=== PATIENT | male | born 1930 | race Caucasian/White ===

== ENCOUNTER 2017-02-28 09:01 | Inpatient (IN) | payer OTHER ==
--- NOTE | 2017-02-28 09:06 | EDPHY ---
H & P Time Seen by Provider: 02/28/17 09:01 HPI/ROS: CHIEF COMPLAINT: Black and bloody stools HISTORY OF PRESENT ILLNESS: Arrives with 8 episodes since midnight of bloody stools, a little bit dizzy. Lowest systolic blood pressure by EMS was 102. Currently the patient has no complaints, had another bloody bowel movement at 9: 28 a.m. No history of ulcer or lower GI bleed, not anticoagulated. REVIEW OF SYSTEMS: Eye: no change in vision ENT: no sore throat Cardiac: no chest pain or syncope Pulmonary: no cough or SOB Abdomen: HPI no vomiting Musculoskeletal: no back pain Skin: no rash Neuro: no headache Constitutional: no fever : no urinary symptoms A comprehensive 10 point review of systems is otherwise negative aside from elements mentioned in the history of present illness. PAST MEDICAL HISTORY: Not anticoagulated. hypertension, gout, thyroid, prostate cancer. Social history: [place] Assisted resident General Appearance: Alert and conversant, cooperative. Eyes: Pale conjunctiva. ENT, Mouth: Normal mucous membranes. Respiratory: Normal respiratory effort, breath sounds equal, lungs are clear to auscultation. Cardiovascular: Regular rate and rhythm. Gastrointestinal: Abdomen is soft and non tender. Rectal exam shows maroon stool. Neurological: Alert and oriented x3. Normally conversant. Face symmetric, normal movement and sensation in all extremities. Skin: Warm and dry, no rashes. Musculoskeletal: 1 to 2+ peripheral edema in all 4 extremities. Psychiatric: Not agitated. Emergency Department course/MDM: Discussed with the patient's daughter. IV fluid resuscitation 1 L, and transfusion ordered for hemoglobin 6 and hematocrit 18 with active bleeding. Admission to ICU. 1016: Patient emergently transfused with O-positive packed red blood cells with active bleeding, laboratory hematocrit 16, blood pressure just over 100 systolic. It is my clinical impression that risk of non crossmatched blood outweighed by potential benefit and replacing red blood cells in an 87-year-old man with active bleeding and severe anemia. Constitutional: Initial Vital Signs Temperature (C) 37.2 C 02/28/17 09:12 Heart Rate 97 02/28/17 09:12 Respiratory Rate 18 02/28/17 09:12 Blood Pressure 109/49 L 02/28/17 09:12 O2 Sat (%) 90 L 02/28/17 09:12 O2 Delivery Mode Nasal Cannula O2 (L/minute) 4 Allergies/Adverse Reactions: oxycodone [From Tylox] Allergy (Verified 02/28/17 09:16) Home Medications: Medication Instructions Recorded Acetaminophen [Tylenol 650/20.3ML 650 mg PO DAILY PRN 02/28/17 Oral Liq (*)] Allopurinol [Allopurinol 100 MG 100 mg PO DAILY 02/28/17 (*)] Bicalutamide [Casodex (*)] 50 mg PO DAILY 02/28/17 Fluticasone Nasal [Flonase Nasal 1 sprays NASAL DAILY 02/28/17 [place] (RX)] Hydrochlorothiazide [HCTZ (*)] 25 mg PO DAILY 02/28/17 Levothyroxine [Synthroid 25 mcg 25 mcg PO DAILY06 02/28/17 (*)] Lisinopril [Zestril 40 mg (*)] 40 mg PO DAILY 02/28/17 Metoprolol Tartrate [Lopressor 50 50 mg PO BID 02/28/17 mg (*)] Simvastatin [Zocor] 40 mg PO DAILY 02/28/17 amLODIPine BESYLATE [Norvasc 10 mg 10 mg PO DAILY 02/28/17 (*)] Medical Decision Making - Diagnostics EKG Interpretation: 12-lead EKG interpreted by me; official reading is in trace master. My interpretation is sinus rhythm with interventricular conduction delay rate 90 Consult/Admit Bed Type: [place] [address] Critical Care Time: Critical care time spent by me, Dr. Veliz, exclusively with the care of this patient was 30 minutes, exclusive of PA or [employer] time and exclusive of separate procedures. The organ system at risk was gastrointestinal in hematologic and I ordered IV fluid resuscitation and packed red blood cells, discussion with hospitalist service to stabilize the patient and prevent worsening of the patient's condition. - Data Points Laboratory Results: Laboratory Results 02/28/17 09:20 02/28/17 09:20 02/28/17 02/28/17 02/28/17 09:20 09:20 09:20 WBC RBC Hgb POC Hgb Hct POC Hct MCV MCH MCHC RDW Plt Count MPV Neut % (Auto) Lymph % (Auto) Price % (Auto) Eos % (Auto) Baso % (Auto) Nucleat RBC Rel Count Absolute Neuts (auto) Absolute Lymphs (auto) Absolute Monos (auto) Absolute Eos (auto) Absolute Basos (auto) Absolute Nucleated RBC Immature Gran % Immature Gran # Platelet Estimate Giant Platelets Polychromasia Hypochromasia Oval Macrocytes Acanthocytes (Spur) Schistocytes Smear Review By PT 17.8 SEC H SEC (12.0-15.0) INR 1.47 H (0.83-1.16) APTT 25.8 SEC SEC (23.0-38.0) POC Sodium Sodium 142 mEq/L mEq/L (134-144) POC Potassium Potassium 4.7 mEq/L mEq/L (3.5-5.2) POC Chloride Chloride 102 mEq/L mEq/L (97-110) Carbon Dioxide 22 mEq/l mEq/l (22-31) Anion Gap 18 mEq/L H mEq/L (8-16) POC BUN BUN 38 mg/dL H mg/dL (7-23) Creatinine 0.9 mg/dL mg/dL (0.7-1.3) POC Creatinine Estimated GFR > 60 Glucose 166 mg/dL H mg/dL (70-100) POC Glucose Calcium 8.8 mg/dL mg/dL (8.5-10.4) Patient ABO/Rh O NEGATIVE Antibody Screen NEGATIVE Crossmatch IS Only See Detail 02/28/17 02/28/17 09:20 09:18 WBC 8.72 10^3/uL 10^3/uL (3.80-9.50) RBC 1.91 10^6/uL L 10^6/uL (4.40-6.38) Hgb 5.0 g/dL L* g/dL (13.7-17.5) POC Hgb 6.1 gm/dL L gm/dL (13.7-17.5) Hct 16.2 % L* % (40.0-51.0) POC Hct 18 % L % (40-51) MCV 84.8 fL fL (81.5-99.8) MCH 26.2 pg L pg (27.9-34.1) MCHC 30.9 g/dL L g/dL (32.4-36.7) RDW TNP Plt Count 205 10^3/uL 10^3/uL (150-400) MPV TNP Neut % (Auto) 81.0 % H % (39.3-74.2) Lymph % (Auto) 6.7 % L % (15.0-45.0) Price % (Auto) 7.3 % % (4.5-13.0) Eos % (Auto) 1.8 % % (0.6-7.6) Baso % (Auto) 0.3 % % (0.3-1.7) Nucleat RBC Rel Count 0.9 % H % (0.0-0.2) Absolute Neuts (auto) 7.06 10^3/uL H 10^3/uL (1.70-6.50) Absolute Lymphs (auto) 0.58 10^3/uL L 10^3/uL (1.00-3.00) Absolute Monos (auto) 0.64 10^3/uL 10^3/uL (0.30-0.80) Absolute Eos (auto) 0.16 10^3/uL 10^3/uL (0.03-0.40) Absolute Basos (auto) 0.03 10^3/uL 10^3/uL (0.02-0.10) Absolute Nucleated RBC 0.08 10^3/uL H 10^3/uL (0-0.01) Immature Gran % 2.9 % H % (0.0-1.1) Immature Gran # 0.25 10^3/uL H 10^3/uL (0.00-0.10) Platelet Estimate ADEQUATE (ADEQ) Giant Platelets PRESENT H Polychromasia 1+ H Hypochromasia 2+ H Oval Macrocytes 1+ H Acanthocytes (Spur) 1+ H Schistocytes 2+ H Smear Review By Pending PT INR APTT POC Sodium 140 mEq/L mEq/L (134-144) Sodium POC Potassium 4.4 mEq/L mEq/L (3.3-5.0) Potassium POC Chloride 102 mEq/L mEq/L (97-110) Chloride Carbon Dioxide Anion Gap POC BUN 36 mg/dL H mg/dL (7-23) BUN Creatinine POC Creatinine 1.0 mg/dL mg/dL (0.7-1.3) Estimated GFR Glucose POC Glucose 177 mg/dL H mg/dL (70-100) Calcium Patient ABO/Rh Antibody Screen Crossmatch IS Only Medications Given: Discontinued Medications Sodium Chloride (Ns) 1,000 mls @ 0 mls/hr IV EDNOW ONE; Wide Open PRN Reason: Protocol Stop: 02/28/17 09:23 Last Admin: 02/28/17 09:43 Dose: 1,000 mls Point of Care Test Results: 02/28/17 09:18 POC Sodium 140 POC Potassium 4.4 POC Chloride 102 POC BUN 36 H POC Creatinine 1.0 POC Glucose 177 H Departure - Departure Disposition: [facility] Inpatient Acute Clinical Impression: Lower GI bleed Condition: Serious
[2017-02-28] MEDS ORDERED: NS 1,000 ML IV ONE (09:22)
[2017-02-28 09:41] LABS: % IMMATURE GRANULYOCYTES 2.9 % (0.0-1.1); ABSOLUTE IMMATURE GRANULOCYTES 0.25 10^3/uL (0.00-0.10); ABSOLUTE NRBC COUNT 0.08 10^3/uL (0-0.01); ADD DIFF? NO; ATYPICAL LYMPHOCYTE FLAG 10 (0-99); LEFT SHIFT FLG 0 (0-99); LIPEMIA HEMOLYSIS FLAG 80 (0-99); MEAN CELL HEMOGLOBIN 26.2 pg (27.9-34.1); MEAN CELL HEMOGLOBIN CONCENTR. 30.9 g/dL (32.4-36.7); MEAN CELL VOLUME 84.8 fL (81.5-99.8); NRBC-AUTO% 0.9 % (0.0-0.2); PLATELET CLUMPS FLAG 60 (0-99); PLATELET COUNT 205 10^3/uL (150-400); RED BLOOD CELL COUNT 1.91 10^6/uL (4.40-6.38)
[2017-02-28 09:44] LABS: HEMATOCRIT 16.2 % (40.0-51.0)
[2017-02-28 09:46] LABS: ANION GAP 18 mEq/L (8-16); CALCIUM 8.8 mg/dL (8.5-10.4); CARBON DIOXIDE 22 mEq/l (22-31); CHLORIDE 102 mEq/L (97-110); CREATININE 0.9 mg/dL (0.7-1.3); GLOMERULAR FILTRATION RATE > 60; GLUCOSE 166 mg/dL (70-100); POTASSIUM 4.7 mEq/L (3.5-5.2); SODIUM 142 mEq/L (134-144)
[2017-02-28 09:55] LABS: INR 1.47 (0.83-1.16); PROTIME(PATIENT) 17.8 SEC (12.0-15.0)
[2017-02-28 09:56] LABS: APTT 25.8 SEC (23.0-38.0)
[2017-02-28 10:08] LABS: ADD MORPH? YES
[2017-02-28 10:12] LABS: ACANTHOCYTES 1+; GIANT PLATELETS PRESENT; HYPOCHROMIA 2+; MACROCYTES 1+; PLATELET ESTIMATE ADEQUATE (ADEQ); POLYCHROMASIA 1+; SCHISTOCYTES 2+
[2017-02-28 10:13] LABS: ADD SCAN? POS
--- NOTE | 2017-02-28 10:19 | CPEKG ---
Heart Rate: 92 RR Interval: 652 P-R Interval: 168 QRSD Interval: 108 QT Interval: 380 QTC Interval: 471 P [place]: -4 QRS [place]: -42 T Wave [place]: 123 EKG Severity - BORDERLINE ECG - EKG Impression: SINUS RHYTHM EKG Impression: BORDERLINE IVCD WITH LAD Electronically Signed By: Mynor Veliz 28-Feb-2017 10:22:43
[2017-02-28] MEDS ORDERED: ONDANSETRON 4 MG/2 ML VIAL IVP PRN (11:10)
[2017-02-28] MEDS ORDERED: ONDANSETRON DISINTEGRATING 4 MG TAB PO PRN (11:10)
[2017-02-28] MEDS ORDERED: ACETAMINOPHEN 325 MG TAB PO PRN (11:10)
--- NOTE | 2017-02-28 12:00 | GHP ---
[f rep st] HISTORY AND PHYSICAL DATE OF ADMISSION: 02/28/2017 HISTORY OF PRESENT ILLNESS: The patient is an 87-year-old gentleman with a history of prostate cancer and hypertension, as well as known diverticular disease, who presents today with multiple episodes of bright red blood per rectum. The last couple of days, he has had a diarrheal illness. It sounds like it has been going around the [facility] where he lives. He has had a couple episodes of nausea but no vomiting. He takes an occasional aspirin. No NSAIDs. Drinks alcohol daily. Does not take aspirin or anticoagulants. This morning, he woke up about 5 a.m. with need to have a bowel movement. He had multiple episodes of liquid bright red blood. He describes 1 time getting off the toilet and back to get his phone to call 911 and feeling lightheaded, dizzy , and weak. He has not hadprevious episodes prior to this. He has not vomited anything that looks like hematemesis or coffee grounds. It does not appear that he has had melena. REVIEW OF SYSTEMS: Complete 10-point review of systems conducted and negative except as noted in the HPI. PAST MEDICAL HISTORY: 1. Hypertension. 2. Prostate cancer with prostatectomy in the . 3. Gout. SOCIAL HISTORY: He lives at the [facility]. Lifelong no tobacco use. Originally from [place], [place]. Father was a field examiner. He now lives in the [facility]. His is in a memory care unit in [place]. FAMILY HISTORY: Parents . ALLERGIES: Oxycodone. HOME MEDICATIONS: Acetaminophen, amlodipine, hydrochlorothiazide, lisinopril, metoprolol, allopurinol, bicalutamide, fluticasone nasal spray, levothyroxine, and simvastatin. PHYSICAL EXAMINATION: PRESENTING VITALS: Blood pressure 109/49, pulse 97, breathing 18 times a minute, 98% on 4 L. GENERAL: Pale, no acute distress. Sclerae are anicteric. Oropharynx clear. Mucous membranes are moist. NECK: Supple without lymphadenopathy or JVD. LUNGS: Clear to auscultation bilaterally. HEART: S1, S2. ABDOMEN: Soft, nontender, nondistended. LOWER EXTREMITIES: Showed trace edema bilaterally. Calves are nontender. SKIN: Without rash. NEUROLOGIC: Nonfocal. LABS: White count is 8. Hemoglobin is 5. Hematocrit is 16. Platelets are 205. Coags: INR is 1.5. Sodium 142, potassium 4.7, chloride 102, bicarb 22. BUN 38, creatinine 0.9, glucose is 166. Calcium is 8.8. Chest x-ray, interpreted by me, shows no acute cardiopulmonary disease. EKG, interpreted by me, shows sinus at 92 with left axis deviation, normal intervals. There are no ST or T-wave changes. I discussed the case with Dr. Gavin Flores and Dr. Mynor Veliz. ASSESSMENT AND PLAN: An 87-year-old gentleman with acute likely lower gastrointestinal bleed. 1. Acute blood loss anemia. Patient is profoundly anemic, was symptomatic. They have ordered 2 units in the emergency department. I will order an additional two. 2. Gastrointestinal bleed. I suspect this is a lower gastrointestinal bleed. I do note his BUN of 38 which I suspect is hypovolemic. I think he does not have liver disease. He had 1 episode of nausea and discussed this with Dr. Flores. I think in light of his elevated BUN and age, we will go ahead and start him on some Protonix. 3. Hypertension. I am going to hold his angiotensin-converting enzyme inhibitor, diuretic, and beta john for now given his very low hematocrit and tachycardia. 4. Gout. Continue allopurinol. 5. Code. Do not resuscitate. 6. Disposition. Inpatient status. Ill. /[id number]/MODL MTDD
--- NOTE | 2017-02-28 12:59 | PDMN ---
Medical Necessity Medical necessity: M182 GIB lower- active gross bleeding per rectum with H/H 5.0 /16.2, 4 units ordered- Pt with O2 needs of 4L sats 90%. pt with lightheadedness, dizzy and weak. HX HTN, Prostate Ca., Gout. Assisted living resident. MD anticipates > 2 midnights ongoing med nec care.
--- NOTE | 2017-02-28 13:50 | GCON ---
[f rep st] CONSULTATION GI CONSULTATION DATE OF CONSULTATION: 02/28/2017 REASON FOR CONSULTATION: Melena and posthemorrhagic anemia. HISTORY OF PRESENT ILLNESS: The patient is an 87-year-old gentleman who has recently relocated from [place] to [place] to be near his daughter. His lives in assisted living. He is independent. I was asked to see the patient today by Dr. Will for new onset of melena and posthemorrhagic anemia. The patient states that he developed some nausea followed by passage of bright red blood per rectum this morning at 5 a.m. He complained of dizziness, lightheadedness, and fatigue. He called 911 and came to [facility]. He was noted to be profoundly anemic with a hemoglobin of 5 and platelet count of 205,000. HOME MEDICATIONS: Acetaminophen, amlodipine, hydrochlorothiazide, lisinopril, metoprolol, allopurinol, fluticasone nasal spray, levothyroxine, simvastatin, and bicalutamide. ALLERGIES: He is allergic to oxycodone. PAST MEDICAL HISTORY: Significant for hypertension, gout, hypothyroidism, and a history of prostate cancer with prostatectomy in the . His past endoscopic history is significant for a total colonoscopy which showed left- sided diverticulosis 5 years ago at a [facility] in [place]. There is no personal history of colon polyps. FAMILY HISTORY: Negative for GI malignancies. SOCIAL HISTORY: Negative for GI malignancies or PUD. REVIEW OF SYSTEMS: Significant for fatigue, melena, nausea, and lightheadedness. Otherwise negative for comprehensive review of systems. PHYSICAL EXAMINATION: VITAL SIGNS: On my examination today, his temperature is 37 degrees Celsius, pulse 91 and regular, blood pressure 147/82, respiratory rate is 16, O2 saturation 96% on 6 L. GENERAL: Well-developed, well-nourished gentleman, looking pale and fatigued. Otherwise in no apparent distress. HEENT : Head atraumatic, normocephalic. Pupils equal, round, reactive to light. Sclerae nonicteric, though pale. EOMs intact. Nares patent. Mucous membranes moist. NECK: Supple. Trachea midline. PULMONARY: Lungs clear to percussion and auscultation. CARDIOVASCULAR: Regular rhythm and rate. Normal S1 and S2 without murmur. Peripheral pulses strong bilaterally. No pedal edema. GASTROINTESTINAL: Abdomen supple. Positive bowel sounds. No liver or spleen tip palpable. No masses or tenderness. EXTREMITIES: Without deformity. NEURO : Patient was alert and oriented x3. There are no focal neurologic deficits. LABS: White count 8.72, hemoglobin 5.0, hematocrit 16.2, MCV 84.8, MCHC 30.9, platelets 205,000. Pro time 17.8, INR 1.47, PTT 25.8. Electrolytes normal. BUN 38, creatinine 0.9, calcium 8.8, glucose 166. IMPRESSION: 1. Acute gastrointestinal bleed, likely diverticular, though should rule out ischemic colitis, peptic ulcer, or cancer of the colon. 2. Posthemorrhagic anemia. 3. Prerenal azotemia. 4. Hypertension by history. 5. Gout by history. 6. Prostatic cancer, status post prostatectomy in the . 7. Hypothyroidism on replacement therapy. RECOMMENDATIONS: 1. Clear liquid diet. 2. Transfuse with packed units of red blood cells slowly to obtain a hemoglobin greater than 9. 3. Intravenous proton-pump inhibitor therapy for coverage for a possible occult peptic ulcer. 4. Colyte prep tomorrow. Once hemodynamically stable and hematocrit in a safe range, then will perform total colonoscopy and esophagogastroduodenoscopy for further evaluation. /[id number]/MODL MTDD
[2017-02-28 14:07] LABS: HEMATOCRIT 19.7 % (40.0-51.0)
[2017-02-28 14:11] LABS: HEMOGLOBIN 6.8 g/dL (13.7-17.5)
[2017-02-28] MEDS: PANTOPRAZOLE SODIUM 40 MG VIAL IVP SCH ×2 (16:05→19:58)
[2017-02-28] MEDS: NS 1,000 ML IV SCH ×2 (17:12→20:23)
[2017-02-28 18:47] LABS: HEMATOCRIT 22.1 % (40.0-51.0); HEMOGLOBIN 7.4 g/dL (13.7-17.5)
--- NOTE | 2017-03-01 02:57 | GCON ---
[f rep st] CONSULTATION CRITICAL CARE CONSULT DATE OF CONSULTATION: 02/28/2017 HISTORY OF PRESENT ILLNESS: This patient is an 87-year-old male with a history of prostate cancer an d hypertension, who also was known to have diverticulosis on a colonoscopy about 5 years ago. He pre sented today to the emergency department with several episodes of bright red blood per rectum. He sa id that over the last several days, he has had what he thought was a viral gastroenteritis, which has been present in his snf facility. He had very little abdominal pain, does drink alcohol , but did not have any NSAIDs or anticoagulants. In the emergency department, he was hemodynamically stable, but his hemoglobin was 5. He was transfused some blood, tolerated this well, and remained h emodynamically stable. A GI consult was obtained and an eventual colonoscopy is planned. REVIEW OF SYSTEMS: Otherwise, negative. PAST MEDICAL HISTORY: Includes: 1. Hypertension. 2. Prostate cancer. 3. Gout. 4. Chronic lower extremity edema. 5. Chronic sinusitis. 6. Hypothyroid. PAST SURGICAL HISTORY: Includes prostatectomy in the past. SOCIAL HISTORY: He is a nonsmoker. Does drink alcohol daily, but no alcohol-related illnesses. Jose E li from [place]. FAMILY HISTORY: Noncontributory at this time. CURRENT MEDICATIONS: Include Tylenol, allopurinol, Lipitor, Casodex, Flonase, Synthroid, Protonix. PHYSICAL EXAMINATION: Vital signs include a blood pressure 92/75, heart rate of 91, he is afebrile, oxygen saturation 97% on 4 L. He was an obese male, but in no apparent distress and able to speak in full sentences without using accessory muscles for breathing. Pupils equally round and reactive to light, nonicteric and noninjected. Mucous membranes are moist without erythema or exudate. Neck was supple, without adenopathy or jugular vein distention. Breath sounds were clear to auscultation lauro aterally without wheezes or rales. Heart had a regular rate and rhythm without obvious murmur. Abdo men was soft, nontender, nondistended, without hepatosplenomegaly. No guarding and no rebound. Extr emities did show 2+ edema bilaterally, but no erythema. Neurological exam is nonfocal including cran ial nerves and deep tendon reflexes. OBJECTIVE DATA: Includes a white count of 8.7, hemoglobin 5, hematocrit 16, platelets of 205. Basic metabolic panel was essentially normal, save for a BUN of 38. INR was 1.47. LFTs were not obtained . ASSESSMENT AND PLAN: 1. Lower gastrointestinal bleed. I agree this is likely diverticular in nature. I think an upper g astrointestinal bleed is unlikely, but he is placed on Protonix at this time and will eventually get a colonoscopy. He appears to be tolerating this reasonably well. I think a slow transfusion is in o rder since he is hemodynamically quite stable at this time. 2. Lower extremity edema. This may be related to liver disease and/or heart failure, or calcium varinder nnel john that he has been previously on. I do not see a major urgency with this. He denied the symptoms of sleep apnea and other causes of pulmonary hypertension at this time,, but I think an echo cardiogram would be useful. We will also look at his liver function tests in the morning and proceed from there. /[id number]/MODL
[2017-03-01] MEDS: LEVOTHYROXINE 25 MCG TAB PO SCH (05:23)
[2017-03-01 05:54] LABS: % IMMATURE GRANULYOCYTES 2.3 % (0.0-1.1); ABSOLUTE IMMATURE GRANULOCYTES 0.15 10^3/uL (0.00-0.10); ABSOLUTE NRBC COUNT 0.04 10^3/uL (0-0.01); ADD DIFF? NO; HEMATOCRIT 22.6 % (40.0-51.0); HEMOGLOBIN 7.8 g/dL (13.7-17.5); MEAN CELL HEMOGLOBIN 28.8 pg (27.9-34.1); MEAN CELL HEMOGLOBIN CONCENTR. 34.5 g/dL (32.4-36.7); MEAN CELL VOLUME 83.4 fL (81.5-99.8); NRBC-AUTO% 0.6 % (0.0-0.2); PLATELET COUNT 126 10^3/uL (150-400); RED BLOOD CELL COUNT 2.71 10^6/uL (4.40-6.38)
[2017-03-01 05:55] LABS: ADD SCAN? NO
[2017-03-01 05:56] LABS: ADD MORPH? YES
[2017-03-01 06:36] LABS: PLATELET ESTIMATE ADEQUATE (ADEQ)
[2017-03-01 06:42] LABS: HYPOCHROMIA 2+; POLYCHROMASIA 1+; SCHISTOCYTES 1+
[2017-03-01 06:45] LABS: ALANINE AMINOTRANSFERASE 31 IU/L (21-72); ALBUMIN 2.5 g/dL (3.5-5.0); ALKALINE PHOSPHATASE 39 IU/L (38-126); ANION GAP 7 mEq/L (8-16); ASPARTATE AMINOTRANSFERASE 22 IU/L (17-59); BILIRUBIN-CONJUGATED 0.1 mg/dL (0.0-0.5); BILIRUBIN-UNCONJUGATED 0.9 mg/dL (0.0-1.1); CALCIUM 8.1 mg/dL (8.5-10.4); CARBON DIOXIDE 28 mEq/l (22-31); CHLORIDE 106 mEq/L (97-110); CREATININE 0.6 mg/dL (0.7-1.3); GLOMERULAR FILTRATION RATE > 60; GLUCOSE 101 mg/dL (70-100); POTASSIUM 3.8 mEq/L (3.5-5.2); SODIUM 141 mEq/L (134-144); TOTAL PROTEIN 4.7 g/dL (6.3-8.2)
[2017-03-01] MEDS ORDERED: NON-FORMULARY NEW DRUG (Simvastatin [Zocor] 40 MG) PO SCH (09:00)
[2017-03-01] MEDS: ATORVASTATIN CALCIUM 20 MG TAB PO SCH (09:04)
[2017-03-01] MEDS: BICALUTAMIDE 50 MG TAB PO SCH (09:04)
[2017-03-01] MEDS: PANTOPRAZOLE SODIUM 40 MG VIAL IVP SCH ×2 (09:04→20:15)
[2017-03-01] MEDS: ALLOPURINOL 100 MG TAB PO SCH (09:04)
[2017-03-01] MEDS: FLUTICASONE NASAL 120 SPRAYS/16 GM MDI NS SCH (10:00)
--- NOTE | 2017-03-01 10:02 | ASMTCMCOM ---
INÉS Note CM Note Notes: 87 year old male who lives at [facility] admitted for lower GIB. Patient is a daily drinker of ETOH and smoker. He has a hx of Prostate CA, HTN, Gout. Sudha son Jace is his MPOA. Therapies to INÉS lee to follow for discharge needs. Date Signed: 03/01/2017 10:01 AM Electronically Signed By:Tanya Poole LCSW
[2017-03-01] MEDS ORDERED: FUROSEMIDE 20 MG/2 ML VIAL IVP ONE (10:54)
--- NOTE | 2017-03-01 11:00 | HOSPPROG ---
Hospitalist Progress Note Assessment/Plan: 87 yo M LGIB ABLA: source likely lower GI GI bleed: likely diverticular endoscopy when stabilized hypoxemia: suspect volume overload from volume resuscitation check cxr lasix IV X 1 dysphagia: CONDENSER SETTER to see today prostate CA: casodex proph: scd's code: dnr Subjective: case d/w rika vargas. transfused 4 units, still anemic. no further bloody diarrhea Objective: Vital Signs Temp Pulse Resp BP Pulse Ox 36.7 C 83 20 133/55 H 98 03/01/17 08:00 03/01/17 10:00 03/01/17 10:00 03/01/17 10:00 03/01/17 10:00 Laboratory Results 03/01/17 05:20 03/01/17 05:20 02/28/17 03/01/17 03/02/17 05:59 05:59 05:59 Intake Total 5389 Output Total 100 Balance 5289 PT 17.8 SEC (12.0-15.0) H 02/28/17 09:20 INR 1.47 (0.83-1.16) H 02/28/17 09:20 - Physical Exam Constitutional: no apparent distress, appears nourished Eyes: PERRL, anicteric sclera Ears, Nose, Mouth, Throat: moist mucous membranes, hearing normal Cardiovascular: regular rate and rhythym, no murmur, rub, or gallop Respiratory: no respiratory distress, no rales or rhonchi Gastrointestinal: normoactive bowel sounds, soft, non-tender abdomen Genitourinary: no bladder fullness, No ngo in urethra Skin: warm, normal color Musculoskeletal: full muscle strength, no muscle tenderness Neurologic: AAOx3, sensation intact bilaterally ICD10 Worksheet Patient Problems: Problems Problem Status Onset Lower GI bleed Acute
[2017-03-01] MEDS: NS 1,000 ML IV SCH (12:39)
--- NOTE | 2017-03-01 12:55 | ECHO ---
[email or web address] [address] [address] Main: [phone] Fax: [email or web address] Echocardiogram Name: SHAMAR RODRIGUEZ MR#: [id number] Study Date: 03/01/2017 Study Time: 07:44 AM Date of : 1930 Age: 87 year(s) Height: 182.9 cm (72 in.) Weight: 81.65 kg (180 lb.) BSA: 2.04 m2 Gender: Male Examination: Echo Indication: Edema Image Quality: Contrast: Requested by: Aaron Gresham BP: 135 mmHg/60 mmHg Heart Rate: Rhythm: Indication: Edema Procedure Staff Monorail Car Operator: Sariah Kennedy Reading Physician: Harpal Orozco Requesting Provider: Conclusions: Left ventricle upper limits of normal. Normal global systolic LV function. The ejection fraction is estimated to be 65-70 %. No regional wall motion abnormality. The left atrium is mildly to moderately dilated. Moderate mitral annular calcification. Mild mitral valve regurgitation is present. Severe aortic valve calcification is present. Mild to moderate aortic valve regurgitation. Moderate tricuspid regurgitation is present. The pulmonary artery pressure is mildly increased. RVSP is 53mmHG.. Measurements: Chambers Valvular Assessment AV/MV Valvular Assessment TV/PV Normal Normal Normal Name Value Range Name Value Range Name Value Range Ao Radha (MM): 4.3 cm (2.2 cm-3.7 AV meanP mmHg ( - ) TR Vmax: 3.28 mm/s ( - ) cm) LVOT Vmax: 0.84 m/s (0.7 m/s-1.1 TR PGmax: 43 mmHg ( - ) IVSd (2D): 0.6 cm (0.6 cm-1.1 m/s) syst. PAP: 53 mmHg ( - ) cm) RHODA (VTI): 1.9 cm ( - ) LVDd (2D): 5.9 cm (4.2 cm-5.9 cm) LVDs (2D): 4.3 cm (2.1 cm-4 cm) LVPWd (2D): 0.8 cm (0.6 cm-1 cm) LVOTd 2.5 cm 2.5 cm mm LVEF (MOD4): 64 % (>=55 %) EF Range: 65-70 % Patient: SHAMAR RODRIGUEZ Study Date: 03/01/2017 Page 1 of 2 07:44 AM Continued Measurements: Chambers Valvular Assessment TV/PV Name Value Name Value LADs: 4.4 cm CVP (est.): 10 mmHg LADs Lon.4 cm LA Area: 30.9 cm2 Findings: Left Ventricle: Left ventricle upper limits of normal. Normal global systolic LV function. The ejection fraction is estimated to be 65-70 %. No regional wall motion abnormality. Right Ventricle: Normal size right ventricle. Left Atrium: The left atrium is mildly to moderately dilated. Right Atrium: The right atrium is mildly dilated. Mitral Valve: Moderate mitral annular calcification. Mild mitral valve regurgitation is present. Aortic Valve: Severe aortic valve calcification is present. Mild to moderate aortic valve regurgitation. AV max PG is 19mmHG. AV mean PG is 11mmHG.. Tricuspid Valve: The tricuspid valve appears normal. Moderate tricuspid regurgitation is present. The pulmonary artery pressure is mildly increased. RVSP is 53mmHG.. Pericardium: No pericardial effusion. No pleural effusion. (No Signature Object) Patient: SHAMAR RODRIGUEZ Study Date: 03/01/2017 Page 2 of 2 07:44 AM [id number]
[2017-03-01 13:03] LABS: HEMATOCRIT 27.2 % (40.0-51.0); HEMOGLOBIN 9.1 g/dL (13.7-17.5)
[2017-03-01 13:26] LABS: INR 1.18 (0.83-1.16)
[2017-03-01] MEDS ORDERED: PEG 3350/NA SULF,BICARB,CL/KCL (GAVILYTE-G) 4000 ML BTL PO ONE (16:03)
--- NOTE | 2017-03-01 16:39 | PDINTPN ---
Ware Tester Progress Note Assessment/Plan: Assessment/plan: 87 M admitted 02/28/17 complaining of BRBPR and found to have Hgb of 5 without hypotension or major tachycardia. No coagulopathy. Transfused 4 units PRBC with improved H/H and stable hemodynamics. * LGIB- likely diverticular and GI planning colonoscopy 03/02. Stable BP suggests slow chronic bleed. * JACOB- 2+ bilateral. Possible etiologies include calcium channel john antihypertensive and albumin 2.5. His LFTs were normal and his echo not likely a big contributor (EF 65, mild-moderate AR, estimated PA 53). * hypoxia-CXR shows some edema and was treated with low dose lasix today. Subjective: Stable overnight without new complaints. Difficult to arouse from sleep. Objective: Vital Signs Temp Pulse Resp BP Pulse Ox 37.7 C 81 22 H 133/66 H 97 03/01/17 16:00 03/01/17 16:00 03/01/17 16:00 03/01/17 16:00 03/01/17 16:00 Laboratory Results 03/01/17 12:40 03/01/17 05:20 02/28/17 03/01/17 03/02/17 05:59 05:59 05:59 Intake Total 5389 Output Total 100 Balance 5289 PT 15.0 SEC (12.0-15.0) 03/01/17 12:40 INR 1.18 (0.83-1.16) H 03/01/17 12:40 Physical Exam - Physical Exam General Appearance: alert, other (slow to wake), No no apparent distress EENT: PERRL/EOMI Neck: supple Respiratory: crackles (bases), No respiratory distress Cardiac/Chest: regular rate, rhythm, edema, other (paced) Abdomen: normal bowel sounds, non-tender, soft, No distended Skin: normal color, warm/dry Lymphatic: no adenopathy Extremities: pedal edema Neuro/Psych: alert, normal mood/affect, oriented x 3 ICD10 Worksheet Patient Problems: Problems Problem Status Onset Lower GI bleed Acute
--- NOTE | 2017-03-01 17:01 | SOAPPROG ---
SOAP Progress Note Assessment/Plan: Assessment: GI Bleed; resolved. R/O PUD or GI malignancy. 2. Post-hemorrhagic anemia; stabilized after transfusions of prbcs. Plan: 1. Clears liquids today. 2. Colyte prep. 3. NPO after MN. 4. EGD/Colonoscopy with propofol in am. Gavin Flores MD 03/01/17 16:57 Subjective: CC: Melena. Interval HPI: No further melena. Feeling better after transfusions of prbcs. Swallow study today without significant abnormalities. Objective: Vital Signs Temp Pulse Resp BP Pulse Ox 37.7 C 81 22 H 133/66 H 97 03/01/17 16:00 03/01/17 16:00 03/01/17 16:00 03/01/17 16:00 03/01/17 16:00 Laboratory Results 03/01/17 12:40 03/01/17 05:20 02/28/17 03/01/17 03/02/17 05:59 05:59 05:59 Intake Total 5389 Output Total 100 Balance 5289 PT 15.0 SEC (12.0-15.0) 03/01/17 12:40 INR 1.18 (0.83-1.16) H 03/01/17 12:40 Physical Exam - Physical Exam General Appearance: WD/WN, alert, no apparent distress Neck: supple Respiratory: chest non-tender, lungs clear Cardiac/Chest: normal peripheral pulses, regular rate, rhythm Abdomen: normal bowel sounds, non-tender, soft Skin: warm/dry Neuro/Psych: alert, normal mood/affect, oriented x 3 ICD10 Worksheet Patient Problems: Problems Problem Status Onset Lower GI bleed Acute
[2017-03-01 18:36] LABS: HEMATOCRIT 32.2 % (40.0-51.0); HEMOGLOBIN 11.3 g/dL (13.7-17.5)
[2017-03-02 00:39] LABS: POTASSIUM 3.3 mEq/L (3.5-5.2)
[2017-03-02] MEDS ORDERED: PROTOCOL MAGNESIUM 1 DOSE IV PRN (00:59)
[2017-03-02] MEDS ORDERED: PROTOCOL POTASSIUM 1 DOSE MISC PRN (00:59)
[2017-03-02] MEDS ORDERED: PROTOCOL K PHOSPHATE 1 DOSE IV PRN (00:59)
[2017-03-02] MEDS ORDERED: PROTOCOL CALCIUM 1 DOSE IV PRN (01:04)
[2017-03-02] MEDS: POTASSIUM Cl (KCl) 50 ML IV SCH ×3 (01:22→01:25)
[2017-03-02 04:31] LABS: IONIZED CALCIUM 1.11 MMOL/L (1.12-1.30)
[2017-03-02] MEDS: LEVOTHYROXINE 25 MCG TAB PO SCH (04:35)
[2017-03-02] MEDS ORDERED: CALCIUM GLUCONATE 50 ML IV ONE (04:36)
[2017-03-02 04:50] LABS: % IMMATURE GRANULYOCYTES 1.4 % (0.0-1.1); ABSOLUTE IMMATURE GRANULOCYTES 0.09 10^3/uL (0.00-0.10); ABSOLUTE NRBC COUNT 0.02 10^3/uL (0-0.01); ADD DIFF? NO; ADD MORPH? YES; ADD SCAN? NO; ATYPICAL LYMPHOCYTE FLAG 0 (0-99); HEMATOCRIT 28.1 % (40.0-51.0); HEMOGLOBIN 9.6 g/dL (13.7-17.5); LEFT SHIFT FLG 0 (0-99); LIPEMIA HEMOLYSIS FLAG 90 (0-99); MEAN CELL HEMOGLOBIN 29.6 pg (27.9-34.1); MEAN CELL HEMOGLOBIN CONCENTR. 34.2 g/dL (32.4-36.7); MEAN CELL VOLUME 86.7 fL (81.5-99.8); NRBC-AUTO% 0.3 % (0.0-0.2); PLATELET CLUMPS FLAG 40 (0-99); PLATELET COUNT 97 10^3/uL (150-400); RED BLOOD CELL COUNT 3.24 10^6/uL (4.40-6.38)
[2017-03-02 04:52] LABS: FRAGMENT RBC FLAG 110 (0-99); RED CELL DISTRIBUTION WIDTH 23.6 % (11.5-15.2)
[2017-03-02 05:06] LABS: ANION GAP 7 mEq/L (8-16); CALCIUM 7.9 mg/dL (8.5-10.4); CARBON DIOXIDE 31 mEq/l (22-31); CHLORIDE 103 mEq/L (97-110); CREATININE 0.5 mg/dL (0.7-1.3); GLOMERULAR FILTRATION RATE > 60; GLUCOSE 87 mg/dL (70-100); MAGNESIUM 1.8 mg/dL (1.6-2.3); POTASSIUM 3.8 mEq/L (3.5-5.2); SODIUM 141 mEq/L (134-144)
[2017-03-02 05:21] LABS: HYPOCHROMIA 2+; PLATELET ESTIMATE DECREASED (ADEQ); POLYCHROMASIA 1+; SCHISTOCYTES 1+
[2017-03-02] MEDS ORDERED: MAGNESIUM SULF 1 GM/DEXTROSE 100 ML IV ONE ×2 (06:27→16:15)
[2017-03-02] MEDS ORDERED: POTASSIUM Cl (KCl) 50 ML IV ONE ×2 (06:27→16:15)
[2017-03-02] MEDS: NS 1,000 ML IV SCH (06:48)
[2017-03-02] MEDS ORDERED: LR 1,000 ML IV ONE (08:45)
--- NOTE | 2017-03-02 09:06 | PDANEPAE ---
ANE Past Medical History - Cardiovascular History Hx Hypertension: Yes - Pulmonary History Hx Oxygen in Use at Home: No Hx Sleep Apnea: Yes Sleep Apnea Screening Result - Last Documented: Positive - Endocrine History Hx Diabetes: No - Chronic Pain History Chronic Pain: No ANE Review of Systems Review of Systems: ANE Patient History - Allergies Allergies/Adverse Reactions: oxycodone [From Tylox] Allergy (Verified 02/28/17 09:16) - Home Medications Home Medications: Acetaminophen [Tylenol 650/20.3ML Oral Liq (*)] 650 mg PO DAILY PRN 02/28/17 [ Last Taken Unknown] Allopurinol [Allopurinol 100 MG (*)] 100 mg PO DAILY 02/28/17 [Last Taken Unknown] Bicalutamide [Casodex (*)] 50 mg PO DAILY 02/28/17 [Last Taken Unknown] Fluticasone Nasal [Flonase Nasal Dickerson (RX)] 1 sprays NASAL DAILY 02/28/17 [ Last Taken Unknown] Hydrochlorothiazide [HCTZ (*)] 25 mg PO DAILY 02/28/17 [Last Taken Unknown] Levothyroxine [Synthroid 25 mcg (*)] 25 mcg PO DAILY06 02/28/17 [Last Taken Unknown] Lisinopril [Zestril 40 mg (*)] 40 mg PO DAILY 02/28/17 [Last Taken Unknown] Metoprolol Tartrate [Lopressor 50 mg (*)] 50 mg PO BID 02/28/17 [Last Taken Unknown] Simvastatin [Zocor] 40 mg PO DAILY 02/28/17 [Last Taken Unknown] amLODIPine BESYLATE [Norvasc 10 mg (*)] 10 mg PO DAILY 02/28/17 [Last Taken Unknown] - NPO status NPO Since - Liquids (Date): 03/01/17 NPO Since - Liquids (Time): 23:59 NPO Since - Solids (Date): 03/01/17 NPO Since - Solids (Time): 23:59 - Anes Hx Anes Hx: no prior problems - Smoking Hx Smoking Status: Former smoker - Alcohol Use Alcohol Use: Occasionally ANE Labs/Vital Signs - Labs Result Diagrams: 03/02/17 04:28 03/02/17 04:28 - Vital Signs Blood Pressure: 128/55 Heart Rate: 88 Respiratory Rate: 24 O2 Sat (%): 95 Height: 182.88 cm Weight: 81.67 kg ANE Physical Exam - Airway Mallampati Score: Class 2 - ASA Status ASA Status: III ANE Anesthesia Plan Total IV Anesthesia: Yes
[2017-03-02] MEDS ORDERED: PROPOFOL 200 MG/20 ML VIAL ONE (09:07)
--- NOTE | 2017-03-02 09:30 | GIREPORT ---
[facility] Surgical Services - Endoscopy Department Patient Name: Nacho Greer Procedure Date: 03/02/2017 9:08 AM Patient Type: Inpatient Attending MD/ ER Physician: Gavin Flores MD Procedure: Upper GI endoscopy Indications: Acute post hemorrhagic anemia, Heartburn, Melena Providers: Gavin Flores MD Medicines: Monitored Anesthesia Care Complications: No immediate complications. Description of Procedure: After obtaining informed consent, the endoscope was passed under direct vision. Throughout the procedure, the patient's blood pressure, pulse, and oxygen saturations were monitored continuously. The Endoscope was intro duced through the mouth, and advanced to the second part of duodenum. The [facility] er GI endoscopy was accomplished without difficulty. The patient tolerated th e procedure well. Findings: The examined esophagus was normal. Patchy moderate inflammation characterized by erosions and granularity was found in the gastric body and in the gastric antrum. Biopsies were take n with a cold forceps for histology. The examined duodenum was normal. Estimated Blood Loss: Estimated blood loss: none. Post Op Diagnosis: - Normal esophagus. - Gastritis. Biopsied. - Normal examined duodenum. Recommendation: - Perform a colonoscopy today. Attending Participation: I personally performed the entire procedure. Gavin Flores MD Gavin Flores MD 03/02/2017 9:29:55 AM This report has been signed electronicallyJoazalia Flores MD Number of Addenda: 0 Note Initiated On: 03/02/2017 9:08 AM [email or web address]
--- NOTE | 2017-03-02 09:51 | GIREPORT ---
[facility] Surgical Services - Endoscopy Department Patient Name: Nacho Greer Procedure Date: 03/02/2017 9:47 AM Patient Type: Inpatient Attending MD/ ER Physician: Gavin Flores MD Procedure: Colonoscopy Indications: Melena, Acute post hemorrhagic anemia Providers: Gavin Flores MD Medicines: Monitored Anesthesia Care Complications: No immediate complications. Description of Procedure: After obtaining informed consent, the scope was passed under direct vis ion. Throughout the procedure, the patient's blood pressure, pulse, and oxyg en saturations were monitored continuously. The Colonoscope was introduced through the anus and advanced to the sigmoid colon. The colonoscopy was extremely difficult due to multiple diverticula in the colon, bowel weston nosis and a tortuous colon. The patient tolerated the procedure well. The oleksandr lity of the bowel preparation was fair. Findings: Multiple diverticula were found in the distal sigmoid colon. The rectum appeared normal. The perianal and digital rectal examinations were normal. Estimated Blood Loss: Estimated blood loss: none. Post Op Diagnosis: - Preparation of the colon was fair. - Diverticulosis in the distal sigmoid colon. - The rectum is normal. - No specimens collected. Recommendation: - [facility]. - Perform a virtual colonoscopy today. Attending Participation: I personally performed the entire procedure. Gavin Flores MD Gavin Flores MD 03/02/2017 9:50:59 AM This report has been signed electronicallyGavin Flores MD Number of Addenda: 0 Note Initiated On: 03/02/2017 9:47 AM [email or web address]
[2017-03-02] MEDS ORDERED: NALOXONE HCL 0.4 MG/ML INJ IVP PRN (10:01)
[2017-03-02] MEDS ORDERED: LR 500 ML IV PRN (10:01)
[2017-03-02] MEDS ORDERED: fentaNYL 100 MCG/2 ML INJ IVP PRN (10:01)
--- NOTE | 2017-03-02 10:03 | POSTANESTH ---
Post Anesthetic Evaluation Cardiovascular Status: Similar to Pre-Op Cond Respiratory Status: Similar to Pre-op Cond. Level of Consciousness/Mental Status: Can Participate in Eval Pain Control: Adequate, Prn Tx Ordered Nausea/Vomiting Control: Adequate, Prn Tx Ordered Complications Possibly Related to Anesthesia: None Noted
--- NOTE | 2017-03-02 11:52 | HOSPPROG ---
Hospitalist Progress Note Assessment/Plan: # GIB - EGD with gastritis; colonoscopy technically difficult - check virtual colonoscopy today - cont protonix, can likely change to PO soon # ABLA d/t above - s/p 6U PRBC # acute hypoxic resp failure - suspect volume - lasix 20 IV x 1 # LUE edema - check US; also has some LE edema # prostate ca s/p prostatectomy - casodex # htn - holding meds now # hypothyroid - synthroid Subjective: s/p EGD and colonoscopy today; tolerated well Objective: Vital Signs Temp Pulse Resp BP Pulse Ox 36.8 C 94 25 H 143/72 H 94 03/02/17 11:02 03/02/17 11:02 03/02/17 11:02 03/02/17 11:02 03/02/17 11:02 Laboratory Results 03/02/17 04:28 03/02/17 04:28 03/01/17 03/02/17 03/03/17 05:59 05:59 05:59 Intake Total 5389 7064 100 Output Total 100 3400 Balance 5289 3664 100 PT 15.0 SEC (12.0-15.0) 03/01/17 12:40 INR 1.18 (0.83-1.16) H 03/01/17 12:40 chart reviewed discussed with Dr Gresham on ICU rounds op notes reviewed - Physical Exam Constitutional: no apparent distress, appears nourished Cardiovascular: regular rate and rhythym, no murmur, rub, or gallop Respiratory: no respiratory distress, no rales or rhonchi, clear to auscultation Gastrointestinal: normoactive bowel sounds, soft, non-tender abdomen, no palpable masses ICD10 Worksheet Patient Problems: Problems Problem Status Onset Lower GI bleed Acute
--- NOTE | 2017-03-02 14:10 | PDINTPN ---
Mental Health Orderly Progress Note Assessment/Plan: Assessment/plan: 87 M admitted 02/28/17 complaining of BRBPR and found to have Hgb of 5 without hypotension or major tachycardia. No coagulopathy. Transfused 4 units PRBC with improved H/H and stable hemodynamics. * LGIB- likely diverticular and as found on colonoscopy 03/02. Stable BP suggests slow chronic bleed. * JACOB- 2+ bilateral. Possible etiologies include calcium channel john antihypertensive and albumin 2.5. His LFTs were normal and his echo not likely a big contributor (EF 65, mild-moderate AR, estimated PA 53). * hypoxia-CXR shows some edema and was treated with low dose lasix 03/01. Encourage IS, but would hold lasix today 03/02/17 14:08 Objective: Vital Signs Temp Pulse Resp BP Pulse Ox 36.8 C 100 26 H 135/60 H 95 03/02/17 11:02 03/02/17 12:00 03/02/17 12:00 03/02/17 12:00 03/02/17 12:00 Laboratory Results 03/02/17 04:28 03/02/17 04:28 03/01/17 03/02/17 03/03/17 05:59 05:59 05:59 Intake Total 5389 7064 100 Output Total 100 3400 Balance 5289 3664 100 PT 15.0 SEC (12.0-15.0) 03/01/17 12:40 INR 1.18 (0.83-1.16) H 03/01/17 12:40 Physical Exam - Physical Exam General Appearance: no apparent distress EENT: PERRL/EOMI Respiratory: decreased breath sounds, rales Cardiac/Chest: regular rate, rhythm, edema Abdomen: non-tender, soft, No distended Skin: normal color, warm/dry Lymphatic: no adenopathy Extremities: pedal edema Neuro/Psych: normal mood/affect, oriented x 3 ICD10 Worksheet Patient Problems: Problems Problem Status Onset Lower GI bleed Acute
[2017-03-02] MEDS: ATORVASTATIN CALCIUM 20 MG TAB PO SCH (14:34)
[2017-03-02] MEDS: ALLOPURINOL 100 MG TAB PO SCH (14:34)
[2017-03-02] MEDS: BICALUTAMIDE 50 MG TAB PO SCH (14:35)
[2017-03-02] MEDS: PANTOPRAZOLE SODIUM 40 MG VIAL IVP SCH (14:35)
[2017-03-02] MEDS: FLUTICASONE NASAL 120 SPRAYS/16 GM MDI NS SCH (15:23)
[2017-03-02] MEDS ORDERED: POTASSIUM Cl (KCl) 20 MEQ/50 ML BAG IV ONE (16:24)
[2017-03-02 19:01] LABS: HEMOGLOBIN 6.4 g/dL (13.7-17.5)
[2017-03-02] MEDS: PANTOPRAZOLE SODIUM 80 MG in NS 100 ML IV SCH (20:24)
[2017-03-02] MEDS ORDERED: NS BOLUS 500 ML (Wide open) IV ONE (20:30)
--- NOTE | 2017-03-02 20:36 | HOSPPROG ---
Hospitalist Progress Note Assessment/Plan: I was called to the pt's bedside due to acute drop in Hgb, Hypotension, and tachycardia. Hgb has dropped to 6.4 He is hypotensive with a BP of 92/50. Was 143 at some point today He has some weakness but denies abd pain, chest pain, SOB, or other. O: VS reviewed pale NAD AAOX3 TACHY CTAB S/NT/ND NO LE EDEMA #Acute blood loss anemia #Hypotension #Tachycardia #GI Bleed I have ordered a NS bolus and his BP has responded well to it. BP now around 127 systolic. Tachycardia 110's. Stat PRBC 2 units will be transfused ICU status NPO Protonix drip He has required Lasix previously but will not order at this time GI following, may need more urgent intervention. Total critical care time is 40 minutes Objective: Vital Signs Temp Pulse Resp BP Pulse Ox 36.3 C 110 H 27 H 92/50 L 100 03/02/17 19:28 03/02/17 19:28 03/02/17 19:28 03/02/17 19:28 03/02/17 19:28 Laboratory Results 03/02/17 18:36 03/02/17 04:28 03/01/17 03/02/17 03/03/17 05:59 05:59 05:59 Intake Total 5389 7064 250 Output Total 100 3400 Balance 5289 3664 250 PT 15.0 SEC (12.0-15.0) 03/01/17 12:40 INR 1.18 (0.83-1.16) H 03/01/17 12:40 ICD10 Worksheet Patient Problems: Problems Problem Status Onset Lower GI bleed Acute
[2017-03-03 00:44] LABS: POTASSIUM 4.3 mEq/L (3.5-5.2)
[2017-03-03 04:06] LABS: IONIZED CALCIUM 1.15 MMOL/L (1.12-1.30)
[2017-03-03 04:08] LABS: % IMMATURE GRANULYOCYTES 1.6 % (0.0-1.1); ABSOLUTE NRBC COUNT 0.04 10^3/uL (0-0.01); ADD DIFF? NO; ADD MORPH? YES; ADD SCAN? NO; ATYPICAL LYMPHOCYTE FLAG 10 (0-99); HEMATOCRIT 20.3 % (40.0-51.0); HEMOGLOBIN 7.1 g/dL (13.7-17.5); LEFT SHIFT FLG 0 (0-99); LIPEMIA HEMOLYSIS FLAG 90 (0-99); MEAN CELL HEMOGLOBIN 30.6 pg (27.9-34.1); MEAN CELL VOLUME 87.5 fL (81.5-99.8); NRBC-AUTO% 0.7 % (0.0-0.2); PLATELET CLUMPS FLAG 10 (0-99); PLATELET COUNT 74 10^3/uL (150-400); RED BLOOD CELL COUNT 2.32 10^6/uL (4.40-6.38); RED CELL DISTRIBUTION WIDTH 19.9 % (11.5-15.2)
[2017-03-03 04:16] LABS: ANION GAP 4 mEq/L (8-16); CALCIUM 7.4 mg/dL (8.5-10.4); CARBON DIOXIDE 28 mEq/l (22-31); CHLORIDE 106 mEq/L (97-110); CREATININE 0.6 mg/dL (0.7-1.3); GLOMERULAR FILTRATION RATE > 60; GLUCOSE 120 mg/dL (70-100); MAGNESIUM 1.9 mg/dL (1.6-2.3); POTASSIUM 4.5 mEq/L (3.5-5.2); SODIUM 138 mEq/L (134-144)
[2017-03-03 04:19] LABS: FRAGMENT RBC FLAG 100 (0-99)
[2017-03-03] MEDS ORDERED: FUROSEMIDE 20 MG/2 ML VIAL IVP ONE (04:44)
[2017-03-03 04:59] LABS: ACANTHOCYTES 1+; HYPOCHROMIA 1+; SCHISTOCYTES 1+
[2017-03-03 05:01] LABS: PLATELET ESTIMATE DECREASED (ADEQ)
[2017-03-03] MEDS: PANTOPRAZOLE SODIUM 80 MG in NS 100 ML IV SCH ×2 (05:10→18:39)
[2017-03-03] MEDS: LEVOTHYROXINE 25 MCG TAB PO SCH (05:24)
[2017-03-03 09:39] LABS: HEMATOCRIT 23.5 % (40.0-51.0); HEMOGLOBIN 8.2 g/dL (13.7-17.5)
--- NOTE | 2017-03-03 10:02 | SOAPPROG ---
SOAP Progress Note Assessment/Plan: Assessment: GI Bleed; recurred last night an continues today; likely colonic source. Unable to visualize colon with colonoscopy or virtual colonoscopy 2. Post-hemorrhagic anemia. Plan: 1. NPO. 2. Transfuse to maintain HCT of 30. 2. Emergent Mesenteric angiography. Gavin Flores MD 03/03/17 10:04 Subjective: CC: Continued GI bleed Interval HPI: Continued passage of BRB. Additinal blood transfusions last night. Discussed need for emergent angiography today with patient and daughter. They are in agreement. Objective: Vital Signs Temp Pulse Resp BP Pulse Ox 36.5 C 112 H 18 128/71 H 95 03/03/17 04:00 03/03/17 06:00 03/03/17 06:00 03/03/17 06:00 03/03/17 06:00 Laboratory Results 03/03/17 09:15 03/03/17 03:55 03/02/17 03/03/17 03/04/17 05:59 05:59 05:59 Intake Total 7064 2235 Output Total 3400 Balance 3664 2235 PT 15.0 SEC (12.0-15.0) 03/01/17 12:40 INR 1.18 (0.83-1.16) H 03/01/17 12:40 Physical Exam - Physical Exam General Appearance: WD/WN, alert, mild distress Respiratory: lungs clear, normal breath sounds Cardiac/Chest: regular rate, rhythm, edema (in hands) Abdomen: normal bowel sounds, non-tender, soft Skin: normal color, warm/dry Neuro/Psych: alert, normal mood/affect, oriented x 3 ICD10 Worksheet Patient Problems: Problems Problem Status Onset Lower GI bleed Acute
[2017-03-03] MEDS ORDERED: HEPARIN 10,000 UNIT/10 ML MDV IVP PRN (10:57)
[2017-03-03] MEDS ORDERED: ALTEPLASE 2 MG VIAL IVP PRN (10:57)
[2017-03-03] MEDS ORDERED: PROTAMINE SULFATE 50 MG/5 ML VIAL IVP PRN (10:57)
[2017-03-03] MEDS ORDERED: NS 1,000 ML IV SCH (11:00)
[2017-03-03] MEDS ORDERED: fentaNYL 100 MCG/2 ML INJ IVP PRN (11:00)
[2017-03-03] MEDS ORDERED: MEPERIDINE 25 MG/ML SYR IVP PRN (11:00)
[2017-03-03] MEDS ORDERED: MIDAZOLAM 2 MG/2 ML VIAL IVP PRN (11:00)
[2017-03-03] MEDS ORDERED: NALOXONE HCL 0.4 MG/ML INJ IVP PRN (11:00)
[2017-03-03] MEDS ORDERED: FLUMAZENIL 0.5 MG/5 ML MDV IVP PRN (11:00)
--- NOTE | 2017-03-03 11:43 | PDPROPOC ---
Sedation Plan of Care Sedation Plan of Care: vital signs stable, mental status noted, patient educated of risks, benefits, alternatives, patient can tolerate sedation ASA Classification: ASA 4 Planned drugs: fentanyl, midazolam Mallampati Score: Class 4 Mallampati Reference Image: Patient passed 3-3-2 rule?: Yes
[2017-03-03] MEDS ORDERED: IOPAMIDOL (ISOVUE-300) 100 ML BTL ONE (11:48)
[2017-03-03] MEDS ORDERED: IOPAMIDOL (ISOVUE-370) 150 ML BTL IV ONE (11:49)
[2017-03-03] MEDS: GLUCAGON HCL 1 MG VIAL IVP PRN ×2 (11:56→12:26)
[2017-03-03] MEDS ORDERED: GLUCAGON HCL 1 MG VIAL ONE (12:11)
[2017-03-03] MEDS ORDERED: NITROGLYCERIN/D5W 50 MG/250 ML BOTTLE IV ONE (12:15)
[2017-03-03] MEDS ORDERED: HEPARIN 10,000 UNIT/10 ML MDV ONE (12:15)
--- NOTE | 2017-03-03 12:46 | PDRADPN ---
Radiology Procedure Note Date of Procedure: 03/03/17 Radiologist: Jace Peña Anesthesia: Local (Specify) Pre-op Diagnosis: Gastrointestinal bleeding Post-op Diagnosis: same Indication: Unable to find source of bleeding endoscopically Procedure: 2-vessel mesenteric arteriography pre- and post-lytic provocation Finding(s): No bleeding identified. 2mg TPA, 2000 units heparin, and 600 mcg NTG given into RICHA. Starclose right groin for hemostasis. Inf/Abcess present in the surg proc area at time of surgery?: No EBL: Minimal Complications: 0
[2017-03-03] MEDS: BICALUTAMIDE 50 MG TAB PO SCH (13:59)
[2017-03-03] MEDS: ALLOPURINOL 100 MG TAB PO SCH (13:59)
[2017-03-03] MEDS: ATORVASTATIN CALCIUM 20 MG TAB PO SCH (14:00)
[2017-03-03] MEDS: FLUTICASONE NASAL 120 SPRAYS/16 GM MDI NS SCH (14:00)
--- NOTE | 2017-03-03 14:09 | PDINTPN ---
[employer]ender Progress Note Assessment/Plan: Assessment/plan: 87 M admitted 02/28/17 complaining of BRBPR and found to have Hgb of 5 without hypotension or major tachycardia. No coagulopathy. Transfused 4 units PRBC with improved H/H and stable hemodynamics. * LGIB- likely diverticular and as noted on colonoscopy 03/02 at least in the sigmoid colon. The initial procedure was incomplete, so a virtual colonoscopy was attempted, but that was also incomplete and poorly tolerated. He then went to IR for angiography in hopes of identifying the bleeding site since he required additional RBCs overnight, but no source was identified even with provocation. His Hct is stable for now as is his BP (around 100-110/x) though his HR is in the upper 110-120. Careful observation for now. * JACOB- 2+ bilateral. Possible etiologies include calcium channel john antihypertensive and albumin 2.5. His LFTs were normal and his echo not likely a big contributor (EF 65, mild-moderate AR, estimated PA 53). * hypoxia-CXR shows some edema and was treated with low dose lasix 03/01. Encourage IS, but would hold additional diuretics for now * Subjective: Required additional RBC transfusion overnight for continued fall in H/H. Objective: Vital Signs Temp Pulse Resp BP Pulse Ox 36.9 C 108 H 28 H 127/64 H 91 L 03/03/17 13:06 03/03/17 13:06 03/03/17 13:06 03/03/17 13:06 03/03/17 13:06 Laboratory Results 03/03/17 09:15 03/03/17 03:55 03/02/17 03/03/17 03/04/17 05:59 05:59 05:59 Intake Total 7064 2235 300 Output Total 3400 Balance 3664 2235 300 PT 15.0 SEC (12.0-15.0) 03/01/17 12:40 INR 1.18 (0.83-1.16) H 03/01/17 12:40 Physical Exam - Physical Exam General Appearance: alert, no apparent distress, obese EENT: PERRL/EOMI Neck: supple Respiratory: crackles (bases), No respiratory distress, No wheezing Cardiac/Chest: regular rate, rhythm, edema Abdomen: non-tender, soft, No distended Skin: normal color, warm/dry Lymphatic: no adenopathy Extremities: pedal edema Neuro/Psych: alert, normal mood/affect, oriented x 3 ICD10 Worksheet Patient Problems: Problems Problem Status Onset Lower GI bleed Acute
--- NOTE | 2017-03-03 15:36 | HOSPPROG ---
Hospitalist Progress Note Assessment/Plan: # GIB - EGD with gastritis; colonoscopy technically difficult though diverticula seen - has been hemodynamically unstable - IR angiography did not reveal source - if rebleeds briskly recommend repeat emergent IR angiography # ABLA d/t above - s/p 8U PRBC - trend H/H # acute hypoxic resp failure - suspect volume; hold on further diuresis today # prostate ca s/p prostatectomy - casodex # htn - holding meds now # hypothyroid - synthroid Subjective: hypotensive last night, got additional transfusions; IR for angiography did not reveal bleeding source Objective: Vital Signs Temp Pulse Resp BP Pulse Ox 36.9 C 108 H 28 H 127/64 H 91 L 03/03/17 13:06 03/03/17 13:06 03/03/17 13:06 03/03/17 13:06 03/03/17 13:06 Laboratory Results 03/03/17 09:15 03/03/17 03:55 03/02/17 03/03/17 03/04/17 05:59 05:59 05:59 Intake Total 7064 2235 300 Output Total 3400 Balance 3664 2235 300 PT 15.0 SEC (12.0-15.0) 03/01/17 12:40 INR 1.18 (0.83-1.16) H 03/01/17 12:40 - Physical Exam Constitutional: other (sleeping, still sedated from IR procedure) Cardiovascular: regular rate and rhythym, no murmur, rub, or gallop Respiratory: no respiratory distress, no rales or rhonchi, clear to auscultation Gastrointestinal: normoactive bowel sounds, soft, non-tender abdomen, no palpable masses ICD10 Worksheet Patient Problems: Problems Problem Status Onset Lower GI bleed Acute
[2017-03-03 19:09] LABS: HEMATOCRIT 19.4 % (40.0-51.0)
[2017-03-03 19:30] LABS: HEMOGLOBIN 6.6 g/dL (13.7-17.5)
[2017-03-04 00:23] LABS: HEMATOCRIT 20.8 % (40.0-51.0); HEMOGLOBIN 7.3 g/dL (13.7-17.5)
[2017-03-04 00:37] LABS: POTASSIUM 3.9 mEq/L (3.5-5.2)
[2017-03-04] MEDS: PANTOPRAZOLE SODIUM 80 MG in NS 100 ML IV SCH ×3 (04:18→22:01)
[2017-03-04 05:08] LABS: HEMATOCRIT 22.9 % (40.0-51.0); HEMOGLOBIN 7.7 g/dL (13.7-17.5)
[2017-03-04 05:24] LABS: MAGNESIUM 2.1 mg/dL (1.6-2.3); POTASSIUM 3.7 mEq/L (3.5-5.2)
[2017-03-04] MEDS: LEVOTHYROXINE 25 MCG TAB PO SCH (05:47)
[2017-03-04] MEDS ORDERED: POTASSIUM Cl (KCl) 50 ML IV ONE (06:40)
[2017-03-04] MEDS: FLUTICASONE NASAL 120 SPRAYS/16 GM MDI NS SCH (08:59)
[2017-03-04] MEDS: ALLOPURINOL 100 MG TAB PO SCH (09:00)
[2017-03-04] MEDS: BICALUTAMIDE 50 MG TAB PO SCH (09:00)
[2017-03-04] MEDS: ATORVASTATIN CALCIUM 20 MG TAB PO SCH (09:00)
--- NOTE | 2017-03-04 10:24 | SOAPPROG ---
SOAP Progress Note Assessment/Plan: Assessment: 1. GI Bleed is likely diverticular; negative angiography yesterday. No active bleeding since yesterday. One small black stool today. Unable to visualize colon above distal sigmoid with colonoscopy and virtual colonoscopy exam inadequate. 2. Post-hemorrhagic anemia; stable. 3. Fluid overload. Plan: 1. Regular diet 2. Will need virtual colonoscopy vs abdominal/pelvic CT vs repeat colonoscopy EGD scope if has recurrent bleeding. 3. Diuresis per Hospitalist. Gavin Flores MD 03/04/17 10:26 Subjective: CC: LGI Bleed. Interval HPI: Patient without GI complaints today other than one small black BM this ad. He is hungry and wants a regular diet! Objective: Vital Signs Temp Pulse Resp BP Pulse Ox 36.5 C 98 24 H 124/57 H 94 03/04/17 04:00 03/04/17 08:00 03/04/17 08:00 03/04/17 08:00 03/04/17 08:00 Laboratory Results 03/04/17 04:55 03/04/17 04:55 03/03/17 03/04/17 03/05/17 05:59 05:59 05:59 Intake Total 2235 2005 Balance 2235 2005 PT 15.0 SEC (12.0-15.0) 03/01/17 12:40 INR 1.18 (0.83-1.16) H 03/01/17 12:40 Physical Exam - Physical Exam General Appearance: alert, no apparent distress Neck: supple Respiratory: lungs clear, normal breath sounds Cardiac/Chest: regular rate, rhythm, other (+2 pedal edema and edema of hands.) Abdomen: normal bowel sounds, non-tender, soft Neuro/Psych: alert, normal mood/affect, oriented x 3 ICD10 Worksheet Patient Problems: Problems Problem Status Onset Lower GI bleed Acute
--- NOTE | 2017-03-04 10:43 | HOSPPROG ---
Hospitalist Progress Note Assessment/Plan: # GIB - no significant hemorrhage in 24 hours; GI advancing diet - EGD with gastritis; colonoscopy technically difficult though diverticula seen - has been hemodynamically unstable - IR angiography did not reveal source - if rebleeds briskly recommend repeat emergent IR angiography # ABLA d/t above - s/p 10U PRBC - trend H/H # acute hypoxic resp failure - suspect volume; hold on further diuresis today with borderline hypotension # PICC thrombus - will place PICC on R arm and dc L arm PICC # prostate ca s/p prostatectomy - casodex # htn - holding meds now # hypothyroid - synthroid Subjective: only small amount of melena overnight; he is hungry Objective: Vital Signs Temp Pulse Resp BP Pulse Ox 36.5 C 98 24 H 124/57 H 94 03/04/17 04:00 03/04/17 08:00 03/04/17 08:00 03/04/17 08:00 03/04/17 08:00 Laboratory Results 03/04/17 04:55 03/04/17 04:55 03/03/17 03/04/17 03/05/17 05:59 05:59 05:59 Intake Total 2235 2005 Balance 2235 2005 PT 15.0 SEC (12.0-15.0) 03/01/17 12:40 INR 1.18 (0.83-1.16) H 03/01/17 12:40 high risk - Physical Exam Constitutional: no apparent distress, appears nourished Cardiovascular: regular rate and rhythym, no murmur, rub, or gallop Respiratory: no respiratory distress, no rales or rhonchi, clear to auscultation Gastrointestinal: normoactive bowel sounds, soft, non-tender abdomen, no palpable masses Musculoskeletal: other (anasarca) ICD10 Worksheet Patient Problems: Problems Problem Status Onset Lower GI bleed Acute
--- NOTE | 2017-03-04 12:00 | ASMTCMCOM ---
CM Note CM Note Notes: Met with patient and his daughter Fern ([phone]) to discuss discharge planning. Patient has only worked with therapies once, so more input is needed. Patient and dtr are aware that [facility] will likely require a SNF stay or more support at patient's home (homecare, unskilled help, etc) before he can return. Patient is amenable to whatever he needs to do; he is also motivated to get up and move more with therapies. He doesn't receive any assistance at [facility]; I recommended that dtr call and see if she can increase his level of assistance. I explained that insurance will cover either home care or SNF, whichever is recommended. Referrals were sent, per their request, to [facility] and [facility]. [facility] responded that they do not take patient's insurance, so I sent referrals to [facility] and [facility], as well. I left a message for patient's dtr Fern with this information. Current discharge plan is TBD. CM will follow. Date Signed: 03/04/2017 12:00 PM Electronically Signed By:Nafisa Shine RN
[2017-03-04 12:28] LABS: HEMOGLOBIN 8.6 g/dL (13.7-17.5)
[2017-03-04 18:38] LABS: HEMATOCRIT 24.7 % (40.0-51.0); HEMOGLOBIN 8.4 g/dL (13.7-17.5)
[2017-03-04 18:58] LABS: POTASSIUM 3.9 mEq/L (3.5-5.2)
[2017-03-05 00:09] LABS: HEMATOCRIT 22.6 % (40.0-51.0); HEMOGLOBIN 7.7 g/dL (13.7-17.5)
[2017-03-05 00:14] LABS: POTASSIUM 4.1 mEq/L (3.5-5.2)
[2017-03-05 04:57] LABS: IONIZED CALCIUM 1.18 MMOL/L (1.12-1.30)
[2017-03-05 05:01] LABS: HEMATOCRIT 21.4 % (40.0-51.0); HEMOGLOBIN 7.2 g/dL (13.7-17.5)
[2017-03-05 05:31] LABS: MAGNESIUM 1.9 mg/dL (1.6-2.3); POTASSIUM 3.7 mEq/L (3.5-5.2)
[2017-03-05] MEDS ORDERED: POTASSIUM Cl (KCl) 50 ML IV ONE (05:45)
[2017-03-05] MEDS: LEVOTHYROXINE 25 MCG TAB PO SCH (05:54)
[2017-03-05] MEDS ORDERED: PROPOFOL/EMULSION 1,000 MG/100 ML BOTTLE IV ONE (06:21)
[2017-03-05] MEDS: PANTOPRAZOLE SODIUM 80 MG in NS 100 ML IV SCH (08:50)
[2017-03-05] MEDS: ALLOPURINOL 100 MG TAB PO SCH (09:18)
[2017-03-05] MEDS: ATORVASTATIN CALCIUM 20 MG TAB PO SCH (09:18)
[2017-03-05] MEDS: BICALUTAMIDE 50 MG TAB PO SCH (09:18)
[2017-03-05] MEDS: FLUTICASONE NASAL 120 SPRAYS/16 GM MDI NS SCH (09:19)
[2017-03-05] MEDS ORDERED: FUROSEMIDE 20 MG/2 ML VIAL IVP ONE (09:59)
--- NOTE | 2017-03-05 10:02 | PDINTPN ---
Records Management Technician Progress Note Assessment/Plan: Assessment/plan: 87 M admitted 02/28/17 complaining of BRBPR and found to have Hgb of 5 without hypotension or major tachycardia. No coagulopathy. Transfused 4 units PRBC with improved H/H and stable hemodynamics. * LGIB- likely diverticular and as noted on colonoscopy 03/02 at least in the sigmoid colon. The initial procedure was incomplete, so a virtual colonoscopy was attempted, but that was also incomplete and poorly tolerated. He then went to IR for angiography in hopes of identifying the bleeding site since he required additional RBCs overnight, but no source was identified even with provocation. His Hct is stable for now as is his BP (around 100-110/x) though his HR is in the upper 110-120.Minimal stool overnight and no transfusion for 48 hrs. Will transfuse 1 unit RBC today for "cushion" * JACOB- 2+ bilateral. Possible etiologies include calcium channel john antihypertensive and albumin 2.5. His LFTs were normal and his echo not likely a big contributor (EF 65, mild-moderate AR, estimated PA 53). Additional 20 lasix with RBC today * hypoxia-CXR shows some edema and was treated with low dose lasix 03/01. Encourage IS, but would hold additional diuretics for now * 03/05/17 10:00 Subjective: stable overnight. Minimal BRBPR Objective: Vital Signs Temp Pulse Resp BP Pulse Ox 36.6 C 91 22 H 136/57 H 96 03/05/17 08:00 03/05/17 08:00 03/05/17 08:00 03/05/17 08:00 03/05/17 08:00 Laboratory Results 03/05/17 04:55 03/05/17 04:55 03/04/17 03/05/17 03/06/17 05:59 05:59 04:59 Intake Total 2005 1299.3 Balance 2005 1299.3 PT 15.0 SEC (12.0-15.0) 03/01/17 12:40 INR 1.18 (0.83-1.16) H 03/01/17 12:40 Physical Exam - Physical Exam General Appearance: WD/WN, alert, obese EENT: PERRL/EOMI Neck: supple Respiratory: crackles (few basilar), No respiratory distress Cardiac/Chest: regular rate, rhythm, edema Abdomen: normal bowel sounds, non-tender, soft, No distended Skin: normal color, warm/dry Lymphatic: no adenopathy Extremities: pedal edema Neuro/Psych: alert, normal mood/affect, oriented x 3 ICD10 Worksheet Patient Problems: Problems Problem Status Onset Lower GI bleed Acute
[2017-03-05 10:31] LABS: HEMATOCRIT 22.2 % (40.0-51.0); HEMOGLOBIN 7.6 g/dL (13.7-17.5)
--- NOTE | 2017-03-05 11:20 | HOSPPROG ---
Hospitalist Progress Note Assessment/Plan: # GIB - no significant hemorrhage in 24 hours; full diet - EGD with gastritis; colonoscopy technically difficult though diverticula seen - IR angiography did not reveal source - if rebleeds briskly recommend repeat emergent IR angiography # ABLA d/t above - s/p 11 PRBC - will give 1 additional unit of packed red blood cells today # acute hypoxic resp failure - suspect volume; Lasix after transfusion # PICC thrombus - PICC moved to right arm # prostate ca s/p prostatectomy - casodex # htn - holding meds now # hypothyroid - synthroid Subjective: No bloody bowel movements overnight; ambulated in the [place] Objective: Vital Signs Temp Pulse Resp BP Pulse Ox 36.6 C 99 16 114/61 95 03/05/17 08:00 03/05/17 10:00 03/05/17 10:00 03/05/17 10:00 03/05/17 10:00 Laboratory Results 03/05/17 10:15 03/05/17 04:55 03/04/17 03/05/17 03/06/17 05:59 05:59 04:59 Intake Total 2005 1299.3 Balance 2005 1299.3 PT 15.0 SEC (12.0-15.0) 03/01/17 12:40 INR 1.18 (0.83-1.16) H 03/01/17 12:40 High risk - Physical Exam Constitutional: no apparent distress, other (Pale) Cardiovascular: regular rate and rhythym, systolic murmur, No irregularly irregular, No diastolic murmur Respiratory: no respiratory distress, no rales or rhonchi, inspiratory crackles (Mild, bilateral bases) Gastrointestinal: normoactive bowel sounds, soft, non-tender abdomen ICD10 Worksheet Patient Problems: Problems Problem Status Onset Lower GI bleed Acute
--- NOTE | 2017-03-05 11:21 | ASMTCMCOM ---
CM Note CM Note Notes: After evals today, PT/OT recommending SNF. I spoke with patient's daughter who would like [facility]. I explained that the facility will accept patient pending insurance authorization and will have to request insurance authorization, likely Tuesday. Patient should transfer to the floor in the next 1-2 days and d.c mid next week. CM will follow. Date Signed: 03/05/2017 11:21 AM Electronically Signed By:Nafisa Shine RN
--- NOTE | 2017-03-05 11:46 | SOAPPROG ---
SOAP Progress Note Assessment/Plan: Assessment/Plan: G.I. bleed. No obvious source found, but most likely diverticular. Now, no further e/o bleeding. - o.k. to buffcap IV (as per hospitalist) - change to oral PPI daily, but just while here in the hospital Will sign off. As an outpt., would recommend iron replacement therapy x 2 mo., with f/u PCP prn. Please call otherwise if we can be of further help [phone] Thanks! 03/05/17 11:47 Subjective: cc: G.I. bleed No further e/o G.I. bleeding. No rigors, chills, sweats. Objective: Vital Signs Temp Pulse Resp BP Pulse Ox 36.6 C 99 16 114/61 95 03/05/17 08:00 03/05/17 10:00 03/05/17 10:00 03/05/17 10:00 03/05/17 10:00 Laboratory Results 03/05/17 10:15 03/05/17 04:55 03/04/17 03/05/17 03/06/17 05:59 05:59 04:59 Intake Total 2005 1299.3 Balance 2005 1299.3 PT 15.0 SEC (12.0-15.0) 03/01/17 12:40 INR 1.18 (0.83-1.16) H 03/01/17 12:40 Physical Exam - Physical Exam General Appearance: WD/WN, alert, no apparent distress EENT: PERRL/EOMI, normal ENT inspection, pharynx normal, TMs normal Neck: non-tender, full range of motion, supple, normal inspection Respiratory: chest non-tender, lungs clear, normal breath sounds Cardiac/Chest: normal peripheral pulses, regular rate, rhythm Peripheral Pulses: 2+: carotid (R), carotid (L), femoral (R), femoral (L), dorsalis-pedis (R), dorsalis-pedis (L) Abdomen: normal bowel sounds, non-tender, soft Male Genitalia: deferred Rectal: deferred Back: Normal inspection Skin: normal color, warm/dry Lymphatic: no adenopathy Extremities: normal range of motion, non-tender, normal inspection, normal capillary refill Neuro/Psych: no motor/sensory deficits, alert, normal mood/affect, oriented x 3 ICD10 Worksheet Patient Problems: Problems Problem Status Onset Lower GI bleed Acute
[2017-03-05 13:00] LABS: POTASSIUM 4.2 mEq/L (3.5-5.2)
[2017-03-05] MEDS ORDERED: FUROSEMIDE 20 MG/2 ML VIAL ONE (16:46)
[2017-03-05 18:19] LABS: POTASSIUM 3.8 mEq/L (3.5-5.2)
[2017-03-06 04:01] LABS: ABSOLUTE IMMATURE GRANULOCYTES 0.04 10^3/uL (0.00-0.10); ABSOLUTE NRBC COUNT 0.02 10^3/uL (0-0.01); ADD DIFF? NO; ADD MORPH? NO; ADD SCAN? NO; ATYPICAL LYMPHOCYTE FLAG 10 (0-99); FRAGMENT RBC FLAG 80 (0-99); HEMATOCRIT 24.8 % (40.0-51.0); HEMOGLOBIN 8.4 g/dL (13.7-17.5); LEFT SHIFT FLG 0 (0-99); LIPEMIA HEMOLYSIS FLAG 90 (0-99); MEAN CELL HEMOGLOBIN 30.8 pg (27.9-34.1); MEAN CELL HEMOGLOBIN CONCENTR. 33.9 g/dL (32.4-36.7); MEAN CELL VOLUME 90.8 fL (81.5-99.8); NRBC-AUTO% 0.5 % (0.0-0.2); PLATELET CLUMPS FLAG 20 (0-99); PLATELET COUNT 60 10^3/uL (150-400); RED BLOOD CELL COUNT 2.73 10^6/uL (4.40-6.38); RED CELL DISTRIBUTION WIDTH 16.3 % (11.5-15.2)
[2017-03-06 04:06] LABS: ANION GAP 6 mEq/L (8-16); CALCIUM 7.9 mg/dL (8.5-10.4); CARBON DIOXIDE 31 mEq/l (22-31); CHLORIDE 101 mEq/L (97-110); CREATININE 0.6 mg/dL (0.7-1.3); GLOMERULAR FILTRATION RATE > 60; GLUCOSE 86 mg/dL (70-100); POTASSIUM 3.6 mEq/L (3.5-5.2); SODIUM 138 mEq/L (134-144)
[2017-03-06] MEDS ORDERED: POTASSIUM CL 10 MEQ TAB PO ONE (04:21)
[2017-03-06] MEDS: LEVOTHYROXINE 25 MCG TAB PO SCH (06:13)
[2017-03-06] MEDS: ALLOPURINOL 100 MG TAB PO SCH (08:45)
[2017-03-06] MEDS: PANTOPRAZOLE SODIUM 40 MG TAB PO SCH (08:45)
[2017-03-06] MEDS: ATORVASTATIN CALCIUM 20 MG TAB PO SCH (08:45)
[2017-03-06] MEDS: FLUTICASONE NASAL 120 SPRAYS/16 GM MDI NS SCH (08:45)
[2017-03-06] MEDS: BICALUTAMIDE 50 MG TAB PO SCH (08:45)
--- NOTE | 2017-03-06 09:55 | PDINTPN ---
Biology Tutor Progress Note Assessment/Plan: Assessment/plan: 87 M admitted 02/28/17 complaining of BRBPR and found to have Hgb of 5 without hypotension or major tachycardia. No coagulopathy. Transfused 4 units PRBC with improved H/H and stable hemodynamics. * LGIB- likely diverticular and as noted on colonoscopy 03/02 at least in the sigmoid colon. The initial procedure was incomplete, so a virtual colonoscopy was attempted, but that was also incomplete and poorly tolerated. He then went to IR for angiography in hopes of identifying the bleeding site since he required additional RBCs overnight, but no source was identified even with provocation. He was transfused 03/05 1 unit RBC today for "cushion" with improved VS * JACOB- 2+ bilateral. Possible etiologies include calcium channel john antihypertensive and albumin 2.5. His LFTs were normal and his echo not likely a big contributor (EF 65, mild-moderate AR, estimated PA 53). Additional 20 lasix with RBC 03/05 * hypoxia-CXR shows some edema and was treated with low dose lasix 03/01. Encourage IS, but would hold additional diuretics for now * OK for transfer Subjective: Continues to improve. Still with minimal BM and streaks of BRB Objective: Vital Signs Temp Pulse Resp BP Pulse Ox 37.3 C 89 16 102/54 L 92 03/06/17 08:00 03/06/17 08:00 03/06/17 08:00 03/06/17 08:00 03/06/17 08:00 Laboratory Results 03/06/17 03:40 03/06/17 03:40 03/05/17 03/06/17 03/07/17 06:59 05:59 05:59 Intake Total Balance PT 15.0 SEC (12.0-15.0) 03/01/17 12:40 INR 1.18 (0.83-1.16) H 03/01/17 12:40 Physical Exam - Physical Exam General Appearance: WD/WN, alert, no apparent distress, obese EENT: PERRL/EOMI Neck: supple Respiratory: lungs clear, normal breath sounds, No respiratory distress Cardiac/Chest: regular rate, rhythm, edema Abdomen: normal bowel sounds, non-tender, soft, No distended Skin: normal color, warm/dry Lymphatic: no adenopathy Extremities: pedal edema Neuro/Psych: alert, normal mood/affect, oriented x 3 ICD10 Worksheet Patient Problems: Problems Problem Status Onset Lower GI bleed Acute
--- NOTE | 2017-03-06 10:08 | HOSPPROG ---
Hospitalist Progress Note Assessment/Plan: # GIB - no significant hemorrhage in 24 hours; full diet - EGD with gastritis; colonoscopy technically difficult though diverticula seen - IR angiography did not reveal source - if rebleeds briskly recommend repeat emergent IR angiography # ABLA d/t above - s/p 12 PRBC # acute hypoxic resp failure - suspect volume; BP too low for diuresis today # PICC thrombus - PICC moved to right arm # prostate ca s/p prostatectomy - casodex # htn - holding meds now # hypothyroid - synthroid # dispo - med surg Subjective: He feels much better; had port-wine bowel movements Objective: Vital Signs Temp Pulse Resp BP Pulse Ox 37.3 C 89 16 102/54 L 92 03/06/17 08:00 03/06/17 08:00 03/06/17 08:00 03/06/17 08:00 03/06/17 08:00 Laboratory Results 03/06/17 03:40 03/06/17 03:40 03/05/17 03/06/17 03/07/17 06:59 05:59 05:59 Intake Total Balance PT 15.0 SEC (12.0-15.0) 03/01/17 12:40 INR 1.18 (0.83-1.16) H 03/01/17 12:40 high risk - Physical Exam Constitutional: no apparent distress, appears nourished, other (Pale) Cardiovascular: regular rate and rhythym, systolic murmur, No irregularly irregular Respiratory: no respiratory distress, no rales or rhonchi, clear to auscultation Gastrointestinal: normoactive bowel sounds, soft, non-tender abdomen, no palpable masses ICD10 Worksheet Patient Problems: Problems Problem Status Onset Lower GI bleed Acute
[2017-03-07] MEDS: LEVOTHYROXINE 25 MCG TAB PO SCH (04:50)
[2017-03-07 05:40] LABS: POTASSIUM 3.9 mEq/L (3.5-5.2)
[2017-03-07] MEDS: ALLOPURINOL 100 MG TAB PO SCH (09:26)
[2017-03-07] MEDS: ATORVASTATIN CALCIUM 20 MG TAB PO SCH (09:26)
[2017-03-07] MEDS: PANTOPRAZOLE SODIUM 40 MG TAB PO SCH (09:26)
[2017-03-07] MEDS: FLUTICASONE NASAL 120 SPRAYS/16 GM MDI NS SCH (11:02)
[2017-03-07] MEDS: BICALUTAMIDE 50 MG TAB PO SCH (11:02)
--- NOTE | 2017-03-07 12:46 | ASMTCMCOM ---
CM Note CM Note Notes: Chart reviewed. Met with daughter and patient to review DC plan of care. They would like to go to [facility]. Concerns over insurance auth. They have met deductible. Sofi at [facility] to verify authorization. DC when medically stable. CM to follow. Date Signed: 03/07/2017 12:45 PM Electronically Signed By:Echo Burt RN
[2017-03-07] MEDS ORDERED: FUROSEMIDE 20 MG/2 ML VIAL IVP ONE (13:08)
--- NOTE | 2017-03-07 13:15 | HOSPPROG ---
Hospitalist Progress Note Assessment/Plan: 87M p/w GI hemorrhage. Source never identified despite EGD, colonoscopy, virtual colonoscopy and IR angiography. Stable for a few days now. Also had some hypoxia. # GIB - has been stable for a few days - EGD with gastritis; colonoscopy technically difficult though diverticula seen - IR angiography did not reveal source - if rebleeds briskly recommend repeat emergent IR angiography # ABLA d/t above - s/p 12 PRBC # acute hypoxic resp failure - suspect volume; - lasix today # PICC thrombus - PICC moved to right arm # prostate ca s/p prostatectomy - casodex # htn - holding meds now - may need to restart soon # hypothyroid - synthroid # dispo - to SNF tomorrow if continues to be stable without bleeding Subjective: no BM overnight; PICC was accidentally pulled out, then replaced Objective: Vital Signs Temp Pulse Resp BP Pulse Ox 37.7 C 89 18 150/61 H 95 03/07/17 09:00 03/07/17 09:00 03/07/17 09:00 03/07/17 09:00 03/07/17 09:00 Laboratory Results 03/06/17 03:40 03/07/17 05:35 03/06/17 03/07/17 03/08/17 05:59 05:59 05:59 Intake Total 500 Balance 500 PT 15.0 SEC (12.0-15.0) 03/01/17 12:40 INR 1.18 (0.83-1.16) H 03/01/17 12:40 - Physical Exam Constitutional: no apparent distress, appears nourished Cardiovascular: regular rate and rhythym, no murmur, rub, or gallop Respiratory: no respiratory distress, no rales or rhonchi, clear to auscultation Gastrointestinal: normoactive bowel sounds, soft, non-tender abdomen, no palpable masses ICD10 Worksheet Patient Problems: Problems Problem Status Onset Lower GI bleed Acute
[2017-03-07] MEDS: POLYETHYLENE GLYCOL 3350 17 GM PKT PO PRN (15:18)
[2017-03-07] MEDS: ALTEPLASE 2 MG VIAL IVP PRN (22:04)
[2017-03-08] MEDS: ALTEPLASE 2 MG VIAL IVP PRN ×2 (03:56→03:59)
[2017-03-08] MEDS: LEVOTHYROXINE 25 MCG TAB PO SCH (05:03)
[2017-03-08 06:25] LABS: % IMMATURE GRANULYOCYTES 0.8 % (0.0-1.1); ABSOLUTE IMMATURE GRANULOCYTES 0.04 10^3/uL (0.00-0.10); ADD DIFF? NO; ADD MORPH? YES; ADD SCAN? NO; ATYPICAL LYMPHOCYTE FLAG 10 (0-99); HEMOGLOBIN 8.1 g/dL (13.7-17.5); LEFT SHIFT FLG 0 (0-99); LIPEMIA HEMOLYSIS FLAG 90 (0-99); MEAN CELL HEMOGLOBIN 30.7 pg (27.9-34.1); MEAN CELL HEMOGLOBIN CONCENTR. 33.8 g/dL (32.4-36.7); MEAN CELL VOLUME 90.9 fL (81.5-99.8); PLATELET CLUMPS FLAG 10 (0-99); PLATELET COUNT 84 10^3/uL (150-400); RED BLOOD CELL COUNT 2.64 10^6/uL (4.40-6.38); RED CELL DISTRIBUTION WIDTH 17.2 % (11.5-15.2)
[2017-03-08 06:30] LABS: FRAGMENT RBC FLAG 100 (0-99)
[2017-03-08 07:00] LABS: HYPOCHROMIA 2+; MACROCYTES 1+; PLATELET ESTIMATE DECREASED (ADEQ); SCHISTOCYTES 1+
[2017-03-08] MEDS: PANTOPRAZOLE SODIUM 40 MG TAB PO SCH (08:18)
[2017-03-08] MEDS: ALLOPURINOL 100 MG TAB PO SCH (08:18)
[2017-03-08] MEDS: BICALUTAMIDE 50 MG TAB PO SCH (08:18)
[2017-03-08] MEDS: ATORVASTATIN CALCIUM 20 MG TAB PO SCH (08:18)
[2017-03-08] MEDS: POLYETHYLENE GLYCOL 3350 17 GM PKT PO PRN (08:18)
[2017-03-08] MEDS: FUROSEMIDE 20 MG/2 ML VIAL IVP SCH (15:14)
[2017-03-08] MEDS: FLUTICASONE NASAL 120 SPRAYS/16 GM MDI NS SCH (15:14)
--- NOTE | 2017-03-08 15:49 | ASMTCMCOM ---
INÉS Note CM Note Notes: [facility] does not have a bed available today and they are uncertain as to when they will have a bed available. INÉS communicated this w/ Dr. Charles and HEATHER Flor. CM called daughter and notified her of this as well. Daughter is agreeable to having pt go to [facility]. INÉS spoke w/ Gena at [facility] and asked if she could start obtaining the auth. Gena reports that it will take 48hrs to obtain the auth. INÉS to follow. Date Signed: 03/08/2017 03:49 PM Electronically Signed By:RAINA Royal
--- NOTE | 2017-03-08 17:41 | HOSPPROG ---
Hospitalist Progress Note Assessment/Plan: 87M p/w GI hemorrhage. Source never identified despite EGD, colonoscopy, virtual colonoscopy and IR angiography. Stable for a few days now. Also had some hypoxia. # GIB - has been stable for a few days - EGD with gastritis; colonoscopy technically difficult though diverticula seen--no active bleeding noted in either - IR angiography did not reveal source -no evidence of rebleed # ABLA d/t above - s/p 12 PRBC, h/h now stable # bue/ble edema: present primarily in hands and feet, did have lue thrombus explaining some of this swelling, will start lasix and recommending elevation of legs # acute hypoxic resp failure - suspect volume related, stable on 2L - lasix today as above # PICC thrombus - PICC moved to right arm # prostate ca s/p prostatectomy - casodex # htn - at home on amlodipine and lisinopril, will resume amlodipine and likely lisinopril as well as long as renal function stable after initiation of lasix # hypothyroid - synthroid # dispo - to SNF in coming days Patient new to my care. Old records reviewed and summarized as above. Care plan reviewed with CM. Subjective: no significant overnight events, patient notes continued swelling in hands and feet Objective: Vital Signs Temp Pulse Resp BP Pulse Ox 36.8 C 98 18 150/66 H 93 03/08/17 16:00 03/08/17 16:00 03/08/17 16:00 03/08/17 16:00 03/08/17 16:00 Laboratory Results 03/08/17 05:20 03/07/17 05:35 03/07/17 03/08/17 03/09/17 05:59 05:59 05:59 Intake Total 500 650 Balance 500 650 PT 15.0 SEC (12.0-15.0) 03/01/17 12:40 INR 1.18 (0.83-1.16) H 03/01/17 12:40 awake alert nad anicteric op clear rrr no mrg cta with dec bs at bases soft nt nd bilateral feet and hand swelling warm dry well perfused oriented appropriate ICD10 Worksheet Patient Problems: Problems Problem Status Onset Lower GI bleed Acute
[2017-03-09] MEDS: LEVOTHYROXINE 25 MCG TAB PO SCH (04:34)
[2017-03-09 05:08] LABS: ALANINE AMINOTRANSFERASE 27 IU/L (21-72); ALBUMIN 2.4 g/dL (3.5-5.0); ALKALINE PHOSPHATASE 50 IU/L (38-126); ANION GAP 6 mEq/L (8-16); ASPARTATE AMINOTRANSFERASE 13 IU/L (17-59); BILIRUBIN,TOTAL 0.4 mg/dL (0.1-1.4); BILIRUBIN-UNCONJUGATED 0.4 mg/dL (0.0-1.1); CALCIUM 8.1 mg/dL (8.5-10.4); CARBON DIOXIDE 36 mEq/l (22-31); CHLORIDE 96 mEq/L (97-110); CREATININE 0.6 mg/dL (0.7-1.3); GLOMERULAR FILTRATION RATE > 60; GLUCOSE 89 mg/dL (70-100); POTASSIUM 4.2 mEq/L (3.5-5.2); SODIUM 138 mEq/L (134-144); TOTAL PROTEIN 4.5 g/dL (6.3-8.2)
[2017-03-09 05:13] LABS: % IMMATURE GRANULYOCYTES 1.4 % (0.0-1.1); ABSOLUTE IMMATURE GRANULOCYTES 0.07 10^3/uL (0.00-0.10); ADD DIFF? NO; ADD MORPH? YES; ADD SCAN? NO; ATYPICAL LYMPHOCYTE FLAG 20 (0-99); HEMOGLOBIN 7.9 g/dL (13.7-17.5); LEFT SHIFT FLG 0 (0-99); LIPEMIA HEMOLYSIS FLAG 80 (0-99); MEAN CELL HEMOGLOBIN 30.4 pg (27.9-34.1); MEAN CELL HEMOGLOBIN CONCENTR. 32.9 g/dL (32.4-36.7); MEAN CELL VOLUME 92.3 fL (81.5-99.8); PLATELET CLUMPS FLAG 10 (0-99); PLATELET COUNT 101 10^3/uL (150-400); RED CELL DISTRIBUTION WIDTH 17.3 % (11.5-15.2)
[2017-03-09 05:14] LABS: FRAGMENT RBC FLAG 100 (0-99)
[2017-03-09 06:15] LABS: PLATELET ESTIMATE DECREASED (ADEQ)
[2017-03-09 06:16] LABS: MICROCYTES 2+; POLYCHROMASIA 1+; SCHISTOCYTES 1+
[2017-03-09 06:17] LABS: HYPOCHROMIA 1+
[2017-03-09] MEDS: BICALUTAMIDE 50 MG TAB PO SCH (08:18)
[2017-03-09] MEDS: FLUTICASONE NASAL 120 SPRAYS/16 GM MDI NS SCH (08:18)
[2017-03-09] MEDS: FUROSEMIDE 20 MG/2 ML VIAL IVP SCH ×2 (08:18→15:34)
[2017-03-09] MEDS: ALLOPURINOL 100 MG TAB PO SCH (08:19)
[2017-03-09] MEDS: ATORVASTATIN CALCIUM 20 MG TAB PO SCH (08:19)
[2017-03-09] MEDS: PANTOPRAZOLE SODIUM 40 MG TAB PO SCH (08:19)
[2017-03-09] MEDS: LISINOPRIL 40 MG TAB PO SCH (10:22)
--- NOTE | 2017-03-09 11:37 | ASMTCMCOM ---
CM Note CM Note Notes: CM met w/ pt and daughter, Fern for dispo planning. Pt is questioning if he wants to go to [facility]. Pt and Fern would like an order to be put in for inpatient rehab at [facility]. CM notified Dr. Charles about this and she will put in the order. Danni from inpatient rehab has reviewed the case and does not think pt is approriate for inpatient rehab level of care. Pt and Fern would also like CM to make a referral to [facility]. CM spoke w/ Dallas at [facility] and they do not have a beds available. CM notified both pt and Fern about the new developments. Pt is agreeable to going to [facility] and does not want to further delay d/c. CM notified Gena at [facility] and she will try to obtain the auth. INÉS to follow. Date Signed: 03/09/2017 11:37 AM Electronically Signed By:RAINA Ryoal
--- NOTE | 2017-03-09 13:10 | HOSPPROG ---
Hospitalist Progress Note Assessment/Plan: 87M p/w GI hemorrhage. Source never identified despite EGD, colonoscopy, virtual colonoscopy and IR angiography. Stable for a few days now. Also had some hypoxia. # GIB - remains stable without e/o rebleed - EGD with gastritis; colonoscopy technically difficult though diverticula seen--no active bleeding noted in either - IR angiography did not reveal source # ABLA d/t above - s/p 12 PRBC, h/h now stable # bue/ble edema: present primarily in hands and feet, did have lue thrombus explaining some of this swelling, started lasix and improving, will continue IV lasix for another 1-2 days # acute hypoxic resp failure - suspect volume related, stable on 2L - lasix as above # PICC thrombus - PICC moved to right arm # prostate ca s/p prostatectomy - casodex # htn - at home on amlodipine and lisinopril, have resumed home medications # hypothyroid - synthroid # dispo - to SNF, this likely can't happen for another 1-2 days, IP rehab request placed are plan reviewed with CM. Subjective: no significant overnight events, patient feeling better though he is eager to go home Objective: Vital Signs Temp Pulse Resp BP Pulse Ox 36.9 C 104 H 18 150/64 H 92 03/09/17 08:00 03/09/17 08:00 03/09/17 08:00 03/09/17 10:22 03/09/17 08:00 Laboratory Results 03/09/17 04:24 03/09/17 04:24 03/08/17 03/09/17 03/10/17 05:59 05:59 05:59 Intake Total 650 820 Balance 650 820 PT 15.0 SEC (12.0-15.0) 03/01/17 12:40 INR 1.18 (0.83-1.16) H 03/01/17 12:40 awake alert nad anicteric op clear rrr no mrg cta with dec bs at bases soft nt nd bilateral feet and hand swelling warm dry well perfused oriented appropriate ICD10 Worksheet Patient Problems: Problems Problem Status Onset Lower GI bleed Acute
[2017-03-09] MEDS: POLYETHYLENE GLYCOL 3350 17 GM PKT PO PRN (17:00)
[2017-03-10 05:46] LABS: ANION GAP 7 mEq/L (8-16); CALCIUM 8.2 mg/dL (8.5-10.4); CARBON DIOXIDE 35 mEq/l (22-31); CHLORIDE 95 mEq/L (97-110); CREATININE 0.6 mg/dL (0.7-1.3); GLOMERULAR FILTRATION RATE > 60; GLUCOSE 95 mg/dL (70-100); SODIUM 137 mEq/L (134-144)
[2017-03-10] MEDS: LEVOTHYROXINE 25 MCG TAB PO SCH (05:52)
[2017-03-10] MEDS: ALLOPURINOL 100 MG TAB PO SCH (08:09)
[2017-03-10] MEDS: BICALUTAMIDE 50 MG TAB PO SCH (08:10)
[2017-03-10] MEDS: ATORVASTATIN CALCIUM 20 MG TAB PO SCH (08:10)
[2017-03-10] MEDS: FUROSEMIDE 20 MG/2 ML VIAL IVP SCH ×2 (08:10→15:01)
[2017-03-10] MEDS: FLUTICASONE NASAL 120 SPRAYS/16 GM MDI NS SCH (08:11)
[2017-03-10] MEDS: PANTOPRAZOLE SODIUM 40 MG TAB PO SCH (08:11)
[2017-03-10] MEDS: LISINOPRIL 40 MG TAB PO SCH (08:17)
[2017-03-10] MEDS ORDERED: SODIUM FERRIC GLUCONAT/SUCROSE 125 MG in NS 100 ML IV ONE (10:00)
[2017-03-10] MEDS: ALTEPLASE 2 MG VIAL IVP PRN (11:37)
--- NOTE | 2017-03-10 14:00 | HOSPPROG ---
Hospitalist Progress Note Assessment/Plan: 87M p/w GI hemorrhage. Source never identified despite EGD, colonoscopy, virtual colonoscopy and IR angiography. Stable for a few days now. Also had some hypoxia. First encounter, chart reviewed. # GIB - remains stable without e/o rebleed - EGD with gastritis; colonoscopy technically difficult though diverticula seen--no active bleeding noted in either - IR angiography did not reveal source # ABLA d/t above - s/p 12 PRBC, h/h now stable, check in the am give IV iron # bue/ble edema: present primarily in hands and feet, did have lue thrombus explaining some of this swelling, started lasix and improving, will continue IV lasix for another 1-2 days # acute hypoxic resp failure - suspect volume related, stable on 2L - lasix as above # PICC thrombus - PICC moved to right arm # prostate ca s/p prostatectomy - casodex # htn - at home on amlodipine and lisinopril, have resumed home medications # hypothyroid - synthroid # dispo - to SNF, this likely can't happen for another 1-2 days, to [facility] on Tuesday if stable care plan reviewed with CM. Subjective: Up in chair, Feels well. No pain. Still some swelling. Objective: Vital Signs Temp Pulse Resp BP Pulse Ox 36.8 C 93 16 125/56 H 94 03/10/17 08:15 03/10/17 08:15 03/10/17 08:15 03/10/17 08:15 03/10/17 08:15 Laboratory Results 03/09/17 04:24 03/10/17 05:20 03/09/17 03/10/17 03/11/17 05:59 05:59 05:59 Intake Total 820 Balance 820 PT 15.0 SEC (12.0-15.0) 03/01/17 12:40 INR 1.18 (0.83-1.16) H 03/01/17 12:40 - Physical Exam Constitutional: no apparent distress, not in pain, obese Eyes: PERRL, anicteric sclera, EOMI Ears, Nose, Mouth, Throat: moist mucous membranes, hearing normal, ears appear normal Cardiovascular: regular rate and rhythym, edema, No JVD Respiratory: no respiratory distress, no rales or rhonchi, reduced air movement Gastrointestinal: normoactive bowel sounds, No tenderness, No ascites Skin: warm, normal color, No erythema Musculoskeletal: normal joint ROM, no joint effusions, generalized weakness Neurologic: AAOx3 Psychiatric: interacting appropriately, not encephalopathic, thought process linear ICD10 Worksheet Patient Problems: Problems Problem Status Onset Lower GI bleed Acute
--- NOTE | 2017-03-10 16:25 | ASMTCMCOM ---
CM Note CM Note Notes: Spoke w/Sofi at [facility], have a bed for pt on Tuesday, updated PT/OT notes sent. Date Signed: 03/10/2017 04:24 PM Electronically Signed By:Kiana Briscoe RN
[2017-03-11 05:19] LABS: HEMATOCRIT 24.9 % (40.0-51.0); HEMOGLOBIN 8.3 g/dL (13.7-17.5); MEAN CELL HEMOGLOBIN 30.4 pg (27.9-34.1); MEAN CELL HEMOGLOBIN CONCENTR. 33.3 g/dL (32.4-36.7); MEAN CELL VOLUME 91.2 fL (81.5-99.8); RED BLOOD CELL COUNT 2.73 10^6/uL (4.40-6.38); RED CELL DISTRIBUTION WIDTH 17.5 % (11.5-15.2)
[2017-03-11] MEDS: LEVOTHYROXINE 25 MCG TAB PO SCH (06:28)
[2017-03-11 07:39] VITALS: RESP 18
[2017-03-11] MEDS: ALLOPURINOL 100 MG TAB PO SCH (08:46)
[2017-03-11] MEDS: FLUTICASONE NASAL 120 SPRAYS/16 GM MDI NS SCH (08:47)
[2017-03-11] MEDS: BICALUTAMIDE 50 MG TAB PO SCH (08:47)
[2017-03-11] MEDS: LISINOPRIL 40 MG TAB PO SCH (08:47)
[2017-03-11] MEDS: PANTOPRAZOLE SODIUM 40 MG TAB PO SCH (08:47)
[2017-03-11] MEDS: ATORVASTATIN CALCIUM 20 MG TAB PO SCH (08:47)
[2017-03-11] MEDS: FUROSEMIDE 20 MG/2 ML VIAL IVP SCH ×2 (08:47→16:46)
[2017-03-11] MEDS: ALTEPLASE 2 MG VIAL IVP PRN (09:00)
--- NOTE | 2017-03-11 13:00 | HOSPPROG ---
Hospitalist Progress Note Assessment/Plan: 87M p/w GI hemorrhage. Source never identified despite EGD, colonoscopy, virtual colonoscopy and IR angiography. Stable for a few days now. Also had some hypoxia. First encounter, chart reviewed. # GIB - remains stable without e/o rebleed - EGD with gastritis; colonoscopy technically difficult though diverticula seen--no active bleeding noted in either - IR angiography did not reveal source # ABLA d/t above - s/p 12 PRBC, h/h now stable, check in the am give IV iron # bue/ble edema (improving): -cont IV lasix and monitor # acute hypoxic resp failure - suspect volume related, stable on 2L - lasix as above # PICC thrombus - PICC moved to right arm # prostate ca s/p prostatectomy - casodex # htn - at home on amlodipine and lisinopril, have resumed home medications # hypothyroid - synthroid # dispo - to SNF when bed available care plan reviewed with CM. Subjective: denies new bleeding. feeling better without complaints Objective: Vital Signs Temp Pulse Resp BP Pulse Ox 36.9 C 101 H 18 124/64 H 95 03/11/17 07:38 03/11/17 07:38 03/11/17 07:38 03/11/17 08:47 03/11/17 07:38 Laboratory Results 03/11/17 04:20 03/10/17 05:20 03/10/17 03/11/17 03/12/17 05:59 05:59 05:59 Intake Total 100 Balance 100 PT 15.0 SEC (12.0-15.0) 03/01/17 12:40 INR 1.18 (0.83-1.16) H 03/01/17 12:40 gen nad cv rrr pulm clear abd soft +bs no guard or rebound ICD10 Worksheet Patient Problems: Problems Problem Status Onset Lower GI bleed Acute
[2017-03-12] MEDS: LEVOTHYROXINE 25 MCG TAB PO SCH (05:43)
[2017-03-12 07:54] VITALS: PULSE 78; TEMP 98.6; O2SAT 94
[2017-03-12] MEDS: PANTOPRAZOLE SODIUM 40 MG TAB PO SCH (08:56)
[2017-03-12] MEDS: ALLOPURINOL 100 MG TAB PO SCH (08:56)
[2017-03-12] MEDS: LISINOPRIL 40 MG TAB PO SCH (08:56)
[2017-03-12] MEDS: BICALUTAMIDE 50 MG TAB PO SCH (08:56)
[2017-03-12] MEDS: ATORVASTATIN CALCIUM 20 MG TAB PO SCH (08:56)
[2017-03-12] MEDS: FUROSEMIDE 20 MG/2 ML VIAL IVP SCH (08:56)
[2017-03-12 08:57] LABS: HEMATOCRIT 24.9 % (40.0-51.0); HEMOGLOBIN 8.1 g/dL (13.7-17.5)
[2017-03-12] MEDS: FLUTICASONE NASAL 120 SPRAYS/16 GM MDI NS SCH (08:57)
--- NOTE | 2017-03-12 10:00 | PDIAF ---
- Diagnosis Diagnosis: gi bleed Code Status: Do Not Resuscitate - Medication Management Discharge Medications: Medications to Continue on Transfer Acetaminophen [Tylenol 650/20.3ML Oral Liq (*)] 650 mg PO DAILY PRN 02/28/17 [ Last Taken Unknown] Allopurinol [Allopurinol 100 MG (*)] 100 mg PO DAILY 02/28/17 [Last Taken Unknown] Bicalutamide [Casodex (*)] 50 mg PO DAILY 02/28/17 [Last Taken Unknown] Fluticasone Nasal [Flonase Nasal [place]] 1 sprays NASAL DAILY 02/28/17 [Last Taken Unknown] Levothyroxine [Synthroid 25 mcg (*)] 25 mcg PO DAILY06 02/28/17 [Last Taken Unknown] Lisinopril [Zestril 40 mg (*)] 40 mg PO DAILY 02/28/17 [Last Taken Unknown] Simvastatin [Zocor] 40 mg PO DAILY 02/28/17 [Last Taken Unknown] amLODIPine BESYLATE [Norvasc 10 mg (*)] 10 mg PO DAILY 02/28/17 [Last Taken Unknown] Ferrous Sulfate 325 mg PO BID #60 tablet 03/12/17 [Last Taken Unknown] Furosemide [Lasix 20 MG (*)] 20 mg PO DAILY #7 tab 03/12/17 [Last Taken Unknown] Pantoprazole Sodium [Protonix 40mg (*)] 40 mg PO DAILY #30 tab 03/12/17 [Last Taken Unknown] Discharge Medications: Refer to the Discharge Home Medication list for PRN reason. - Orders Services needed: Physical Therapy, Occupational Therapy Diet Texture: Regular Texture Diet, Thin Liquids - Labs/Radiology CBC w/diff Date: 03/16/17 - Follow Up Care Current Providers and Referrals: Patient,NotPresent [Unknown] - As per Instructions
--- NOTE | 2017-03-12 11:02 | GDS ---
[f rep st] DISCHARGE SUMMARY DISCHARGE DIAGNOSES: 1. Gastrointestinal hemorrhage of unclear source, status post esophagogastroduodenoscopy and colonos copy as well as Interventional Radiology IR angiography. 2. Acute blood loss anemia, status post 12 units of packed red blood cells. 3. Edema, most likely due to blood transfusion and volume in the setting of acute illness. 4. Acute hypoxemic respiratory failure. 5. Peripherally inserted central catheter-associated thrombus. 6. Prostate cancer, status post prostatectomy. 7. Hypertension. 8. Hypothyroidism. CONSULTANTS: Dr. Gavin Flores, GI of [facility]. Dr. aJce Peña, Interventional Radiology. HOSPITAL COURSE AND STAY BY PROBLEM: 1. Acute blood loss anemia in the setting of GI bleed: Patient presented to the hospital on with a suspected lower GI bleed and acute blood loss anemia with a hemoglobin of 5. He was seen by GI who performed upper and lower endoscopy without any obvious source of bleeding. Throughout his hospital course, he required 12 units of packed red blood cells. Over the past few days, his hemogl obin and hematocrit have been stable. He is no longer having any signs or symptoms of bleeding. 2. Swelling, most likely due to transfusion-related circulatory overload: Over the past few days, lana gomez has been receiving IV Lasix, and his swelling has been improving. Will plan on discharging him on 20 mg of oral Lasix, which may need to either be titrated up or down depending on his clinical respon se. 3. History of hypertension: The patient presented to the hospital on 50 mg of metoprolol b.i.d., wh ich has been held during this stay. He has been receiving Norvasc 10 mg as well as lisinopril 40 mg daily. He will need further monitoring of his blood pressures. Will plan on discharging him off his metoprolol, but we will continue Norvasc and lisinopril. Will also discontinue his hydrochlorothiaz ana. 4. PICC line-associated thrombus: The patient had upper extremity thrombus. PICC line was subseque ntly removed and placed in the other arm. He is not a good candidate for anticoagulation given his r ecent bleeding. PHYSICAL EXAM: VITAL SIGNS: On day of discharge, blood pressure 136/53, pulse 78, respiratory rate 18, O2 saturation 94% on 2 L. Temperature afebrile. GENERAL: No acute distress. HEART: S1, S2. LUNGS: Clear. EXTREMITIES: Lower extremities with 1+ pitting edema. PROCEDURES DONE THIS HOSPITAL STAY: Echocardiogram done 03/01/2017, refer to report. PICC line inse rtion done on 02/28/2017 with replacement on 03/04/2017. Upper and lower endoscopy done 03/02/2017 amarilis Flores. Virtual colonoscopy done 03/02/2017. DISCHARGE MEDICATIONS: Please refer to discharge medication reconciliation in [facility] for details. DISCHARGE INSTRUCTIONS: The patient will be transferred to [facility]. He should have further monitoring of his CBC again in another few days to ensure that he is stable. Will also start iron. He should remain on iron for 2 months. Should continue with Protonix daily. He should follow up wit h GI in 2-4 weeks. /[id number]/MODL
--- NOTE | 2017-03-12 12:31 | ASMTCMCOM ---
CM Note CM Note Notes: D/w , final orders faxed, Sofi at [facility] notified. 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 Date Signed: 03/12/2017 12:30 PM Electronically Signed By:Kiana Briscoe RN
[2017-03-12 13:36] VITALS: BP 90/71
--- NOTE | 2017-03-12 17:19 | ASDISCHSUM ---
Discharge Information Plan Status:SNF Medically Cleared to Leave: Discharge Date:03/12/2017 02:18 PM D/C Disposition:Group Home Facility ADT D/C Disposition:Group Home Facility Projected Discharge Date:03/12/2017 11:00 AM Transportation at D/C:Wheelchair Van Discharge Delay Reason: Follow-Up Date:03/12/2017 11:00 AM Discharge Slot: Final Diagnosis: Placement Information Referral Type:*Home Health Care Services Referral ID:[id number] Provider Name: Address 1: Phone Number: Address 2: Fax Number: City: Selection Factors: State: Referral Type:*Longterm/SNF Referral ID:[id number] Provider Name:[facility] Address 1:[facility] Address 2: City:[place] Selection Factors: State:[place] Patient Contact Information Contact Name:GRANDA (POA) Relationship:Son Address:[address] Work Phone: City:[place] Alternate Phone: State/Zip Code:[place] [address] Email: Financial Information Financial Class:Medicare Advantage Plans Primary Plan Desc:[facility] MEDICARE ADV Primary Plan Number:[id number] Secondary Plan Desc: Secondary Plan Number: Assessment Information [facility] CM Progress Note CM Note CM Note Notes: 87 year old male who lives at [facility] admitted for lower GIB. Patient is a daily drinker of ETOH and smoker. He has a hx of Prostate CA, HTN, Gout. Sudha Mccormick is his MPOA. Therapies to IN[facility]S lee to follow for discharge needs. Date Signed: 03/01/2017 10:01 AM Electronically Signed By:Tanya Poole LCSW [facility] CM Progress Note CM Note CM Note Notes: Met with patient and his daughter Fern ([phone]) to discuss discharge planning. Patient has only worked with therapies once, so more input is needed. Patient and dtr are aware that [facility] will likely require a SNF stay or more support at patient's home (homecare, unskilled help, etc) before he can return. Patient is amenable to whatever he needs to do; he is also motivated to get up and move more with therapies. He doesn't receive any assistance at [facility]; I recommended that dtr call and see if she can increase his level of assistance. I explained that insurance will cover either home care or SNF, whichever is recommended. Referrals were sent, per their request, to [facility] and [facility]. [facility] responded that they do not take patient's insurance, so I sent referrals to [facility] and [facility], as well. I left a message for patient's dtr Fern with this information. Current discharge plan is TBD. CM will follow. Date Signed: 03/04/2017 12:00 PM Electronically Signed By:Nafisa Shine RN [facility] Progress Note CM Note CM Note Notes: After evals today, PT/OT recommending SNF. I spoke with patient's daughter who would like [facility]. I explained that the facility will accept patient pending insurance authorization and will have to request insurance authorization, likely Tuesday. Patient should transfer to the floor in the next 1-2 days and d.c mid next week. CM will follow. Date Signed: 03/05/2017 11:21 AM Electronically Signed By:Nafisa Shine RN [facility] CM Progress Note CM Note CM Note Notes: Chart reviewed. Met with daughter and patient to review DC plan of care. They would like to go to [facility]. Concerns over insurance auth. They have met deductible. Farah at [facility] to verify authorization. DC when medically stable. CM to follow. Date Signed: 03/07/2017 12:45 PM Electronically Signed By:Echo Burt RN [facility] CM Progress Note CM Note CM Note Notes: [facility] does not have a bed available today and they are uncertain as to when they will have a bed available. IN[facility] communicated this w/ Dr. Charles and HEATHER Flor. IN[facility]S called daughter and notified her of this as well. Daughter is agreeable to having pt go to [facility]. IN[facility] spoke w/ Gena at [facility] and asked if she could start obtaining the auth. Gena reports that it will take 48hrs to obtain the auth. IN[facility]S to follow. Date Signed: 03/08/2017 03:49 PM Electronically Signed By:RAINA Royal [facility] CM Progress Note CM Note CM Note Notes: CM met w/ pt and daughter, Fern for dispo planning. Pt is questioning if he wants to go to [facility]. Pt and Fern would like an order to be put in for inpatient rehab at [facility]. CM notified Dr. Charles about this and she will put in the order. Danni from inpatient rehab has reviewed the case and does not think pt is approriate for inpatient rehab level of care. Pt and Fern would also like CM to make a referral to [facility]. CM spoke w/ Dallas at [facility] and they do not have a beds available. CM notified both pt and Fern about the new developments. Pt is agreeable to going to [facility] and does not want to further delay d/c. CM notified Gena at [facility] and she will try to obtain the auth. CM to follow. Date Signed: 03/09/2017 11:37 AM Electronically Signed By:RAINA Royal [facility] CM Progress Note CM Note CM Note Notes: Spoke w/Sofi at [facility], have a bed for pt on Tuesday, updated PT/OT notes sent. Date Signed: 03/10/2017 04:24 PM Electronically Signed By:Kiana Briscoe RN [facility] CM Progress Note CM Note CM Note Notes: D/w , final orders faxed, Sofi at [facility] notified. glycerin supervisor at 2pm, daughter HEATHER meyers to call report. Date Signed: 03/12/2017 12:30 PM Electronically Signed By:Kiana Briscoe RN Intervention Information
== END 2017-03-12 14:18 | DRG 377 ==
LOC: F2N 10:54 → F3E 03-06 16:04
PROVIDERS: ADMIT Internal Medicine; ATTEND Internal Medicine
PROC: 02HV33Z Insertion of Infusion Device into Superior Vena Cava, Percutaneous Approach (ICD-10-PCS; 2017-02-28)
PROC: 0DJD8ZZ Inspection of Lower Intestinal Tract, Via Natural or Artificial Opening Endoscopic (ICD-10-PCS; principal; 2017-03-02 09:00)
PROC: 0DB68ZX Excision of Stomach, Via Natural or Artificial Opening Endoscopic, Diagnostic (ICD-10-PCS; principal; 2017-03-02 09:00)
PROC: B4141ZZ Fluoroscopy of Superior Mesenteric Artery using Low Osmolar Contrast (ICD-10-PCS; 2017-03-03)
PROC: 30233N1 Transfusion of Nonautologous Red Blood Cells into Peripheral Vein, Percutaneous Approach (ICD-10-PCS; 2017-03-03)
PROC: 02HV33Z Insertion of Infusion Device into Superior Vena Cava, Percutaneous Approach (ICD-10-PCS; 2017-03-04)
PROC: 02HV33Z Insertion of Infusion Device into Superior Vena Cava, Percutaneous Approach (ICD-10-PCS; 2017-03-07)
DX: K92.2 Gastrointestinal hemorrhage, unspecified (principal); D62 Acute posthemorrhagic anemia; J96.01 Acute respiratory failure with hypoxia; T82.868A Thrombosis due to vascular prosthetic devices, implants and grafts, initial encounter; R60.0 Localized edema; T45.8X5A Adverse effect of other primarily systemic and hematological agents, initial encounter; I10 Essential (primary) hypertension; E03.9 Hypothyroidism, unspecified; M10.9 Gout, unspecified; K57.30 Diverticulosis of large intestine without perforation or abscess without bleeding; Z85.46 Personal history of malignant neoplasm of prostate
CPT/HCPCS: 82947-QW; 92526-GN; 92610-GN; 97110-GP; 97116-GP; 97161-GP; 97165-GO; 97530-GP; 97535-GO; C1751; C1769; G8978-GP-CK; G8979-GP-CI; G8987-GO-CL; G8988-GO-CJ; J0610; J1610; J1644; J1940; J2250; J2704; J2916; J2997; J3010; J3475; P9016; Q9967

== ENCOUNTER 2017-05-20 12:00 | Inpatient (IN) | payer OTHER ==
[2017-05-20 12:47] LABS: PLATELET COUNT 183 10^3/uL (150-400)
--- NOTE | 2017-05-20 13:05 | EDPHY ---
H & P Stated Complaint: hx gi bleed/icu in nov/anemia needs transfusion - Personal History Current Tetanus/Diphtheria Vaccine: Unsure - Medical/Surgical History Hx Asthma: No Hx Chronic Respiratory Disease: No Hx Diabetes: No Hx Cardiac Disease: No Hx Renal Disease: No Hx Cirrhosis: No Hx Alcoholism: No Hx HIV/AIDS: No Hx Splenectomy or Spleen Trauma: No Other PMH: htn, gout, hypothyroid, prostate ca, GORDY/gi bleed - Social History Smoking Status: Former smoker HPI/ROS: Chief complaint: Anemia History of present illness: This is an 87-year-old male who presents to the emergency department for evaluation of anemia. Patient was admitted to this hospital in March of 2017 for a GI bleed with acute blood-loss resulting in severe anemia. According to records he required 12 U of blood at that time. He had blood work performed yesterday and was contacted today noting that his hemoglobin and hematocrit were very low at 5 an 18 and asked come to the emergency room. Patient does report fatigue. Occasional trouble breathing. He denies other associated signs or symptoms at this time. Review of systems: A 10 point review of systems was obtained and other than described above was negative (Noah Johnson) - Physical Exam Exam: General Appearance: Alert, nontoxic. Eyes: Pupils equal and round no pallor or injection. ENT, Mouth: Mucous membranes moist. Respiratory: There are no retractions, lungs are clear to auscultation. Cardiovascular: Regular rate and rhythm. Gastrointestinal: Abdomen is soft and non tender, no masses, bowel sounds normal. Neurological: Alert and oriented x4. Strength and sensation intact and symmetrical. Skin: Patient is pale Musculoskeletal: Neck is supple non tender. Extremities are symmetrical, full range of motion. Psychiatric: Patient is oriented X 3, there is no agitation. (Noah Johnson) Constitutional: Initial Vital Signs Temperature (C) 36.4 C 05/20/17 12:07 Heart Rate 94 05/20/17 12:07 Respiratory Rate 18 05/20/17 12:07 Blood Pressure 125/60 H 05/20/17 12:07 O2 Sat (%) 92 05/20/17 12:07 O2 Delivery Mode Oxymask O2 (L/minute) 5 Allergies/Adverse Reactions: oxycodone [From Tylox] Allergy (Verified 05/20/17 12:03) Home Medications: Medication Instructions Recorded Allopurinol [Allopurinol 100 MG 100 mg PO DAILY 02/28/17 (*)] Fluticasone Nasal [Flonase Nasal 1 sprays NASAL DAILY 02/28/17 [place]] Levothyroxine [Synthroid 25 mcg 25 mcg PO DAILY06 02/28/17 (*)] Furosemide [Lasix 20 MG (*)] 20 mg PO DAILY #7 tab 03/12/17 Pantoprazole Sodium [Protonix 40mg 40 mg PO DAILY #30 tab 03/12/17 (*)] Acetaminophen [Tylenol ES 500 mg 1,000 mg PO BID 05/20/17 (*)] Acetaminophen [Tylenol ES 500 mg 1,000 mg PO Q8HRS PRN 05/20/17 (*)] Ferrous Sulfate [Ferrous Sulf 325 325 mg PO BID 05/20/17 MG (*)] Herbals/Supplements -Info Only 1 ea PO DAILY 05/20/17 Loperamide HCl [Imodium 2 mg (*)] 2 mg PO Q6HRS PRN 05/20/17 Simethicone [Gas Relief] 80 mg PO QID PRN 05/20/17 amLODIPine BESYLATE [Norvasc 5 mg 5 mg PO DAILY 05/20/17 (*)] Medical Decision Making - Diagnostics Imaging Results: Imaging Impressions Chest X-Ray 05/21/17 10:59 Impression: Chronic versus recurrent left lower lobe consolidation. ED Course/Re-evaluation: Patient is discussed with my primary supervising physician Dr. Jannie Isaac. Patient presents to the emergency department after having anemia noted on outpatient labs. He has a recent history of severe anemia. His hemoglobin and hematocrit are 6 and 18 in the emergency room. However, he is hemodynamically stable with normal vital signs. He will be admitted to the hospitalist service under the care of Dr. Lopez. I have consulted with GI, Dr. Kaplan given his previous history of potential GI bleed, she will consult on patient. Plan has been discussed with the patient voiced understanding and agreement with it. (Noah Johnson) Differential Diagnosis: Acute blood loss secondary to multiple etiologies including upper GI bleed, lower GI bleed (Noah Johnson) - Data Points Laboratory Results: Laboratory Results 05/21/17 05:15 05/21/17 05:15 05/21/17 05:15 MCV 81.2 fL L fL (81.5-99.8) Smear Review By Yana SELLERS MD Medications Given: Acetaminophen (Tylenol) 1,000 mg PO BID REAGAN Stop: 11/16/17 20:59 Last Admin: 05/21/17 20:49 Dose: 1,000 mg Allopurinol (Allopurinol) 100 mg PO DAILY REAGAN Stop: 11/17/17 08:59 Last Admin: 05/21/17 11:00 Dose: 100 mg Amlodipine Besylate (Norvasc) 5 mg PO DAILY REAGAN Stop: 11/17/17 08:59 Last Admin: 05/21/17 11:00 Dose: 5 mg Fluticasone Propionate (Flonase Nasal [place]) 1 sprays EACHNARE DAILY REAGAN Stop: 11/17/17 08:59 Last Admin: 05/21/17 11:00 Dose: 1 spr Furosemide (Lasix) 20 mg PO DAILY REAGAN Stop: 11/17/17 08:59 Last Admin: 05/21/17 11:00 Dose: 20 mg Ferric Sodium Gluconate Complex 125 mg/ Sodium Chloride 110 mls @ 110 mls/hr IV DAILY REAGAN Stop: 05/23/17 23:59 Last Admin: 05/21/17 10:59 Dose: 110 mls Levothyroxine Sodium (Synthroid) 25 mcg PO DAILY06 REAGAN Stop: 11/17/17 05:59 Last Admin: 05/21/17 05:22 Dose: 25 mcg Ondansetron HCl (Zofran) 4 mg IVP Q4HRS PRN PRN Reason: Nausea/Vomiting, Can't Take PO Stop: 11/16/17 13:43 Last Admin: 05/21/17 15:49 Dose: 4 mg Pantoprazole Sodium (Protonix) 40 mg IVP BID REAGAN Stop: 11/16/17 13:59 Last Admin: 05/21/17 20:49 Dose: 40 mg Discontinued Medications Furosemide (Lasix Injection) 20 mg IVP ONCE ONE Stop: 05/20/17 13:54 Last Admin: 05/20/17 16:51 Dose: 20 mg Polyethylene Glycol/Electrolytes (Gavilyte - G) 4,000 ml PO ONCE ONE Stop: 05/20/17 14:43 Last Admin: 05/20/17 15:34 Dose: 4,000 ml Potassium Chloride (Klor-Con) 10 - 40 meq PO ONCE ONE PRN Reason: Protocol Stop: 05/21/17 19:33 Last Admin: 05/21/17 20:49 Dose: 40 meq Departure - Departure Disposition: [facility] Acute Clinical Impression: Anemia Qualifiers: Anemia type: unspecified type Qualified Code(s): D64.9 - Anemia, unspecified Condition: Fair
[2017-05-20 13:31] LABS: INR 1.24 (0.83-1.16); PROTIME(PATIENT) 15.8 SEC (12.0-15.0)
[2017-05-20] MEDS ORDERED: ONDANSETRON DISINTEGRATING 4 MG TAB PO PRN (13:44)
[2017-05-20] MEDS ORDERED: ACETAMINOPHEN 325 MG TAB PO PRN (13:44)
[2017-05-20] MEDS ORDERED: SIMETHICONE 80 MG TAB CHEW PO PRN (13:47)
[2017-05-20] MEDS ORDERED: LOPERAMIDE HCL 2 MG CAP PO PRN (13:47)
[2017-05-20] MEDS ORDERED: ACETAMINOPHEN 500 MG TAB PO PRN (13:47)
[2017-05-20] MEDS ORDERED: FUROSEMIDE 20 MG/2 ML VIAL IVP ONE (13:53)
[2017-05-20] MEDS ORDERED: PEG 3350/NA SULF,BICARB,CL/KCL (GAVILYTE-G) 4000 ML BTL PO ONE (14:42)
--- NOTE | 2017-05-20 16:26 | PDGENHP ---
History and Physical - Chief Complaint Acute lassitude - History of Present Illness Primary care provider: Physician house calls HPI: 87-year-old male presenting with acute lassitude characterized as generalized fatigue, particularly profound on the morning of presentation, but with onset approximately 2 months ago and duration persistent thereafter. He reports that he has had intermittent dark, tarry stool but none recently. He reports that his stool is chronically dark but formed in the setting of taking oral iron. Reports anorexia and some associated shortness of breath exacerbated by ambulation, as well as profound gas symptoms, but no overt abdominal pain nausea or vomiting. He reports that his oral intake has been regular comma despite his poor appetite. On the day of presentation, the patient had his hemoglobin level checked by his physician house call primary care provider, and his hemoglobin level was between 5 and 6. He was advised to go to the emergency department. He denies any dizziness or syncope. History Information - Allergies/Home Medication List Allergies/Adverse Reactions: oxycodone [From Tylox] Allergy (Verified 05/20/17 12:03) Home Medications: Allopurinol [Allopurinol 100 MG (*)] 100 mg PO DAILY 02/28/17 [Last Taken ] Fluticasone Nasal [Flonase Nasal [place]] 1 sprays NASAL DAILY 02/28/17 [Last Taken 05/20/17] Levothyroxine [Synthroid 25 mcg (*)] 25 mcg PO DAILY06 02/28/17 [Last Taken ] Acetaminophen [Tylenol ES 500 mg (*)] 1,000 mg PO BID 05/20/17 [Last Taken 05/20] Acetaminophen [Tylenol ES 500 mg (*)] 1,000 mg PO Q8HRS PRN 05/20/17 [Last Taken Unknown] Ferrous Sulfate [Ferrous Sulf 325 MG (*)] 325 mg PO BID 05/20/17 [Last Taken ] Herbals/Supplements -Info Only 1 ea PO DAILY 05/20/17 [Last Taken Unknown] Loperamide HCl [Imodium 2 mg (*)] 2 mg PO Q6HRS PRN 05/20/17 [Last Taken Unknown ] Simethicone [Gas Relief] 80 mg PO QID PRN 05/20/17 [Last Taken Unknown] amLODIPine BESYLATE [Norvasc 5 mg (*)] 5 mg PO DAILY 05/20/17 [Last Taken ] I have personally reviewed and updated: family history, medical history, social history, surgical history - Past Medical History Additional medical history: 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 Hypertension. Prostate cancer. Gout. PICC line associated upper extremity DVT - Surgical History Additional surgical history: Bilateral knee surgery. Prostatectomy in the - Family History Additional family history: No 1st degree relatives with colon cancer - Social History Smoking Status: Former smoker Alcohol Use: None Drug Use: None Additional social history: Resides at [facility] Review of Systems Review of Systems: ROS: 10pt was reviewed & negative except for what was stated in HPI & below Constitutional: Reports: other (Fatigue) Respiratory: Reports: shortness of breath Gastrointestinal: Reports: black stools Physical Exam Physical Exam: Temp Pulse Resp BP Pulse Ox 36.5 C 77 18 141/63 H 98 05/20/17 16:00 05/20/17 16:00 05/20/17 13:44 05/20/17 16:00 05/20/17 16:00 O2 (L/minute) 2 Constitutional: no apparent distress, appears nourished, not in pain, other ( Pale-appearing), No uncomfortable Eyes: PERRL, EOMI, pale conjunctiva Ears, Nose, Mouth, Throat: moist mucous membranes, hearing normal, ears appear normal, no oral mucosal ulcers Cardiovascular: systolic murmur (1/6 at the sternum and apex), No irregularly irregular, No tachycardia, No edema Respiratory: no respiratory distress, no rales or rhonchi, clear to auscultation Gastrointestinal: normoactive bowel sounds, soft, non-tender abdomen, no palpable masses, No distension Skin: warm, other (Pale appearance), No rash Neurologic: AAOx3, sensation intact bilaterally, No weakness (Motor 5/5 bilateral lower extremities), No facial droop Psychiatric: interacting appropriately, not anxious, not encephalopathic, thought process linear Lab Data & Imaging Review 05/20/17 12:35 05/20/17 12:35 WBC 3.79 10^3/uL (3.80-9.50) L 05/20/17 12:35 RBC 2.33 10^6/uL (4.40-6.38) L 05/20/17 12:35 Hgb 6.0 g/dL (13.7-17.5) L 05/20/17 12:35 Hct 18.6 % (40.0-51.0) L 05/20/17 12:35 MCV 79.8 fL (81.5-99.8) L 05/20/17 12:35 MCH 25.8 pg (27.9-34.1) L 05/20/17 12:35 MCHC 32.3 g/dL (32.4-36.7) L 05/20/17 12:35 RDW TNP 05/20/17 12:35 Plt Count 183 10^3/uL (150-400) 05/20/17 12:35 MPV TNP 05/20/17 12:35 Neut % (Auto) 58.5 % (39.3-74.2) 05/20/17 12:35 Lymph % (Auto) 27.2 % (15.0-45.0) 05/20/17 12:35 [place] % (Auto) 7.7 % (4.5-13.0) 05/20/17 12:35 Eos % (Auto) 5.5 % (0.6-7.6) 05/20/17 12:35 Baso % (Auto) 0.3 % (0.3-1.7) 05/20/17 12:35 Nucleat RBC Rel Count 0.0 % (0.0-0.2) 05/20/17 12:35 Absolute Neuts (auto) 2.22 10^3/uL (1.70-6.50) 05/20/17 12:35 Absolute Lymphs (auto) 1.03 10^3/uL (1.00-3.00) 05/20/17 12:35 Absolute Monos (auto) 0.29 10^3/uL (0.30-0.80) L 05/20/17 12:35 Absolute Eos (auto) 0.21 10^3/uL (0.03-0.40) 05/20/17 12:35 Absolute Basos (auto) 0.01 10^3/uL (0.02-0.10) L 05/20/17 12:35 Absolute Nucleated RBC 0.00 10^3/uL (0-0.01) 05/20/17 12:35 Immature Gran % 0.8 % (0.0-1.1) 05/20/17 12:35 Immature Gran # 0.03 10^3/uL (0.00-0.10) 05/20/17 12:35 Platelet Estimate ADEQUATE (ADEQ) 05/20/17 12:35 Polychromasia 1+ H 05/20/17 12:35 Hypochromasia 2+ H 05/20/17 12:35 Microcytic Cells 1+ H 05/20/17 12:35 Acanthocytes (Spur) 2+ H 05/20/17 12:35 Schistocytes 1+ H 05/20/17 12:35 Smear Review By Yana SELLERS MD 05/20/17 12:35 PT 15.8 SEC (12.0-15.0) H 05/20/17 13:15 INR 1.24 (0.83-1.16) H 05/20/17 13:15 APTT 30.1 SEC (23.0-38.0) 05/20/17 13:15 Sodium 139 mEq/L (135-145) 05/20/17 12:35 Potassium 4.4 mEq/L (3.5-5.2) 05/20/17 12:35 Chloride 100 mEq/L (97-110) 05/20/17 12:35 Carbon Dioxide 27 mEq/l (22-31) 05/20/17 12:35 Anion Gap 12 mEq/L (8-16) 05/20/17 12:35 BUN 16 mg/dL (7-23) 05/20/17 12:35 Creatinine 0.8 mg/dL (0.7-1.3) 05/20/17 12:35 Estimated GFR > 60 05/20/17 12:35 Glucose 99 mg/dL (70-100) 05/20/17 12:35 Calcium 9.2 mg/dL (8.5-10.4) 05/20/17 12:35 Patient ABO/Rh O NEGATIVE 05/20/17 12:35 Antibody Screen NEGATIVE 05/20/17 12:35 Crossmatch IS Only See Detail 05/20/17 12:35 Assessment & Plan Assessment: 87-year-old male presenting with acute on chronic blood loss anemia Plan: 1. Blood loss Anemia. Acute on chronic, new problem this provider, further workup indicated. Microcytic, suspect iron deficient component in the setting of blood loss from suspected small-bowel source -reviewed outside records including 03/12/[address] Nayan Will, reporting the patient was fully evaluated for a GI bleed of unclear source, received 12 U of packed red blood cells, IR angiography, upper endoscopy and lower endoscopy by Dr. Gavin Flores, no clear source identified -suspect recent worsening of small bowel bleeding source, resulting in intermittent melanotic stool -gastroenterology will perform upper and lower endoscopy tomorrow, prep this evening -continue IV PPI twice daily, has been on oral once daily -given suspected iron deficient component, will give IV iron beginning tomorrow morning, recommend ranging as an outpatient as his oral dosing is clearly insufficient -given that he is symptomatic, transfuse 2 packed red cell units at this time with Lasix IV following this dosing, scheduled oral dosing daily to avoid lower extremity edema which was a complication of his last hospitalization -if no source identified on the workup above, patient should receive an outpatient capsule endoscopy referral [facility] for push enteroscopy 2. Hypertension. Chronic, continue amlodipine and Lasix, blood pressure permitting 3. Gout. Continue allopurinol 4. Suspected upper gastrointestinal hemorrhage. Most likely in the small bowel , workup as outlined above Diet. Clears with bowel prep, NPO after midnight Prophylaxis. High risk patient given his previous PICC associated DVT, SCDs, hold pharm given bleed Code. Daughter is MD NAGEL, patient is DNR, confirmed with patient Disposition. Anticipated discharge is 05/21/2017, pending further workup as outlined above. I have discussed patient's presentation with Casi Greene, hospitalist provider , she has signed the patient out to me for evaluation.
[2017-05-20] MEDS: PANTOPRAZOLE SODIUM 40 MG VIAL IVP SCH ×2 (16:51→21:20)
[2017-05-20] MEDS: ACETAMINOPHEN 500 MG TAB PO SCH (19:58)
--- NOTE | 2017-05-20 20:38 | GCON ---
[f rep st] CONSULTATION DATE OF CONSULTATION: 05/20/2017 CHIEF COMPLAINT: Anemia. HISTORY OF PRESENT ILLNESS: I am asked to see this patient in consultation by CHRIS Johnson for maya irby complaint of anemia. The patient is an 87-year-old, [place] be [place] to his daughter. Originally presented with significant GI bleed in March. During that hospi talization, he required 12 units of blood, underwent an upper endoscopy that showed mild gastritis. Had attempted colonoscopy, but could not get past the sigmoid colon due to diverticulosis. This was followed by a virtual colonoscopy that was poor quality. He then re-bled, had an angiogram that was negative. By then his bleeding had stopped, and he was discharged home on iron, but had progressive fatigue, presented for evaluation and found to be significantly anemic. He does have daily black sto ols because of iron supplementation, but states that they are usually firm and not tarry. He had an episode of dry heaves a few weeks ago, but no actual vomiting or hematemesis. No significant abdomin al pain. No bright red blood. He denies NSAIDs or any blood thinners. There is no known prior hist ory of chronic anemia. ALLERGIES: Codeine. CURRENT MEDICATIONS: Prior to admission: Protonix 40 mg daily, Imodium as needed, Synthroid, Lasix, simethicone, Flonase, allopurinol, and Tylenol. PAST MEDICAL HISTORY: Notable for hypertension, prostate cancer status post prostatectomy in the ' s, gout. FAMILY HISTORY: Negative for history of anemia or colon cancer. SOCIAL HISTORY: He lives at [place] [facility]. No history of smoking. REVIEW OF SYSTEMS: I performed a complete review of systems which was negative, except for the perti nent positives and negatives as noted above in the HPI. PHYSICAL EXAMINATION: VITAL SIGNS: He is afebrile at 36.4, BP 126/73, pulse 89. CONSTITUTIONAL: A lert and oriented. HEENT: Eyes, no scleral icterus. Oropharynx, no oral lesions. CARDIOVASCULAR: Regular rhythm. CHEST: Clear to auscultation. ABDOMEN: Positive bowel sounds. Soft, nontender. NEUROLOGIC: Nonfocal. SKIN: No rashes. LABORATORY DATA: BUN of 12, creatinine of 0.8. Pro time is 15.8, with INR 1.24. White count 3, hem oglobin of 6 with hematocrit of 18.6, MCV is 79.8. ASSESSMENT: Iron deficiency anemia in the setting of recent severe upper gastrointestinal bleeding, with concerns of recurrent obscure bleeding, cause unclear; however, the patient never had a good exa m of his whole colon with either colonoscopy or virtual colonoscopy. At this point, I would recommen d repeat attempt at colonoscopy to assure no underlying malignancy or arteriovenous malformations, et c. Will check celiac sprue serology, and if site of blood loss is not identified, then could conside r capsule endoscopy. Thank you for this consult. Sincerely, /[id number]/MODL
[2017-05-20] MEDS ORDERED: FERROUS SULFATE 325 MG TAB PO SCH (21:00)
[2017-05-21] MEDS: ONDANSETRON 4 MG/2 ML VIAL IVP PRN ×2 (01:49→15:49)
[2017-05-21] MEDS: LEVOTHYROXINE 25 MCG TAB PO SCH (05:22)
[2017-05-21 06:01] LABS: PLATELET COUNT 147 10^3/uL (150-400)
--- NOTE | 2017-05-21 08:31 | PDANEPAE ---
ANE History of Present Illness 87 yo m with anemia of idiopathic etiology here for colonoscopy ANE Past Medical History - Cardiovascular History Hx Hypertension: Yes - Pulmonary History Hx Oxygen in Use at Home: No Hx Sleep Apnea: No Sleep Apnea Screening Result - Last Documented: Positive - Endocrine History Hx Diabetes: No - Chronic Pain History Chronic Pain: No ANE Review of Systems Review of Systems: - Exercise capacity Exercise capacity: limited by disability - Systems Muscolosketal: Reports: joint pain Hematologic/Lymphatic: Reports: anemia ANE Patient History - Allergies Allergies/Adverse Reactions: oxycodone [From Tylox] Allergy (Verified 05/20/17 12:03) - Home Medications Home Medications: Allopurinol [Allopurinol 100 MG (*)] 100 mg PO DAILY 02/28/17 [Last Taken ] Fluticasone Nasal [Flonase Nasal [place]] 1 sprays NASAL DAILY 02/28/17 [Last Taken 05/20/17] Levothyroxine [Synthroid 25 mcg (*)] 25 mcg PO DAILY06 02/28/17 [Last Taken ] Acetaminophen [Tylenol ES 500 mg (*)] 1,000 mg PO BID 05/20/17 [Last Taken 05/20] Acetaminophen [Tylenol ES 500 mg (*)] 1,000 mg PO Q8HRS PRN 05/20/17 [Last Taken Unknown] Ferrous Sulfate [Ferrous Sulf 325 MG (*)] 325 mg PO BID 05/20/17 [Last Taken ] Herbals/Supplements -Info Only 1 ea PO DAILY 05/20/17 [Last Taken Unknown] Loperamide HCl [Imodium 2 mg (*)] 2 mg PO Q6HRS PRN 05/20/17 [Last Taken Unknown ] Simethicone [Gas Relief] 80 mg PO QID PRN 05/20/17 [Last Taken Unknown] amLODIPine BESYLATE [Norvasc 5 mg (*)] 5 mg PO DAILY 05/20/17 [Last Taken ] - NPO status NPO Status: no food or drink >8 hours NPO Since - Liquids (Date): 05/21/17 NPO Since - Liquids (Time): 00:01 NPO Since - Solids (Date): 05/20/17 NPO Since - Solids (Time): 12:00 - Anes Hx Anes Hx: no prior problems - Smoking Hx Smoking Status: Former smoker - Alcohol Use Alcohol Use: None - Family Anes Hx Family Anes Hx: none ANE Labs/Vital Signs - Labs Result Diagrams: 05/21/17 05:15 05/21/17 05:15 - Vital Signs Blood Pressure: 119/59 Heart Rate: 77 Respiratory Rate: 20 O2 Sat (%): 94 Height: 172 cm Weight: 75.8 kg ANE Physical Exam - Airway Neck exam: FROM Mallampati Score: Class 2 Mouth exam: normal dental/mouth exam - Pulmonary Pulmonary: no respiratory distress, clear to auscultation - Cardiovascular Cardiovascular: regular rate and rhythym, no murmur, rub, or gallop - ASA Status ASA Status: III ANE Anesthesia Plan Anesthesia Plan: GA with mask Total IV Anesthesia: Yes
[2017-05-21] MEDS ORDERED: PROPOFOL/EMULSION 500 MG/50 ML BOTTLE IV ONE (08:37)
--- NOTE | 2017-05-21 08:40 | PDHPUP ---
History & Physical Update H&P update statement: This history and physical update is based on an assessment of the patient which was completed after admission or registration (within 24 hours), but prior to the surgery/procedure. and consultation of 05/20/2017
[2017-05-21] MEDS ORDERED: Herbals/Supplements -Info Only PO SCH (09:00)
--- NOTE | 2017-05-21 09:25 | POSTOPPROG ---
Post Op Note Date of Operation: 05/21/17 Surgeon: Jose Alberto Patrick Anesthesiologist: Michael Del Castillo MD Anesthesia: Other (Specify) (IV general) Pre-op Diagnosis: anemia Post-op Diagnosis: incomplete exam, sigmoid diverticulosis Indication: recurrent anemia Procedure: incomplete colonoscopy Findings: unable to pass sigmoid colon Inf/Abcess present in the surg proc area at time of surgery?: No EBL: none Total fluids administered: 500 ml LR Complications: none immediate
--- NOTE | 2017-05-21 09:26 | GIREPORT ---
[facility] [place] Surgical Services - Endoscopy Department Patient Name: Nacho Greer Procedure Date: 05/21/2017 8:29 AM Patient Type: Inpatient Attending MD/ ER Physician: Joy Gutierrez Procedure: Colonoscopy Indications: Iron deficiency anemia secondary to chronic blood loss, Iron deficiency anemia Providers: Nathan Patrick MD Medicines: Total IV Anesthesia (TIVA) = IV general Complications: No immediate complications. Estimated blood loss: None. Description of Procedure: After obtaining informed consent, the scope was passed under direct vis ion. Throughout the procedure, the patient's blood pressure, pulse, and oxyg en saturations were monitored continuously. The Colonoscope was introduced through the anus and advanced to the sigmoid colon. The Endoscope was introduced through the anus and advanced to. The colonoscopy was extrem tayler difficult due to multiple diverticula in the colon, restricted mobility of the colon, significant looping and a tortuous colon. Unsuccessful compl etion of the procedure was aided by withdrawing and reinserting the scope and withdrawing the scope and replacing with the adult upper endoscope. The patient tolerated the procedure well. The quality of the bowel preparat ion was fair. Findings: The digital rectal exam was normal. Multiple small and large-mouthed diverticula were found in the sigmoid colon. Estimated Blood Loss: Estimated blood loss: none. Post Op Diagnosis: - INCOMPLETE EXAM - only to sigmoid colon. - Preparation of the colon was fair. - Diverticulosis in the sigmoid colon. - No specimens collected. Recommendation: - Clear liquid diet. - Perform a virtual colonoscopy at appointment to be scheduled. He did not tolerate previous virtual colonoscopy. I will discuss with radiology. - To visualize the small bowel, perform video capsule endoscopy after studies are complete if etiology of his anemia is unclear. - [facility]. - Thank you for allowing me to help in your patient's care. Do not hesi ferrari to call with any questions. Attending Participation: I personally performed the entire procedure. Darnell Evans M.D Nathan Patrick MD 05/21/2017 9:26:21 AM This report has been signed electronicallyMathew MD Darnell Number of Addenda: 0 Note Initiated On: 05/21/2017 8:29 AM [email or web address]
[2017-05-21] MEDS: SODIUM FERRIC GLUCONAT/SUCROSE 125 MG in NS 100 ML IV SCH (10:59)
[2017-05-21] MEDS: PANTOPRAZOLE SODIUM 40 MG VIAL IVP SCH ×2 (10:59→20:49)
[2017-05-21] MEDS: ACETAMINOPHEN 500 MG TAB PO SCH ×2 (11:00→20:49)
[2017-05-21] MEDS: FUROSEMIDE 20 MG TAB PO SCH (11:00)
[2017-05-21] MEDS: ALLOPURINOL 100 MG TAB PO SCH (11:00)
[2017-05-21] MEDS: amLODIPine BESYLATE 5 MG TAB PO SCH (11:00)
[2017-05-21] MEDS: FLUTICASONE NASAL 120 SPRAYS/16 GM MDI EACHNARE SCH (11:00)
--- NOTE | 2017-05-21 14:41 | POSTANESTH ---
Post Anesthetic Evaluation Cardiovascular Status: Normal, Stable, Similar to Pre-Op Cond Respiratory Status: Normal, Stable, Similar to Pre-op Cond. Level of Consciousness/Mental Status: Can Participate in Eval, Alert and Oriented Pain Control: Adequate, Prn Tx Ordered Nausea/Vomiting Control: Adequate, Prn Tx Ordered Complications Possibly Related to Anesthesia: None Noted
--- NOTE | 2017-05-21 17:20 | ASMTCMCOM ---
CM Note CM Note Notes: Pt. is an 87-year-old man admitted with anemia. Had a colonoscopy today. Pt. lives at [facility]. Await PT and OT evals to assist in d/c planning. CM to follow. Date Signed: 05/21/2017 05:20 PM Electronically Signed By:Whitley Broderick LCSW
[2017-05-21] MEDS ORDERED: IOPAMIDOL (ISOVUE-300) 100 ML BTL ONE (17:47)
[2017-05-21] MEDS ORDERED: PROTOCOL POTASSIUM 1 DOSE MISC PRN (17:51)
--- NOTE | 2017-05-21 17:53 | HOSPPROG ---
Hospitalist Progress Note Assessment/Plan: * Acute blood loss anemia - ? small bowel -d/w Dr. Patrick - unable to get around sigmoid via endoscopy -check CT abd/pelvis * UGIB -work-up as above * Hypoxia - check CXR * HTN -amlodipine Subjective: Hypoxia overnight Objective: Vital Signs Temp Pulse Resp BP Pulse Ox 37.1 C 88 24 H 133/58 H 91 L 05/21/17 15:45 05/21/17 15:45 05/21/17 15:45 05/21/17 15:45 05/21/17 15:45 Laboratory Results 05/21/17 05:15 05/21/17 05:15 05/20/17 05/21/17 05/22/17 05:59 05:59 05:59 Intake Total 1999 450 Balance 1999 450 PT 15.8 SEC (12.0-15.0) H 05/20/17 13:15 INR 1.24 (0.83-1.16) H 05/20/17 13:15 - Physical Exam Constitutional: no apparent distress, appears nourished, not in pain Cardiovascular: regular rate and rhythym, no murmur, rub, or gallop Respiratory: no respiratory distress, no rales or rhonchi, clear to auscultation Skin: no rashes or abrasions, no fluctuance, no induration Neurologic: AAOx3, sensation intact bilaterally Psychiatric: interacting appropriately, not anxious, not encephalopathic, thought process linear ICD10 Worksheet Patient Problems: Problems Problem Status Onset Anemia Acute Lower GI bleed Acute
--- NOTE | 2017-05-21 18:41 | PDMN ---
Medical Necessity Medical necessity: C/M review: Patient meets INPT criteria per MCG - M-180 Gastrointestinal bleed, upper, M-35 Anemia, iron deficiency or unspecified: Acute blood loss anemia - questionable from the small bowel, upper GI bleed, Hgb 6.0, 7.5, 8.0, Hct 18.6, 22.2, 23.7n hypoxia, 78% sat on O2 4L/min per nasal cannula, 91% sat on 5l/min per oxymask requiring 2 units PRBCs, 05/21/17 colonoscopy - MD unable to get around the sigmoid vas endoscopy, planned CT scan abdomen / pelvis, ongoing IV iron daily, pulse oximetry, supplemental O2, comorbid hypertension. MD anticipates > 2 MN LOS for ongoing med mec for eval and TX of above. Patient is Medicare Advantage which follows guidelines CMS puts forth.
[2017-05-21] MEDS ORDERED: POTASSIUM CL 10 MEQ TAB PO ONE (19:32)
[2017-05-22] MEDS: ONDANSETRON 4 MG/2 ML VIAL IVP PRN (03:48)
[2017-05-22] MEDS: LEVOTHYROXINE 25 MCG TAB PO SCH (05:06)
[2017-05-22 06:04] LABS: PLATELET COUNT 145 10^3/uL (150-400)
--- NOTE | 2017-05-22 09:12 | CPEKG ---
Heart Rate: 100 RR Interval: 600 P-R Interval: 172 QRSD Interval: 114 QT Interval: 372 QTC Interval: 480 P Willis: 17 QRS Willis: -45 T Wave Willis: 106 EKG Severity - ABNORMAL ECG - EKG Impression: SINUS TACHYCARDIA EKG Impression: VENTRICULAR PREMATURE COMPLEXES EKG Impression: INCOMPLETE LEFT BUNDLE BRANCH BLOCK Electronically Signed By: Micky Oliveros 22-May-2017 10:25:17
[2017-05-22] MEDS: amLODIPine BESYLATE 5 MG TAB PO SCH (09:36)
[2017-05-22] MEDS: FUROSEMIDE 20 MG TAB PO SCH (09:36)
[2017-05-22 10:09] LABS: PLATELET COUNT 126 10^3/uL (150-400)
[2017-05-22] MEDS: SODIUM FERRIC GLUCONAT/SUCROSE 125 MG in NS 100 ML IV SCH (10:16)
[2017-05-22] MEDS: FLUTICASONE NASAL 120 SPRAYS/16 GM MDI EACHNARE SCH (10:17)
[2017-05-22] MEDS: ACETAMINOPHEN 500 MG TAB PO SCH ×2 (10:17→23:04)
[2017-05-22] MEDS: ALLOPURINOL 100 MG TAB PO SCH (10:17)
[2017-05-22] MEDS: PANTOPRAZOLE SODIUM 40 MG VIAL IVP SCH (10:18)
[2017-05-22 10:22] LABS: INR 1.39 (0.83-1.16); PROTIME(PATIENT) 17.2 SEC (12.0-15.0)
[2017-05-22] MEDS ORDERED: POTASSIUM CL 10 MEQ TAB PO ONE (11:02)
--- NOTE | 2017-05-22 14:10 | SOAPPROG ---
SOAP Progress Note Assessment/Plan: Assessment:Plan: 1) Anemia - unable to advance scope beyond sigmoid, CT w/o any large mass in colon and nml liver with no mets. Prob not hemolysis (nml LDH) but will have hematology see pt secondary to his schistocytosis. Also check urobilinogen. Not sure what other eval I would want now for is anemia Capsule may get stuck in his colon where the narrowing is in sigmoid colon (seen on Ct as well and radiologist I viewed ct with questioned if capsule would pass that area). In addition not sure what we would do with results. One option is to have him get iron infusion or PRBCs as needed. 2) Pulm - CTA show pneumonia - I have texted hospitalist for abx 3) hematology - appreciate input, not hemolysis 05/22/17 14:22 Subjective: CC - anemia, now iwth pneumonia pt says he feels OK, has FM giving oxygen no abdo pain no n/v Objective: Vital Signs Temp Pulse Resp BP Pulse Ox 37.1 C 93 32 H 115/47 L 90 L 05/22/17 11:19 05/22/17 11:35 05/22/17 11:35 05/22/17 11:19 05/22/17 11:35 Microbiology 05/22/17 11:30 Respiratory Panel (PCR) - Final Nasal, Sinus - [place] Viral Transport No Organism Detected Laboratory Results 05/22/17 09:05 05/22/17 05:20 05/21/17 05/22/17 05/23/17 05:59 05:59 05:59 Intake Total 550 Output Total 50 Balance 500 PT 17.2 SEC (12.0-15.0) H 05/22/17 09:05 INR 1.39 (0.83-1.16) H 05/22/17 09:05 Alert Coarse bS with egophony at left base S1S2 +BS, soft nt CTA with new/worsening pneumonia ICD10 Worksheet Patient Problems: Problems Problem Status Onset Anemia Acute Lower GI bleed Acute
--- NOTE | 2017-05-22 14:54 | GCON ---
[f rep st] CONSULTATION NEW PATIENT CONSULT. REFERRING PHYSICIAN: Paulina Olivarez MD REASON FOR CONSULTATION: Persistent anemia with abnormalities on peripheral smear. HISTORY OF PRESENT ILLNESS: The patient is an 87-year-old gentleman who was more recently hospitaliz ed in March with an acute GI bleed. He presented with bright red blood per rectum and had difficu lty maintaining his counts. He was severely anemic on presentation and was in the ICU. He was fully evaluated for GI bleed of unclear source. He received 12 units of packed red blood cells, IR angiog bee, upper endoscopy and lower endoscopy by Dr. Gavin Flores with no clear source identified. I t was suspected that he had worsening of small bowel bleeding resulting in intermittent melanotic sto ol. Most of his history was obtained from his doctor as patient is very hard of hearing and very hun gry after recent procedures and not wanting to discuss with me. He basically presented again this time with worsening anemia. He reports intermittent dark tarry sto ols, but he is taking oral iron. He reports anorexia and some associated shortness of breath exacerb ated by ambulation as well as profound gas symptoms, but no overt abdominal pain, nausea, or vomiting . On the day of admission, 05/20/2017, hemoglobin level was between 5 and 6. He was advised to come to the emergency department. Denied syncope or dizziness. Since admission, he has had a repeat lower endoscopy by Dr. Patrick. He was discovered to have multip le small and large mouth diverticula in the sigmoid colon. It was unfortunately an incomplete exam o nly to the sigmoid colon as there was severe narrowing. GI believes this may be due to previous dive rticulitis. No obvious mass was seen. He did not tolerate previous virtual colonoscopy. Capsule en doscopy is pending, possibly as an outpatient. LABORATORY/IMAGING: Patient had abdominal CT to evaluate anything more obvious. No large colon mass was identified. The liver and spleen were normal in size. Two small right hepatic lobe cysts. No biliary dilatation. Distended gallbladder, normal pancreas and kidneys were normal. Retroperitoneum also looked normal. No small bowel obstruction. Lower cuts of the lung show bibasilar segmental at electasis with air bronchograms. laboratory analysissince admission shows a hemoglobin of 7.5, hematocrit 22.2, and despite blood garcia sfusions, hemoglobin and hematocrit are relatively stable. He is still having some dark tarry stools . Today, MCV is 79.2, platelet count of a 145,000, which has trended down to 126,000. White blood c ell count of 8.3, neutrophil percent 87.8, lymphocytes 2.5, monos 5.5, eosinophils 2.0, basophils 0.6 %. His peripheral blood smear is very abnormal with 2+ hypochromasia, 1+ microcytic cells, 1+ tear d rop cells. Schistocytes have gone from 2+ to 3+. He has some acanthocytes and elliptocytes as well. ESR is 11. Absolute reticulocyte count is 0.039, which is inadequate based on his degree of anemia . His PT was elevated at 17.2, INR 1.39, PTT 34.2. D-dimer 1.71. Fibrinogen is 416. Chemistry alex w glucose of 135, total bilirubin 2 from 1.7, this is primarily unconjugated at 1.5, AST 18, ALT 23, BNP 1920, albumin 3.4. LDH was 362. Celiac serologies are pending. 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 HOME MEDICATIONS: Have been reviewed and documented. I will mention on his last hospitalization, he was found to be hypoxic and there was a concern of congestive heart failure. He has not had any shweta ging of his lungs here. Remains on 6 liters by OxyMask today. PAST SURGICAL HISTORY: Bilateral knee, prostatectomy in . FAMILY HISTORY: First degree relative with colon cancer. SOCIAL HISTORY: Former smoker. No alcohol. No drugs. Resides at [facility]. REVIEW OF SYSTEMS: As per HPI, otherwise negative. PHYSICAL EXAM: VITAL SIGNS: Today show blood pressure 115/47, heart rate 93, respiration rate 32, s aturating 90% on 6 liters OxyMask. GENERAL: He is an elderly male, looks his stated age, not in acu te distress. Is working some to breathe. HEENT: Anicteric. He is very hard of hearing. Oropharyn x is clear. HEART: Regular rate and rhythm. Systolic murmur at the sternum in apex. No significan t edema. RESPIRATORY: He has rhonchi bilateral, right greater than left. Has a very wet cough. AB LO: Would not let me examine as he was eating lunch. SKIN: Warm. No rash. No petechiae. NEUR OLOGIC: A and O x3. Is moving all extremities. ASSESSMENT/PLAN: 87-year-old gentleman with gastrointestinal blood loss of unclear source with ongoi ng anemia and presence of 3+ schistocytes, as well as other abnormalities on his peripheral blood sme ar. 1. Schistocytes. Agree this is worrisome. He does have a few laboratory parameters that would fit a diagnosis of thrombotic thrombocytopenia purpura; however, he does have abnormal coagulation, which opt against this. Renal function and neurologic function intact. Other causes of 3+ schistocytes c ould include a low-grade disseminated intravascular coagulation, although his labs are not conclusive for disseminated intravascular coagulation given his normal fibrinogen. His blood pressure is well controlled. He has no history of prosthetic valves or other foreign materials in his heart. Certain ly, there could be more rare cardiovascular abnormalities causing schistocytes, including arterioveno us malformations, calcific aortic stenosis, or arteriovenous shunts can cause these abnormalities. I f he has not had an echocardiogram, I would recommend this is performed to rule out any new valvular issues. I see no evidence of drug induced red blood cell fragmentation, no current evidence of vascu litis. Certainly, there could be an unidentified malignancy in the gastrointestinal tract that could lead to evolution of disseminated intravascular coagulation, gastrointestinal workup is ongoing. Ov er the next 24 hours, I would like to monitor his DIC panel and follow CBC and bilirubin. Very low t hreshold to treat with plasma exchange; however, patient's age and comorbidities need to be taken int o account as this is not without its own risks. [id number] has been drawn, but this will take days to come back. I have also added ferritin and B12. 2. Anemia, microcytic, hyperchromic. Certainly supports ongoing blood loss with unclear etiology. Appreciate Gastroenterology workup. I see no evidence of hemolysis with normal LDH. I think low lik elihood of Lexy positive hemolysis, normal LDH and no spherocytes seen. In addition, his reticuloc yte count is low, which supports underlying iron deficiency anemia. Haptoglobin is pending and direc t Lexy test is also pending. 3. Hypoxemia. Certainly related to the anemia, but do think there may be cardiac or pulmonary cause as well. If no recent echocardiogram, I would suggest, as well as imaging of his lungs given abnorm al clinical exam today. 4. Other medical issues per Internal Medicine. Discussed with the patient patient's daughter, as well as consultants. More than an hour was spent with patient, more than 50% of time coordinating care. /[id number]/MODL
[2017-05-22] MEDS: PIPERACILLIN/TAZO 4.5 GM/DEX 100 ML IV SCH ×2 (16:54→23:04)
--- NOTE | 2017-05-22 17:16 | HOSPPROG ---
Hospitalist Progress Note Assessment/Plan: * Acute respiratory failure - resp distress, high RR, high O2 requirement -suspect PNA - ? aspiration vs. HCAP -start IV Zosyn -considered transfer to step-down but now stabilizing - watch closely * Anemia - acute/chronic blood loss vs. other -3+ schistocytes - d/w Dr. Smith -doubt TTP, hemolysis ruled out -? shearing due to bowel AVM or heart valve -check ECHO * Recurrent GIB -recent massive GIB (12 units tranfused) - suspect diverticular -repeat attempts at colonscopy failure due to sigmoid stricture -likely scarring due to diverticulitis -CT without evidence for mass -? small bowel AVM - cannot do capsule endoscopy as it would get caught at sigmoid stricture -given advanced age - consider outpatient IV iron and transfusions prn on a chronic basis * HTN -amlodipine CC time - 40 minutes Subjective: Bad night, respiratory distress with high O2 requirement Objective: Vital Signs Temp Pulse Resp BP Pulse Ox 37.0 C 78 26 H 111/50 L 91 L 05/22/17 15:43 05/22/17 15:43 05/22/17 15:43 05/22/17 15:57 05/22/17 15:43 Microbiology 05/22/17 11:30 Respiratory Panel (PCR) - Final Nasal, Sinus - [place] Viral Transport No Organism Detected Laboratory Results 05/22/17 09:05 05/22/17 05:20 05/21/17 05/22/17 05/23/17 05:59 05:59 05:59 Intake Total 550 Output Total 50 Balance 500 PT 17.2 SEC (12.0-15.0) H 05/22/17 09:05 INR 1.39 (0.83-1.16) H 05/22/17 09:05 d/w Dr. Patrick and Dr. Smith - doubt TTP but continue to monitor schistocytes - ? SB AVM causing them. Hemolysis ruled out. CTA chest - clearly PNA, no PE - Physical Exam Constitutional: no apparent distress, appears nourished, not in pain Cardiovascular: regular rate and rhythym, no murmur, rub, or gallop Respiratory: inspiratory crackles, respiratory distress, rhonchi Gastrointestinal: normoactive bowel sounds, soft, non-tender abdomen, no palpable masses Skin: no rashes or abrasions, no fluctuance, no induration Neurologic: AAOx3, sensation intact bilaterally Psychiatric: interacting appropriately, not anxious, not encephalopathic, thought process linear ICD10 Worksheet Patient Problems: Problems Problem Status Onset Anemia Acute Lower GI bleed Acute
[2017-05-22 17:33] LABS: PLATELET COUNT 106 10^3/uL (150-400)
--- NOTE | 2017-05-22 18:15 | ECHO ---
[email or web address] [address] Main: [phone] Fax: [email or web address] Echocardiogram Name: SHAMAR RODRIGUEZ MR#: [id number] Study Date: 05/22/2017 Study Time: 05:14 PM Date of : 1930 Age: 87 year(s) Height: 170.2 cm (67 in.) Weight: 75.75 kg (167 lb.) BSA: 1.87 m2 Gender: Male Examination: Echo Indication: Schistocytes, R/O Valve pathology Image Quality: Contrast: Requested by: Paulina Olivarez BP: 111 mmHg/50 mmHg Heart Rate: Rhythm: Tachycardia Indication: Schistocytes, R/O Valve pathology Procedure Staff Flarer: Anurag Monreal Reading Physician: Micky Oliveros Requesting Provider: Conclusions: Normal size left ventricle. Normal global systolic LV function. EF is 72 %. Normal RV function. The left atrium is moderately to severely dilated. The right atrium is mildly dilated. Mild mitral valve regurgitation is present. Mild to moderate aortic valve regurgitation. There is moderate Aortic Valve calcification with no evidence of stenosis.. Mild to moderate tricuspid valve regurgitation. Compared to the previous exam of 03/01/17 there has been no significant change.. Measurements: Chambers Valvular Assessment AV/MV Valvular Assessment TV/PV Normal Normal Normal Name Value Range Name Value Range Name Value Range Ao Radha (MM): 4.3 cm (2.2 cm-3.7 AV Vmax: 2.89 m/s (1 m/s-1.7 TR Vmax: 3.53 mm/s ( - ) cm) m/s) TR PGmax: 50 mmHg ( - ) IVSd (2D): 1.1 cm (0.6 cm-1.1 AV maxP mmHg ( - ) syst. PAP: 55 mmHg ( - ) cm) AV meanP mmHg ( - ) PV Vmax: 1.29 m/s (0.6 m/s-0.9 LVDd (2D): 5.7 cm (4.2 cm-5.9 RHODA (VTI): 1.5 cm ( - ) m/s) cm) MV E Vmax: 1.17 m/s ( - ) PV PGmax: 7 mmHg ( - ) LVDs (2D): 3.4 cm (2.1 cm-4 MV A Vmax: 1.45 m/s ( - ) cm) MV E/A: 0.81 ( - ) LVPWd (2D): 1.1 cm (0.6 cm-1 cm) LVOTd 2.0 cm 2.0 cm mm LVEF (2D): 72 (>=54 %) RVDd(2D): 5.0 cm (1.9 cm-3.8 cmmm) Patient: SHAMAR RODRIGUEZ Study Date: 05/22/2017 Page 1 of 2 05:14 PM Continued Measurements: Chambers Valvular Assessment AV/MV Valvular Assessment TV/PV Name Value Name Value Name Value LADs Lon.0 cm MV E' Septal: 0.05 m/s CVP (est.): 5 mmHg LA Area: 26.9 cm2 MV E/E' Septal: 22.20 LA Volume: 100 ml MV E/E' Lateral: 13.20 LA Volume Index: 53.5 ml/m2 Findings: Left Ventricle: Normal size left ventricle. Normal global systolic LV function. EF is 72 %. No regional wall motion abnormality. Right Ventricle: Normal size right ventricle. Normal RV function. Left Atrium: The left atrium is moderately to severely dilated. Right Atrium: The right atrium is mildly dilated. Mitral Valve: Mild mitral valve leaflet calcification is present. Mild mitral valve regurgitation is present. No mitral stenosis is present. Aortic Valve: Mild to moderate aortic valve regurgitation. There is moderate Aortic Valve calcification with no evidence of stenosis.. Tricuspid Valve: Mild to moderate tricuspid valve regurgitation. The pulmonary artery pressure is mild to moderately increased. Pulmonic Valve: Pulmonary valve not well visualized. Aorta: The aorta is normal. Pericardium: No pericardial effusion. Exam Comments: Compared to the previous exam of 03/01/17 there has been no significant change.. (No Signature Object) Patient: SHAMAR RODRIGUEZ Study Date: 05/22/2017 Page 2 of 2 05:14 PM [id number]
[2017-05-22 20:43] LABS: PLATELET COUNT 106 10^3/uL (150-400)
[2017-05-22 20:51] LABS: PROTIME(PATIENT) 18.3 SEC (12.0-15.0)
[2017-05-23] MEDS: PIPERACILLIN/TAZO 4.5 GM/DEX 100 ML IV SCH ×4 (03:09→21:10)
[2017-05-23] MEDS: LEVOTHYROXINE 25 MCG TAB PO SCH (05:38)
[2017-05-23 05:46] LABS: PROTIME(PATIENT) 17.3 SEC (12.0-15.0)
[2017-05-23 05:53] LABS: PLATELET COUNT 88 10^3/uL (150-400)
[2017-05-23 06:00] LABS: PLATELET COUNT 88 10^3/uL (150-400)
[2017-05-23] MEDS ORDERED: POTASSIUM CL 10 MEQ TAB PO ONE (07:21)
[2017-05-23] MEDS: amLODIPine BESYLATE 5 MG TAB PO SCH (08:52)
[2017-05-23] MEDS: ALLOPURINOL 100 MG TAB PO SCH (08:52)
[2017-05-23] MEDS: PANTOPRAZOLE SODIUM 40 MG TAB PO SCH (08:52)
[2017-05-23] MEDS: FUROSEMIDE 20 MG TAB PO SCH (08:52)
[2017-05-23] MEDS: ACETAMINOPHEN 500 MG TAB PO SCH ×2 (08:52→23:00)
[2017-05-23] MEDS: SODIUM FERRIC GLUCONAT/SUCROSE 125 MG in NS 100 ML IV SCH (08:53)
--- NOTE | 2017-05-23 10:37 | CPEKG ---
Heart Rate: 132 RR Interval: 455 QRSD Interval: 110 QT Interval: 340 QTC Interval: 504 QRS [place]: -55 T Wave [place]: 128 EKG Severity - ABNORMAL ECG - EKG Impression: ATRIAL FIBRILLATION EKG Impression: PAIRED VENTRICULAR PREMATURE COMPLEXES EKG Impression: NONSPECIFIC IVCD WITH LAD EKG Impression: PROBABLE INFERIOR INFARCT, AGE INDETERMINATE EKG Impression: COMPARED WITH 05/22/2017 AF NOW PRESENT Electronically Signed By: Iman Guzman 23-May-2017 19:41:51
--- NOTE | 2017-05-23 12:29 | SOAPPROG ---
SOAP Progress Note Assessment/Plan: Assessment: 1. GI BLEED/Anemia - 03/2017 EGD negative - colon, multiple attempts, incomplete due to sigmoid anatomy - CT without obvious colon mass - angiography late last year was negative for bleeding source - DDx: diverticular bleeding upstream of stenotic area, small bowel source - per RN, ongoing dark/maroon stools Plan: 1. GI Bleeding - H/H stable, but bloody stools persistent - intraluminal GI w/u hampered by colon anatomy - need to consider additional imaging w/u (TaggedCell +/- IR) vs continued supportive care - bleeding may not be brisk enough at this time for localization with radiographic techniques? - follow H/H carefully - if H/H drops quickly, would proceed with TaggedCell +/- IR - meanwhile, would continue Fe replacement and PRN pRBCs - will follow 05/23/17 12:33 Subjective: CC: f/i GI Bleed S: ongoing, small volume, bloody stools periodic hypoxia (some sleep apnea) no nausea or vomiting tolerating po no abdominal pain Objective: Vital Signs Temp Pulse Resp BP Pulse Ox 36.9 C 79 18 104/42 L 97 05/23/17 11:32 05/23/17 11:32 05/23/17 11:32 05/23/17 11:32 05/23/17 11:32 Microbiology 05/22/17 18:29 Gastrointestinal Tract Panel (PCR) - Final Stool No Organism Detected 05/22/17 11:30 Respiratory Panel (PCR) - Final Nasal, Sinus - [place] Viral Transport No Organism Detected Laboratory Results 05/23/17 05:30 05/23/17 05:30 05/22/17 05/23/17 05/24/17 05:59 05:59 05:59 Intake Total 550 1436 Output Total 50 4 Balance 500 1432 PT 17.3 SEC (12.0-15.0) H 05/23/17 05:30 INR 1.40 (0.83-1.16) H 05/23/17 05:30 Laboratory Tests 05/22/17 05/23/17 05/23/17 16:23 05:30 05:30 WBC 9.53 H RBC 2.75 L Hgb 7.4 L Hct 22.4 L Plt Count 88 L INR Sodium 143 Potassium 3.0 L Chloride 101 Carbon Dioxide 32 H BUN 18 Creatinine 0.7 Ferritin 674.0 H Total Bilirubin 1.7 H 05/23/17 05:30 WBC RBC Hgb Hct Plt Count INR 1.40 H Sodium Potassium Chloride Carbon Dioxide BUN Creatinine Ferritin Total Bilirubin Physical Exam - Physical Exam General Appearance: WD/WN, no apparent distress EENT: PERRL/EOMI Neck: full range of motion Respiratory: decreased breath sounds, crackles Cardiac/Chest: normal peripheral pulses, regular rate, rhythm Abdomen: normal bowel sounds, non-tender, soft Skin: normal color Extremities: normal range of motion Neuro/Psych: no motor/sensory deficits ICD10 Worksheet Patient Problems: Problems Problem Status Onset Anemia Acute Lower GI bleed Acute
--- NOTE | 2017-05-23 14:28 | SOAPPROG ---
SOAP Progress Note Assessment/Plan: Assessment: 87 yo man with recurrent GIB. Admitted 03/2017 with requirement of 12u PRBCs, neg EGD, incomplete colonoscopy, angiography. Readmitted with GIB. Repeat colonoscopy limited by sigmoid stricture. CT abd without sig findings. Imp/Plan: * LGIB: source not localized, limited by sigmoid stricture. ?tagged RBC scan. Transfusing as needed. * Anemia: primarily due to bleeding. Ferritin elevated due to recent transfusions. Could receive IV iron, but has received a significant amount of iron via RBCs over the past 2 months. Continue transfusion support as needed. * Abnormal RBC morphology: nl LDH argues against hemolysis (TTP). Significant iron deficiency can lead to abnormal RBC morphology. ECHO with mild-mod AI, doubt contributing to shear stress. ?occult AVMs leading to GIB. * Thrombocytopenia: suspect dilutional (transfusions) and consumptive. Nl LDH argues against TTP. Normal Cr. ?Mild DIC. Current plt count should be adequate for hemostasis. Transfuse <50,000. * Mildly elevated PT: po vit K. * PNA: abx. 05/23/17 14:42 Subjective: S: continues to have hematochezia, no AP, no SOB. O: VS reviewed. Gen: pale elderly gentleman, NAD. CV: no edema. Lungs: CTA. Abd: nontender. Laboratory Tests 05/22/17 05/23/17 05/23/17 16:23 05:30 05:30 WBC 9.53 H Hgb 7.4 L Plt Count 88 L PT INR APTT Fibrinogen D-Dimer Sodium 143 Potassium 3.0 L Chloride 101 Carbon Dioxide 32 H Anion Gap 10 BUN 18 Creatinine 0.7 Estimated GFR > 60 Glucose 120 H Ferritin 674.0 H Total Bilirubin 1.7 H Conjugated Bilirubin 0.5 Unconjugated Bilirubin 1.2 H AST 14 L ALT 27 Alkaline Phosphatase 49 05/23/17 05:30 WBC Hgb Plt Count PT 17.3 H INR 1.40 H APTT 34.7 Fibrinogen 468 H D-Dimer 1.93 H Sodium Potassium Chloride Carbon Dioxide Anion Gap BUN Creatinine Estimated GFR Glucose Ferritin Total Bilirubin Conjugated Bilirubin Unconjugated Bilirubin AST ALT Alkaline Phosphatase Objective: Vital Signs Temp Pulse Resp BP Pulse Ox 36.9 C 79 18 104/42 L 97 05/23/17 11:32 05/23/17 11:32 05/23/17 11:32 05/23/17 11:32 05/23/17 11:32 Microbiology 05/22/17 18:29 Gastrointestinal Tract Panel (PCR) - Final Stool No Organism Detected 05/22/17 11:30 Respiratory Panel (PCR) - Final Nasal, Sinus - [place] Viral Transport No Organism Detected Laboratory Results 05/23/17 05:30 05/23/17 05:30 05/22/17 05/23/17 05/24/17 05:59 05:59 05:59 Intake Total 550 1436 Output Total 50 4 Balance 500 1432 PT 17.3 SEC (12.0-15.0) H 05/23/17 05:30 INR 1.40 (0.83-1.16) H 05/23/17 05:30 ICD10 Worksheet Patient Problems: Problems Problem Status Onset Anemia Acute Lower GI bleed Acute
[2017-05-23] MEDS: FLUTICASONE NASAL 120 SPRAYS/16 GM MDI EACHNARE SCH (15:46)
--- NOTE | 2017-05-23 17:53 | GCON ---
[f rep st] CONSULTATION CRITICAL CARE CONSULTATION DATE OF CONSULTATION: 05/23/2017 HISTORY OF PRESENT ILLNESS: This is an 87-year-old male with history of occult GI bleeding who was f ound to have ongoing problems of severe anemia. He was initially admitted on 02/28/2017 with bright red blood per rectum of uncertain etiology. It was thought to be due to diverticular disease, but at tempts were made at colonoscopy which was incomplete due to a mechanical stricture at the sigmoid col on. His colon was quite torturous with lots of diverticular disease and made it difficult to advance the scope beyond the sigmoid colon. A virtual colonoscopy was also attempted and had similar proble ms of being incomplete. He did undergo EGD during that admission. No real source of bleeding was fo und. He was transfused a total of 12 units over a couple of weeks. He did experience some volume ov erload and was treated with diuretics and eventually was discharged. He returned on 05/20/2017 with lethargy and dark stool, was again found to be very anemic, and the next day underwent a re-attempt a t colonoscopy and similar findings were found. A CT scan the same day showed a tight curve at the si gmoid colon, but no obvious mass and no obvious source of bleeding. He was again transfused during t his period of time and remained relatively stable, but there were schistocytes noted. On 05/22, a CT scan of his chest was ordered due to issues of hypoxemia, which showed right greater than left lobe consolidation. He was thought to have pneumonia, was given antibiotics, and transferred into the [facility] p-down unit. His oxygen requirements essentially resolved by morning. He has been followed by Hemat ology/Oncology, who thought that his issues were probably related to low level DIC, which was also th e pathologist's report, though his fibrinogen count has been rising and his platelet count has been d ecreasing and he has had a normal LDH. In any case, most of these things have resolved and the patie nt remains relatively stable without many complaints, just many questions about what has been happeni ng with him. REVIEW OF SYSTEMS: Otherwise negative. PAST MEDICAL HISTORY: Includes: 1. That described in the HPI. 2. Hypertension. 3. Prostate cancer. 4. Gout. 5. PICC line-associated upper extremity DVT in his last admission. PAST SURGICAL HISTORY: Includes bilateral knee surgery and prostatectomy in the . FAMILY HISTORY: Noncontributory. SOCIAL HISTORY: He is a remote smoker, but no current or alcohol. He lives at [facility]. CURRENT MEDICATIONS: Include Tylenol, allopurinol, Norvasc, iron, Flonase, Lasix, Synthroid, Zofran, Protonix, Zosyn, simethicone. PHYSICAL EXAMINATION: VITAL SIGNS: He had a blood pressure of 104/48, heart rate of 87, respiratory rate 20, oxygen saturation 97% on 4 L, down now to 2 L. He is fairly obese, in no apparent distress , able to speak in full sentences without using accessory muscles for breathing. HEENT: Pupils equa lly round and reactive to light. Nonicteric and noninjected. Mucous membranes moist without erythem a or exudate. NECK: Supple without adenopathy or jugular vein distention. LUNGS: Breath sounds we re diminished bilaterally in the bases without wheezing. HEART: Regular rate and rhythm without mur murs, rubs, or gallops. ABDOMEN: Soft, nontender, nondistended without hepatosplenomegaly. EXTREMI TIES: No clubbing, cyanosis, or edema. NEUROLOGICAL: Nonfocal. OBJECTIVE DATA: Includes white count of 9.5, hemoglobin 7.4, hematocrit 22.4. He did receive 1 unit of red cells yesterday. Platelets now 88. INR is 1.4 and decreasing. Fibrinogen 468. D-dimer hig h at 1.93. Basic metabolic panel remarkable only for potassium of 3.0, but normal renal function. F erritin was 674. Direct bilirubin was 0.5, a total bilirubin of 1.7. LFTs essentially normal. MAGUE TS13 is pending at this time. C difficile is negative. Chest CT scan shows consolidation in the rig ht greater than left lower lobes. Abdominal CT scan is as described above. ASSESSMENT AND PLAN: 1. Hypoxemia. This appears to be a transient intermittent problem. It is certainly possible there is ongoing pneumonia. The patient has known sleep apnea with observed apneas and nighttime hypoxemia . In the meantime, to cover this we will put him on autotitrating CPAP for nighttime purposes as michele g as this is tolerated. I would not use benzos or other sedative medications to tolerate that. Othe rwise, we can just give him high-flow oxygen at night if he cannot tolerate the autotitrating CPAP. We might as well continue the Zosyn for now and monitor for any other changes. 2. Anemia with schistocytes, no renal failure or obvious neurologic abnormalities, and TTP is in the differential diagnosis, but if Hematology/Oncology and Pathology both agree this is a low level of h emolysis, this would make some sense given his ongoing gastrointestinal bleeding of which of course t he source is unknown at this time. I do not feel that a tagged red cell scan is going to be useful. He has already had that done and his bleeding is certainly not brisk enough to warrant that study. Our threshold for plasma exchange should appropriately be low depending on his workup to date. 3. Sleep apnea as described above. /[id number]/MODL
--- NOTE | 2017-05-23 20:59 | HOSPPROG ---
Hospitalist Progress Note Assessment/Plan: #. Acute Hypoxic Resp Failure - bilateral pneumonia noted on CT chest. Possible HCAP versus aspiration. Patient is currently on Zosyn. Consider adding vancomycin if worsening. Add QID Duonebs. #. ABLA - hemoglobin daily. Hbg 6.6 to 7.7 after transfusion yesterday. #. GI Bleed - uncertain source but possibly diverticular. Consider tagged RBC scan if rebleeding. Difficulty with colonoscopy as sigmoid stricture present which was felt secondary to history of diverticulitis. ? sigmoidectomy if we could document diverticular source and continued recurrent bleeding. Likely cause of loose stools but c diff study ordered. #. Schistocytes - I appreciate Dr. Monzon's assistance. Possibly low grade DIC. Haptoglobin currently pending. Less likely TTP. Continue to trend Plts. No significant aortic stenosis on echo to suggest sheering as etiology. #. Hypokalemia - continue scheduled replacement. #. CAD - Hx CABG. No aspirin in light of bleed. I do not see that he is on statin therapy. #. HTN - controlled with current amlodipine and lasix. #. Hypothyroidism - levothyroxine. #. Gout - allopurinol. #. DVT prophylaxis - no heparin or lovenox in light of bleeding. SCDs #. Dispo - previously residing at [place]. Subjective: F/U GI bleed. Patient reports frequent loose stools this morning but no bright red bloody stools. Objective: Vital Signs Temp Pulse Resp BP Pulse Ox 36.6 C 85 23 H 122/48 H 95 05/23/17 16:00 05/23/17 16:00 05/23/17 16:00 05/23/17 16:00 05/23/17 16:00 Microbiology 05/22/17 18:29 Gastrointestinal Tract Panel (PCR) - Final Stool No Organism Detected Laboratory Results 05/23/17 05:30 05/23/17 19:25 05/22/17 05/23/17 05/24/17 05:59 05:59 05:59 Intake Total 550 1436 Output Total 50 4 Balance 500 1432 PT 17.3 SEC (12.0-15.0) H 05/23/17 05:30 INR 1.40 (0.83-1.16) H 05/23/17 05:30 - Physical Exam Constitutional: no apparent distress Cardiovascular: regular rate and rhythym, no murmur, rub, or gallop Respiratory: no respiratory distress, no rales or rhonchi Gastrointestinal: normoactive bowel sounds, soft, non-tender abdomen Neurologic: AAOx3 Psychiatric: not anxious ICD10 Worksheet Patient Problems: Problems Problem Status Onset Anemia Acute Lower GI bleed Acute
[2017-05-23] MEDS: POTASSIUM CL 20 MEQ PKT PO SCH (21:10)
[2017-05-23] MEDS: IPRATROPIUM/ALBUTEROL 3 ML DEYVIAL IH SCH (22:27)
[2017-05-24] MEDS: PIPERACILLIN/TAZO 4.5 GM/DEX 100 ML IV SCH ×4 (04:34→21:59)
[2017-05-24 05:15] LABS: PLATELET COUNT 63 10^3/uL (150-400)
[2017-05-24] MEDS: IPRATROPIUM/ALBUTEROL 3 ML DEYVIAL IH SCH ×4 (05:48→23:06)
[2017-05-24] MEDS: LEVOTHYROXINE 25 MCG TAB PO SCH (07:25)
--- NOTE | 2017-05-24 08:25 | SOAPPROG ---
MYRNA Progress Note Assessment/Plan: Assessment: 1. GI BLEED/Anemia - 03/2017 EGD negative - colon, multiple attempts, incomplete due to sigmoid anatomy - CT without obvious colon mass - angiography late last year was negative for bleeding source - DDx: diverticular bleeding upstream of stenotic area, small bowel source - stools slowing, and less bloody Plan: 1. GI Bleeding - H/H stable - intraluminal GI w/u hampered by colon anatomy - can consider outpt capsule endoscopy, with agile patency capsule prior ( typically used to resolve small bowel risk of capsule obstruction, but could possibly design a routine to test for possible obstructing lesions of the colon - administer capsule, with some laxative, to see if we can get test capsule to pass through colon before it disintegrates). - capsule endoscopy could eval for small bowel sources (not accurate enough at colon sources) - will arrange "modified" outpt capsule testing - if has repeated, significant, bleeding prior, would proceed with TaggedCell + /- IR w/u - will sign off, call with questions Objective: Vital Signs Temp Pulse Resp BP Pulse Ox 36.9 C 82 23 H 120/51 L 98 05/24/17 07:39 05/24/17 07:39 05/24/17 07:39 05/24/17 07:39 05/24/17 07:39 Laboratory Results 05/24/17 04:45 05/24/17 04:45 05/23/17 05/24/17 05/25/17 05:59 05:59 05:59 Intake Total 1436 1401 Output Total 4 2 Balance 1432 1399 PT 17.3 SEC (12.0-15.0) H 05/23/17 05:30 INR 1.40 (0.83-1.16) H 05/23/17 05:30 Physical Exam - Physical Exam General Appearance: WD/WN, alert, no apparent distress EENT: PERRL/EOMI Neck: non-tender Respiratory: chest non-tender, lungs clear, normal breath sounds Cardiac/Chest: normal peripheral pulses, regular rate, rhythm, No edema Abdomen: normal bowel sounds, non-tender, soft Skin: normal color, warm/dry, No cyanosis Extremities: normal range of motion Neuro/Psych: no motor/sensory deficits ICD10 Worksheet Patient Problems: Problems Problem Status Onset Anemia Acute Lower GI bleed Acute
[2017-05-24] MEDS: ALLOPURINOL 100 MG TAB PO SCH (09:41)
[2017-05-24] MEDS: ACETAMINOPHEN 500 MG TAB PO SCH ×2 (09:41→21:59)
[2017-05-24] MEDS: amLODIPine BESYLATE 5 MG TAB PO SCH (09:41)
[2017-05-24] MEDS: FUROSEMIDE 20 MG TAB PO SCH (09:41)
[2017-05-24] MEDS: PANTOPRAZOLE SODIUM 40 MG TAB PO SCH (09:41)
[2017-05-24] MEDS: FLUTICASONE NASAL 120 SPRAYS/16 GM MDI EACHNARE SCH (09:42)
[2017-05-24] MEDS: POTASSIUM CL 20 MEQ PKT PO SCH (11:25)
[2017-05-24] MEDS: PHYTONADIONE 2.5 MG/2.5 ML ORAL UDL PO SCH (11:27)
--- NOTE | 2017-05-24 14:21 | PDINTPN ---
Cyber Intelligence Analyst Progress Note Assessment/Plan: Assessment/plan: 87 M with recurrent LGIB, thought to be diverticular. Admitted last month with same problem but evaluation hampered by tortuous sigmoid colon. Had IR evaluation and virtual colonoscopy attempt as well, but no source identified. He was discharged but re-admitted 05/20/17 with lethargy and anemia. Additional attempts at identifying a source have failed and he has required 3 units RBCs since admission. His platelets have also fallen with schistocytes noted on the peripheral smear, but a normal LDH and no neurologic sequelae or renal failure. Complicating his hospital stay has been nocturnal desaturation in a setting of known, untreated GORDY. * Recurrent LGIB complicated by poor visualization of anatomy. This appears to be slowing down and plans include outpatient capsule endoscopy to localize site for later intervention if needed. * Thrombocytopenia- less likely TTP in absence of increased LDH though shistocytes noted on smear. Heme following and agrees with probably low-level DIC with normal fibrinogen. * GORDY- poor tolerance of APAP last pm so will try CPAP tonight. discussed with patient who is willing to continue efforts. Subjective: Did not tolerate APAP last PM. Decreasing stool Objective: Vital Signs Temp Pulse Resp BP Pulse Ox 36.9 C 76 18 119/49 L 97 05/24/17 07:39 05/24/17 12:12 05/24/17 12:12 05/24/17 11:37 05/24/17 12:12 Laboratory Results 05/24/17 04:45 05/24/17 04:45 05/23/17 05/24/17 05/25/17 05:59 05:59 05:59 Intake Total 1436 1401 500 Output Total 4 2 Balance 1432 1399 500 PT 17.3 SEC (12.0-15.0) H 05/23/17 05:30 INR 1.40 (0.83-1.16) H 05/23/17 05:30 Physical Exam - Physical Exam General Appearance: WD/WN, alert, no apparent distress, obese EENT: PERRL/EOMI Neck: supple Respiratory: lungs clear, normal breath sounds, decreased breath sounds, No respiratory distress, No accessory muscle use Cardiac/Chest: regular rate, rhythm, No edema Abdomen: normal bowel sounds, non-tender, soft, No distended Skin: normal color, warm/dry, No cyanosis Lymphatic: no adenopathy Neuro/Psych: alert, normal mood/affect, oriented x 3 ICD10 Worksheet Patient Problems: Problems Problem Status Onset Anemia Acute Lower GI bleed Acute
--- NOTE | 2017-05-24 15:15 | ASMTCMCOM ---
CM Note CM Note Notes: Spoke to patient and son. Patient reports that he would prefer going to [facility] than having [facility]. Contacted [facility] and sent a referral. Date Signed: 05/24/2017 03:14 PM Electronically Signed By:Tanya Poole LCSW
--- NOTE | 2017-05-24 18:03 | SOAPPROG ---
SOAP Progress Note Assessment/Plan: Assessment: SOAP Progress Note Assessment/Plan: Assessment: 87 yo man with recurrent GIB. Admitted 03/2017 with requirement of 12u PRBCs, neg EGD, incomplete colonoscopy, angiography. Readmitted with GIB. Repeat colonoscopy limited by sigmoid stricture. CT abd without sig findings. Imp/Plan: * LGIB: source not localized, limited by sigmoid stricture. Transfusing as needed. Probably small bowel capsule endoscopy as outpatient. * Anemia: primarily due to bleeding. Continue transfusion support as needed. * Abnormal RBC morphology: nl LDH argues strongly against hemolysis (TTP). Significant iron deficiency can lead to abnormal RBC morphology. ECHO with mild -mod AI, doubt contributing to shear stress. ?occult AVMs leading to GIB. * Thrombocytopenia: suspect dilutional (transfusions) and consumptive. ?Mild DIC, but fibrinogen increasing. Platelets slightly decreased today to 62K, but should be adequate for hemostasis. Transfuse <50,000. * Mildly elevated PT: po vit K. INR down to 1.4. * PNA: abx. Subjective: no new symptoms Objective: Vital Signs Temp Pulse Resp BP Pulse Ox 36.8 C 81 21 H 131/35 H 97 05/24/17 16:00 05/24/17 17:06 05/24/17 17:06 05/24/17 16:00 05/24/17 17:06 Laboratory Results 05/24/17 04:45 05/24/17 04:45 05/23/17 05/24/17 05/25/17 05:59 05:59 05:59 Intake Total 1436 1401 1000 Output Total 4 2 Balance 1432 1399 1000 PT 17.3 SEC (12.0-15.0) H 05/23/17 05:30 INR 1.40 (0.83-1.16) H 05/23/17 05:30 Physical Exam - Physical Exam General Appearance: alert Respiratory: lungs clear Abdomen: non-tender, soft ICD10 Worksheet Patient Problems: Problems Problem Status Onset Anemia Acute Lower GI bleed Acute
--- NOTE | 2017-05-24 18:50 | HOSPPROG ---
Hospitalist Progress Note Assessment/Plan: # Acute Hypoxic Resp Failure - CT chest (personally reviewed and interpreted) bilateral pneumonia Possible HCAP versus aspiration oxygen saturations 97% on 3L - cont Zosyn day 07/06 - cont QID Duonebs. # ABLA - Hbg 6.6 to 7.7 after transfusion 05/22/17- total of 3 UPRBC on this stay - hemoglobin daily # Acute on Chronic GI Bleed - uncertain source but possibly diverticular. Consider tagged RBC scan if rebleeding. Difficulty with colonoscopy as sigmoid stricture present which was felt secondary to history of diverticulitis. - will need capsule study as oupt when stable enough for dc - continue to monitor closely # Schistocytes - suspect low grade DIC. Haptoglobin increasing. - Continue to trend Plts. - transfuse for plt <50 # Hypokalemia - continue scheduled replacement. # CAD - Hx CABG. No aspirin in light of bleed. I do not see that he is on statin therapy. # HTN - controlled with current amlodipine and lasix. # Hypothyroidism - levothyroxine. # Gout - allopurinol. # DVT prophylaxis - no heparin or lovenox in light of bleeding. SCDs # Dispo - previously residing at [facility]. I have discussed the case with RN - continue supportive care - monitor Hgb to assist in decisions related to dc Subjective: denies pain Objective: Vital Signs Temp Pulse Resp BP Pulse Ox 36.8 C 81 21 H 131/35 H 97 05/24/17 16:00 05/24/17 17:06 05/24/17 17:06 05/24/17 16:00 05/24/17 17:06 Laboratory Results 05/24/17 04:45 05/24/17 04:45 05/23/17 05/24/17 05/25/17 05:59 05:59 05:59 Intake Total 1436 1401 1400 Output Total 4 2 Balance 1432 1399 1400 PT 17.3 SEC (12.0-15.0) H 05/23/17 05:30 INR 1.40 (0.83-1.16) H 05/23/17 05:30 - Physical Exam Constitutional: no apparent distress Eyes: anicteric sclera Ears, Nose, Mouth, Throat: moist mucous membranes Cardiovascular: regular rate and rhythym Respiratory: no respiratory distress Gastrointestinal: normoactive bowel sounds, No tenderness Genitourinary: no bladder fullness Skin: warm Musculoskeletal: No asymmetric calves Neurologic: AAOx3 Psychiatric: interacting appropriately Lymph, Heme, Immunologic: no cervical LAD ICD10 Worksheet Patient Problems: Problems Problem Status Onset Anemia Acute Lower GI bleed Acute
[2017-05-24] MEDS: POTASSIUM CL 20 MEQ TAB PO SCH (21:59)
[2017-05-25] MEDS: PIPERACILLIN/TAZO 4.5 GM/DEX 100 ML IV SCH ×4 (03:00→19:30)
[2017-05-25] MEDS: IPRATROPIUM/ALBUTEROL 3 ML DEYVIAL IH SCH ×4 (05:31→22:14)
[2017-05-25] MEDS: LEVOTHYROXINE 25 MCG TAB PO SCH (06:29)
[2017-05-25 06:56] LABS: PLATELET COUNT 59 10^3/uL (150-400)
[2017-05-25] MEDS: PHYTONADIONE 2.5 MG/2.5 ML ORAL UDL PO SCH (08:37)
[2017-05-25] MEDS: ACETAMINOPHEN 500 MG TAB PO SCH ×2 (08:37→20:49)
[2017-05-25] MEDS: FUROSEMIDE 20 MG TAB PO SCH (08:37)
[2017-05-25] MEDS: PANTOPRAZOLE SODIUM 40 MG TAB PO SCH (08:37)
[2017-05-25] MEDS: POTASSIUM CL 20 MEQ TAB PO SCH ×2 (08:37→19:49)
[2017-05-25] MEDS: amLODIPine BESYLATE 5 MG TAB PO SCH (08:37)
[2017-05-25] MEDS: ALLOPURINOL 100 MG TAB PO SCH (08:37)
[2017-05-25] MEDS: FLUTICASONE NASAL 120 SPRAYS/16 GM MDI EACHNARE SCH (08:38)
--- NOTE | 2017-05-25 11:42 | SOAPPROG ---
SOAP Progress Note Assessment/Plan: Assessment: 87 yo man with recurrent GIB. Admitted 03/2017 with requirement of 12u PRBCs, neg EGD, incomplete colonoscopy, angiography. Readmitted with GIB. Repeat colonoscopy limited by sigmoid stricture. CT abd without sig findings. Imp/Plan: * LGIB: source not localized, limited by sigmoid stricture. ?tagged RBC scan. Outpatient plan for capsule. Transfusing as needed. * Anemia: primarily due to bleeding. Ferritin elevated due to recent transfusions. Could receive IV iron, but has received a significant amount of iron via RBCs over the past 2 months. Continue transfusion support as needed. * Abnormal RBC morphology: nl LDH, bili argue against hemolysis (TTP). Significant iron deficiency can lead to abnormal RBC morphology. ECHO with mild -mod AI, doubt contributing to shear stress. ?occult AVMs leading to GIB. * Thrombocytopenia: suspect dilutional (transfusions) and consumptive. Nl LDH argues against TTP. Normal Cr. ?Mild DIC. Will add some additional labs. I do not think bone marrow bx would be revealing. Transfuse <50,000. * Mildly elevated PT: po vit K. * PNA: abx. 05/25/17 11:41 Subjective: O: VS reviewed. Gen: pale, NAD. Laboratory Tests 05/25/17 05/25/17 06:30 06:30 WBC 3.32 L Hgb 7.0 L Plt Count 59 L BUN 13 Creatinine 0.5 L Total Bilirubin 0.6 AST 15 L ALT 25 Alkaline Phosphatase 44 Objective: Vital Signs Temp Pulse Resp BP Pulse Ox 37.2 C 90 22 H 136/60 H 97 05/25/17 08:00 05/25/17 08:00 05/25/17 08:00 05/25/17 08:00 05/25/17 08:00 Microbiology 05/24/17 17:00 - Final Sputum, Expectorated Laboratory Results 05/25/17 06:30 05/25/17 06:30 05/24/17 05/25/17 05/26/17 05:59 05:59 05:59 Intake Total 1401 1400 Output Total 2 Balance 1399 1400 PT 17.3 SEC (12.0-15.0) H 05/23/17 05:30 INR 1.40 (0.83-1.16) H 05/23/17 05:30 ICD10 Worksheet Patient Problems: Problems Problem Status Onset Anemia Acute Lower GI bleed Acute
--- NOTE | 2017-05-25 13:38 | PDINTPN ---
Public Works Director Progress Note Assessment/Plan: Assessment/plan: 87 M with recurrent LGIB, thought to be diverticular. Admitted last month with same problem but evaluation hampered by tortuous sigmoid colon. Had IR evaluation and virtual colonoscopy attempt as well, but no source identified. He was discharged but re-admitted 05/20/17 with lethargy and anemia. Additional attempts at identifying a source have failed and he has required 3 units RBCs since admission. His platelets have also fallen with schistocytes noted on the peripheral smear, but a normal LDH and no neurologic sequelae or renal failure. Complicating his hospital stay has been nocturnal desaturation in a setting of known, untreated GORDY. * Recurrent LGIB complicated by poor visualization of anatomy. This appears to be slowing down and plans include outpatient capsule endoscopy to localize site for later intervention if needed. * Thrombocytopenia/PANCYTOPENIA- presumed low level DIC, though drop in WBC of uncertain significance. Less likely TTP in absence of increased LDH though shistocytes noted on smear. Heme following. No RBCs since 05/22 and stable hct. * GORDY- poor tolerance of CPAP, though he is willing to keep trying. OK to use O2 alone if he is unable to use it and get outpatient sleep study * PNA- day 09/05 abx and stable 05/25/17 13:35 05/25/17 13:37 Subjective: feels well, no complaints. Did not tolerate CPAP Objective: Vital Signs Temp Pulse Resp BP Pulse Ox 37.2 C 90 22 H 136/60 H 97 05/25/17 08:00 05/25/17 08:00 05/25/17 08:00 05/25/17 08:00 05/25/17 08:00 Microbiology 05/24/17 17:00 - Final Sputum, Expectorated Laboratory Results 05/25/17 06:30 05/25/17 06:30 05/24/17 05/25/17 05/26/17 05:59 05:59 05:59 Intake Total 1401 1400 Output Total 2 Balance 1399 1400 PT 17.3 SEC (12.0-15.0) H 05/23/17 05:30 INR 1.40 (0.83-1.16) H 05/23/17 05:30 Physical Exam - Physical Exam General Appearance: alert, no apparent distress, obese EENT: PERRL/EOMI Neck: supple, normal inspection Respiratory: lungs clear, normal breath sounds, No respiratory distress, No accessory muscle use Cardiac/Chest: regular rate, rhythm, No edema Abdomen: non-tender, soft, No distended Skin: normal color, warm/dry, No cyanosis Lymphatic: no adenopathy Extremities: No pedal edema Neuro/Psych: alert, normal mood/affect, oriented x 3 ICD10 Worksheet Patient Problems: Problems Problem Status Onset Anemia Acute Lower GI bleed Acute
--- NOTE | 2017-05-25 14:39 | HOSPPROG ---
Hospitalist Progress Note Assessment/Plan: # Acute Hypoxic Resp Failure - CT chest (personally reviewed and interpreted) bilateral pneumonia Possible HCAP versus aspiration oxygen saturations 97% on 3L - cont Zosyn day 09/05 - cont QID Duonebs. # ABLA - Hbg 6.6 to 7.7 after transfusion 05/22/17- total of 3 UPRBC on this stay- hgb 7.0 - expect will drop below 6 overnight -transfuse today - H&H this pm # Acute on Chronic GI Bleed - uncertain source but possibly diverticular. Consider tagged RBC scan if rebleeding. Difficulty with colonoscopy as sigmoid stricture present which was felt secondary to history of diverticulitis. - will need capsule study as oupt when stable enough for dc - discussed with Chani working to find appointment # Schistocytes - suspect low grade DIC. Haptoglobin increasing. - Continue to trend Plts. - transfuse for plt <50 # Hypokalemia - continue scheduled replacement. # CAD - Hx CABG. No aspirin in light of bleed. I do not see that he is on statin therapy. # HTN - controlled with current amlodipine and lasix. # Hypothyroidism - levothyroxine. # Gout - allopurinol. # DVT prophylaxis - no heparin or lovenox in light of bleeding. SCDs # Dispo - previously residing at [facility]. I have discussed the case with Dr. Wilde - working to find capsule endoscopy appointment soon Subjective: denies pain - stools have slowed down Objective: Vital Signs Temp Pulse Resp BP Pulse Ox 37.2 C 90 22 H 136/60 H 97 05/25/17 08:00 05/25/17 08:00 05/25/17 08:00 05/25/17 08:00 05/25/17 08:00 Microbiology 05/24/17 17:00 - Final Sputum, Expectorated Laboratory Results 05/25/17 06:30 05/25/17 06:30 05/24/17 05/25/17 05/26/17 05:59 05:59 05:59 Intake Total 1401 1400 Output Total 2 Balance 1399 1400 PT 17.3 SEC (12.0-15.0) H 05/23/17 05:30 INR 1.40 (0.83-1.16) H 05/23/17 05:30 - Physical Exam Constitutional: no apparent distress Eyes: anicteric sclera Ears, Nose, Mouth, Throat: moist mucous membranes Cardiovascular: regular rate and rhythym, systolic murmur Respiratory: no respiratory distress Gastrointestinal: normoactive bowel sounds Genitourinary: no bladder fullness Skin: warm Musculoskeletal: No asymmetric calves Neurologic: AAOx3 Psychiatric: interacting appropriately Lymph, Heme, Immunologic: no cervical LAD ICD10 Worksheet Patient Problems: Problems Problem Status Onset Anemia Acute Lower GI bleed Acute
[2017-05-26] MEDS: PIPERACILLIN/TAZO 4.5 GM/DEX 100 ML IV SCH ×4 (02:12→21:32)
[2017-05-26 06:08] LABS: INR 1.12 (0.83-1.16); PROTIME(PATIENT) 14.6 SEC (12.0-15.0)
[2017-05-26] MEDS: LEVOTHYROXINE 25 MCG TAB PO SCH (06:10)
[2017-05-26] MEDS: IPRATROPIUM/ALBUTEROL 3 ML DEYVIAL IH SCH ×4 (06:18→23:15)
[2017-05-26 06:26] LABS: PLATELET COUNT 58 10^3/uL (150-400)
[2017-05-26 06:50] LABS: PLATELET COUNT 58 10^3/uL (150-400)
[2017-05-26] MEDS: FUROSEMIDE 20 MG TAB PO SCH (08:23)
[2017-05-26] MEDS: FLUTICASONE NASAL 120 SPRAYS/16 GM MDI EACHNARE SCH (08:23)
[2017-05-26] MEDS: amLODIPine BESYLATE 5 MG TAB PO SCH (08:23)
[2017-05-26] MEDS: POTASSIUM CL 20 MEQ TAB PO SCH ×2 (08:23→21:29)
[2017-05-26] MEDS: PANTOPRAZOLE SODIUM 40 MG TAB PO SCH (08:23)
[2017-05-26] MEDS: ALLOPURINOL 100 MG TAB PO SCH (08:23)
[2017-05-26] MEDS: ACETAMINOPHEN 500 MG TAB PO SCH ×3 (08:32→21:31)
[2017-05-26] MEDS: PHYTONADIONE 2.5 MG/2.5 ML ORAL UDL PO SCH (09:30)
--- NOTE | 2017-05-26 09:39 | SOAPPROG ---
SOAP Progress Note Assessment/Plan: Assessment: SOAP Progress Note Assessment/Plan: Assessment: 87 yo man with recurrent GIB. Admitted 03/2017 with requirement of 12u PRBCs, neg EGD, incomplete colonoscopy, angiography. Readmitted with GIB. Repeat colonoscopy limited by sigmoid stricture. CT abd without sig findings. Imp/Plan: * LGIB: source not localized, limited by sigmoid stricture. Diverticular bleed remains a consideration. Transfused 2 u last night with appropriate rise in Hgb. Probably small bowel capsule endoscopy as outpatient. Consider tagged RBC scan if rebleeds. * Anemia: primarily due to bleeding. Continue transfusion support as needed. B12/folate normal. SPEP pending. Not able to find 'normal' hgb prior to january. * Abnormal RBC morphology: nl LDH argues strongly against hemolysis. Significant iron deficiency can lead to abnormal RBC morphology. ECHO with mild -mod AI, doubt contributing to shear stress. ?occult AVMs leading to GIB. * Thrombocytopenia: Had normal platelet count prior to both GI bleeding events. Likely consumptive. suspect they will recover again. Platelets stable at 58K. Transfuse <50,000. * Coags-nl PT/PTT today with normal fibrinogen. Currently no evidence of prominent DIC. * PNA: abx. Plan: * As above....would be appropriate to follow up at [facility] after discharge to confirm that CBC normalizes after this acute event. Right now, don't feel marrow is helpful, but would be a consideration if he continues to have some level of cytopenias Subjective: feels well, eager to be transferred to the floor Objective: Vital Signs Temp Pulse Resp BP Pulse Ox 36.6 C 92 20 146/60 H 97 05/26/17 08:00 05/26/17 08:00 05/26/17 08:00 05/26/17 08:23 05/26/17 08:00 Microbiology 05/24/17 17:00 - Final Sputum, Expectorated Laboratory Results 05/26/17 05:21 05/26/17 05:21 05/25/17 05/26/17 05/27/17 05:59 05:59 05:59 Intake Total 1400 1844 Balance 1400 1844 PT 14.6 SEC (12.0-15.0) 05/26/17 05:21 INR 1.12 (0.83-1.16) 05/26/17 05:21 Physical Exam - Physical Exam General Appearance: alert Neck: supple Respiratory: lungs clear Abdomen: non-tender, soft Extremities: No pedal edema ICD10 Worksheet Patient Problems: Problems Problem Status Onset Anemia Acute Lower GI bleed Acute
--- NOTE | 2017-05-26 16:11 | HOSPPROG ---
Hospitalist Progress Note Assessment/Plan: # Acute Hypoxic Resp Failure - CT chest (personally reviewed and interpreted) bilateral pneumonia Possible HCAP versus aspiration oxygen saturations 97% on 3L - cont Zosyn day 6/ - cont QID Duonebs. # ABLA - Hbg 7.0 to 9.3 after transfusion - patient with more strength this am - continue monitoring H&H - if stable can dc tomorrow for outpatient capsule study # Acute on Chronic GI Bleed - uncertain source but possibly diverticular. Consider tagged RBC scan if rebleeding. Difficulty with colonoscopy as sigmoid stricture present which was felt secondary to history of diverticulitis. - will need capsule study as oupt when stable enough for dc - discussed with Chani working to find appointment # Schistocytes - suspect low grade DIC. Haptoglobin increasing. - Continue to trend Plts. - transfuse for plt <50 # Hypokalemia - continue scheduled replacement. # CAD - Hx CABG. No aspirin in light of bleed. - would continue to hold until capsule # HTN - controlled with current amlodipine and lasix. # Hypothyroidism - levothyroxine. # Gout - allopurinol. # DVT prophylaxis - no heparin or lovenox in light of bleeding. SCDs # Dispo - previously residing at [facility] [place]. I have discussed the case with RN - pt stable for transfer to med/surg - anticipate dc tomorrow to [facility] if H&H remain stable Subjective: denies pain Objective: Vital Signs Temp Pulse Resp BP Pulse Ox 36.5 C 81 12 115/59 L 93 05/26/17 14:39 05/26/17 15:47 05/26/17 15:47 05/26/17 14:39 05/26/17 15:47 Microbiology 05/24/17 17:00 - Final Sputum, Expectorated Sputum Culture - Final Laboratory Results 05/26/17 05:21 05/26/17 05:21 05/25/17 05/26/17 05/27/17 05:59 05:59 05:59 Intake Total 1400 1844 Output Total 280 Balance 1400 1844 -280 PT 14.6 SEC (12.0-15.0) 05/26/17 05:21 INR 1.12 (0.83-1.16) 05/26/17 05:21 - Physical Exam Constitutional: appears nourished Eyes: anicteric sclera Ears, Nose, Mouth, Throat: moist mucous membranes Cardiovascular: regular rate and rhythym, systolic murmur Respiratory: no respiratory distress Gastrointestinal: normoactive bowel sounds Genitourinary: no bladder fullness Skin: warm Musculoskeletal: No asymmetric calves Neurologic: AAOx3 Psychiatric: interacting appropriately Lymph, Heme, Immunologic: no cervical LAD ICD10 Worksheet Patient Problems: Problems Problem Status Onset Anemia Acute Lower GI bleed Acute
[2017-05-27] MEDS: PIPERACILLIN/TAZO 4.5 GM/DEX 100 ML IV SCH ×4 (02:53→20:19)
[2017-05-27 05:18] LABS: PLATELET COUNT 66 10^3/uL (150-400)
[2017-05-27] MEDS: IPRATROPIUM/ALBUTEROL 3 ML DEYVIAL IH SCH ×4 (05:53→23:38)
[2017-05-27] MEDS: LEVOTHYROXINE 25 MCG TAB PO SCH (05:58)
[2017-05-27] MEDS: POTASSIUM CL 20 MEQ TAB PO SCH ×2 (07:51→20:20)
[2017-05-27] MEDS: ALLOPURINOL 100 MG TAB PO SCH (08:51)
[2017-05-27] MEDS: PANTOPRAZOLE SODIUM 40 MG TAB PO SCH (08:51)
[2017-05-27] MEDS: FUROSEMIDE 20 MG TAB PO SCH (08:51)
[2017-05-27] MEDS: amLODIPine BESYLATE 5 MG TAB PO SCH (08:51)
[2017-05-27] MEDS: FLUTICASONE NASAL 120 SPRAYS/16 GM MDI EACHNARE SCH (09:54)
[2017-05-27] MEDS: ACETAMINOPHEN 500 MG TAB PO SCH ×2 (09:55→20:20)
--- NOTE | 2017-05-27 12:30 | PDIAF ---
- Diagnosis Diagnosis: anemia Code Status: Do Not Resuscitate - Medication Management Discharge Medications: Medications to Continue on Transfer Allopurinol [Allopurinol 100 MG (*)] 100 mg PO DAILY 02/28/17 [Last Taken ] Fluticasone Nasal [Flonase Nasal [place]] 1 sprays NASAL DAILY 02/28/17 [Last Taken 05/20/17] Levothyroxine [Synthroid 25 mcg (*)] 25 mcg PO DAILY06 02/28/17 [Last Taken ] Furosemide [Lasix 20 MG (*)] 20 mg PO DAILY #7 tab 03/12/17 [Last Taken 05/09/17 ] Pantoprazole Sodium [Protonix 40mg (*)] 40 mg PO DAILY #30 tab 03/12/17 [Last Taken 05/20/17] Acetaminophen [Tylenol ES 500 mg (*)] 1,000 mg PO BID 05/20/17 [Last Taken 05/20] Acetaminophen [Tylenol ES 500 mg (*)] 1,000 mg PO Q8HRS PRN 05/20/17 [Last Taken Unknown] Ferrous Sulfate [Ferrous Sulf 325 MG (*)] 325 mg PO BID 05/20/17 [Last Taken ] Herbals/Supplements -Info Only 1 ea PO DAILY 05/20/17 [Last Taken Unknown] Loperamide HCl [Imodium 2 mg (*)] 2 mg PO Q6HRS PRN 05/20/17 [Last Taken Unknown ] Simethicone [Gas Relief] 80 mg PO QID PRN 05/20/17 [Last Taken Unknown] amLODIPine BESYLATE [Norvasc 5 mg (*)] 5 mg PO DAILY 05/20/17 [Last Taken ] Potassium Cl [Klor-Con] 10 meq PO DAILY #30 tab 05/27/17 [Last Taken Unknown] Discharge Medications: Refer to the Discharge Home Medication list for PRN reason. - Orders Services needed: Registered Nurse, Certified Strap Machine Operator Automatic, Master Public Events Facilities Rental Manager , Physical Therapy, Occupational Therapy Oxygen: 3L Diet Recommendation: no restrictions on diet Diet Texture: Regular Texture Diet, Thin Liquids, Meds Whole w/Liquids - Labs/Radiology CBC w/diff Date: 05/29/17 (send to [facility]) - Follow Up Care Current Providers and Referrals: Esther Escamilla MD [Medical Doctor] - Jose Alberto Patrick MD [Medical Doctor] - Bhavna Bean MD [Primary Care Provider] -
--- NOTE | 2017-05-27 13:00 | GDS ---
[f rep st] DISCHARGE SUMMARY DIAGNOSES: 1. Acute hypoxic respiratory failure. 2. Pneumonia, suspected aspiration, also consider HCAP. 3. Acute blood loss anemia, status post 5 units of packed red blood cells. 4. Acute on chronic gastrointestinal bleed of unclear source. 5. Abnormal red blood cell morphology including schistocytes. 6. Hypokalemia. 7. Coronary artery disease, status post coronary artery bypass graft. 8. Hypertension. 9. Hypothyroid. 10. Gout. 11. Thrombocytopenia. PROCEDURES: Colonoscopy on May 21, [address] Patrick, which was an incomplete exam only to sigm oid colon due to fair colon preparation, findings were diverticulosis. PERTINENT IMAGIN. Abdomen CT scan showing no mass to account for GI bleeding. 2. CT angio of the chest and thorax on May 22, showing no PE, suspected bilateral pneumonia. FOLLOWUP: 1. [facility], Dr. Patrick, for outpatient capsule endoscopy and consideration o f virtual colonoscopy. 2. [facility], Dr. Escamilla, for ongoing management of his abnormal blood smear. HOSPITAL COURSE: 1. An 87-year-old man admitted with weakness. He had a previous admission with a GI bleed, with no clear source identified. Weakness likely due to anemia. He has received 5 units of packed red blood cells. He still does continue to feel weak, however. He had a colonoscopy which did not elucidate any source. Abdominal CT scan did not elucidate any source. He has had stable hemoglobins for the l ast 24-48 hours. He will be discharged with outpatient followup as outlined above. [facility]position will be to [facility]. 2. His blood cell morphology has been abnormal. He has noted some schistocytes. He has been seen b y Oncology. Noted to have a normal LDH. Also note noted to be thrombocytopenic. Oncology is not re commending a bone-marrow biopsy at this point, though they would like to see him as an outpatient to repeat his blood smear. They did not feel that there is any evidence of DIC either. 3. Acute hypoxic respiratory failure: This is likely due to pneumonia. He is still requiring some oxygen on discharge. He has completed 7 days of Zosyn to cover an aspiration pneumonia versus HCAP. 4. Coronary artery disease, status post coronary artery bypass graft: We will hold aspirin. PERTINENT LABORATORY ON DISCHARGE: Hemoglobin 9.1, platelets are 66, creatinine is 0.7. BILLING: I spent more than 30 minutes on the day of discharge coordinating care. /[id number]/MODL
--- NOTE | 2017-05-27 16:03 | ASMTCMCOM ---
CM Note CM Note Notes: 05/27/2017 Case Management Note [facility] was unable to obtain auth from insurance company despite sending over requested info in the morning. [employer] offices are closed for the weekend. Bennie will not hear from [employer] until Tuesday about Authorization. [employer] will need to authorize any SNF referral. Case Management d/c poc: to [facility] on Tuesday if authorization is approved. Case Management to follow. Date Signed: 05/27/2017 04:03 PM Electronically Signed By:Svetlana Arias RN
--- NOTE | 2017-05-27 16:14 | HOSPPROG ---
Hospitalist Progress Note Assessment/Plan: Patient unable to discharge today d/t insurance reasons. He was seen and examined. > 35 minutes spent, the majority coordinating care. Objective: Vital Signs Temp Pulse Resp BP Pulse Ox 36.5 C 96 18 120/64 90 L 05/27/17 15:54 05/27/17 15:54 05/27/17 15:54 05/27/17 15:54 05/27/17 15:54 Microbiology 05/24/17 17:00 - Final Sputum, Expectorated Sputum Culture - Final Laboratory Results 05/27/17 04:34 05/27/17 04:34 05/26/17 05/27/17 05/28/17 05:59 05:59 05:59 Intake Total 1844 630 380 Output Total 280 Balance 1844 350 380 PT 14.6 SEC (12.0-15.0) 05/26/17 05:21 INR 1.12 (0.83-1.16) 05/26/17 05:21 ICD10 Worksheet Patient Problems: Problems Problem Status Onset Lower GI bleed Acute Anemia Acute
[2017-05-28] MEDS: PIPERACILLIN/TAZO 4.5 GM/DEX 100 ML IV SCH ×2 (04:09→08:37)
[2017-05-28] MEDS: IPRATROPIUM/ALBUTEROL 3 ML DEYVIAL IH SCH ×4 (05:15→21:54)
[2017-05-28 05:34] LABS: PLATELET COUNT 91 10^3/uL (150-400)
[2017-05-28] MEDS: LEVOTHYROXINE 25 MCG TAB PO SCH (05:47)
[2017-05-28] MEDS: ACETAMINOPHEN 500 MG TAB PO SCH (07:59)
[2017-05-28] MEDS: PANTOPRAZOLE SODIUM 40 MG TAB PO SCH (08:30)
[2017-05-28] MEDS: ALLOPURINOL 100 MG TAB PO SCH (08:34)
[2017-05-28] MEDS: POTASSIUM CL 20 MEQ TAB PO SCH ×2 (08:34→20:06)
[2017-05-28] MEDS: amLODIPine BESYLATE 5 MG TAB PO SCH (10:36)
[2017-05-28] MEDS: FUROSEMIDE 20 MG TAB PO SCH (10:36)
[2017-05-28] MEDS: FLUTICASONE NASAL 120 SPRAYS/16 GM MDI EACHNARE SCH (10:37)
--- NOTE | 2017-05-28 12:31 | HOSPPROG ---
Hospitalist Progress Note Assessment/Plan: # AHRF - s/p zosyn x 7 days # GI bleed - recurrent, no source identified - capsule endoscopy as outpatient # ABLA - improved s/p transfusion 5U PRBC # abnormal blood smear - schizocytes, thrombocytopenia - outpatient f/u heme # hypoK - replete # CAD s/p CABG - hold asa until capsule endoscopy # htn - cont norvasc and lasix # hypothyroid - synthroid # gout - allopurinol # dvt ppx - SCDs # dispo - [facility] on Tue Subjective: no complaints today Objective: Vital Signs Temp Pulse Resp BP Pulse Ox 36.4 C 90 22 H 124/64 H 95 05/28/17 11:59 05/28/17 11:59 05/28/17 11:59 05/28/17 11:59 05/28/17 11:59 Microbiology 05/22/17 16:43 Blood Culture - Final Blood 05/22/17 16:23 Blood Culture - Final Blood Laboratory Results 05/28/17 04:34 05/28/17 04:34 05/27/17 05/28/17 05/29/17 05:59 05:59 05:59 Intake Total 630 2310 Output Total 280 200 Balance 350 2110 PT 14.6 SEC (12.0-15.0) 05/26/17 05:21 INR 1.12 (0.83-1.16) 05/26/17 05:21 - Physical Exam Constitutional: other (pale) Cardiovascular: regular rate and rhythym, no murmur, rub, or gallop Respiratory: no respiratory distress, no rales or rhonchi Gastrointestinal: soft, non-tender abdomen, no palpable masses ICD10 Worksheet Patient Problems: Problems Problem Status Onset Lower GI bleed Acute Anemia Acute
[2017-05-29] MEDS: LEVOTHYROXINE 25 MCG TAB PO SCH (05:36)
[2017-05-29] MEDS: IPRATROPIUM/ALBUTEROL 3 ML DEYVIAL IH SCH ×4 (06:05→21:56)
[2017-05-29] MEDS: PANTOPRAZOLE SODIUM 40 MG TAB PO SCH (08:30)
[2017-05-29] MEDS: POTASSIUM CL 20 MEQ TAB PO SCH ×2 (08:30→19:47)
[2017-05-29] MEDS: amLODIPine BESYLATE 5 MG TAB PO SCH (08:30)
[2017-05-29] MEDS: FUROSEMIDE 20 MG/2 ML VIAL IVP SCH ×2 (08:30→15:45)
[2017-05-29] MEDS: ALLOPURINOL 100 MG TAB PO SCH (08:30)
[2017-05-29] MEDS: FLUTICASONE NASAL 120 SPRAYS/16 GM MDI EACHNARE SCH (11:19)
--- NOTE | 2017-05-29 19:30 | HOSPPROG ---
Hospitalist Progress Note Assessment/Plan: The patient is an 87 year old male with PMH acute blood loss anemia, GI bleed, CAD status post CABG who was admitted for acute hypoxemic respiratory failure and recurrent GI bleed. ASSESSMENT/PLAN: Acute hypoxemic respiratory failure Sleep apnea Pneumonia, b/l - HCAP vs aspiration Mild dysphagia -CPAP at night -s/p Abx - Zosyn x 7 days. -O2, SVNs prn -ST recs: 90deg upright w/ meals, no straws. OK thin liquids. GI bleed, recurrence Acute blood loss anemia, status post 5 U PRBC -FU w/ as outpt for capsule endoscopy CAD, status post CABG Periph edema - likely from blood transfusions vol OL. Query diastolic CHF Mild multivalvular disease Hypertension -cont cardiac meds, except ASA as he has GIB. Hypothyroidism -thyroid medication Gout -allopurinol VTE prophylaxis: SCDs Code Status: DNR Status: Inpatient for greater than 2 midnight stay. Disposition: Med surge with discharge anticipated tomorrow-transfer to [facility] rehab This patient is new to me. Reviewed patient's chart/records for this visit. ____ SUBJECTIVE: Today the patient feels well. He has managed to stand and walk a little. He admits he has both urinary and fecal urge incontinence. He looks for to going to rehab. OBJECTIVE: Physical Exam: General: The patient is an elderly male who is alert and in no acute distress. HEENT: normocephalic, extraocular movements intact, conjunctivae clear. Mucous membranes moist. Neck: trachea midline, no visible masses. CV: +S1/S2, RRR, no MRG. Resp: unlabored, CTAB no RRW. Abd: soft and nondistended. Musculoskeletal: Normal muscle tone/bulk. Neuro: cranial nerves II XII grossly intact. Intact gross motor and sensory function. Psych: Appropriate mood and appropriate affect. Skin: No pallor. No petechiae. Heme/lymph: +2 peripheral edema at bilateral ankles. Labs/Imaging/Other Tests: Personally reviewed/interpreted. Including chest x- ray, labs from today. Objective: Vital Signs Temp Pulse Resp BP Pulse Ox 36.6 C 92 18 132/65 H 96 05/29/17 15:43 05/29/17 15:51 05/29/17 15:51 05/29/17 15:43 05/29/17 15:51 Laboratory Results 05/28/17 04:34 05/28/17 04:34 05/28/17 05/29/17 05/30/17 05:59 05:59 05:59 Intake Total 2310 600 Output Total 200 Balance 2110 600 PT 14.6 SEC (12.0-15.0) 05/26/17 05:21 INR 1.12 (0.83-1.16) 05/26/17 05:21 ICD10 Worksheet Patient Problems: Problems Problem Status Onset Anemia Acute Lower GI bleed Acute
[2017-05-30] MEDS: LEVOTHYROXINE 25 MCG TAB PO SCH (05:34)
[2017-05-30] MEDS: IPRATROPIUM/ALBUTEROL 3 ML DEYVIAL IH SCH ×2 (06:18→10:37)
[2017-05-30 07:45] VITALS: BP 122/62; TEMP 98.1
[2017-05-30] MEDS: ALLOPURINOL 100 MG TAB PO SCH (08:42)
[2017-05-30] MEDS: PANTOPRAZOLE SODIUM 40 MG TAB PO SCH (08:42)
[2017-05-30] MEDS: POTASSIUM CL 20 MEQ TAB PO SCH (08:43)
[2017-05-30] MEDS: FUROSEMIDE 20 MG/2 ML VIAL IVP SCH (08:43)
[2017-05-30] MEDS: amLODIPine BESYLATE 5 MG TAB PO SCH (08:43)
[2017-05-30] MEDS: FLUTICASONE NASAL 120 SPRAYS/16 GM MDI EACHNARE SCH (08:53)
[2017-05-30 10:47] VITALS: PULSE 87; RESP 18; O2SAT 91
--- NOTE | 2017-05-30 11:41 | HOSPPROG ---
Hospitalist Progress Note Assessment/Plan: The patient is an 87 year old male with PMH acute blood loss anemia, GI bleed, CAD status post CABG who was admitted for acute hypoxemic respiratory failure and recurrent GI bleed. Today is my first encounter with the patient. Chart reviewed. *Acute hypoxemic respiratory failure -resolved, on room air *Sleep apnea *Pneumonia, b/l - HCAP vs aspiration -received treatment w Zosyn x 7 dys *Mild dysphagia -CPAP at night -ST recs: 90deg upright w/ meals, no straws. OK thin liquids. GI bleed, recurrence Acute blood loss anemia, status post 5 U PRBC -FU w/ as outpt for capsule endoscopy CAD, status post CABG Periph edema - likely from blood transfusions vol OL. Mild multivalvular disease Hypertension -cont cardiac meds, except ASA as he has GIB. -blood pressure stable Hypothyroidism -thyroid medication Gout -allopurinol VTE prophylaxis: SCDs Code Status: DNR Plan: to go to [facility] today, will check an h/h to assure stability, he looks very pale, but just met him for the first time. Subjective: Nacho who goes by Way is feeling well/ looking forward to going to rehab. Objective: Vital Signs Temp Pulse Resp BP Pulse Ox 36.7 C 87 18 122/62 H 91 L 05/30/17 07:43 05/30/17 10:38 05/30/17 10:38 05/30/17 08:43 05/30/17 10:38 Laboratory Results 05/28/17 04:34 05/28/17 04:34 05/29/17 05/30/17 05/31/17 05:59 05:59 05:59 Intake Total 600 400 Balance 600 400 PT 14.6 SEC (12.0-15.0) 05/26/17 05:21 INR 1.12 (0.83-1.16) 05/26/17 05:21 - Physical Exam Constitutional: chronically ill appearing Eyes: PERRL Ears, Nose, Mouth, Throat: hard of hearing Cardiovascular: regular rate and rhythym Respiratory: no respiratory distress, reduced air movement (bases) Gastrointestinal: normoactive bowel sounds Skin: warm, No normal color (very pale) Musculoskeletal: generalized weakness Neurologic: AAOx3 Psychiatric: interacting appropriately ICD10 Worksheet Patient Problems: Problems Problem Status Onset Anemia Acute Lower GI bleed Acute
--- NOTE | 2017-05-30 13:06 | PDIAF ---
- Diagnosis Diagnosis: anemia Code Status: Do Not Resuscitate - Medication Management Discharge Medications: Medications to Continue on Transfer Allopurinol [Allopurinol 100 MG (*)] 100 mg PO DAILY 02/28/17 [Last Taken ] Fluticasone Nasal [Flonase Nasal [place]] 1 sprays NASAL DAILY 02/28/17 [Last Taken 05/20/17] Levothyroxine [Synthroid 25 mcg (*)] 25 mcg PO DAILY06 02/28/17 [Last Taken ] Furosemide [Lasix 20 MG (*)] 20 mg PO DAILY #7 tab 03/12/17 [Last Taken 05/09/17 ] Pantoprazole Sodium [Protonix 40mg (*)] 40 mg PO DAILY #30 tab 03/12/17 [Last Taken 05/20/17] Acetaminophen [Tylenol ES 500 mg (*)] 1,000 mg PO Q8HRS PRN 05/20/17 [Last Taken Unknown] Ferrous Sulfate [Ferrous Sulf 325 MG (*)] 325 mg PO BID 05/20/17 [Last Taken ] Herbals/Supplements -Info Only 1 ea PO DAILY 05/20/17 [Last Taken Unknown] Loperamide HCl [Imodium 2 mg (*)] 2 mg PO Q6HRS PRN 05/20/17 [Last Taken Unknown ] Simethicone [Gas Relief] 80 mg PO QID PRN 05/20/17 [Last Taken Unknown] amLODIPine BESYLATE [Norvasc 5 mg (*)] 5 mg PO DAILY 05/20/17 [Last Taken ] Potassium Cl [Klor-Con] 10 meq PO DAILY #30 tab 05/27/17 [Last Taken Unknown] Discharge Medications: Refer to the Discharge Home Medication list for PRN reason. - Orders Services needed: Registered Nurse, Certified Rehabilitation Team Lead, Master Ceo And President , Physical Therapy, Occupational Therapy Oxygen: 3L Diet Recommendation: no restrictions on diet Diet Texture: Regular Texture Diet, Thin Liquids, Meds Whole w/Liquids Additional: aspirin has been dc due to acute blood loss anemia - Labs/Radiology CBC w/diff Date: 06/02/17 (send to [facility]) HCT/HGB Date: 06/02/17 (weekly till stable) - Follow Up Care Current Providers and Referrals: Esther Escamilla MD [Medical Doctor] - Jose Alberto Patrick MD [Medical Doctor] - Bhavna Bean MD [Primary Care Provider] -
--- NOTE | 2017-05-30 14:03 | GDS ---
[f rep st] DISCHARGE SUMMARY DISCHARGE DIAGNOSES: 1. Acute hypoxemic respiratory failure. 2. Suspected aspiration pneumonia. Also consider healthcare-associated pneumonia. 3. Acute blood loss anemia. 4. Acute on chronic gastrointestinal bleed of unclear source. 5. Abnormal red blood cell morphology, including schistocytes. 6. Hypokalemia. 7. Coronary artery disease, status post coronary artery bypass graft. 8. Hypertension. 9. Hypothyroidism. 10. Gout. 11. Thrombocytopenia. HOSPITAL COURSE: Briefly, the patient is an 87-year-old gentleman, who was admitted with weakness. He had a previous admission with a GI bleed. At that time, no clear source was identified. During his stay, he received 5 units of packed red blood cells and was weak. He has been doing overall extremely well. He will be discharged to [facility]. Please see Dr. Cayden Valdez's discharge summary for further information. This discharge summary was done on 05/27/17 with no significant changes since then. DISCHARGE CONDITION: Stable. Blood pressure is 122/62. Heart rate is 87. Respiratory rate is 18. O2 sats on room air 91%. Temperature is 36.7 Celsius. DISCHARGE MEDICATIONS: Please see the EMR. DISCHARGE INSTRUCTIONS: 1. To further follow up with Oncology, a CBC with differential will be sent. 2. Aspirin has been placed on hold due to his acute bleeding. 3. He needs to follow up with Oncology to get a bone marrow biopsy and a repeat blood smear. He is to follow up with Dr. Patrick for an outpatient capsule endoscopy and consideration of virtual colonoscopy. Greater than 30 minutes discharging and coordinating the patient's care. /[id number]/MODL MTDD
== END 2017-05-30 14:35 | DRG 811 ==
LOC: INTOOBSV 12:49 → F3E 14:31 → OBSVTOIN 05-21 11:01 → F2N 05-22 19:47 → F3N 05-26 14:30
PROVIDERS: ADMIT Internal Medicine; ATTEND Internal Medicine
PROC: 30233N1 Transfusion of Nonautologous Red Blood Cells into Peripheral Vein, Percutaneous Approach (ICD-10-PCS; 2017-05-20)
PROC: 0DJD8ZZ Inspection of Lower Intestinal Tract, Via Natural or Artificial Opening Endoscopic (ICD-10-PCS; principal; 2017-05-21 08:30)
DX: D50.0 Iron deficiency anemia secondary to blood loss (chronic) (principal); J96.01 Acute respiratory failure with hypoxia; J18.8 Other pneumonia, unspecified organism; K92.2 Gastrointestinal hemorrhage, unspecified; K57.30 Diverticulosis of large intestine without perforation or abscess without bleeding; I25.10 Atherosclerotic heart disease of native coronary artery without angina pectoris; E87.6 Hypokalemia; I10 Essential (primary) hypertension; E03.9 Hypothyroidism, unspecified; M10.9 Gout, unspecified; D69.6 Thrombocytopenia, unspecified; G47.33 Obstructive sleep apnea (adult) (pediatric); Z87.891 Personal history of nicotine dependence; Z95.1 Presence of aortocoronary bypass graft; Z85.46 Personal history of malignant neoplasm of prostate
CPT/HCPCS: 82607-90; 82784-90; 83010-90; 83516-90; 92526-GN; 92610-GN; 92611-GN; 97110-GO; 97110-GP; 97116-GP; 97162-GP; 97165-GO; 97530-GO; 97530-GP; 97535-GO; G0378; G8978-GP-CJ; G8979-GP-CI; J1940; J2405; J2543; J2704; J2916; P9016; Q9967

== ENCOUNTER → 2017-06-28 | Outpatient (CLI) | payer OTHER | LOC: FIMAGING 11:53 | PROVIDERS: ATTEND Internal Medicine Gastroenterology | DX: K92.1 Melena (principal) ==

== ENCOUNTER 2017-07-15 12:14 | Outpatient (CLI) | payer OTHER ==
[2017-07-15] MEDS ORDERED: ACETAMINOPHEN 325 MG TAB PO ONE (12:45)
== END 2017-07-15 18:31 | disposition home or self-care (01) ==
LOC: FOBOP 12:14
PROVIDERS: ATTEND Internal Medicine Hematology & Oncology
PROC: 30233L1 Transfusion of Nonautologous Fresh Plasma into Peripheral Vein, Percutaneous Approach (ICD-10-PCS; principal; 2017-07-15)
DX: D64.9 Anemia, unspecified (principal)
CPT/HCPCS: 36430; P9016

== ENCOUNTER 2017-08-01 14:10 | Outpatient (CLI) | payer OTHER ==
[2017-08-01] MEDS ORDERED: ACETAMINOPHEN 325 MG TAB PO ONE (14:45)
[2017-08-01] MEDS ORDERED: diphenhydrAMINE 25 MG CAP PO ONE (14:45)
== END 2017-08-01 20:55 | disposition home or self-care (01) ==
LOC: FOBOP 14:10
PROVIDERS: ATTEND Internal Medicine Hematology & Oncology
PROC: 30233N1 Transfusion of Nonautologous Red Blood Cells into Peripheral Vein, Percutaneous Approach (ICD-10-PCS; principal; 2017-08-01)
DX: D64.9 Anemia, unspecified (principal)
CPT/HCPCS: 36430; P9016; P9040

== ENCOUNTER 2017-08-18 08:49 | Outpatient (CLI) | payer OTHER ==
[2017-08-18 09:06] VITALS: BP 124/59
[2017-08-18] MEDS ORDERED: FUROSEMIDE 20 MG/2 ML VIAL IV ONE ×2 (09:45→13:00)
== END 2017-08-18 16:15 | disposition home or self-care (01) ==
LOC: FOBOP 08:49
PROVIDERS: ATTEND Internal Medicine Hematology & Oncology
PROC: 30233N1 Transfusion of Nonautologous Red Blood Cells into Peripheral Vein, Percutaneous Approach (ICD-10-PCS; principal; 2017-08-18)
DX: D64.9 Anemia, unspecified (principal)
CPT/HCPCS: 36430; J1940; P9016

== ENCOUNTER 2017-09-09 10:24 | Outpatient (CLI) | payer BC ==
[2017-09-09] MEDS ORDERED: ACETAMINOPHEN 325 MG TAB PO ONE (10:45)
[2017-09-09] MEDS ORDERED: FUROSEMIDE 20 MG/2 ML VIAL IVP ONE ×3 (10:45→14:15)
[2017-09-09 17:06] VITALS: BP 134/62
== END 2017-09-09 17:30 | disposition home or self-care (01) ==
LOC: FOBOP 10:24
PROVIDERS: ATTEND Internal Medicine Hematology & Oncology
PROC: 30233N1 Transfusion of Nonautologous Red Blood Cells into Peripheral Vein, Percutaneous Approach (ICD-10-PCS; principal; 2017-09-09)
DX: D64.9 Anemia, unspecified (principal); D46.9 Myelodysplastic syndrome, unspecified
CPT/HCPCS: 36430; P9016; P9040; J1940

== ENCOUNTER → 2017-09-28 | Outpatient (CLI) | payer BC ==
[~2017-09-28] MED LIST: ACETAMINOPHEN 325 MG TAB PO ONE; FUROSEMIDE 20 MG/2 ML VIAL IVP ONE
== END ==
LOC: FOBOP 11:35
PROVIDERS: ATTEND Internal Medicine Hematology & Oncology
PROC: 30233N1 Transfusion of Nonautologous Red Blood Cells into Peripheral Vein, Percutaneous Approach (ICD-10-PCS; principal; 2017-09-28)
DX: D64.9 Anemia, unspecified (principal); D46.9 Myelodysplastic syndrome, unspecified
CPT/HCPCS: 36430; P9016; P9040; J1940

== ENCOUNTER → 2017-10-19 | Outpatient (CLI) | payer BC, OTHER ==
[~2017-10-19] MED LIST changes: +FUROSEMIDE 20 MG/2 ML VIAL IV ONE; -FUROSEMIDE 20 MG/2 ML VIAL IVP ONE
[2017-10-19 19:04] VITALS: BP 147/64
== END ==
LOC: FOBOP 13:34
PROVIDERS: ATTEND Internal Medicine Hematology & Oncology
PROC: 30233N1 Transfusion of Nonautologous Red Blood Cells into Peripheral Vein, Percutaneous Approach (ICD-10-PCS; principal; 2017-10-19)
DX: D46.9 Myelodysplastic syndrome, unspecified (principal); D64.9 Anemia, unspecified
CPT/HCPCS: 36430; J1940; P9016; P9040

== ENCOUNTER 2017-11-10 09:30 | Outpatient (CLI) | payer BC, OTHER ==
[2017-11-10] MEDS ORDERED: FUROSEMIDE 20 MG/2 ML VIAL IVP ONE (10:00)
[2017-11-10] MEDS ORDERED: ACETAMINOPHEN 325 MG TAB PO ONE (10:00)
[2017-11-10] MEDS ORDERED: FUROSEMIDE 20 MG/2 ML VIAL ONE (14:22)
== END 2017-11-10 17:00 | disposition home or self-care (01) ==
LOC: FOBOP 09:30
PROVIDERS: ATTEND Internal Medicine Hematology & Oncology
PROC: 30233N1 Transfusion of Nonautologous Red Blood Cells into Peripheral Vein, Percutaneous Approach (ICD-10-PCS; principal; 2017-11-10)
DX: D46.9 Myelodysplastic syndrome, unspecified (principal)
CPT/HCPCS: 36430; J1940; P9016; P9040

== ENCOUNTER 2017-12-22 11:01 | Outpatient (CLI) | payer BC ==
[2017-12-22] MEDS ORDERED: FUROSEMIDE 20 MG/2 ML VIAL IV ONE (11:30)
[2017-12-22] MEDS ORDERED: ACETAMINOPHEN 325 MG TAB PO ONE (11:30)
== END 2017-12-22 17:25 | disposition home or self-care (01) ==
LOC: FOBOP 11:01
PROVIDERS: ATTEND Internal Medicine Hematology & Oncology
PROC: 30233N1 Transfusion of Nonautologous Red Blood Cells into Peripheral Vein, Percutaneous Approach (ICD-10-PCS; principal; 2017-12-22)
DX: D46.9 Myelodysplastic syndrome, unspecified (principal)
CPT/HCPCS: 36430; P9016; P9040; J1642; J1940

== ENCOUNTER 2018-01-08 08:40 | Inpatient (IN) | payer BC, OTHER ==
[2018-01-08] MEDS ORDERED: LET GEL TOPICAL 1 EA SYR TP ONE (09:10)
--- NOTE | 2018-01-08 09:29 | EDPHY ---
H & P Time Seen by Provider: 01/08/18 09:23 HPI/ROS: Chief complaint. Right hip pain HPI. Patient is an 87-year-old male presents emergency department with atraumatic right hip pain. He awoke this morning and had been up for a little bit without any pain in his hip. He fell asleep in his chair and then at about 7:00 a.m. He could not get out of the chair bear weight secondary to right hip pain. Denies falls, trauma, unusual activity. No previous hip problems. Pain is centered in the right hip and descends down toward the right thigh. No low back pain. No chest discomfort trouble breathing or abdominal pain. ROS Constitutional. no fever/chills, no weakness Eyes. no problems with vision ENT. no sore throat, no nasal drainage Cardiovascular. no chest pain Respiratory. no shortness of breath, no cough Abdominal. no abdominal pain, no nausea/vomiting, no diarrhea . no problems urinating MS. Right hip pain Skin. no rash Lymph. no swollen glands Neuro. no headache, no dizziness, no difficulty walking or with speech Past Medical/Surgical History: Hypertension, gout, hypothyroid, prostate cancer, anemia, bilateral knee replacements Social History: , nonsmoker, no alcohol Smoking Status: Former smoker Physical Exam: General Appearance: Alert well-developed male mild distress vital signs stable Eyes: Pupils equal and round no pallor or injection. ENT, Mouth: Mucous membranes are moist. Respiratory: There are no retractions, lungs are clear to auscultation. Cardiovascular: Regular rate and rhythm. Gastrointestinal: Abdomen is soft and nontender, no masses, bowel sounds normal. Neurological: Awake and alert, sensory and motor exams grossly normal. Skin: Warm and dry, no rashes. Musculoskeletal: Neck is supple nontender. Extremities painful range of motion about the right hip and tenderness to palpation of the right hip. Distal motor vascular and sensory are intact. Psychiatric: Patient is oriented X 3, there is no agitation. Constitutional: Initial Vital Signs Temperature (C) 36.8 C 01/08/18 08:40 Heart Rate 95 01/08/18 08:40 Respiratory Rate 16 01/08/18 08:40 Blood Pressure 148/60 H 01/08/18 08:40 O2 Sat (%) 94 01/08/18 08:40 O2 Delivery Mode Room Air O2 (L/minute) 2 Allergies/Adverse Reactions: oxycodone [From Tylox] Allergy (Verified 01/08/18 08:54) Home Medications: Medication Instructions Recorded Allopurinol [Allopurinol 100 MG 100 mg PO DAILY 02/28/17 (*)] Fluticasone Nasal [Flonase Nasal 1 sprays NASAL DAILY 02/28/17 Serafina] Levothyroxine [Synthroid 25 mcg 25 mcg PO DAILY06 02/28/17 (*)] Furosemide [Lasix 20 MG (*)] 20 mg PO DAILY #7 tab 03/12/17 Pantoprazole Sodium [Protonix 40mg 40 mg PO DAILY #30 tab 03/12/17 (*)] Acetaminophen [Tylenol ES 500 mg 650 mg PO Q8HRS PRN 05/20/17 (*)] Herbals/Supplements -Info Only 1 ea PO DAILY 05/20/17 Loperamide HCl [Imodium 2 mg (*)] 2 mg PO Q6HRS PRN 05/20/17 Simethicone [Gas Relief] 80 mg PO QID PRN 05/20/17 Potassium Cl [Klor-Con] 10 meq PO DAILY #30 tab 05/27/17 Lactaid 1 tab TID 08/01/17 Tramadol HCl 50 mg TID 08/01/17 Albuterol 01/08/18 Proair Hfa 01/08/18 Medical Decision Making - Diagnostics Imaging Results: X-ray right hip and femur interpreted by me is negative for fracture or dislocation Procedures: Tylenol by mouth ED Course/Re-evaluation: Patient has significantly low hematocrit. 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 No evidence for fracture on plain film. He also requires a transfusion The patient, his daughter and I discussed imaging and lab results. We discussed treatment plan including recommendation for admission. They expressed understanding and agreement I consulted and discussed the case with Dr. Martínez, hospitalist, who agrees to the admission Differential Diagnosis: I considered fracture, dislocation, metastatic disease. Patient has significant anemia requiring transfusion - Data Points Laboratory Results: Laboratory Results 01/08/18 09:50 01/08/18 09:50 01/08/18 01/08/18 09:50 09:50 WBC 1.57 10^3/uL L 10^3/uL (3.80-9.50) RBC 1.73 10^6/uL L 10^6/uL (4.40-6.38) Hgb 5.9 g/dL L* g/dL (13.7-17.5) Hct 17.4 % L* % (40.0-51.0) MCV 100.6 fL H fL (81.5-99.8) MCH 34.1 pg pg (27.9-34.1) MCHC 33.9 g/dL g/dL (32.4-36.7) RDW 18.9 % H % (11.5-15.2) Plt Count 82 10^3/uL L 10^3/uL (150-400) MPV TNP Neut % (Auto) Not Reported Lymph % (Auto) Not Reported [place] % (Auto) Not Reported Eos % (Auto) Not Reported Baso % (Auto) Not Reported Nucleat RBC Rel Count Not Reported Absolute Neuts (auto) Not Reported Absolute Lymphs (auto) Not Reported Absolute Monos (auto) Not Reported Absolute Eos (auto) Not Reported Absolute Basos (auto) Not Reported Absolute Nucleated RBC Not Reported Immature Gran % Not Reported Seg Neutrophils % 54.5 % % Band Neutrophils % 0.0 % % Lymphocytes % 29.3 % % Monocytes % 5.1 % % Eosinophils % 6.1 % % Basophils % 5.0 % % Metamyelocytes % 0.0 % % Myelocytes % 0.0 % % Promyelocytes % 0.0 % % Blast Cells % 0.0 % % Immature Gran # Not Reported Absolute Seg Neuts 0.86 10^/uL L 10^/uL (1.70-6.50) Absolute Band Neuts 0.00 10^3/uL 10^3/uL (0.00-0.70) Absolute Lymphocytes 0.46 10^3/uL L 10^3/uL (1.00-3.00) Absolute Monocytes 0.08 10^3/uL L 10^3/uL (0.30-0.80) Absolute Eosinophils 0.10 10^3/uL 10^3/uL (0.03-0.40) Absolute Basophils 0.08 10^3/uL 10^3/uL (0.02-0.10) Absolute Metamyelocyte 0.00 10^3/mL 10^3/mL (0.00-0.00) Absolute Myelocytes 0.00 10^3/mL 10^3/mL (0.00-0.00) Absolute Promyelocytes 0.00 10^3/uL 10^3/uL (0.00-0.00) Absolute Plasma Cells 0.00 10^3/uL 10^3/uL (0.00-0.00) Nucleated RBCs 2.0 /100 WBC H /100 WBC (0-0) Absolute Blast Cells 0.00 10^3/uL 10^3/uL (0.00-0.00) Plasma Cells % 0.0 % % Platelet Estimate DECREASED L (ADEQ) Polychromasia 1+ H Hypochromasia 1+ H Microcytic Cells 1+ H Tear Drop Cells 1+ H Oval Macrocytes 1+ H Schistocytes 2+ H Smear Review By Pending Sodium 136 mEq/L mEq/L (135-145) Potassium 4.4 mEq/L mEq/L (3.3-5.0) Chloride 100 mEq/L mEq/L (97-110) Carbon Dioxide 30 mEq/l mEq/l (22-31) Anion Gap 6 mEq/L L mEq/L (8-16) BUN 20 mg/dL mg/dL (7-23) Creatinine 0.5 mg/dL L mg/dL (0.7-1.3) Estimated GFR > 60 Glucose 115 mg/dL H mg/dL (70-100) Calcium 8.4 mg/dL L mg/dL (8.5-10.4) Medications Given: Discontinued Medications Acetaminophen (Tylenol Rectal) [address] EDNOW ONE Stop: 01/08/18 09:40 Last Admin: 01/08/18 09:56 Dose: Not Given Acetaminophen (Tylenol) 650 mg PO EDNOW ONE Stop: 01/08/18 09:56 Last Admin: 01/08/18 10:06 Dose: 650 mg Fentanyl (Sublimaze) 50 mcg IVP EDNOW ONE Stop: 01/08/18 10:53 Last Admin: 01/08/18 10:55 Dose: 50 mcg Departure - Departure Disposition: [facility] Inpatient Acute Clinical Impression: Hip pain, right Anemia Qualifiers: Anemia type: unspecified type Qualified Code(s): D64.9 - Anemia, unspecified Condition: Fair Referrals: Patient,NotPresent [Primary Care Provider] - As per Instructions
[2018-01-08] MEDS ORDERED: ACETAMINOPHEN 650 MG SUPP PR ONE (09:39)
[2018-01-08] MEDS ORDERED: ACETAMINOPHEN 500 MG TAB PO ONE (09:55)
[2018-01-08] MEDS ORDERED: ACETAMINOPHEN 325 MG TAB ONE (09:57)
[2018-01-08] MEDS ORDERED: fentaNYL 100 MCG/2 ML INJ IVP ONE (10:52)
[2018-01-08 10:56] LABS: PLATELET COUNT 82 10^3/uL (150-400)
[2018-01-08] MEDS ORDERED: ONDANSETRON DISINTEGRATING 4 MG TAB PO PRN (11:39)
[2018-01-08] MEDS ORDERED: ACETAMINOPHEN 325 MG TAB PO PRN (11:39)
[2018-01-08] MEDS ORDERED: ONDANSETRON 4 MG/2 ML VIAL IVP PRN (11:39)
[2018-01-08 11:50] LABS: INR 1.31 (0.83-1.16); PROTIME(PATIENT) 16.5 SEC (12.0-15.0)
--- NOTE | 2018-01-08 14:30 | PDGENHP ---
History and Physical - Chief Complaint R Hip Pain, unable to get up - History of Present Illness Mr. Nacho Greer is a 87 yo male with a PMHx of MDS, prostate cancer s/p prostatectomy, HTN, hypothyroidism who presents to [facility] for RLE pain and inability to stand up this morning. He reports he awoke at 7 am this morning and was unable to get out of his recliner and bear weight on his R leg. He has pain that is located in the right hip which radiates down his thigh which is worse with movement and improves with rest. He denies any recent trouble walking , hip pain, or falls. He has had b/l knee replacements and shoulder OA but has not had hip or other joint issues in the past. He denies any back pain, CP, SOB , LE edema, numbness/tingling in LE. History Information - Allergies/Home Medication List Allergies/Adverse Reactions: oxycodone [From Tylox] Allergy (Verified 01/08/18 08:54) Home Medications: Allopurinol [Allopurinol 100 MG (*)] 100 mg PO DAILY 02/28/17 [Last Taken ] Fluticasone Nasal [Flonase Nasal [place]] 1 sprays NASAL DAILY PRN 02/28/17 [Last Taken 09/28/17] Levothyroxine [Synthroid 25 mcg (*)] 25 mcg PO DAILY06 02/28/17 [Last Taken 01/17] Loperamide HCl [Imodium 2 mg (*)] 2 mg PO Q6HRS PRN 05/20/17 [Last Taken Unknown ] Simethicone [Gas Relief] 80 mg PO QID PRN 05/20/17 [Last Taken 09/28/17] Albuterol [Proventil Inhaler HFA (*)] 2 puffs IH Q6H PRN 01/08/18 [Last Taken Unknown] Cyanocobalamin [Vitamin B12 (*)] 1,000 mcg PO DAILY 01/08/18 [Last Taken Unknown ] Lactase [Lactaid] 1 tab PO TIDMEAL 01/08/18 [Last Taken Unknown] traMADol HCL [Tramadol HCl] 50 mg PO TID 01/08/18 [Last Taken Unknown] I have personally reviewed and updated: family history, medical history, social history, surgical history - Past Medical History cancer, hypertension Additional medical history: 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 Hypertension. Prostate cancer. Gout. PICC line associated upper extremity DVT - Surgical History Additional surgical history: Bilateral knee surgery. Prostatectomy in the 1990s - Family History Additional family history: No 1st degree relatives with colon cancer - Social History Smoking Status: Former smoker Alcohol Use: None Drug Use: None Additional social history: Resides at [facility] Review of Systems Review of Systems: ROS: 10pt was reviewed & negative except for what was stated in HPI & below Physical Exam Physical Exam: Temp Pulse Resp BP Pulse Ox 36.5 C 89 18 142/59 H 96 01/08/18 12:06 01/08/18 12:06 01/08/18 12:06 01/08/18 12:06 01/08/18 12:06 O2 (L/minute) 2 Constitutional: no apparent distress Eyes: PERRL Ears, Nose, Mouth, Throat: moist mucous membranes Cardiovascular: regular rate and rhythym Respiratory: no respiratory distress, clear to auscultation Gastrointestinal: normoactive bowel sounds Genitourinary: no bladder tenderness Skin: warm Musculoskeletal: no muscle tenderness, no joint effusions, joint tenderness, pain with ROM, No asymmetric calves, No joint effusion, No muscular tenderness Neurologic: AAOx3 Psychiatric: interacting appropriately Lymph, Heme, Immunologic: No ecchymoses, No petechiae Lab Data & Imaging Review 01/08/18 09:50 01/08/18 09:50 WBC 1.57 10^3/uL (3.80-9.50) L 01/08/18 09:50 RBC 1.73 10^6/uL (4.40-6.38) L 01/08/18 09:50 Hgb 5.9 g/dL (13.7-17.5) L* 01/08/18 09:50 Hct 17.4 % (40.0-51.0) L* 01/08/18 09:50 MCV 100.6 fL (81.5-99.8) H 01/08/18 09:50 MCH 34.1 pg (27.9-34.1) 01/08/18 09:50 MCHC 33.9 g/dL (32.4-36.7) 01/08/18 09:50 RDW 18.9 % (11.5-15.2) H 01/08/18 09:50 Plt Count 82 10^3/uL (150-400) L 01/08/18 09:50 MPV TNP 01/08/18 09:50 Neut % (Auto) Not Reported 01/08/18 09:50 Lymph % (Auto) Not Reported 01/08/18 09:50 [place] % (Auto) Not Reported 01/08/18 09:50 Eos % (Auto) Not Reported 01/08/18 09:50 Baso % (Auto) Not Reported 01/08/18 09:50 Nucleat RBC Rel Count Not Reported 01/08/18 09:50 Absolute Neuts (auto) Not Reported 01/08/18 09:50 Absolute Lymphs (auto) Not Reported 01/08/18 09:50 Absolute Monos (auto) Not Reported 01/08/18 09:50 Absolute Eos (auto) Not Reported 01/08/18 09:50 Absolute Basos (auto) Not Reported 01/08/18 09:50 Absolute Nucleated RBC Not Reported 01/08/18 09:50 Immature Gran % Not Reported 01/08/18 09:50 Seg Neutrophils % 54.5 % 01/08/18 09:50 Band Neutrophils % 0.0 % 01/08/18 09:50 Lymphocytes % 29.3 % 01/08/18 09:50 Monocytes % 5.1 % 01/08/18 09:50 Eosinophils % 6.1 % 01/08/18 09:50 Basophils % 5.0 % 01/08/18 09:50 Metamyelocytes % 0.0 % 01/08/18 09:50 Myelocytes % 0.0 % 01/08/18 09:50 Promyelocytes % 0.0 % 01/08/18 09:50 Blast Cells % 0.0 % 01/08/18 09:50 Immature Gran # Not Reported 01/08/18 09:50 Absolute Seg Neuts 0.86 10^/uL (1.70-6.50) L 01/08/18 09:50 Absolute Band Neuts 0.00 10^3/uL (0.00-0.70) 01/08/18 09:50 Absolute Lymphocytes 0.46 10^3/uL (1.00-3.00) L 01/08/18 09:50 Absolute Monocytes 0.08 10^3/uL (0.30-0.80) L 01/08/18 09:50 Absolute Eosinophils 0.10 10^3/uL (0.03-0.40) 01/08/18 09:50 Absolute Basophils 0.08 10^3/uL (0.02-0.10) 01/08/18 09:50 Absolute Metamyelocyte 0.00 10^3/mL (0.00-0.00) 01/08/18 09:50 Absolute Myelocytes 0.00 10^3/mL (0.00-0.00) 01/08/18 09:50 Absolute Promyelocytes 0.00 10^3/uL (0.00-0.00) 01/08/18 09:50 Absolute Plasma Cells 0.00 10^3/uL (0.00-0.00) 01/08/18 09:50 Nucleated RBCs 2.0 /100 WBC (0-0) H 01/08/18 09:50 Absolute Blast Cells 0.00 10^3/uL (0.00-0.00) 01/08/18 09:50 Plasma Cells % 0.0 % 01/08/18 09:50 Platelet Estimate DECREASED (ADEQ) L 01/08/18 09:50 Polychromasia 1+ H 01/08/18 09:50 Hypochromasia 1+ H 01/08/18 09:50 Microcytic Cells 1+ H 01/08/18 09:50 Tear Drop Cells 1+ H 01/08/18 09:50 Oval Macrocytes 1+ H 01/08/18 09:50 Schistocytes 2+ H 01/08/18 09:50 PT 16.5 SEC (12.0-15.0) H 01/08/18 09:50 INR 1.31 (0.83-1.16) H 01/08/18 09:50 Sodium 136 mEq/L (135-145) 01/08/18 09:50 Potassium 4.4 mEq/L (3.3-5.0) 01/08/18 09:50 Chloride 100 mEq/L (97-110) 01/08/18 09:50 Carbon Dioxide 30 mEq/l (22-31) 01/08/18 09:50 Anion Gap 6 mEq/L (8-16) L 01/08/18 09:50 BUN 20 mg/dL (7-23) 01/08/18 09:50 Creatinine 0.5 mg/dL (0.7-1.3) L 01/08/18 09:50 Estimated GFR > 60 01/08/18 09:50 Glucose 115 mg/dL (70-100) H 01/08/18 09:50 Calcium 8.4 mg/dL (8.5-10.4) L 01/08/18 09:50 Iron 146.0 mcg/dL (49.0-199.0) 01/08/18 09:50 TIBC 201 ug/dL (260-490) L 01/08/18 09:50 Iron Saturation 73 % (20-55) H 01/08/18 09:50 Ferritin 583.0 ng/mL (17.9-464.0) H 01/08/18 09:50 Lactate Dehydrogenase 358 IU/L (313-618) 01/08/18 09:50 Vitamin B12 468 pg/mL (239-931) 01/08/18 09:50 Folate 5.36 ng/mL (2.80 - >20.00) 01/08/18 09:50 Patient ABO/Rh O NEGATIVE 01/08/18 09:50 Antibody Screen NEGATIVE 01/08/18 09:50 Crossmatch IS Only See Detail 01/08/18 09:50 Assessment & Plan Assessment: L Hip Pain/Trochanteric Bursitis - Presents with acute onset R hip pain - XR of R hip shows no fracture or dislocation - CT of RLE shows 8x7x5 cm complex fluid collection lateral to greater trochanter - Consulted Ortho for further evaluation and management, possible arthocentesis - Afebrile, no s/s of infection, no elevated WBC on admission, will hold on abx for now, if s/s of infection or if synovial fluid indicated infection will begin empiric abx - Pain control PRN - PT/OT ordered Anemia (Acute) - Hgb 5.9 with MCV 100.6 on admission - Hx of MDS requiring frequent transfusions - Will check anemia labs including Fe, B12/Folate, Haptoglobin/LDH - Will transfuse 2 units of PRBCs - No report of hematochezia, melena, hematuria - Has hx of GIB, will check fecal occult blood - Continue to monitor CBC Pancytopenia/MDS - Patient with hx of MDS requiring frequent transfusions - Treatment of anemia as above - Transfuse platelets if <50,000 with sign of bleeding, <10,000 if no bleeding - Follows with Dr. Escamilla, Oncologist, as an OP Hypothryoidism - Continue home Levothyroxine FEN: DIET: Regular PPx: SCDs Dispo: Admit to Medicine, pending clinical course
[2018-01-08] MEDS ORDERED: LIDOCAINE 1% 5 ML SDV IF ONE (14:45)
[2018-01-08] MEDS ORDERED: DEXAMETHASONE 4 MG/ML VIAL IM ONE (14:45)
[2018-01-08] MEDS ORDERED: ALBUTEROL 60 PUFFS/8 GM MDI IH PRN (15:20)
[2018-01-08] MEDS ORDERED: FLUTICASONE NASAL 120 SPRAYS/16 GM MDI EACHNARE PRN (15:20)
[2018-01-08] MEDS ORDERED: HYDROCODONE/APAP 5/325 TAB PO PRN (15:27)
--- NOTE | 2018-01-08 15:59 | ASMTCMCOM ---
CM Note CM Note Notes: Chart reviewed. patient is a pleasant 87 year old male admitted via ED for c/o hip pain and inability to stand from his chair at his assisted living. He has decreased H&H and will be transfused Hematoma aspirated this pm. His is in Memory Care and he has a daughter locally. He reports he believes his son in [place] is his POA. CM to follow for needs. Plan: TBD Date Signed: 01/08/2018 03:59 PM Electronically Signed By:Echo Burt RN
--- NOTE | 2018-01-08 16:39 | PDMN ---
Medical Necessity Medical necessity: [facility] Hematology other pancytopenia 2 days, HGB 5.9 with MCV 100.6, transfuse 2 units PRBC, hx GIB, hx MDS, hx prostate Ca S/P prostatectomy, HTN, hypothyroidism, pt also with hip pain/ trochanteric bursitis, CT shows complex fluid collection, pt unable to ambulate or bear weight, ortho consult, PT/OT ordered., [facility], anticipate > 2 MN ongoing med nec care, tx and further eval.
[2018-01-08] MEDS: LACTASE 3,000 UNIT TAB PO SCH (18:07)
--- NOTE | 2018-01-08 20:50 | GCON ---
DATE OF CONSULTATION: 01/08/2018 CHIEF COMPLAINT: Right hip bursa pain. HISTORY OF PRESENT ILLNESS: An 87-year-old male. He woke about 5 a.m. this morning. Was able to ge t up to go to the bathroom and sit in a chair, fell asleep in the chair. About 7:10, when he woke up , he noticed he had difficulty bearing weight on the right leg and pain in the outside of his right h ip in the area of the bursa. He was able stand briefly; however, he had to sit back down, in pain. He states he has had no recent fall and no recent trauma to the hip. 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 He denies prior problems with the hips before or other pain. He has had knees re placed in the past. PAST MEDICAL HISTORY: Cancer, hypertension, chronic blood-loss anemia, hypertension, prostate, gout. PAST SURGICAL HISTORY: Bilateral knee replacements, prostatectomy. ALLERGIES: Oxycodone. HOME MEDICATIONS: Allopurinol, fluticasone nasal spray, Synthroid, Imodium, albuterol, vitamin B12, lactase, tramadol. FAMILY HISTORY: Reviewed and noncontributory. SOCIAL HISTORY: He is a former smoker. Does not currently smoke. REVIEW OF SYSTEMS: A 10-point review of system is negative, other than above. Specifically, denies any fevers, any redness or any trauma to that hip. PHYSICAL EXAMINATION: GENERAL: Appears alert, oriented, in no distress. He is well oriented. HEEN T: His eyes are equal and reactive. His face is atraumatic. His mouth shows moist mucous membranes . NECK: Supple. CARDIOVASCULAR: Regular rate and rhythm. RESPIRATORY: Good inspiratory effort. GI: Soft. Bowel sounds. SKIN: Intact throughout. EXTREMITIES: In upper extremities, he has no trauma, bruising, or areas of tenderness. In his lower extremities, he has no bruising. On the righ t lower extremity around the hip, he has an area of fullness in the area of the hip bursa. He is ten silva in this area but not exquisitely so. He has no pain in the groin or posterior in the area of the hip joint. I can internally and externally rotate his hip, with really only mild discomfort. He ca n actively flex and extend his hip. I can actually load the joint, as well. The knee has no pain. He has a healed incision. Foot has no pain. His other side has no pain or tenderness. He is neurov ascularly intact. Strength 5/5 bilaterally in his lower extremities. Pulses and sensation are intac t. IMAGING: X-rays are negative for fracture. CT scan shows a fluid collection, measuring about 7 x 7 cm, in the intertrochanteric bursa. There is no femoral neck fracture or other fracture abnormality. ASSESSMENT: Right trochanteric bursitis. PLAN: I discussed my findings with him. I feel like he has an enlarged bursa. I feel that this lik tayler from his myelodysplastic syndrome with low platelets. I discussed doing an aspiration of this an d sending this for culture. This would also be therapeutic, and, if the fluid did not look infected, injecting this with steroid. He elected for this procedure. PROCEDURE NOTE: The hip area was prepped sterilely. I numbed the skin first with 1% lidocaine 5 cc. I then put an 18-gauge needle in and aspirated about 20 cc of bloody-appearing fluid from the palpa ble fluid collection. This was sent to the lab for analysis. I then, through the same needle, injec alison 1% lidocaine 5 mL and 1 mL of 4 mg dexamethasone. He tolerated the procedure well. Band-Aid was placed. We will see how he does with this. I suspect his pain will be improved. He can mobilize with physic al therapy, and he could discharge whenever he mobilizes well. /[id number]/MODL
[2018-01-09] MEDS: LEVOTHYROXINE 25 MCG TAB PO SCH (05:10)
[2018-01-09] MEDS: LACTASE 3,000 UNIT TAB PO SCH ×3 (10:11→17:44)
[2018-01-09] MEDS: ALLOPURINOL 100 MG TAB PO SCH (10:11)
[2018-01-09] MEDS: CYANO/VITAMIN B12 1000 MCG TAB PO SCH (10:11)
[2018-01-09] MEDS: PANTOPRAZOLE SODIUM 40 MG TAB PO SCH (10:11)
--- NOTE | 2018-01-09 10:29 | PDCONSULT ---
[employer] Administrator Note: Date of consultation: 01/09/2018 Requesting service: Hospitalist Reason for consultation: History of MDS Outpatient oncologist Dr. 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 He initially presented with symptoms of GI bleed back in March of 2017. He had significant anemia and hemoglobin was down to 5/6. 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 He has not been on any treatment for his MDS but has received best supportive care with PRBC transfusions intermittently. He most recently had discussion about starting lenalidomide and is in the process of obtaining approval. He was admitted to [facility] due to right hip pain that began yesterday morning. He states that the pain began all of a sudden. He was unable to get out of the bed due to the pain in the right hip along side the weakness related to the pain. He has no fevers chills. He has no symptoms of blood loss. He since underwent aspiration of right hip bursa. He still has some pain in the area but that is under better control. Past medical history: Mild dysplastic syndrome History of prostate cancer in early treated with prostatectomy followed by recurrence treated with XRT Gout Hypertension Past surgical history: Prostatectomy Bilateral knee surgery Family history: History of colon cancer first-degree relative. Social history: He is a former smoker. He lives in [place] assisted living currently. Medications: Inpatient and outpatient medications were reviewed Generic Name Dose Route Start Last Admin Trade Name Shaheenq PRN Reason Stop Dose Admin Allopurinol 100 mg 01/09/18 09:00 01/09/18 10:11 Allopurinol PO 07/08/18 08:59 100 mg DAILY REAGAN Administration Lactase 3,000 unit 01/08/18 18:00 01/09/18 10:11 Lactase PO 07/07/18 17:59 3,000 unit TIDMEAL REAGAN Administration Levothyroxine Sodium 25 mcg 01/09/18 06:00 01/09/18 05:10 Synthroid PO 07/08/18 05:59 25 mcg DAILY06 REAGAN Administration Pantoprazole Sodium 40 mg 01/09/18 09:00 01/09/18 10:11 Protonix PO 07/08/18 08:59 40 mg DAILY REAGAN Administration Vitamin B Complex 1,000 mcg 01/09/18 09:00 01/09/18 10:11 Vitamin B12 PO 07/08/18 08:59 1,000 mcg DAILY REAGAN Administration Discontinued Medications Generic Name Dose Route Start Last Admin Trade Name Isaura PRN Reason Stop Dose Admin Acetaminophen 650 mg 01/08/18 09:39 01/08/18 09:56 Tylenol Rectal PA 01/08/18 09:40 Not Given EDNOW ONE Acetaminophen 650 mg 01/08/18 09:55 01/08/18 10:06 Tylenol PO 01/08/18 09:56 650 mg EDNOW ONE Administration Dexamethasone 4 mg 01/08/18 14:45 01/08/18 14:47 Decadron Injection IM 01/08/18 14:46 4 mg ONCE ONE Administration Fentanyl 50 mcg 01/08/18 10:52 01/08/18 10:55 Sublimaze IVP 01/08/18 10:53 50 mcg EDNOW ONE Administration Lidocaine HCl 10 ml 01/08/18 14:45 01/08/18 14:47 Xylocaine-Mpf 1% Sdv IF 01/08/18 14:46 10 ml ONCE ONE Administration Allergies: Oxycodone Physical examination: Temp Pulse Resp BP Pulse Ox 36.5 C 90 18 140/66 H 96 01/09/18 07:41 01/09/18 07:41 01/09/18 07:41 01/09/18 07:41 01/09/18 07:41 O2 (L/minute) 1 General: Pleasant-appearing male appears in no acute distress conversant appears stated age HEENT: Normocephalic atraumatic OP clear extraocular movements are intact Cardiovascular: Regular rate and rhythm no murmurs gallops or rubs Pulmonary: Clear to auscultation bilaterally Abdomen: Soft nontender nondistended bowel sounds are present Lymph nodes: No peripheral lymphadenopathy Skin: He has a bandage on the lateral aspect of his left lower extremity which he states has recurrently bled otherwise no skin lesions noted Psych: Alert and oriented to person place and time with appropriate judgment Neuro: Moving upper extremities equally intact motor and sensation. The right lower extremity does have weakness which is related to pain as per below. MSK: No cyanosis clubbing or edema. His right hip flexion is limited due to pain. LABORATORY 01/09/18 01/08/18 01/08/18 05:15 18:44 15:00 WBC 1.83 10^3/uL L 10^3/uL (3.80-9.50) RBC 2.38 10^6/uL L 10^6/uL (4.40-6.38) Hgb 7.8 g/dL L g/dL (13.7-17.5) Hct 22.4 % L % (40.0-51.0) MCV 94.1 fL fL (81.5-99.8) MCH 32.8 pg pg (27.9-34.1) MCHC 34.8 g/dL g/dL (32.4-36.7) RDW 18.5 % H % (11.5-15.2) Plt Count 65 10^3/uL L 10^3/uL (150-400) MPV Neut % (Auto) Lymph % (Auto) [place] % (Auto) Eos % (Auto) Baso % (Auto) Nucleat RBC Rel Count Absolute Neuts (auto) Absolute Lymphs (auto) Absolute Monos (auto) Absolute Eos (auto) Absolute Basos (auto) Absolute Nucleated RBC Immature Gran % Seg Neutrophils % Band Neutrophils % Lymphocytes % Monocytes % Eosinophils % Basophils % Metamyelocytes % Myelocytes % Promyelocytes % Blast Cells % Immature Gran # Absolute Seg Neuts Absolute Band Neuts Absolute Lymphocytes Absolute Monocytes Absolute Eosinophils Absolute Basophils Absolute Metamyelocyte Absolute Myelocytes Absolute Promyelocytes Absolute Plasma Cells Nucleated RBCs Absolute Blast Cells Plasma Cells % Platelet Estimate Polychromasia Hypochromasia Microcytic Cells Tear Drop Cells Oval Macrocytes Schistocytes Smear Review By Haptoglobin PT INR Sodium Potassium Chloride Carbon Dioxide Anion Gap BUN Creatinine Estimated GFR Glucose Uric Acid Calcium Iron TIBC Iron Saturation Ferritin Lactate Dehydrogenase Vitamin B12 Folate Fl Pathologist Review Michael JETER MD Synovial Source SYNOVIAL Synovial Color RED (CLS/PALE YL) Synovial Appearance CLOUDY H (CLEAR) Synovial WBC 8837651 /mm3 H /mm3 (0-150) Synovial RBC 3530677 /mm3 H /mm3 (0-0) Synovial Neutrophils 51 % H % (0-25) Synovial Lymphocytes 45 % % Synov Monos/Macrophage 4 % % Stool Occult Bld Scrn NEGATIVE (NEGATIVE) Patient ABO/Rh Antibody Screen Crossmatch IS Only 01/08/18 01/08/18 01/08/18 09:50 09:50 09:50 WBC RBC Hgb Hct MCV MCH MCHC RDW Plt Count MPV Neut % (Auto) Lymph % (Auto) [place] % (Auto) Eos % (Auto) Baso % (Auto) Nucleat RBC Rel Count Absolute Neuts (auto) Absolute Lymphs (auto) Absolute Monos (auto) Absolute Eos (auto) Absolute Basos (auto) Absolute Nucleated RBC Immature Gran % Seg Neutrophils % Band Neutrophils % Lymphocytes % Monocytes % Eosinophils % Basophils % Metamyelocytes % Myelocytes % Promyelocytes % Blast Cells % Immature Gran # Absolute Seg Neuts Absolute Band Neuts Absolute Lymphocytes Absolute Monocytes Absolute Eosinophils Absolute Basophils Absolute Metamyelocyte Absolute Myelocytes Absolute Promyelocytes Absolute Plasma Cells Nucleated RBCs Absolute Blast Cells Plasma Cells % Platelet Estimate Polychromasia Hypochromasia Microcytic Cells Tear Drop Cells Oval Macrocytes Schistocytes Smear Review By Haptoglobin Pending PT INR Sodium Potassium Chloride Carbon Dioxide Anion Gap BUN Creatinine Estimated GFR Glucose Uric Acid 4.9 mg/dL mg/dL (3.5-8.5) Calcium Iron 146.0 mcg/dL mcg/dL (49.0-199.0) TIBC 201 ug/dL L ug/dL (260-490) Iron Saturation 73 % H % (20-55) Ferritin 583.0 ng/mL H ng/mL (17.9-464.0) Lactate Dehydrogenase 358 IU/L IU/L (313-618) Vitamin B12 468 pg/mL pg/mL (239-931) Folate 5.36 ng/mL ng/mL (2.80 - >20.00) Fl Pathologist Review Synovial Source Synovial Color Synovial Appearance Synovial WBC Synovial RBC Synovial Neutrophils Synovial Lymphocytes Synov Monos/Macrophage Stool Occult Bld Scrn Patient ABO/Rh Antibody Screen Crossmatch IS Only 01/08/18 01/08/18 01/08/18 09:50 09:50 09:50 WBC RBC Hgb Hct MCV MCH MCHC RDW Plt Count MPV Neut % (Auto) Lymph % (Auto) [place] % (Auto) Eos % (Auto) Baso % (Auto) Nucleat RBC Rel Count Absolute Neuts (auto) Absolute Lymphs (auto) Absolute Monos (auto) Absolute Eos (auto) Absolute Basos (auto) Absolute Nucleated RBC Immature Gran % Seg Neutrophils % Band Neutrophils % Lymphocytes % Monocytes % Eosinophils % Basophils % Metamyelocytes % Myelocytes % Promyelocytes % Blast Cells % Immature Gran # Absolute Seg Neuts Absolute Band Neuts Absolute Lymphocytes Absolute Monocytes Absolute Eosinophils Absolute Basophils Absolute Metamyelocyte Absolute Myelocytes Absolute Promyelocytes Absolute Plasma Cells Nucleated RBCs Absolute Blast Cells Plasma Cells % Platelet Estimate Polychromasia Hypochromasia Microcytic Cells Tear Drop Cells Oval Macrocytes Schistocytes Smear Review By Haptoglobin PT 16.5 SEC H SEC (12.0-15.0) INR 1.31 H (0.83-1.16) Sodium 136 mEq/L mEq/L (135-145) Potassium 4.4 mEq/L mEq/L (3.3-5.0) Chloride 100 mEq/L mEq/L (97-110) Carbon Dioxide 30 mEq/l mEq/l (22-31) Anion Gap 6 mEq/L L mEq/L (8-16) BUN 20 mg/dL mg/dL (7-23) Creatinine 0.5 mg/dL L mg/dL (0.7-1.3) Estimated GFR > 60 Glucose 115 mg/dL H mg/dL (70-100) Uric Acid Calcium 8.4 mg/dL L mg/dL (8.5-10.4) Iron TIBC Iron Saturation Ferritin Lactate Dehydrogenase Vitamin B12 Folate Fl Pathologist Review Synovial Source Synovial Color Synovial Appearance Synovial WBC Synovial RBC Synovial Neutrophils Synovial Lymphocytes Synov Monos/Macrophage Stool Occult Bld Scrn Patient ABO/Rh O NEGATIVE Antibody Screen NEGATIVE Crossmatch IS Only See Detail 01/08/18 09:50 WBC 1.57 10^3/uL L 10^3/uL (3.80-9.50) RBC 1.73 10^6/uL L 10^6/uL (4.40-6.38) Hgb 5.9 g/dL L* g/dL (13.7-17.5) Hct 17.4 % L* % (40.0-51.0) MCV 100.6 fL H fL (81.5-99.8) MCH 34.1 pg pg (27.9-34.1) MCHC 33.9 g/dL g/dL (32.4-36.7) RDW 18.9 % H % (11.5-15.2) Plt Count 82 10^3/uL L 10^3/uL (150-400) MPV TNP Neut % (Auto) Not Reported Lymph % (Auto) Not Reported [place] % (Auto) Not Reported Eos % (Auto) Not Reported Baso % (Auto) Not Reported Nucleat RBC Rel Count Not Reported Absolute Neuts (auto) Not Reported Absolute Lymphs (auto) Not Reported Absolute Monos (auto) Not Reported Absolute Eos (auto) Not Reported Absolute Basos (auto) Not Reported Absolute Nucleated RBC Not Reported Immature Gran % Not Reported Seg Neutrophils % 54.5 % % Band Neutrophils % 0.0 % % Lymphocytes % 29.3 % % Monocytes % 5.1 % % Eosinophils % 6.1 % % Basophils % 5.0 % % Metamyelocytes % 0.0 % % Myelocytes % 0.0 % % Promyelocytes % 0.0 % % Blast Cells % 0.0 % % Immature Gran # Not Reported Absolute Seg Neuts 0.86 10^/uL L 10^/uL (1.70-6.50) Absolute Band Neuts 0.00 10^3/uL 10^3/uL (0.00-0.70) Absolute Lymphocytes 0.46 10^3/uL L 10^3/uL (1.00-3.00) Absolute Monocytes 0.08 10^3/uL L 10^3/uL (0.30-0.80) Absolute Eosinophils 0.10 10^3/uL 10^3/uL (0.03-0.40) Absolute Basophils 0.08 10^3/uL 10^3/uL (0.02-0.10) Absolute Metamyelocyte 0.00 10^3/mL 10^3/mL (0.00-0.00) Absolute Myelocytes 0.00 10^3/mL 10^3/mL (0.00-0.00) Absolute Promyelocytes 0.00 10^3/uL 10^3/uL (0.00-0.00) Absolute Plasma Cells 0.00 10^3/uL 10^3/uL (0.00-0.00) Nucleated RBCs 2.0 /100 WBC H /100 WBC (0-0) Absolute Blast Cells 0.00 10^3/uL 10^3/uL (0.00-0.00) Plasma Cells % 0.0 % % Platelet Estimate DECREASED L (ADEQ) Polychromasia 1+ H Hypochromasia 1+ H Microcytic Cells 1+ H Tear Drop Cells 1+ H Oval Macrocytes 1+ H Schistocytes 2+ H Smear Review By Michael JETER MD Haptoglobin PT INR Sodium Potassium Chloride Carbon Dioxide Anion Gap BUN Creatinine Estimated GFR Glucose Uric Acid Calcium Iron TIBC Iron Saturation Ferritin Lactate Dehydrogenase Vitamin B12 Folate Fl Pathologist Review Synovial Source Synovial Color Synovial Appearance Synovial WBC Synovial RBC Synovial Neutrophils Synovial Lymphocytes Synov Monos/Macrophage Stool Occult Bld Scrn Patient ABO/Rh Antibody Screen Crossmatch IS Only Microbiology 01/08/18 15:00 Other - Aspirate Gram Stain - Final Assessment and plan: Nacho is a very pleasant 87-year-old male with history of myelodysplastic syndrome who was admitted for right hip bursitis. 1. Myelodysplastic syndrome: He currently is under treated for his MDS. He has received transfusions of PRBC as needed. He did receive 2 units of blood in the emergency room. Will aim to keep his hemoglobin above 7 with transfusions as necessary. His thrombocytopenia and neutropenia are noted and are stable related to his MDS. 2. Right hip bursitis: He underwent aspiration by orthopedics with Dr. Arellano. All questions were answered. He voices understanding of the plan. Following his discharge he will follow up with Dr. Vela in the outpatient setting
[2018-01-09] MEDS: traMADol 50 MG TAB PO SCH ×3 (12:35→22:02)
--- NOTE | 2018-01-09 13:43 | ASMTCMCOM ---
CM Note CM Note Notes: Patient discussed with Dr. Martínez. He needs therapy at home vs skilled facility. Improving after interventions. Spoke with Brandie at [facility] who reports patient has previously used [facility] for his therapies, [facility] CM to follow. Plan: return to [facility] with therapy via [facility]. Date Signed: 01/09/2018 01:42 PM Electronically Signed By:Echo Burt RN
--- NOTE | 2018-01-09 15:32 | HOSPPROG ---
Hospitalist Progress Note Assessment/Plan: L Hip Pain/Trochanteric Bursitis - Presents with acute onset R hip pain - XR of R hip shows no fracture or dislocation - CT of RLE shows 8x7x5 cm complex fluid collection lateral to greater trochanter - Consulted Ortho on 01/08/2018 who performed arthrocentesis, gram stain negative , elevated RBCs/WBCs - Afebrile, no s/s of infection, no elevated WBC on admission, will continue to hold on abx for now, if s/s of infection or if synovial fluid indicated infection will begin empiric abx - Pain control PRN - PT/OT ordered Anemia (Acute) - Hgb 5.9 with MCV 100.6 on admission - Hx of MDS requiring frequent transfusions - S/p 2 units of PRBCs with improvement of Hgb to 7.8 this AM - No report of hematochezia, melena, hematuria - Has hx of GIB, fecal occult blood negative on admission - Continue to monitor CBC Pancytopenia/MDS - Patient with hx of MDS requiring frequent transfusions - Treatment of anemia as above - Transfuse platelets if <50,000 with sign of bleeding, <10,000 if no bleeding - Follows with Dr. Escamilla, Oncologist, as an OP Hypothryoidism - Continue home Levothyroxine FEN: DIET: Regular PPx: SCDs Dispo: Pending clinical course, likely d/c to SNF vs. Home with home health tomorrow Subjective: Pain in R hip improved today but still continues to have pain with weight bearing Objective: Vital Signs Temp Pulse Resp BP Pulse Ox 36.4 C 100 18 127/62 H 93 01/09/18 12:53 01/09/18 12:53 01/09/18 12:53 01/09/18 12:53 01/09/18 12:53 Microbiology 01/08/18 15:00 Gram Stain - Final Other - Aspirate Laboratory Results 01/09/18 05:15 01/08/18 01/09/18 01/10/18 05:59 05:59 05:59 Intake Total 450 100 Output Total 875 200 Balance -425 -100 PT 16.5 SEC (12.0-15.0) H 01/08/18 09:50 INR 1.31 (0.83-1.16) H 01/08/18 09:50 - Physical Exam Constitutional: no apparent distress Eyes: PERRL Ears, Nose, Mouth, Throat: moist mucous membranes Cardiovascular: regular rate and rhythym Respiratory: no rales or rhonchi Gastrointestinal: soft, non-tender abdomen Genitourinary: no bladder fullness Skin: warm Musculoskeletal: pain with ROM Neurologic: AAOx3 Psychiatric: interacting appropriately ICD10 Worksheet Patient Problems: Problems Problem Status Onset Anemia Acute Hip pain, right Acute Lower GI bleed Acute
--- NOTE | 2018-01-09 16:07 | ASMTCMCOM ---
INÉS Note CM Note Notes: Per patient preference, referral placed in allscripts to [facility]. Patient has been there in the past and romero like to rehab there again. Referral via allscripts. Discussed with MD. CONTE to follow. Plan: To dc to rehab [facility] when medically cleared for discharge. Date Signed: 01/09/2018 04:07 PM Electronically Signed By:Echo Burt RN
[2018-01-10] MEDS: LEVOTHYROXINE 25 MCG TAB PO SCH (05:06)
[2018-01-10] MEDS: ALLOPURINOL 100 MG TAB PO SCH (08:56)
[2018-01-10] MEDS: PANTOPRAZOLE SODIUM 40 MG TAB PO SCH (08:56)
[2018-01-10] MEDS: LACTASE 3,000 UNIT TAB PO SCH ×2 (08:56→12:24)
[2018-01-10] MEDS: traMADol 50 MG TAB PO SCH ×2 (08:57→12:47)
[2018-01-10] MEDS: CYANO/VITAMIN B12 1000 MCG TAB PO SCH (08:57)
[2018-01-10 11:52] VITALS: BP 119/57
--- NOTE | 2018-01-10 12:39 | PDIAF ---
- Diagnosis Diagnosis: Trochanteric Bursitis Code Status: Do Not Resuscitate - Medication Management Discharge Medications: Medications to Continue on Transfer Allopurinol [Allopurinol 100 MG (*)] 100 mg PO DAILY 02/28/17 [Last Taken ] Fluticasone Nasal [Flonase Nasal [place]] 1 sprays NASAL DAILY PRN 02/28/17 [Last Taken 09/28/17] Levothyroxine [Synthroid 25 mcg (*)] 25 mcg PO DAILY06 02/28/17 [Last Taken 01/17] Pantoprazole Sodium [Protonix 40mg (*)] 40 mg PO DAILY #30 tab 03/12/17 [Last Taken 09/28/17] Loperamide HCl [Imodium 2 mg (*)] 2 mg PO Q6HRS PRN 05/20/17 [Last Taken Unknown ] Simethicone [Gas Relief] 80 mg PO QID PRN 05/20/17 [Last Taken 09/28/17] Albuterol [Proventil Inhaler HFA (*)] 2 puffs IH Q6H PRN 01/08/18 [Last Taken Unknown] Cyanocobalamin [Vitamin B12 (*)] 1,000 mcg PO DAILY 01/08/18 [Last Taken Unknown ] Lactase [Lactaid] 1 tab PO TIDMEAL 01/08/18 [Last Taken Unknown] traMADol HCL [Tramadol HCl] 50 mg PO TID 01/08/18 [Last Taken Unknown] Discharge Medications: Refer to the Discharge Home Medication list for PRN reason. - Orders Diet Recommendation: no restrictions on diet Diet Texture: Regular Texture Diet Additional Instructions: right leg wt bearing as tolerated rom as tolerated ice - Labs/Radiology CBC w/diff Date: 01/12/18 - Follow Up Care Current Providers and Referrals: Haresh Arellano MD [Medical Doctor] - follow up in 10 days Patient,NotPresent [Primary Care Provider] - As per Instructions
--- NOTE | 2018-01-10 12:41 | PDDCSUM ---
Discharge Summary Discharge Summary: Date of Admission: 01/08/2018 Date of Discharge: 01/10/2018 Consults: Orthopaedics Procedure: R Hip Arthrocentesis Followup: PT/OT at home Hospital Course Problem List: L Hip Pain/Trochanteric Bursitis - Presents with acute onset R hip pain - XR of R hip shows no fracture or dislocation - CT of RLE shows 8x7x5 cm complex fluid collection lateral to greater trochanter - Consulted Ortho on 01/08/2018 who performed arthrocentesis, gram stain negative , elevated RBCs/WBCs - Afebrile, no s/s of infection, no elevated WBC on admission, held on abx - Pain control PRN, takes Tramadol at home - PT/OT ordered Anemia (Acute) - Hgb 5.9 with MCV 100.6 on admission - Hx of MDS requiring frequent transfusions - S/p 2 units of PRBCs with improvement of Hgb to 7.8, 6.9 this AM - No report of hematochezia, melena, hematuria - Has hx of GIB, fecal occult blood negative on admission - Continue to monitor CBC, recommend repeat CBC after 1-2 days discharge to evaluate for further transfusion needs Pancytopenia/MDS - Patient with hx of MDS requiring frequent transfusions - Treatment of anemia as above - Transfuse platelets if <50,000 with sign of bleeding, <10,000 if no bleeding - Follows with Dr. Escamilla, Oncologist, as an OP Hypothryoidism - Continue home Levothyroxine Time spent on discharge was >35 minutes with >50% of time spent on patient education and counseling.
--- NOTE | 2018-01-10 12:59 | ASMTDCNOTE ---
Case Management Discharge Discharge Order Complete? Answers: Yes Patient to Obtain Answers: Independently Medications Transportation Arranged Answers: Family/Friends Faxed Final Orders Answers: Yes Family Notified Answers: Yes Discharge Comments Notes: Patient discharged home to [facility]. [facility] notified of change of plans. HC will follow for home PT/OT. Orders + med list faxed to [place] ([phone]). Patient's daughter Fern to transport. Date Signed: 01/10/2018 12:56 PM Electronically Signed By:Nafisa Shine RN
--- NOTE | 2018-01-10 13:35 | ASMTLACE ---
LACE Length of stay for Answers: 2 days current admission Acuity / Level of Answers: Yes Care: Did the patient have an inpatient admission? Comorbidities - select Answers: Any tumor (including all that apply lymphoma or leukemia) Other Notes: HTN, gout, hypothyroid # of Emergency department Answers: 1-2 visits in the last 6 months Score: 9 Date Signed: 01/10/2018 01:24 PM Electronically Signed By:Nafisa Shine RN
== END 2018-01-10 13:43 | disposition home health service (06) | DRG 558 ==
LOC: EDUNIT# → F1N 12:02
PROVIDERS: ADMIT Internal Medicine; ATTEND Internal Medicine
PROC: 30233N1 Transfusion of Nonautologous Red Blood Cells into Peripheral Vein, Percutaneous Approach (ICD-10-PCS; principal; 2018-01-08)
PROC: 0M9 Bursae and Ligaments, Drainage (ICD-10-PCS; 2018-01-08)
DX: M70.61 Trochanteric bursitis, right hip (principal); D61.818 Other pancytopenia; I10 Essential (primary) hypertension; E03.9 Hypothyroidism, unspecified; D46.9 Myelodysplastic syndrome, unspecified; Z85.46 Personal history of malignant neoplasm of prostate; Z96.653 Presence of artificial knee joint, bilateral; Z90.79 Acquired absence of other genital organ(s)
CPT/HCPCS: 82607-90; 83010-90; 96374; 97110-GP; 97161-GP; 97166-GO; 97530-GO; 97535-GO; G8978-GP-CJ; G8979-GP-CI; G8987-GO-CJ; G8988-GO-CI; G8989-GO-CI; J1100; J1642; J3010; P9016

== ENCOUNTER 2018-01-15 07:45 | Inpatient (IN) | payer OTHER ==
--- NOTE | 2018-01-15 07:59 | EDPHY ---
H & P Time Seen by Provider: 01/15/18 07:49 HPI/ROS: Chief Complaint: Right hip pain HPI: 87-year-old male with a history of myelodysplastic disease and recent admission for trochanteric bursitis. Patient receives frequent transfusions for his MDS. He woke this morning with severe right hip pain similar to his prior pain. He is also complaining of worsening pain and ecchymosis in his right leg. He he did take his pain medicine this morning but says that has not kicked in yet. No other falls or injuries. No fevers or chills. ROS: 10 systems were reviewed and were negative except those elements noted in the HPI. PMH: Myelodysplastic disease Social History: No smoking, no alcohol, no recreational drug use Family History: non-contributory Physical Exam: Gen: Awake, Alert, No Distress HEENT: Nose: no rhinorrhea Eyes: PERRLA, EOMI Mouth: Moist mucosa Neck: Supple, no JVD Chest: nontender, lungs clear to auscultation Heart: S1, S2 normal, no murmur Abd: Soft, non-tender, no guarding Back: no CVA tenderness, no midline tenderness Ext: There is soft tissue tenderness over the greater trochanter. Decreased range of motion secondary to pain. Right thigh is ecchymotic with mild tenderness Skin: no rash Neuro: CN II-XII intact, Sensation grossly intact, Strength 5/5 in bilateral upper and lower extremities - Medical/Surgical History Hx Asthma: No Hx Chronic Respiratory Disease: No Hx Diabetes: No Hx Cardiac Disease: No Hx Renal Disease: No Hx Cirrhosis: No Hx Alcoholism: No Hx HIV/AIDS: No Hx Splenectomy or Spleen Trauma: No Other PMH: htn, gout, hypothyroid, prostate ca, GORDY/gi bleed, severe anemia, bilateral shoulder arthritis, bilateral knee replacement; MDS; NORMOCYTIC NORMOCHROMIC ANEMIA - Social History Smoking Status: Former smoker Constitutional: Initial Vital Signs Temperature (C) 36.6 C 01/15/18 07:45 Heart Rate 91 01/15/18 07:45 Respiratory Rate 16 01/15/18 07:45 Blood Pressure 154/102 H 01/15/18 07:45 O2 Sat (%) 94 01/15/18 07:45 O2 Delivery Mode Room Air O2 (L/minute) 2 Allergies/Adverse Reactions: oxycodone Allergy (Unknown, Unverified 01/10/18 16:17) Home Medications: Medication Instructions Recorded Allopurinol [Allopurinol 100 MG 100 mg PO DAILY 02/28/17 (*)] Fluticasone Nasal [Flonase Nasal 1 sprays NASAL DAILY PRN 02/28/17 [place]] Levothyroxine [Synthroid 25 mcg 25 mcg PO DAILY06 02/28/17 (*)] Pantoprazole Sodium [Protonix 40mg 40 mg PO DAILY #30 tab 03/12/17 (*)] Loperamide HCl [Imodium 2 mg (*)] 2 mg PO Q6HRS PRN 05/20/17 Simethicone [Gas Relief] 80 mg PO QID PRN 05/20/17 Albuterol [Proventil Inhaler HFA 2 puffs IH Q6H PRN 01/08/18 (*)] Cyanocobalamin [Vitamin B12 (*)] 1,000 mcg PO DAILY 01/08/18 Lactase [Lactaid] 1 tab PO TIDMEAL 01/08/18 traMADol HCL [Tramadol HCl] 50 mg PO TID 01/08/18 Medical Decision Making - Diagnostics Imaging Results: Imaging Impressions Extremity Venous Study 01/15/18 08:06 Impression: There is no sonographic evidence of deep or superficial vein thrombosis in the right lower extremity. ED Course/Re-evaluation: 87-year-old with myelodysplastic disease with new right thigh pain and swelling status post a bursa I&D last week. Is not warm to touch or erythematous. Ultrasound shows no DVT but there is soft tissue swelling. Concern is for hematoma versus infection. He is very uncomfortable. Blood counts are noted. I have discussed with Casi Greene, hospitalist. Patient to be admitted to the floor under Dr. Will for further evaluation. - Data Points Laboratory Results: Laboratory Results 01/15/18 08:25 01/15/18 08:25 01/15/18 01/15/18 08:25 08:25 WBC 2.14 10^3/uL L 10^3/uL (3.80-9.50) RBC 1.87 10^6/uL L 10^6/uL (4.40-6.38) Hgb 6.1 g/dL L g/dL (13.7-17.5) Hct 18.5 % L % (40.0-51.0) MCV 98.9 fL fL (81.5-99.8) MCH 32.6 pg pg (27.9-34.1) MCHC 33.0 g/dL g/dL (32.4-36.7) RDW 17.8 % H % (11.5-15.2) Plt Count 93 10^3/uL L 10^3/uL (150-400) MPV TNP Neut % (Auto) 58.9 % % (39.3-74.2) Lymph % (Auto) 29.9 % % (15.0-45.0) [place] % (Auto) 6.5 % % (4.5-13.0) Eos % (Auto) 3.7 % % (0.6-7.6) Baso % (Auto) 0.5 % % (0.3-1.7) Nucleat RBC Rel Count 0.0 % % (0.0-0.2) Absolute Neuts (auto) 1.26 10^3/uL L 10^3/uL (1.70-6.50) Absolute Lymphs (auto) 0.64 10^3/uL L 10^3/uL (1.00-3.00) Absolute Monos (auto) 0.14 10^3/uL L 10^3/uL (0.30-0.80) Absolute Eos (auto) 0.08 10^3/uL 10^3/uL (0.03-0.40) Absolute Basos (auto) 0.01 10^3/uL L 10^3/uL (0.02-0.10) Absolute Nucleated RBC 0.00 10^3/uL 10^3/uL (0-0.01) Immature Gran % 0.5 % % (0.0-1.1) Immature Gran # 0.01 10^3/uL 10^3/uL (0.00-0.10) Platelet Estimate DECREASED L (ADEQ) Polychromasia 2+ H Hypochromasia 1+ H Oval Macrocytes 1+ H Acanthocytes (Spur) 1+ H Schistocytes 1+ H Smear Review By Pending Sodium 135 mEq/L mEq/L (135-145) Potassium 4.3 mEq/L mEq/L (3.3-5.0) Chloride 100 mEq/L mEq/L (97-110) Carbon Dioxide 29 mEq/l mEq/l (22-31) Anion Gap 6 mEq/L L mEq/L (8-16) BUN 21 mg/dL mg/dL (7-23) Creatinine 0.5 mg/dL L mg/dL (0.7-1.3) Estimated GFR > 60 Glucose 132 mg/dL H mg/dL (70-100) Calcium 8.3 mg/dL L mg/dL (8.5-10.4) Medications Given: Discontinued Medications Fentanyl (Sublimaze) 50 mcg IVP EDNOW ONE Stop: 01/15/18 08:30 Last Admin: 01/15/18 08:34 Dose: 50 mcg Morphine Sulfate (Morphine) 4 mg IVP EDNOW ONE Stop: 01/15/18 09:12 Last Admin: 01/15/18 09:21 Dose: 4 mg Departure - Departure Disposition: [facility] Inpatient Acute Clinical Impression: Thigh pain, Pancytopenia Condition: Fair Referrals: Bhavna Bean MD [Primary Care Provider] - As per Instructions
[2018-01-15] MEDS ORDERED: fentaNYL 100 MCG/2 ML INJ IVP ONE (08:29)
[2018-01-15 09:06] LABS: PLATELET COUNT 93 10^3/uL (150-400)
[2018-01-15] MEDS ORDERED: HYDROmorphONE/DILAUDID 1 MG/ML INJ IVP ONE (10:03)
[2018-01-15 10:37] LABS: INR 1.37 (0.83-1.16)
[2018-01-15] MEDS ORDERED: ONDANSETRON DISINTEGRATING 4 MG TAB PO PRN (10:58)
[2018-01-15] MEDS ORDERED: HYDROmorphONE/DILAUDID 1 MG/ML INJ IVP PRN (10:58)
[2018-01-15] MEDS ORDERED: ONDANSETRON 4 MG/2 ML VIAL IVP PRN (10:58)
[2018-01-15] MEDS ORDERED: SIMETHICONE 80 MG TAB CHEW PO PRN (11:00)
[2018-01-15] MEDS ORDERED: ALBUTEROL 60 PUFFS/8 GM MDI IH PRN (11:00)
[2018-01-15] MEDS ORDERED: IOPAMIDOL (ISOVUE-300) 100 ML BTL ONE ×2 (11:12→15:52)
--- NOTE | 2018-01-15 12:01 | GHP ---
DATE OF ADMISSION: 01/15/2018 The patient is a pleasant 87-year-old gentleman with history of myelodysplastic syndrome, who present s to the hospital with pain in his right lower extremity. He was hospitalized last week with what wa s felt to be trochanteric bursitis, and he received an aspiration as well as a steroid and lidocaine injection. The culture ultimately grew out nothing although there was an enormous amount of white ce lls at 3,183,476, and 2 million red cells. Since then, the patient has noticed some bruising on his distal thigh, but overnight became increased swelling and pain to the point where he was unable to walk this morning and subsequently sought care . He has not had fever, chills, nausea, vomiting, diarrhea. He has transfusion-dependent myelodyspl astic syndrome, and he was due for transfusion tomorrow. His platelet count has been normal. He has not taken antiplatelet agent, and his coagulation studies are typically modestly abnormal at a baseline INR of apparently about 1.3. REVIEW OF SYSTEMS: Complete 10-point review of systems conducted and negative except as noted in the HPI. PAST MEDICAL HISTORY: 1. Myelodysplastic syndrome, confirmed by bone marrow biopsy. 2. Occult GI blood loss. 3. Pancytopenia. 4. Gout, hypertension, prostate cancer, PICC-line associated DVT, history of bilateral knee replacem ents, and he had a prostatectomy in the s. SOCIAL HISTORY: No tobacco, no alcohol. Lives in [facility]. He is from [place], [place], as well as lives in [place], [place]. He is a do not resuscitate FAMILY HISTORY: Daughter is present at the bedside and healthy. PHYSICAL EXAMINATION: PRESENTING VITALS: Temp 36.6. Blood pressure is 154/102. Pulse 91. Breathi ng 16 times a minute. 94% on room air. GENERAL: Very pale. HEENT: Sclerae anicteric. Oropharynx clear. Mucous membranes are moist. NECK: Supple. No lymphadenopathy or JVD. LUNGS: Clear to au scultation bilaterally. HEART: S1, S2. ABDOMEN: Soft, nontender, nondistended. EXTREMITIES: Lef t lower extremity is without edema. Right lower extremity shows hematoma throughout the thigh with s ome ecchymoses on the anterior surface of the distal thigh. It is tense without fluctuance. His juan miguel salis pedis pulse is 2+. He has some dependent lower extremity edema in the right but not the left. LABS: INR is 1.37. White count 2.1, hemoglobin 6.1, hematocrit 18.5, platelets are 93,000. Sodium 135, potassium 4.3, chloride 100, bicarb 29, BUN 21, creatinine 0.5, glucose 132. Ultrasound shows s oft tissue swelling but no evidence of DVT. I discussed the case with Dr. Vinny Solano, as well as Dr. Jose Alberto Burrell. ASSESSMENT/PLAN: 87-year-old gentleman with presumed hematoma following a trochanteric bursa injecti on. 1. Hematoma. The patient does not appear to have compartment syndrome. We will CT the leg; I will h ave Surgery see him, although I think intervention is not necessary. The patient has an adequate num gordon of platelets, but I suspect he has a qualitative platelet dysfunction as well as coagulopathy. 2. Myelodysplastic syndrome. I will have Hematology see him regarding his coagulopathy. Additional ly, I will give him 2 units of packed cells. Pain: Schedule Tylenol p.r.n. IV Dilaudid. 3. Chronic blood loss anemia. The patient needs 2 units of blood. 4. Prophylaxis: Sequential compression devices. DISPOSITION: Inpatient. CODE STATUS: Do not resuscitate. /[id number]/MODL
[2018-01-15] MEDS ORDERED: ACETAMINOPHEN 500 MG TAB PO ONE (12:02)
[2018-01-15] MEDS ORDERED: ACETAMINOPHEN 325 MG TAB ONE (12:05)
[2018-01-15] MEDS: ACETAMINOPHEN 325 MG TAB PO SCH ×2 (12:05→20:55)
[2018-01-15] MEDS ORDERED: PHYTONADIONE 10 MG in NS 50 ML IV ONE (12:20)
--- NOTE | 2018-01-15 13:47 | PDMN ---
Medical Necessity Medical necessity: Pt meets inpt criteria per MD order and Hematology GRG. 87 y/ o w/hx myelodysplastic syndrome, chronic blood loss anemia admitted w/severe pain in R lower extremity,CT shows extensive R lateral thigh hematoma, pancytopenia w/ WBC's 2.14, RBC's 1.87, Hg 6.1, Hct 18.5, plt 93. Surgery and hematology consults pending, blood transfusion, PT/OT evals pending, anticipate> 2MN for further med nec eval/treatment.
[2018-01-15] MEDS ORDERED: MEPERIDINE 25 MG/ML SYR IVP PRN (13:50)
[2018-01-15] MEDS ORDERED: HEPARIN 10,000 UNIT/10 ML MDV (1,000 UNIT/ML) IVP PRN (13:50)
[2018-01-15] MEDS ORDERED: PROTAMINE SULFATE 50 MG/5 ML VIAL IVP PRN (13:50)
[2018-01-15] MEDS ORDERED: FLUMAZENIL 0.5 MG/5 ML MDV IVP PRN (13:50)
[2018-01-15] MEDS ORDERED: NALOXONE HCL 0.4 MG/ML INJ IVP PRN (13:50)
[2018-01-15] MEDS ORDERED: fentaNYL 100 MCG/2 ML INJ IVP PRN (13:50)
[2018-01-15] MEDS ORDERED: MIDAZOLAM 2 MG/2 ML VIAL IVP PRN (13:50)
[2018-01-15] MEDS ORDERED: ALTEPLASE 2 MG VIAL IVP PRN (13:50)
[2018-01-15] MEDS ORDERED: GLUCAGON HCL 1 MG VIAL IVP PRN (13:50)
[2018-01-15] MEDS ORDERED: fentaNYL 100 MCG/2 ML INJ ONE (13:57)
[2018-01-15] MEDS ORDERED: NS 1,000 ML IV SCH (14:00)
--- NOTE | 2018-01-15 14:34 | ASMTCMCOM ---
CM Note CM Note Notes: Pt presented to the ED via EMS for RLE pain, swelling and difficulty ambulating. Pt was recently admitted 01/08-01/10 for right sided trochanteric bursitis and had received an aspiration as well as a steroid and lidocaine injection. Pt admitted for RLE hematoma; surgery consulting. Pt has a history of myelodysplastic syndrome, chronic blood loss anemia, pancytopenia; pt to receive PRBCs and was reportedly scheduled for a transfusion tomorrow. Hematology to consult. Pt lives in Assisted Living at [facility] ([phone]). Pt was recently discharged from [facility] on 01/10 w/[facility] PT/OT; reviewed [facility] 01/11 note and PT was discontinued due to pt not having HC PT needs. During last admission there had been discussion of pt d/c'ing to [facility] (he has been there in the past). Exact DC needs TBD. PT/OT evals pending. Anticipate pt DC to SNF or back to [facility] w/HC. Date Signed: 01/15/2018 02:33 PM Electronically Signed By:Whitley Leiva RN
--- NOTE | 2018-01-15 15:24 | PDPROPOC ---
Sedation Plan of Care ASA Classification: ASA 3 Planned drugs: fentanyl, midazolam Mallampati Score: Class 2 Mallampati Reference Image: Patient passed 3-3-2 rule?: Yes
--- NOTE | 2018-01-15 15:29 | PDRADPN ---
Radiology Procedure Note Date of Procedure: 01/15/18 Radiologist: Nahed Mascorro Anesthesia: IV Sedation Pre-op Diagnosis: RT THIGH HEMATOMA Post-op Diagnosis: SAME Indication: ? ACTIVE EXTRAVESATION Procedure: RT LEG ANGIOGRAM Finding(s): NO ACTIVE EXTRAVESATION Inf/Abcess present in the surg proc area at time of surgery?: No
--- NOTE | 2018-01-15 15:37 | GCON ---
HEMATOLOGY CONSULTATION DATE OF CONSULTATION: 01/15/2018 REASON FOR CONSULTATION: 1. Myelodysplastic syndrome. 2. Coagulopathy. HISTORY OF PRESENT ILLNESS: The patient is a pleasant 87-year-old gentleman who is followed by my pa rtnadeem, Dr. Esther Escamilla. He was diagnosed with myelodysplastic syndrome in June 2017. 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 The patient had 16% blasts visualized. Blast count on flow cytometry was 40%. There was increased stora ge of iron. MDS panel revealed a deletion 7. Options were discussed. The patient opted for best supportive care, and declined Vidaza or Dacogen t herapy. He has been followed closely in the office, and has been given intermittent transfusions for symptomatic anemia. His medical history is notable for a GI bleed in May 2017. The source of bleeding was never iden tified. He required 12 units of packed red cells at that time. The patient denies any prior history of abnormal bleeding, and has had multiple surgeries in the past without abnormal bleeding. Approximately 1 week ago, he was hospitalized with trochanteric bursitis, and received a joint aspira tion, and steroid injection. He reports approximately 48 hours of right lower extremity pain. Today, he noted significant pain an d swelling around the knee. He was brought to the emergency department by his daughter. A CT scan d one in the ER reveals an extensive right lateral thigh hematoma, with some tiny foci indicating poten tial active bleeding. He is scheduled to have an angiogram done later today. His CBC on admission shows a fairly significant anemia, with a hemoglobin of 6.1. He is being given a packed red cell transfusion. PAST MEDICAL HISTORY: 1. Myelodysplastic syndrome, as outlined above. 2. Hypertension. 3. Localized prostate cancer, treated with prostatectomy in the , treated with radiation at [facility] e of biochemical relapse. 4. Gout. 5. Remote history of PIC associated DVT. PAST SURGICAL HISTORY: 1. Prostatectomy in . 2. Bilateral knee surgery. 3. Edgar tooth extractions. 4. Tonsillectomy. FAMILY MEDICAL HISTORY: Positive for a first degree relative with colorectal cancer. SOCIAL HISTORY: The patient currently resides at [facility]. He is a former smoker. He does not drink alcohol. REVIEW OF SYSTEMS: As above. Additionally, denies any recent fevers or chills. PHYSICAL EXAM: GENERAL: The patient is sitting comfortably in bed. He is in no acute distress. He is pale. HEENT: Conjunctival pallor is present. No scleral icterus. HEART: Regular, without mur mur. LUNGS: Clear bilaterally. ABDOMEN: Soft, nontender, nondistended. There is specifically no right upper quadrant tenderness, guarding, or rebound. EXTREMITIES: Patient has an ecchymotic area just above the right knee. His thigh is enlarged, consistent with his known hematoma. It is warm an d mildly tender. He has full range of motion in the right lower extremity. He is alert, oriented, a ppropriate. CT results as outlined above. Ultrasound of the leg done today reveals no evidence of DVT. White count 2.1, hemoglobin 6.1, hematocrit 18.5, platelet count 93,000. PT is 17.0, with an INR of 1.37. Sodium 135, potassium 4.3, chloride 100, bicarb 29, BUN 21, creatinine 0.5. LFTs from today a re pending. IMPRESSION: 1. Myelodysplastic syndrome (patient currently receiving Palliative Care with intermittent transfusi ons). 2. Pancytopenia, secondary to #1. 3. Prolonged pro time of unclear etiology. 4. Iron overload from multiple transfusions. 5. Right thigh hematoma, following recent procedure. The patient is a pleasant 87-year-old gentleman who presents to the hospital with a new right thigh h ematoma. I was able to discuss his case with Dr. Solano of Surgery, and Dr. Will of the Hospitalist service. I agree with the plan for the angiogram as I suspect that the hematoma is in part due to hi s recent procedure. If a clear bleeding vessel was identified, this can potentially be addressed by Interventional Radiology today. The patient is being given a packed red cell transfusion. He will additionally be given 2 units of f resh-frozen plasma, which I support in light of his prolonged PT. He has also been given a dose of I V vitamin K by the hospitalist service, which I support. The cause of his prolonged PT is unclear. This could certainly be related to DIC from his bleed. Octavio centeno, I note on prior lab work, his PT has been prolonged for greater than 1 year. I suspect he may have a mild coagulopathy of liver dysfunction. His LFTs are normal, but he does have a very high fe rritin due to iron overload from transfusions, which may have resulted in mild hepatic injury and res ulting mild coagulopathy. A DIC panel has been ordered, and is pending. I do not believe he would benefit from a platelet transfusion currently given that his platelet count is 93,000. Our service will continue to follow him during this hospital stay, and I will notify Dr. Escamilla of hi s admission. The patient's and family questions were answered. Total time for today's visit was approximately 45 minutes, of which greater than 50% was spent nimesh robertson, care and coordination. /[id number]/MODL
[2018-01-15] MEDS ORDERED: LIDOCAINE 1% 300 MG/30 ML SDV ONE (15:52)
[2018-01-15] MEDS: LACTASE 3,000 UNIT TAB PO SCH ×2 (16:39→20:53)
--- NOTE | 2018-01-16 01:38 | SOAPPROG ---
SOAP Progress Note Assessment/Plan: Assessment:clinically stable right thigh hematoma/ongoing need for transfusion raises concern for other source of blood loss previously hospitalized for GI bleed in May 2017/no source identified MDS contributing to pancytopenia Angio negative for active extravasation Plan: continue obs/transfusion/comfort measures monitor for signs of compartment syndrome 01/16/18 01:43 Subjective: resting comfortably/ongoing pain right thigh Objective: receiving additional unit PRBC Vital Signs Temp Pulse Resp BP Pulse Ox 36.6 C 87 20 115/47 L 98 01/15/18 17:31 01/15/18 18:12 01/15/18 18:12 01/15/18 18:12 01/15/18 18:12 Laboratory Results 01/15/18 20:10 01/14/18 01/15/18 01/16/18 05:59 05:59 05:59 Intake Total 947.7 Balance 947.7 PT 17.0 SEC (12.0-15.0) H 01/15/18 09:00 INR 1.37 (0.83-1.16) H 01/15/18 09:00 - Pending Discharge Pending Discharge Within 24 Hours: No Pending Discharge Within 48 Hours: No Physical Exam - Physical Exam General Appearance: other (sleeping/awakens easily-alert) Peripheral Pulses: 4+: femoral (R), femoral (L), dorsalis-pedis (R), dorsalis- pedis (L) Extremities: other (large right lateral thigh hematoma/no significant clinical change from yesterday/distal NV intact) Neuro/Psych: alert, normal mood/affect, oriented x 3 ICD10 Worksheet Patient Problems: Problems Problem Status Onset Hematoma of thigh Acute Myelodysplastic syndrome Acute Pancytopenia Acute Thigh pain Acute Anemia Acute Hip pain, right Acute Lower GI bleed Acute - ICD10 Problem Qualifiers (1) Hematoma of thigh Qualifiers: Encounter type: initial encounter Laterality: right Qualified Code(s): S70.11XA - Contusion of right thigh, initial encounter (2) Myelodysplastic syndrome (3) Pancytopenia (4) Anemia Qualifiers: Anemia type: bone marrow failure Bone marrow failure anemia type: pancytopenia, other Qualified Code(s): D61.818 - Other pancytopenia
[2018-01-16 04:00] LABS: INR 1.4 (0.83-1.16); PROTIME(PATIENT) 17.3 SEC (12.0-15.0)
[2018-01-16 04:12] LABS: PLATELET COUNT 73 10^3/uL (150-400)
[2018-01-16] MEDS: ACETAMINOPHEN 325 MG TAB PO SCH ×2 (06:18→17:42)
[2018-01-16] MEDS: LEVOTHYROXINE 25 MCG TAB PO SCH (06:18)
[2018-01-16] MEDS: CYANO/VITAMIN B12 1000 MCG TAB PO SCH (09:15)
[2018-01-16] MEDS: LACTASE 3,000 UNIT TAB PO SCH ×3 (09:15→17:38)
[2018-01-16] MEDS: PANTOPRAZOLE SODIUM 40 MG TAB PO SCH (09:16)
[2018-01-16] MEDS: ALLOPURINOL 100 MG TAB PO SCH (09:16)
--- NOTE | 2018-01-16 10:19 | HOSPPROG ---
Hospitalist Progress Note Assessment/Plan: 87 yo M w transfusion dependent MDS, recent aspiration/injection of trochanteric bursa here w R thigh hematoma hematoma: unclear if caused by bursa injection- unlikely no extravasation on angiio ciagulopathy corrected exam improved follow MDS: transfused ABLA; as above coagulopathy: received vit K deconditioning- pt/ot dispo: inpt code: full Subjective: case d/w dr billy. angiogram w no evidence of extravasation Objective: Vital Signs Temp Pulse Resp BP Pulse Ox 36.5 C 97 26 H 122/46 H 92 01/16/18 08:00 01/16/18 10:00 01/16/18 10:00 01/16/18 10:00 01/16/18 10:00 Laboratory Results 01/16/18 03:30 01/16/18 03:30 01/15/18 01/16/18 01/17/18 05:59 05:59 05:59 Intake Total 2247.7 Balance 2247.7 PT 17.3 SEC (12.0-15.0) H 01/16/18 03:30 INR 1.40 (0.83-1.16) H 01/16/18 03:30 - Physical Exam Constitutional: no apparent distress, appears nourished Eyes: PERRL, anicteric sclera Ears, Nose, Mouth, Throat: moist mucous membranes, hearing normal Cardiovascular: regular rate and rhythym, no murmur, rub, or gallop, No tachycardia Respiratory: no respiratory distress, no rales or rhonchi Gastrointestinal: normoactive bowel sounds, soft, non-tender abdomen Genitourinary: no bladder fullness, No ngo in urethra Skin: warm, normal color Musculoskeletal: other (R leg softer, less edema) Neurologic: AAOx3, sensation intact bilaterally Psychiatric: interacting appropriately ICD10 Worksheet Patient Problems: Problems Problem Status Onset Hematoma of thigh Acute Myelodysplastic syndrome Acute Pancytopenia Acute Thigh pain Acute Anemia Acute Hip pain, right Acute Lower GI bleed Acute
[2018-01-16] MEDS: HYDROmorphONE/DILAUDID 2 MG TAB PO PRN (10:33)
[2018-01-16] MEDS: ACETAMINOPHEN 500 MG TAB PO SCH ×2 (14:25→23:15)
--- NOTE | 2018-01-16 15:26 | ASMTCMCOM ---
CM Note CM Note Notes: Patient interested in going to [facility] on discharge. Referral sent to [facility]. Date Signed: 01/16/2018 03:25 PM Electronically Signed By:Tanya Poole LCSW
--- NOTE | 2018-01-16 19:10 | SOAPPROG ---
MYRNA Progress Note Assessment/Plan: Assessment/Plan: Patient is a 87-year-old male with myelodysplastic syndrome currently receiving best supportive care who presents with a right thigh hematoma after right trochanteric bursa injection. Problem #1 - right thigh hematoma Angiography January 15 was unremarkable. This is likely due to procedure in the setting of his thrombocytopenia and underlying coagulopathy. Lead seems to be contained at this point with no active extravasation of blood. Problem #2 - coagulopathy Patient has long-standing elevated PT/INR. This did not correct with vitamin K and FFP and is therefore likely not a factor deficiency. This is perhaps secondary to synthetic dysfunction of the liver however we have no discrete evidence of that. We will send a prothrombin time with a one-to-one mixing stop it study to evaluate for a deficiency and/or inhibitor. Problem #3 - pancytopenia Secondary to myelodysplastic syndrome. His anemia is likely related to this. If there is concern that his drop in hemoglobin is from ongoing bleeding reticulocyte panel would be beneficial. He is currently receiving transfusions as an outpatient and has refused hypo-methylating agents As bleeding is stable patient can likely be discharged once more functional. Alfonzo Silva Subjective: Patient reports feeling well he is marginally optimistic that they do not see ongoing bleeding during his angiography yesterday. He does report some ongoing pain in the leg only with ambulation and with flexion at the right knee. He denies any fevers chills or drenching night sweats no other areas Objective: Vital Signs Temp Pulse Resp BP Pulse Ox 36.4 C 86 16 114/44 L 83 L 01/16/18 15:56 01/16/18 15:56 01/16/18 15:56 01/16/18 15:56 01/16/18 15:56 Laboratory Results 01/16/18 03:30 01/16/18 03:30 01/15/18 01/16/18 01/17/18 05:59 05:59 05:59 Intake Total 2247.7 900 Output Total 300 Balance 2247.7 600 PT 17.3 SEC (12.0-15.0) H 01/16/18 03:30 INR 1.40 (0.83-1.16) H 01/16/18 03:30 Physical examination: General: A chronically ill-appearing pale male nontoxic-appearing HEENT: Lid lag present conjunctival pallor without icterus is noted, oral mucosa is moist without any evidence of oral pharyngeal lesions Neck: Supple no adenopathy Cardiovascular: Regular in rate and rhythm without rubs thrills gallops or murmurs Chest: Clear to auscultation and percussion bilateral posterior lungs Abdomen: Soft nontender Extremities: Ecchymosis on the dorsal aspect of the right knee as well as on the lateral aspect of the right upper leg. This is associated with 2-3+ pitting edema of the entire right leg as well as an apparent right knee effusion. ICD10 Worksheet Patient Problems: Problems Problem Status Onset Hematoma of thigh Acute Myelodysplastic syndrome Acute Pancytopenia Acute Thigh pain Acute Anemia Acute Hip pain, right Acute Lower GI bleed Acute
[2018-01-17] MEDS: ACETAMINOPHEN 500 MG TAB PO SCH ×3 (05:21→20:56)
[2018-01-17] MEDS: LEVOTHYROXINE 25 MCG TAB PO SCH (05:21)
[2018-01-17] MEDS: PANTOPRAZOLE SODIUM 40 MG TAB PO SCH (09:54)
[2018-01-17] MEDS: CYANO/VITAMIN B12 1000 MCG TAB PO SCH (09:54)
[2018-01-17] MEDS: ALLOPURINOL 100 MG TAB PO SCH (09:55)
[2018-01-17] MEDS: LACTASE 3,000 UNIT TAB PO SCH ×3 (09:56→18:33)
[2018-01-17 10:54] LABS: PLATELET COUNT 70 10^3/uL (150-400)
--- NOTE | 2018-01-17 11:04 | HOSPPROG ---
Hospitalist Progress Note Assessment/Plan: 87 yo M w transfusion dependent MDS, recent aspiration/injection of trochanteric bursa here w R thigh hematoma hematoma: unclear if caused by bursa injection- unlikely no extravasation on angiio coagulopathy corrected, although INR remains elevated exam improved follow MDS: transfused ABLA: as above coagulopathy: received vit K inhibitor vs lier disease deconditioning- pt/ot dispo: inpt pt/ot rec snf code: full Subjective: case d/w dr ramirez. leg continues to improve Objective: Vital Signs Temp Pulse Resp BP Pulse Ox 36.6 C 89 16 130/52 H 97 01/17/18 07:47 01/17/18 07:47 01/17/18 04:16 01/17/18 07:47 01/17/18 07:47 Laboratory Results 01/17/18 09:55 01/16/18 01/17/18 01/18/18 05:59 05:59 05:59 Intake Total 2247.7 1100 Output Total 300 400 Balance 2247.7 800 -400 PT 17.3 SEC (12.0-15.0) H 01/16/18 03:30 INR 1.40 (0.83-1.16) H 01/16/18 03:30 - Physical Exam Constitutional: no apparent distress, appears nourished Eyes: PERRL, anicteric sclera Ears, Nose, Mouth, Throat: moist mucous membranes, hearing normal Cardiovascular: regular rate and rhythym, no murmur, rub, or gallop Respiratory: no respiratory distress, no rales or rhonchi Gastrointestinal: normoactive bowel sounds, soft, non-tender abdomen Genitourinary: no bladder fullness Skin: warm, normal color Musculoskeletal: full muscle strength, no muscle tenderness Neurologic: AAOx3 ICD10 Worksheet Patient Problems: Problems Problem Status Onset Hematoma of thigh Acute Myelodysplastic syndrome Acute Pancytopenia Acute Thigh pain Acute Anemia Acute Hip pain, right Acute Lower GI bleed Acute
--- NOTE | 2018-01-17 17:02 | ASMTCMCOM ---
CM Note CM Note Notes: Chart reviewed. Plan remains to dc to [facility] when medically cleared for discharge, Plan: DC to SNF Date Signed: 01/17/2018 05:01 PM Electronically Signed By:Echo Burt RN
[2018-01-17] MEDS ORDERED: traZODone 50 MG TAB PO PRN (18:56)
[2018-01-18] MEDS: ACETAMINOPHEN 500 MG TAB PO SCH ×3 (05:15→22:05)
[2018-01-18] MEDS: LEVOTHYROXINE 25 MCG TAB PO SCH (05:15)
[2018-01-18 06:03] LABS: PLATELET COUNT 62 10^3/uL (150-400)
[2018-01-18] MEDS: HYDROmorphONE/DILAUDID 2 MG TAB PO PRN ×2 (09:39→13:09)
[2018-01-18] MEDS: CYANO/VITAMIN B12 1000 MCG TAB PO SCH (09:39)
[2018-01-18] MEDS: PANTOPRAZOLE SODIUM 40 MG TAB PO SCH (09:39)
[2018-01-18] MEDS: ALLOPURINOL 100 MG TAB PO SCH (09:39)
[2018-01-18] MEDS: LACTASE 3,000 UNIT TAB PO SCH ×3 (09:39→18:42)
[2018-01-18] MEDS ORDERED: HYDROmorphone HCL 0.5 MG/0.5 ML SYR IVP PRN ×3 (10:36→19:35)
--- NOTE | 2018-01-18 14:17 | ASMTCMCOM ---
CM Note CM Note Notes: Patient plan of care reviewed in interdisciplinary rounds. The patient suffers from MDS and was admitted from hematoma and greater trochanter bursitis. He is receiving blood transfusions and will need his H&H rechecked, experienced acute onset of pain this am. Ortho to see. Plan to [facility] when medically cleared for discharge . Plan: As above Date Signed: 01/18/2018 02:17 PM Electronically Signed By:Echo Burt RN
[2018-01-18] MEDS ORDERED: HYDROmorphone HCL 0.5 MG/0.5 ML SYR IV ONE (15:00)
--- NOTE | 2018-01-18 15:03 | GCON ---
DATE OF CONSULTATION: 01/18/2018 CHIEF COMPLAINT: Right thigh hematoma. HISTORY OF PRESENT ILLNESS: An 87-year-old male with myelodysplastic disease. He was readmitted for hematoma in his right thigh. I had previously seen him about 10 days ago for right trochanteric bur gabriela fluid collection. I aspirated the fluid collection, checked his bursa. This did help his pain, and he was able to leave the hospital. However, he is admitted with increasing pain and swelling in the thigh. He was seen by General Surgery, and an angiogram was performed. There was no profuse ble eding, and he was improving. However, then began to get worse again today, and I was asked to see laverne pelayo. He complained of mid thigh pain and pain down by his knee. REVIEW OF SYSTEMS: A 10-point review of systems negative, other than in the HPI. PAST MEDICAL HISTORY: Myelodysplastic disease. SOCIAL HISTORY: No smoking. FAMILY HISTORY: Reviewed and noncontributory. ALLERGIES: Oxycodone. MEDICATIONS: Please see inpatient list. PHYSICAL EXAMINATION: GENERAL: He is alert. He is appropriate. He is in mild pain, but no distres s. HEENT: His head is atraumatic, normocephalic. Eyes are equal. Mouth: Moist mucous membranes. NECK: Supple. CHEST: Clear to auscultation. HEART: Regular rate and rhythm. ABDOMEN: Soft. EXTREMITIES: Show no abnormalities. He can move them well. Neurovascularly intact. His right lower extremity sh ows bruising up and down his thigh and leg, particularly laterally. He has some tenderness of the gr eater trochanter, but more at the mid thigh. He has some firmness at the anterior lateral thigh, but overall this is not hard. He is soft in the medial posterior compartments. He has some swelling go ing down to the knee. I can range his knee from 0-90 degrees. Passive stretch, especially with flex ion, only causes a very mild increase in pain. He has good bounding PT and DP pulses distally. He h as intact sensation when compared to the other side, and he has 5/5 strength in EHL, FHL, dorsiflexio n, plantar flexion, ankle. He has 4- out of 5 strength with his quadriceps, likely secondary to pain . IMAGING: His CT scan showing the hematoma in the lateral thigh and anterior compartment. ASSESSMENT: Right thigh hematoma. DISCUSSION: He developed a right thigh hematoma. This is definitely contributed to by his myelodysp lastic disease. This may have also been contributed to by the aspiration of his trochanteric bursa. The hematoma is quite large. I do think it is stable at this point. He is showing significant swel ling, but no signs of compartment syndrome at this point. I think that evacuating the hematoma would just cause it to recur. However, if he starts to develop signs concerning for compartment syndrome, we would have to open up and decompress his anterior compartment, and decompress the hematoma. Bryson t now we will monitor him and place him on bed rest. We will discontinue his physical therapy. Rachael t compressive dressing was placed up his entire leg. We will continue to ice this and elevate this. He is receiving IV pain control. We will follow him closely. /[id number]/MODL
--- NOTE | 2018-01-18 15:37 | SOAPPROG ---
MYRNA Progress Note Assessment/Plan: Assessment: R thigh hematoma Plan: I was called back to see him as his pain is getting worse He states pain is worse in thigh and he feels it is getting tighter He had little pain with passive stretch about 4 hrs ago when I saw him and this is now increased to significant pain with passive stretch his pulses are still present I discussed with him and his daughter going to the OR for fasciotomy and I and D for his impending compartment syndrome He consented 01/18/18 15:33 Subjective: Pain significantly increased in thigh Objective: Vital Signs Temp Pulse Resp BP Pulse Ox 36.6 C 91 18 127/57 H 97 01/18/18 07:51 01/18/18 07:51 01/18/18 07:51 01/18/18 07:51 01/18/18 07:51 Laboratory Results 01/18/18 05:14 01/17/18 09:55 01/17/18 01/18/18 01/19/18 05:59 05:59 05:59 Intake Total 1100 650 Output Total 300 850 200 Balance 800 -200 -200 PT 17.3 SEC (12.0-15.0) H 01/16/18 03:30 INR 1.40 (0.83-1.16) H 01/16/18 03:30 He had little pain with passive stretch about 4 hrs ago when I saw him and this is now increased to significant pain with passive stretch his pulses are still present he does report some numbness distally ICD10 Worksheet Patient Problems: Problems Problem Status Onset Hematoma of thigh Acute Myelodysplastic syndrome Acute Pancytopenia Acute Thigh pain Acute Anemia Acute Hip pain, right Acute Lower GI bleed Acute
[2018-01-18] MEDS ORDERED: POLYMYXIN B SULFATE 500,000 UNIT/10 ML SYR IRR ONE (15:46)
[2018-01-18] MEDS ORDERED: BACITRACIN 50,000 UNITS/10 ML SYR IRR ONE (15:46)
[2018-01-18] MEDS ORDERED: BUPIVACAINE 0.5% 30 ML SDV ONE (15:46)
--- NOTE | 2018-01-18 16:17 | PDANEPAE ---
ANE Past Medical History - Cardiovascular History Hx Hypertension: Yes - Pulmonary History Hx Oxygen in Use at Home: No Hx Sleep Apnea: Yes Sleep Apnea Screening Result - Last Documented: Positive - Endocrine History Hx Diabetes: No - Chronic Pain History Chronic Pain: Yes ANE Review of Systems Review of Systems: ANE Patient History - Allergies Allergies/Adverse Reactions: oxycodone Allergy (Unknown, Verified 01/16/18 23:15) Other-Enter Comments - Home Medications Home Medications: Allopurinol [Allopurinol 100 MG (*)] 100 mg PO DAILY 02/28/17 [Last Taken ] Fluticasone Nasal [Flonase Nasal Lehr] 1 sprays NASAL DAILY PRN 02/28/17 [Last Taken 09/28/17] Levothyroxine [Synthroid 25 mcg (*)] 25 mcg PO DAILY06 02/28/17 [Last Taken ] Loperamide HCl [Imodium 2 mg (*)] 2 mg PO Q6HRS PRN 05/20/17 [Last Taken Unknown ] Simethicone [Gas Relief] 80 mg PO QID PRN 05/20/17 [Last Taken 09/28/17] Albuterol [Proventil Inhaler HFA (*)] 2 puffs IH Q6H PRN 01/08/18 [Last Taken Unknown] Cyanocobalamin [Vitamin B12 (*)] 1,000 mcg PO DAILY 01/08/18 [Last Taken ] Lactase [Lactaid] 1 tab PO TIDMEAL 01/08/18 [Last Taken 01/15/18] traMADol HCL [Tramadol HCl] 50 mg PO TID 01/08/18 [Last Taken 01/15/18] - Smoking Hx Smoking Status: Former smoker ANE Labs/Vital Signs - Labs Result Diagrams: 01/18/18 15:45 01/17/18 09:55 - Vital Signs Blood Pressure: 161/66 Heart Rate: 89 Respiratory Rate: 18 O2 Sat (%): 97 Height: 172.72 cm Weight: 69.3 kg ANE Physical Exam - Airway Neck exam: decreased ROM Mallampati Score: Class 3 Mouth exam: poor dentition - Pulmonary Pulmonary: no respiratory distress - Cardiovascular Cardiovascular: regular rate and rhythym - ASA Status ASA Status: III ANE Anesthesia Plan Anesthesia Plan: general endotracheal anesthesia
[2018-01-18] MEDS ORDERED: ROCURONIUM 50 MG/5 ML VIAL ONE (16:19)
[2018-01-18] MEDS ORDERED: LIDOCAINE 2% 100 MG/5 ML SYR ONE (16:19)
[2018-01-18] MEDS ORDERED: ceFAZolin 2 GM/DEXTROSE 100 ML IV ONE (16:19)
[2018-01-18] MEDS ORDERED: PROPOFOL 200 MG/20 ML VIAL ONE (16:19)
[2018-01-18 16:24] LABS: INR 1.31 (0.83-1.16); PROTIME(PATIENT) 16.5 SEC (12.0-15.0)
[2018-01-18] MEDS ORDERED: LR 1,000 ML IV ONE (16:30)
--- NOTE | 2018-01-18 16:39 | HOSPPROG ---
Hospitalist Progress Note Assessment/Plan: Patient new to my care today. An 87 yo M with transfusion-dependent MDS, recent aspiration/injection of trochanteric bursa here w R thigh hematoma #Right thigh hematoma: -no extravasation on initial CT -min pain this morning, but repeat exam this afternoon with increased firmness, pain with worse this afternoon khanh passive flexion -Dr. Arellano reassessed and taking emergently to OR for compartment syndrome. 2 more units ordered for surgery #MDS: transfuse-dependent. 2 units this morning #ABLA: as above #Coagulopathy: initially received IV Vit K #Deconditioning-PT/OT #Disp: monitor in ICU after surgery, serial H/H Critical care time spent: 45 min bedside with pt, re-eval this afternoon and d/ w Dr. Arellano for emergent surgery Subjective: pain uncontrolled in right thigh this afternoon Objective: Vital Signs Temp Pulse Resp BP Pulse Ox 36.7 C 89 19 161/66 H 98 01/18/18 16:15 01/18/18 16:17 01/18/18 16:20 01/18/18 16:17 01/18/18 16:20 Laboratory Results 01/18/18 15:45 01/17/18 09:55 01/17/18 01/18/18 01/19/18 05:59 05:59 05:59 Intake Total 1100 650 Output Total 300 850 200 Balance 800 -200 -200 PT 16.5 SEC (12.0-15.0) H 01/18/18 15:45 INR 1.31 (0.83-1.16) H 01/18/18 15:45 - Time Spent With Patient Time Spent with Patient: greater than 35 minutes Time Spent with Patient: Greater than 35 minutes spent on this patients care, greater than 50% of time spent counseling, educating, and coordinating care regarding the above mentioned plan. - Physical Exam Constitutional: other (pale) Eyes: PERRL Ears, Nose, Mouth, Throat: moist mucous membranes Cardiovascular: regular rate and rhythym Respiratory: no respiratory distress Gastrointestinal: normoactive bowel sounds Genitourinary: no bladder fullness, No ngo in urethra Skin: warm Musculoskeletal: other (right thigh firm/tender khanh with passive flexion. Knee effusion larger +distal pulses intact) Neurologic: AAOx3, CN II-XII Intact Psychiatric: interacting appropriately ICD10 Worksheet Patient Problems: Problems Problem Status Onset Hematoma of thigh Acute Myelodysplastic syndrome Acute Pancytopenia Acute Thigh pain Acute Anemia Acute Hip pain, right Acute Lower GI bleed Acute
[2018-01-18] MEDS ORDERED: ONDANSETRON 4 MG/2 ML VIAL IVP PRN (17:02)
[2018-01-18] MEDS ORDERED: NALOXONE HCL 0.4 MG/ML INJ IVP PRN ×2 (17:02→17:57)
[2018-01-18] MEDS ORDERED: fentaNYL 100 MCG/2 ML INJ IVP PRN (17:02)
[2018-01-18] MEDS ORDERED: ALBUTEROL 3 ML DEYVIAL IH PRN (17:02)
[2018-01-18] MEDS ORDERED: SUGAMMADEX SODIUM 200 MG/2 ML VIAL IVP ONE (17:06)
[2018-01-18] MEDS ORDERED: THROMBIN (BOVINE) 5,000 UNIT VIAL TP ONE (17:15)
[2018-01-18] MEDS ORDERED: fentaNYL 100 MCG/2 ML INJ ONE (17:20)
--- NOTE | 2018-01-18 17:48 | POSTOPPROG ---
Post Op Note Date of Operation: 01/18/18 Surgeon: Haresh Arellano Anesthesiologist: Richar Anesthesia: GET(General Endotracheal) Pre-op Diagnosis: R thigh hematoma, compartment syndrome Post-op Diagnosis: same Indication: above Procedure: I and D and fasiotomy Inf/Abcess present in the surg proc area at time of surgery?: No EBL: Greater than 1000 Drains: Hemovac
--- NOTE | 2018-01-18 17:58 | POSTANESTH ---
Post Anesthetic Evaluation Cardiovascular Status: Similar to Pre-Op Cond Respiratory Status: Similar to Pre-op Cond. Level of Consciousness/Mental Status: Mildly Sleepy, Arousable Pain Control: Adequate, Prn Tx Ordered Nausea/Vomiting Control: Adequate, Prn Tx Ordered Complications Possibly Related to Anesthesia: None Noted
[2018-01-18] MEDS ORDERED: ALBUTEROL 3 ML DEYVIAL ONE (18:08)
--- NOTE | 2018-01-18 18:49 | GOP ---
DATE OF OPERATION: 01/18/2018 SURGEON: Haresh Arellano MD PARTNER MANAGER: None. ANESTHESIA: General. PREOPERATIVE DIAGNOSIS: Right thigh hematoma and compartment syndrome. POSTOPERATIVE DIAGNOSIS: Right thigh hematoma and compartment syndrome. PROCEDURE PERFORMED: 1. Right thigh irrigation and debridement with evacuation of hematoma, including debridement of musc le fascia. 2. Right thigh fasciotomy. FINDINGS: SPECIMENS: None. ESTIMATED BLOOD LOSS: 100 of new blood and 1200 of old hematoma and old blood. INDICATIONS: An 87-year-old male. He was readmitted with right thigh hematoma, which seemed to be e xpanding. He did have an angio showing no arterial extravasation. Patient improved somewhat, but th en today became worse. He was doing well in the morning. When I saw him toward the end of the morni ng, he was having significant pain in the thigh; however, he still was able to move his knee passivel y without minimal increase in pain and felt this pain was mostly due to hematoma. He continued to ge t worse, and when I saw him about 4 hours later, he had increasing pain and increased pain with passi ve stretch. There was a concern for compartment syndrome of his anterior compartment and expanding h ematoma and elected for surgery. Informed consent was obtained. All questions were answered. We di scussed risks of recurrence, need for the drain, inability closed wound, infection, wound complicatio ns, continued problems, and he elected to proceed. Informed consent obtained. All questions answere d. He was marked preoperatively. DESCRIPTION OF PROCEDURE: He was taken to the operative suite. He was sterilely prepped and draped in normal fashion. Time-out was performed verifying the site, side, location with agreement of the t eam. I made an incision in the lateral thigh and tissue was edematous. I opened up the IT band, and there was significant hematoma. I opened the IT band throughout his entire thigh. I evacuated a la rge amount of hematoma probably 1200 cc worth. I then thoroughly irrigated this with 6 L to remove a ll hematoma. This decompressed the thigh significantly. The muscle did look healthy. I worked up p roximally and found a small area of continuous bleeding up near his hip trochanter. I coagulated thi s. I placed thrombin and Gelfoam all around this area as I felt this was the cause of the hematoma. This was dry by the time I was done, and I closed the skin with 2-0 PDS and 3-[address] d in a sterile dressing. A drain was placed as well before the closure, a 15 round Portuguese medium Hem ovac. He was taken to PACU in stable condition. COMPLICATIONS: None. DRAINS: Hemovac drain of 15 round Portuguese. CONDITION: Stable. /[id number]/MODL
[2018-01-19] MEDS: HYDROmorphONE/DILAUDID 2 MG TAB PO PRN (00:40)
[2018-01-19] MEDS: LEVOTHYROXINE 25 MCG TAB PO SCH (07:08)
[2018-01-19] MEDS: ACETAMINOPHEN 500 MG TAB PO SCH ×3 (07:08→21:41)
[2018-01-19] MEDS: CYANO/VITAMIN B12 1000 MCG TAB PO SCH (08:26)
[2018-01-19] MEDS: ALLOPURINOL 100 MG TAB PO SCH (08:26)
[2018-01-19] MEDS: PANTOPRAZOLE SODIUM 40 MG TAB PO SCH (08:26)
[2018-01-19] MEDS: LACTASE 3,000 UNIT TAB PO SCH ×3 (08:50→18:34)
--- NOTE | 2018-01-19 08:56 | HOSPPROG ---
Hospitalist Progress Note Assessment/Plan: 87 yo M with transfusion-dependent MDS, recent aspiration/injection of trochanteric bursa here w R thigh hematoma/compartment syndrome #Right thigh compartment syndrome: POD #1 fasciotomy. Well-tolerated, minimal pain #MDS: transfuse-dependent. Transfuse RBC this morning. No e/o overload with multiple transfusions (recent echo, NL EF). Goal Hb>7 #ABLA: as above #Coagulopathy: initially received IV Vit K #Deconditioning-PT/OT #Disp: ok for med-surg #Goals: spoke with him in regards to Palliative Care. He does not want consult in hosp, bc is currently on hospice and needs to deal with that first. He is willing to d/w Dr. Escamilla outpatient Critical care time spent: 45 min bedside with pt, re-eval this afternoon and d/ w Dr. Arellano for emergent surgery Subjective: no pain in thigh this morning Objective: Vital Signs Temp Pulse Resp BP Pulse Ox 37.0 C 105 H 17 106/48 L 98 01/19/18 00:00 01/19/18 08:36 01/19/18 08:36 01/19/18 08:36 01/19/18 08:36 Laboratory Results 01/19/18 08:20 01/19/18 04:30 01/18/18 01/19/18 01/20/18 05:59 05:59 05:59 Intake Total 650 2050 Output Total 850 800 430 Balance -200 1250 -430 PT 16.5 SEC (12.0-15.0) H 01/18/18 15:45 INR 1.31 (0.83-1.16) H 01/18/18 15:45 - Time Spent With Patient Time Spent with Patient: greater than 35 minutes Time Spent with Patient: Greater than 35 minutes spent on this patients care, greater than 50% of time spent counseling, educating, and coordinating care regarding the above mentioned plan. - Physical Exam Constitutional: other (pale) Eyes: PERRL Ears, Nose, Mouth, Throat: moist mucous membranes Cardiovascular: regular rate and rhythym, No edema Respiratory: no respiratory distress, No expiratory wheeze, No inspiratory crackles Gastrointestinal: normoactive bowel sounds Genitourinary: no bladder fullness Skin: warm Musculoskeletal: other (right thigh wrapped, drain in place) Neurologic: AAOx3, CN II-XII Intact Psychiatric: interacting appropriately ICD10 Worksheet Patient Problems: Problems Problem Status Onset Hematoma of thigh Acute Myelodysplastic syndrome Acute Pancytopenia Acute Thigh pain Acute Anemia Acute Hip pain, right Acute Lower GI bleed Acute
--- NOTE | 2018-01-19 10:33 | SOAPPROG ---
SOAP Progress Note Assessment/Plan: Assessment: R thigh hematoma s/p I and D and fasicotomy 01/18 Plan: Doing well cont drain as output is high cont compression wbat minimize activity ice elevate Subjective: minimal pain today Objective: Vital Signs Temp Pulse Resp BP Pulse Ox 37.0 C 105 H 17 106/48 L 98 01/19/18 00:00 01/19/18 08:36 01/19/18 08:36 01/19/18 08:36 01/19/18 08:36 Laboratory Results 01/19/18 08:20 01/19/18 04:30 01/18/18 01/19/18 01/20/18 05:59 05:59 05:59 Intake Total 650 2050 Output Total 850 800 430 Balance -200 1250 -430 PT 16.5 SEC (12.0-15.0) H 01/18/18 15:45 INR 1.31 (0.83-1.16) H 01/18/18 15:45 dressing cdi drain functioning ICD10 Worksheet Patient Problems: Problems Problem Status Onset Hematoma of thigh Acute Myelodysplastic syndrome Acute Pancytopenia Acute Thigh pain Acute Anemia Acute Hip pain, right Acute Lower GI bleed Acute
--- NOTE | 2018-01-19 17:39 | SOAPPROG ---
SOKYRIE Progress Note Assessment/Plan: Assessment/Plan: Patient is a 87-year-old male with myelodysplastic syndrome currently receiving best supportive care who presents with a right thigh hematoma after right trochanteric bursa injection. Problem #1 - right thigh hematoma Angiography January 15 was unremarkable. Taken to OR 01/18 with change in firmness of right leg and more pain. In OR evacuated hematoma and cauterized vessel closer to greater trochanter. -ortho following Problem #2 - coagulopathy Patient has long-standing elevated PT/INR. This did not correct with vitamin K and FFP and is therefore likely not a factor deficiency. This is perhaps secondary to synthetic dysfunction of the liver however we have no discrete evidence of that. We will send a prothrombin time with a one-to-one mixing stop it study to evaluate for a deficiency and/or inhibitor. Problem #3 - pancytopenia Secondary to myelodysplastic syndrome. He is currently receiving transfusions as an outpatient and has refused hypo-methylating agents Alfonzo Silva 01/19/18 17:36 Subjective: patient reports feeling well. he was taken to the OR yesterday and had evacuation of hematoma after acute change in his right leg yesterday afternoon. He denies any pain Objective: Vital Signs Temp Pulse Resp BP Pulse Ox 36.7 C 104 H 16 134/55 H 93 01/19/18 15:52 01/19/18 15:52 01/19/18 15:52 01/19/18 15:52 01/19/18 15:52 Laboratory Results 01/19/18 04:30 01/18/18 01/19/18 01/20/18 05:59 05:59 05:59 Intake Total 650 2050 200 Output Total 850 800 490 Balance -200 1250 -290 PT 16.5 SEC (12.0-15.0) H 01/18/18 15:45 INR 1.31 (0.83-1.16) H 01/18/18 15:45 Physical examination: General: A chronically ill-appearing pale male nontoxic-appearing HEENT: Lid lag present conjunctival pallor without icterus is noted, oral mucosa is moist without any evidence of oral pharyngeal lesions Neck: Supple no adenopathy Cardiovascular: Regular in rate and rhythm without rubs thrills gallops or murmurs Chest: Clear to auscultation and percussion bilateral posterior lungs Abdomen: Soft nontender Extremities: right leg wrapped with bandage, trace blood in drain, can wiggle toes on right side, good cap refill ICD10 Worksheet Patient Problems: Problems Problem Status Onset Hematoma of thigh Acute Myelodysplastic syndrome Acute Pancytopenia Acute Thigh pain Acute Anemia Acute Hip pain, right Acute Lower GI bleed Acute
[2018-01-20] MEDS: ACETAMINOPHEN 500 MG TAB PO SCH ×3 (06:07→21:07)
[2018-01-20] MEDS: LEVOTHYROXINE 25 MCG TAB PO SCH (06:07)
[2018-01-20] MEDS ORDERED: PHYTONADIONE 10 MG in NS 50 ML IV ONE (09:30)
[2018-01-20] MEDS: LACTASE 3,000 UNIT TAB PO SCH ×3 (09:35→18:52)
[2018-01-20] MEDS: ALLOPURINOL 100 MG TAB PO SCH (09:36)
[2018-01-20] MEDS: CYANO/VITAMIN B12 1000 MCG TAB PO SCH (09:36)
[2018-01-20] MEDS: PANTOPRAZOLE SODIUM 40 MG TAB PO SCH (09:36)
--- NOTE | 2018-01-20 12:44 | HOSPPROG ---
Hospitalist Progress Note Assessment/Plan: 87 yo M with transfusion-dependent MDS, recent aspiration/injection of trochanteric bursa here w R thigh hematoma/compartment syndrome #Right thigh compartment syndrome: POD #2 fasciotomy. Well-tolerated, minimal pain #MDS: transfuse-dependent. Transfuse RBC this morning. * Transfuse another unit of platelets #ABLA: as above #Coagulopathy: initially received IV Vit K * Correct with mixing study * Per Oncology will give more vitamin K #Deconditioning-PT/OT #Disp: Probably keep another day to ensure stability Subjective: Feeling better overall. Less pain Objective: Vital Signs Temp Pulse Resp BP Pulse Ox 36.2 C 90 16 117/47 L 92 01/20/18 11:20 01/20/18 11:20 01/20/18 11:20 01/20/18 11:20 01/20/18 11:20 Laboratory Results 01/20/18 06:15 01/19/18 04:30 01/19/18 01/20/18 01/21/18 05:59 05:59 05:59 Intake Total 2050 450 Output Total 800 1055 100 Balance 1250 -605 -100 PT 16.5 SEC (12.0-15.0) H 01/18/18 15:45 INR 1.31 (0.83-1.16) H 01/18/18 15:45 Discussed Orthopedic surgery and Oncology - Physical Exam Constitutional: no apparent distress, appears nourished, not in pain Eyes: anicteric sclera, EOMI Ears, Nose, Mouth, Throat: moist mucous membranes, hearing normal Cardiovascular: regular rate and rhythym Respiratory: no respiratory distress, no rales or rhonchi Gastrointestinal: normoactive bowel sounds, soft, non-tender abdomen, no palpable masses Skin: warm Musculoskeletal: other (Dressed right leg) Neurologic: AAOx3 Psychiatric: interacting appropriately, not anxious, not encephalopathic, thought process linear ICD10 Worksheet Patient Problems: Problems Problem Status Onset Hematoma of thigh Acute Myelodysplastic syndrome Acute Pancytopenia Acute Thigh pain Acute Anemia Acute Hip pain, right Acute Lower GI bleed Acute
--- NOTE | 2018-01-20 12:51 | SOAPPROG ---
SOAP Progress Note Assessment/Plan: Assessment: R thigh hematoma s/p I and D and fasicotomy 01/18 Plan: Doing well drain is out now not bleeding from drain site or incision thigh soft continue nieves wrap f/u with me 10 days after d/c 01/20/18 12:49 Subjective: no pain at rest Objective: Vital Signs Temp Pulse Resp BP Pulse Ox 36.2 C 90 16 117/47 L 92 01/20/18 11:20 01/20/18 11:20 01/20/18 11:20 01/20/18 11:20 01/20/18 11:20 Laboratory Results 01/20/18 06:15 01/19/18 04:30 01/19/18 01/20/18 01/21/18 05:59 05:59 05:59 Intake Total 2050 450 Output Total 800 1055 100 Balance 1250 -605 -100 PT 16.5 SEC (12.0-15.0) H 01/18/18 15:45 INR 1.31 (0.83-1.16) H 01/18/18 15:45 dressing removed drain out no bleeding wound cdi thigh re wraped thigh soft distally nvi 2+ pulse ICD10 Worksheet Patient Problems: Problems Problem Status Onset Hematoma of thigh Acute Myelodysplastic syndrome Acute Pancytopenia Acute Thigh pain Acute Anemia Acute Hip pain, right Acute Lower GI bleed Acute
--- NOTE | 2018-01-20 14:13 | ASMTCMCOM ---
CM Note CM Note Notes: D/C plan for Pt continues to be [facility]. He may be d/c'ed tomorrow. Updates were requested from [facility] and sent. CM to follow. D/C Plan: [place] Date Signed: 01/20/2018 02:13 PM Electronically Signed By:Eden Cortes
[2018-01-20] MEDS: HYDROmorphONE/DILAUDID 2 MG TAB PO PRN ×2 (14:59→18:53)
--- NOTE | 2018-01-20 20:26 | SOAPPROG ---
SOAP Progress Note Assessment/Plan: Assessment/Plan: Patient is a 87-year-old male with myelodysplastic syndrome currently receiving best supportive care who presents with a right thigh hematoma after right trochanteric bursa injection. Problem #1 - right thigh hematoma Angiography January 15 was unremarkable. Taken to OR 01/18 with change in firmness of right leg and more pain. In OR evacuated hematoma and cauterized vessel closer to greater trochanter. -ortho following, reviewed incision/leg 01/20 with no further evidence of bleeding Problem #2 - coagulopathy Patient has long-standing elevated PT/INR. His PT corrected with mixing and all of his tested vitamin K dependent factors are decreased likely signifying deficiency. This could be from vitamin K deficiency or hepatic dysfunction. Has had FFP and vitamin K earlier without correction so perhaps from liver dysfunction. Will give 10mg vitamin K and recheck. If bleeding would give kcentra. -10mg IV vitamin K -INR in AM Problem #3 - pancytopenia Secondary to myelodysplastic syndrome. He is currently receiving transfusions as an outpatient and has refused hypo-methylating agents -hbg goal >7 g/dl -plt goal >50,000, will give 1 U of plts today to ensure hemostasis Alfonzo Silva 01/19/18 17:36 01/20/18 20:27 Subjective: patient reports feeling well. minimal pain in the right leg. no fevers chills or sweats. no CP or shortness of breath. Objective: Vital Signs Temp Pulse Resp BP Pulse Ox 36.6 C 94 18 127/58 H 91 L 01/20/18 20:14 01/20/18 20:14 01/20/18 20:14 01/20/18 20:14 01/20/18 20:14 Laboratory Results 01/20/18 06:15 01/19/18 04:30 01/19/18 01/20/18 01/21/18 05:59 05:59 05:59 Intake Total 2050 450 930 Output Total 800 1055 100 Balance 1250 -605 830 PT 16.5 SEC (12.0-15.0) H 01/18/18 15:45 INR 1.31 (0.83-1.16) H 01/18/18 15:45 Physical examination: General: A chronically ill-appearing pale male nontoxic-appearing HEENT: Lid lag present conjunctival pallor without icterus is noted, oral mucosa is moist without any evidence of oral pharyngeal lesions Neck: Supple no adenopathy Cardiovascular: Regular in rate and rhythm without rubs thrills gallops or murmurs Chest: Clear to auscultation and percussion bilateral posterior lungs Abdomen: Soft nontender Extremities: right leg unwrapped - ecchymosis on underside of hamstrings, over knee cap. Leg continues to be edematous but not tense, no bleeding from incision , no bleeding out of drain site after being pulled. ICD10 Worksheet Patient Problems: Problems Problem Status Onset Hematoma of thigh Acute Myelodysplastic syndrome Acute Pancytopenia Acute Thigh pain Acute Anemia Acute Hip pain, right Acute Lower GI bleed Acute
[2018-01-21] MEDS: ACETAMINOPHEN 500 MG TAB PO SCH ×3 (05:03→20:57)
[2018-01-21] MEDS: LEVOTHYROXINE 25 MCG TAB PO SCH (05:04)
[2018-01-21 05:21] LABS: PLATELET COUNT 70 10^3/uL (150-400)
[2018-01-21 05:27] LABS: INR 1.22 (0.83-1.16); PROTIME(PATIENT) 15.6 SEC (12.0-15.0)
--- NOTE | 2018-01-21 08:40 | HOSPPROG ---
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 Pain improved. #MDS: transfuse-dependent. blood counts stable this am, no transfusion indicated #ABLA: vessel was cauterized during recent fasciotomy, this may have been contributing to ongoing anemia, which is more stable today. Cont to monitor. #Coagulopathy: s/p IV Vit K, INR 1.2 this am. No bleeding. Follow. #Deconditioning- Pt has not been able to even take a step yet, needs acute PT/ OT to ensure stability prior to transfer to SNF #Disp: D/C to SNF rehab in 1-2 days Subjective: Pt doing ok this am. Notes he is quite weak, hasn't even been able to walk or take a step yet. Denies pain. No fevers/chills. Objective: Vital Signs Temp Pulse Resp BP Pulse Ox 36.3 C 84 16 134/65 H 97 01/21/18 08:14 01/21/18 08:14 01/21/18 08:14 01/21/18 08:14 01/21/18 08:14 Laboratory Results 01/21/18 05:06 01/21/18 05:06 01/20/18 01/21/18 01/22/18 05:59 05:59 05:59 Intake Total 450 1130 Output Total 1055 250 Balance -605 880 PT 15.6 SEC (12.0-15.0) H 01/21/18 05:06 INR 1.22 (0.83-1.16) H 01/21/18 05:06 - Physical Exam Constitutional: no apparent distress Eyes: PERRL Ears, Nose, Mouth, Throat: moist mucous membranes Cardiovascular: regular rate and rhythym Respiratory: no respiratory distress, clear to auscultation Gastrointestinal: normoactive bowel sounds, soft, non-tender abdomen Skin: warm Musculoskeletal: generalized weakness Neurologic: AAOx3 Psychiatric: interacting appropriately ICD10 Worksheet Patient Problems: Problems Problem Status Onset Hematoma of thigh Acute Myelodysplastic syndrome Acute Pancytopenia Acute Thigh pain Acute Anemia Acute Hip pain, right Acute Lower GI bleed Acute
[2018-01-21] MEDS: LACTASE 3,000 UNIT TAB PO SCH ×3 (09:05→18:36)
[2018-01-21] MEDS: CYANO/VITAMIN B12 1000 MCG TAB PO SCH (09:05)
[2018-01-21] MEDS: ALLOPURINOL 100 MG TAB PO SCH (09:05)
[2018-01-21] MEDS: PANTOPRAZOLE SODIUM 40 MG TAB PO SCH (09:05)
--- NOTE | 2018-01-21 09:11 | SOAPPROG ---
SOAP Progress Note Assessment/Plan: Assessment: R thigh hematoma s/p I and D and fasicotomy 01/18 Plan: Doing well no drainage thigh soft mobilizing and able to bear wt now f/u with me 10 days after d/c 01/20/18 12:49 01/21/18 09:10 Subjective: min pain Objective: Vital Signs Temp Pulse Resp BP Pulse Ox 36.3 C 84 16 134/65 H 97 01/21/18 08:14 01/21/18 08:14 01/21/18 08:14 01/21/18 08:14 01/21/18 08:14 Laboratory Results 01/21/18 05:06 01/21/18 05:06 01/20/18 01/21/18 01/22/18 05:59 05:59 05:59 Intake Total 450 1130 Output Total 1055 250 75 Balance -605 880 -75 PT 15.6 SEC (12.0-15.0) H 01/21/18 05:06 INR 1.22 (0.83-1.16) H 01/21/18 05:06 thigh soft dressing dry 5-/5 quad strength now on right ICD10 Worksheet Patient Problems: Problems Problem Status Onset Hematoma of thigh Acute Myelodysplastic syndrome Acute Pancytopenia Acute Thigh pain Acute Anemia Acute Hip pain, right Acute Lower GI bleed Acute
--- NOTE | 2018-01-21 11:46 | PDIAF ---
- Diagnosis Diagnosis: myelodysplastic syndrome, leg hematoma s/p evacuation Code Status: Do Not Resuscitate - Medication Management Discharge Medications: Medications to Continue on Transfer Allopurinol [Allopurinol 100 MG (*)] 100 mg PO DAILY 02/28/17 [Last Taken ] Fluticasone Nasal [Flonase Nasal [place]] 1 sprays NASAL DAILY PRN 02/28/17 [Last Taken 09/28/17] Levothyroxine [Synthroid 25 mcg (*)] 25 mcg PO DAILY06 02/28/17 [Last Taken ] Pantoprazole Sodium [Protonix 40mg (*)] 40 mg PO DAILY #30 tab 03/12/17 [Last Taken 01/15/18] Loperamide HCl [Imodium 2 mg (*)] 2 mg PO Q6HRS PRN 05/20/17 [Last Taken Unknown ] Simethicone [Gas Relief] 80 mg PO QID PRN 05/20/17 [Last Taken 09/28/17] Albuterol [Proventil Inhaler HFA (*)] 2 puffs IH Q6H PRN 01/08/18 [Last Taken Unknown] Cyanocobalamin [Vitamin B12 (*)] 1,000 mcg PO DAILY 01/08/18 [Last Taken ] Lactase [Lactaid] 1 tab PO TIDMEAL 01/08/18 [Last Taken 01/15/18] Acetaminophen [Tylenol ES 500 mg (*)] 1,000 mg PO Q8 tab 01/21/18 [Last Taken Unknown] HYDROmorphone HCL [Dilaudid 2 mg (*)] 2 mg PO Q6H PRN #20 tab 01/21/18 [Last Taken Unknown] Discharge Medications: Refer to the Discharge Home Medication list for PRN reason. PICC Care - Routine: N/A - Orders Services needed: Registered Nurse, Physical Therapy, Occupational Therapy Diet Recommendation: no restrictions on diet Vaughn: Not applicable Additional Instructions: right leg wbat rom as tolerated change dressing prn keep dry - Labs/Radiology CBC w/diff Date: 01/09/18 (results to Dr. Escamilla) - Follow Up Care Current Providers and Referrals: Esther Escamilla MD [Medical Doctor] - (Referral for palliative care. He declined consult in hosp, but willing outpatient) Bhavna Bean MD [Primary Care Provider] - As per Instructions Haresh Arellano MD [Medical Doctor] - follow up in 10 days
--- NOTE | 2018-01-21 12:46 | ASMTDCNOTE ---
Case Management Discharge Discharge Order Complete? Answers: Yes Patient to Obtain Answers: Other Notes: [facility] Medications Transportation Arranged Answers: Other Notes: w/c arranged by [facility] Transport will Pick (Date 01/21/2018 01:30 PM & Time) Faxed Final Orders Answers: Yes Agency/Facility Transfer Answers: Yes Report Printed & Faxed to Receiving Agency Family Notified Answers: Yes Notes: left VM for daughter Fern Discharge Comments Notes: Pt discharge to [facility] rehab. Faxed final orders. RN called report. Sofi arranged w/c transport with [phone]. Faxed d/c orders to [facility] for outpatient follow. Date Signed: 01/21/2018 12:45 PM Electronically Signed By:Svetlana Arias RN
--- NOTE | 2018-01-21 12:46 | ASDISCHSUM ---
Discharge Information Plan Status:SNF Medically Cleared to Leave:01/22/2018 Discharge Date:01/22/2018 02:00 PM D/C Disposition:Detention Facility ADT D/C Disposition:Detention Facility Projected Discharge Date:01/20/2018 11:00 AM Transportation at D/C:[employer] Discharge Delay Reason: Follow-Up Date:01/20/2018 11:00 AM Discharge Slot: Final Diagnosis:R LE pain, Myelodysplastic synd Placement Information Referral Type:*Residential/SNF Referral ID:[id number] Provider Name:[facility] Address 1:[address] Address 2: City:[place] Selection Factors: State:[place] Referral Type:Palliative Care Referral ID:[id number] Provider Name:[facility] ([facility] Address 1:[address] [place] Address 2: City:[place] Selection Factors: State:[place] Patient Contact Information Contact Name:VERNON (POA) Relationship:Son Address:1954 Work Phone: City[place] Alternate Phone: [facility]/Zip Code:[place] [address] Email: Financial Information Financial Class:Medicare Advantage Plans Primary Plan Desc:ANIA MEDICARE ADV Primary Plan Number:[id number] Secondary Plan Desc: Secondary Plan Number: Assessment Information LACE LACE Length of stay for Answers: 4-6 days current admission Acuity / Level of Answers: Yes Care: Did the patient have an inpatient admission? Comorbidities - select Answers: Other Notes: MDS, HTN, gout, hx of all that apply prostate cancer, GORDY, G I bleed, hypothyroid, ane nella # of Emergency department Answers: 1-2 visits in the last 6 months Score: 9 Date Signed: 01/21/2018 12:44 PM Electronically Signed By:Svetlana Arias RN [facility] CM Progress Note CM Note CM Note Notes: Pt presented to the ED via EMS for RLE pain, swelling and difficulty ambulating. Pt was recently admitted 01/08-01/10 for right sided trochanteric bursitis and had received an aspiration as well as a steroid and lidocaine injection. Pt admitted for RLE hematoma; surgery consulting. Pt has a history of myelodysplastic syndrome, chronic blood loss anemia, pancytopenia; pt to receive PRBCs and was reportedly scheduled for a transfusion tomorrow. Hematology to consult. Pt lives in Assisted Living at [facility] ([phone]). Pt was recently discharged from [facility] on 01/10 w/[facility] PT/OT; reviewed [facility] 01/11 note and PT was discontinued due to pt not having HC PT needs. During last admission there had been discussion of pt d/c'ing to [facility] (he has been there in the past). Exact DC needs TBD. PT/OT evals pending. Anticipate pt DC to SNF or back to [facility] w/. Date Signed: 01/15/2018 02:33 PM Electronically Signed By:Whitley Leiva RN [facility] CM Progress Note CM Note CM Note Notes: Patient interested in going to [facility] on discharge. Referral sent to [facility]. Date Signed: 01/16/2018 03:25 PM Electronically Signed By:Tanya Poole LCSW BC CM Progress Note CM Note CM Note Notes: Chart reviewed. Plan remains to dc to [facility] when medically cleared for discharge, Plan: DC to [facility] Date Signed: 01/17/2018 05:01 PM Electronically Signed By:Echo Burt RN BC CM Progress Note CM Note CM Note Notes: Patient plan of care reviewed in interdisciplinary rounds. The patient suffers from MDS and was admitted from hematoma and greater trochanter bursitis. He is receiving blood transfusions and will need his H&H rechecked, experienced acute onset of pain this am. Ortho to see. Plan to [facility] when medically cleared for discharge . Plan: As above Date Signed: 01/18/2018 02:17 PM Electronically Signed By:Echo Burt RN [facility] CM Progress Note CM Note CM Note Notes: D/C plan for Pt continues to be [facility]. He may be d/c'ed tomorrow. Updates were requested from [facility] and sent. CM to follow. D/C Plan: [facility] Date Signed: 01/20/2018 02:13 PM Electronically Signed By:Eden Cortes Case Management Discharge Plan Note Case Management Discharge Discharge Order Complete? Answers: Yes Patient to Obtain Answers: Other Notes: [facility] Medications Transportation Arranged Answers: Other Notes: w/c arranged by [facility] Transport will Pick (Date 01/21/2018 01:30 PM & Time) Faxed Final Orders Answers: Yes Agency/Facility Transfer Answers: Yes Report Printed & Faxed to Receiving Agency Family Notified Answers: Yes Notes: left VM for daughter Fern Discharge Comments Notes: Pt discharge to [facility]. Faxed final orders. RN called report. Sofi arranged w/c transport with [phone] [employer]. Faxed d/c orders to [facility] for outpatient follow. Date Signed: 01/21/2018 12:45 PM Electronically Signed By:Svetlana Arias RN Intervention Information Intervention Type:*Incorrect Registration Date of Service:01/15/2018 01:52 PM Patient Type:Inpatient Staff Member:HEATHER Shafer, Valentina Hours: Discipline: Severity: Comment: Intervention Type:Post Acute Communication Date of Service:01/15/2018 02:46 PM Patient Type:Inpatient Staff Member:HEATHER Leiva, Whitley Hours:0.25 Discipline:Cushion Builder Severity: Comment:Notified [facility] that patient was being admitted.
[2018-01-22 04:20] LABS: PLATELET COUNT 64 10^3/uL (150-400)
[2018-01-22] MEDS: LEVOTHYROXINE 25 MCG TAB PO SCH (06:17)
[2018-01-22] MEDS: ACETAMINOPHEN 500 MG TAB PO SCH (06:17)
[2018-01-22 07:29] VITALS: BP 123/74
[2018-01-22] MEDS: LACTASE 3,000 UNIT TAB PO SCH ×2 (09:21→12:23)
[2018-01-22] MEDS: PANTOPRAZOLE SODIUM 40 MG TAB PO SCH (09:21)
[2018-01-22] MEDS: CYANO/VITAMIN B12 1000 MCG TAB PO SCH (09:21)
[2018-01-22] MEDS: ALLOPURINOL 100 MG TAB PO SCH (09:22)
--- NOTE | 2018-01-22 11:25 | PDDCSUM ---
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 Pain improved. #MDS: transfuse-dependent. blood counts stable this am, no transfusion indicated #ABLA: vessel was cauterized during recent fasciotomy, this may have been contributing to ongoing anemia, which is more stable today. Cont to monitor. #Coagulopathy: s/p IV Vit K, INR 1.2 this am. No bleeding. Follow. #Deconditioning- Pt remains weak and having difficulty transferring/ambulating independently--will dc to snf #Disp: D/C to SNF f/u with PCP after discharge from snf > 35 min spent in dc of patient, more than half in coordination of care
== END 2018-01-22 14:00 | DRG 501 ==
LOC: EDUNIT# → OBSVTOIN 10:28 → F1N 12:32 → F2N 15:42 → F1N 01-16 22:09 → F2N 01-18 18:40 → F1N 01-19 11:48
PROVIDERS: ADMIT Internal Medicine; ATTEND Internal Medicine
DX: M79.A21 Nontraumatic compartment syndrome of right lower extremity (principal); M79.81 Nontraumatic hematoma of soft tissue; D46.9 Myelodysplastic syndrome, unspecified; D62 Acute posthemorrhagic anemia; D61.818 Other pancytopenia; D68.9 Coagulation defect, unspecified; E03.9 Hypothyroidism, unspecified; M10.9 Gout, unspecified; G47.33 Obstructive sleep apnea (adult) (pediatric); I10 Essential (primary) hypertension; Z85.46 Personal history of malignant neoplasm of prostate; Z96.653 Presence of artificial knee joint, bilateral; Z96.611 Presence of right artificial shoulder joint; Z96.612 Presence of left artificial shoulder joint; Z87.891 Personal history of nicotine dependence; Z66 Do not resuscitate; Z92.3 Personal history of irradiation; Z23 Encounter for immunization
CPT/HCPCS: 85210-90; 85220-90; 85230-90; 85260-90; 96374; 97110-GP; 97116-GP; 97161-GP; 97166-GO; 97530-GO; 97535-GO; C1760; C1769; C1894; G0008; G8978-GP-CL; G8979-GP-CI; G8987-GO-CJ; G8988-GO-CI; G8989-GO-CJ; J0690; J1170; J1642; J1644; J2001; J2270; J2704; J3010; J3430; J7613; P9016; P9017; P9035; Q9967

== ENCOUNTER 2018-02-13 14:28 | Outpatient (CLI) | payer OTHER ==
[2018-02-13] MEDS ORDERED: ACETAMINOPHEN 325 MG TAB PO ONE (14:45)
[2018-02-13] MEDS ORDERED: FUROSEMIDE 20 MG/2 ML VIAL IVP ONE (14:45)
== END 2018-02-13 20:03 | disposition other institution (70) ==
LOC: FOBOP 14:28
PROVIDERS: ATTEND Internal Medicine Hematology & Oncology
PROC: 30233N1 Transfusion of Nonautologous Red Blood Cells into Peripheral Vein, Percutaneous Approach (ICD-10-PCS; principal; 2018-02-13)
DX: D46.9 Myelodysplastic syndrome, unspecified (principal)
CPT/HCPCS: 36430; J1642; J1940; P9016; P9040

== ENCOUNTER 2018-02-27 10:21 | Outpatient (CLI) | payer OTHER ==
[2018-02-27] MEDS ORDERED: ACETAMINOPHEN 325 MG TAB PO ONE (10:45)
[2018-02-27] MEDS ORDERED: FUROSEMIDE 20 MG/2 ML VIAL IVP ONE (10:45)
[2018-02-27] MEDS ORDERED: FUROSEMIDE 20 MG/2 ML VIAL ONE (12:57)
== END 2018-02-27 16:00 | disposition home or self-care (01) ==
LOC: FOBOP 10:21
PROVIDERS: ATTEND Internal Medicine Hematology & Oncology
PROC: 30233N1 Transfusion of Nonautologous Red Blood Cells into Peripheral Vein, Percutaneous Approach (ICD-10-PCS; principal; 2018-02-27)
DX: D46.9 Myelodysplastic syndrome, unspecified (principal)
CPT/HCPCS: 36430; J1642; J1940; P9016; P9040

== ENCOUNTER 2018-03-15 10:13 | Outpatient (CLI) | payer OTHER ==
[2018-03-15] MEDS ORDERED: diphenhydrAMINE 25 MG CAP PO ONE (10:30)
[2018-03-15] MEDS ORDERED: FUROSEMIDE 20 MG/2 ML VIAL IVP ONE (10:30)
[2018-03-15] MEDS ORDERED: ACETAMINOPHEN 325 MG TAB PO ONE (10:30)
== END 2018-03-15 16:20 | disposition home or self-care (01) ==
LOC: FOBOP 10:13
PROVIDERS: ATTEND Internal Medicine Hematology & Oncology
DX: D46.9 Myelodysplastic syndrome, unspecified (principal)
CPT/HCPCS: 36430; J1642; J1940; P9016; P9040

== ENCOUNTER 2018-03-29 11:10 | Outpatient (CLI) | payer OTHER ==
[2018-03-29] MEDS ORDERED: diphenhydrAMINE 25 MG CAP PO ONE ×2 (11:24→11:30)
[2018-03-29] MEDS ORDERED: ACETAMINOPHEN 325 MG TAB ONE (11:24)
[2018-03-29] MEDS ORDERED: ACETAMINOPHEN 325 MG TAB PO ONE (11:30)
[2018-03-29] MEDS ORDERED: FUROSEMIDE 20 MG/2 ML VIAL IVP ONE (11:30)
== END 2018-03-29 17:01 | disposition home or self-care (01) ==
LOC: FOBOP 11:10
PROVIDERS: ATTEND Internal Medicine Hematology & Oncology
DX: D46.9 Myelodysplastic syndrome, unspecified (principal)
CPT/HCPCS: 36430; J1642; J1940; P9016; P9040

== ENCOUNTER 2018-04-10 19:23 | Inpatient (IN) | payer OTHER ==
--- NOTE | 2018-04-10 19:47 | EDPHY ---
H & P Time Seen by Provider: 04/10/18 19:42 HPI/ROS: Chief complaint. Blood in urine HPI. Patient is an 88-year-old male with history of myelodysplastic syndrome and significant chronic severe anemia. He is due for blood transfusion tomorrow morning. Earlier today he noticed some blood in his urine. He talk to his physician about it today but could not give a urine sample. They sent him home with a container but he has been unable to urinate. He has a sense of full bladder but is concerned that he has clots in his urethra as he is not able to urinate. His daughter feels that he has been somewhat short of breath. No fever. No chest pain. No abdominal pain. However he does have urge to urinate. Patient had blood drawn earlier today that showed a hemoglobin of 5.5 and hematocrit of 17 with platelets 20,000. He denies fever. His white blood cell count was low. ROS 10 systems were reviewed and negative with the exception of the elements mentioned in the history of present illness Past Medical/Surgical History: Hypertension, gout, hypothyroid, prostate cancer, GI bleed, severe anemia, myelodysplastic syndrome. Social History: , nonsmoker, no alcohol Smoking Status: Former smoker Physical Exam: General Appearance: Alert well-developed male mild distress vital signs are stable. Eyes: Pupils equal and round no pallor or injection. ENT, Mouth: Mucous membranes are moist. Respiratory: There are no retractions, lungs are clear to auscultation. Cardiovascular: Regular rate and rhythm. Gastrointestinal: Abdomen is soft with apparent palpable bladder. Neurological: Awake and alert, sensory and motor exams grossly normal. Skin: Warm and dry, no rashes. Musculoskeletal: Neck is supple nontender. Extremities symmetrical, full range of motion. Psychiatric: Patient is oriented X 3, there is no agitation. Constitutional: Initial Vital Signs Temperature (C) 36.6 C 04/10/18 19:31 Heart Rate 93 04/10/18 19:31 Respiratory Rate 18 04/10/18 19:31 Blood Pressure 141/67 H 18 19:31 O2 Sat (%) 92 04/10/18 19:31 O2 Delivery Mode Room Air Allergies/Adverse Reactions: oxycodone Allergy (Unknown, Verified 04/10/18 19:30) Other-Enter Comments Home Medications: Medication Instructions Recorded Allopurinol [Allopurinol 100 MG 100 mg PO DAILY 02/28/17 (*)] Fluticasone Nasal [Flonase Nasal 1 sprays NASAL DAILY PRN 02/28/17 [place]] Levothyroxine [Synthroid 25 mcg 25 mcg PO DAILY06 02/28/17 (*)] Pantoprazole Sodium [Protonix 40mg 40 mg PO DAILY #30 tab 03/12/17 (*)] Loperamide HCl [Imodium 2 mg (*)] 2 mg PO Q6HRS PRN 05/20/17 Simethicone [Gas Relief] 80 mg PO QID PRN 05/20/17 Albuterol [Proventil Inhaler HFA 2 puffs IH PRN PRN 01/08/18 (*)] Cyanocobalamin [Vitamin B12 (*)] 1,000 mcg PO DAILY 01/08/18 Lactase [Lactaid] 1 tab PO TIDMEAL 01/08/18 HYDROmorphone HCL [Dilaudid 2 mg 2 mg PO Q6H PRN #20 tab 01/21/18 (*)] Acetaminophen [Tylenol ES 500 mg 1,000 mg PO Q8 PRN 02/27/18 (*)] traMADol [Ultram 50 mg (*)] 02/27/18 Medical Decision Making - Diagnostics Imaging Results: Imaging Impressions Chest X-Ray 04/10/18 20:07 Impression: 1. Decreased inspiration. Recommend repeat examination with improved inspiratory effort, if and when the patient is clinically able. There is possible evidence of a right basilar pneumonia.. 2. Increased cardiomegaly despite the decreased inspiratory phase. Possible new pericardial effusion. Chest x-ray interpreted by me shows no evidence for pneumonia. Increased heart size suggestive of new pericardial effusion Procedures: Vaughn catheter is placed after bladder scan shows more than 350 mL of urine in bladder. Morphine 2 mg IV for discomfort ED Course/Re-evaluation: On re-evaluation patient is stable. He is feeling much better. Patient and I and his daughter discussed low hematocrit and low platelets. We discussed hematuria as well as increased heart size possible pericardial effusion. We discussed treatment plan including recommendation for admission. They expressed understanding and agreement I consulted discussed case with , hospitalist, who agrees to the admission and sees the patient in the emergency department Differential Diagnosis: Patient with myelodysplastic syndrome and hematocrit of 15 and platelet count of 20. He has hematuria with acute urinary obstruction likely due to clots. Hematuria is more likely due to low platelet count. No evidence for infection. The patient may also have pericardial effusion - Data Points Laboratory Results: 04/10/18 20:56 Urine Color EMMETT Urine Appearance HAZY Urine pH 5.0 (5.0-7.5) Ur Specific [place] 1.023 (1.002-1.030) Urine Protein 2+ H (NEGATIVE) Urine Ketones NEGATIVE (NEGATIVE) Urine Blood 3+ H (NEGATIVE) Urine Nitrate NEGATIVE (NEGATIVE) Urine Bilirubin NEGATIVE (NEGATIVE) Urine Urobilinogen 4.0 EU H EU (0.2-1.0) Ur Leukocyte Esterase NEGATIVE (NEGATIVE) Urine RBC 50-182 /hpf H /hpf (0-3) Urine WBC 3-5 /hpf H /hpf (0-3) Ur Epithelial Cells NONE SEEN /lpf /lpf (NONE-1+) Urine Bacteria 1+ /hpf H /hpf (NONE SEEN) Urine Mucus TRACE /lpf /lpf (NONE-1+) Urine Glucose NEGATIVE (NEGATIVE) Medications Given: Discontinued Medications Sodium Chloride (Ns) 500 mls @ 1,000 mls/hr IV EDNOW ONE PRN Reason: Protocol Stop: 04/10/18 20:35 Last Admin: 04/10/18 20:27 Dose: 500 mls Morphine Sulfate (Morphine) 2 mg IVP EDNOW ONE Stop: 04/10/18 20:41 Last Admin: 04/10/18 20:42 Dose: 2 mg Departure - Departure Disposition: [place] Inpatient Acute Clinical Impression: Acute retention of urine, Myelodysplastic syndrome, Pancytopenia Hematuria Qualifiers: Hematuria type: gross Qualified Code(s): R31.0 - Gross hematuria Condition: Fair
[2018-04-10] MEDS ORDERED: NS 500 ML IV ONE (20:06)
[2018-04-10] MEDS ORDERED: ONDANSETRON DISINTEGRATING 4 MG TAB PO PRN (22:26)
[2018-04-10] MEDS ORDERED: ONDANSETRON 4 MG/2 ML VIAL IVP PRN (22:26)
[2018-04-10] MEDS ORDERED: ACETAMINOPHEN 325 MG TAB PO PRN (22:26)
--- NOTE | 2018-04-10 23:21 | ECHO ---
[email or web address] [address] [address] Main: [phone] Fax: Transthoracic Echocardiogram Name: SHAMAR RODRIGUEZ MR#: [id number] Study Date: 04/10/2018 Study Time: 10:15 PM Date of : 1930 Age: 88 year(s) Height: 172.7 cm (68 in.) Weight: 65.32 kg (144 lb.) BSA: 1.78 m2 Gender: Male Examination: Echo Indication: Chest Pain Image Quality: Adequate Contrast: Requested by: Jimi Burns BP: 148 mmHg/80 mmHg Heart Rate: Rhythm: Indication: Chest Pain Procedure Staff Order Make Up Clerk: Amanda Florez [facility] Reading Physician: Iman Guzman MD Requesting Provider: Conclusions: Normal size left ventricle. Moderately reduced systolic LV function. The ejection fraction is estimated to be 30-35 %. Mild to moderate LVH. Normal size right ventricle. Normal RV function. The left atrium is severely dilated. The right atrium is moderately dilated. Moderate mitral valve regurgitation is present. Moderate aortic valve regurgitation is present. Right ventricular systolic pressure measures 74mmHg. Moderate to severe tricuspid valve regurgitation. Moderate pericardial effusion. No definite evidence of tamponade Pericardial effusion measures around 1.5 cm circumferentially. Compared with 05/22/2017 LV function now moderately depressed. Pericardial effusion present. PHTN has progressed and valvular disease has progressed (prior transaortic gradients were higher due to better LVEF) Measurements: Chambers Valvular Assessment AV/MV Valvular Assessment TV/PV Normal Normal Normal Name Value Range Name Value Range Name Value Range Ao Radha (2D): 3.8 cm (1.4 cm-2.6 AV Vmax: 1.97 m/s (1 m/s-1.7 TR Vmax: 4.15 mm/s ( - ) cm) m/s) TR PGmax: 69 mmHg ( - ) IVSd (2D): 1.5 cm (0.6 cm-1.1 AV maxP mmHg ( - ) syst. PAP: 74 mmHg ( - ) cm) AV meanP mmHg ( - ) PV Vmax: 1.05 m/s (0.6 m/s-0.9 LVDd (2D): 5.6 cm (4.2 cm-5.9 LVOT Vmax: 0.91 m/s (0.7 m/s-1.1 m/s) cm) m/s) PV PGmax: 4 mmHg ( - ) LVDs (2D): 4.9 cm (2.1 cm-4 RHODA (Vmax): 1.9 cm2 ( - ) cm) RHODA (VTI): 2.1 cm ( - ) Patient: SHAMAR RODRIGUEZ Study Date: 04/10/2018 Page 1 of 3 10:15 PM LVPWd (2D): 1.4 cm (0.6 cm-1 AR (PHT): 126 ms ( - ) cm) MV E Vmax: 1.27 m/s ( - ) LVOTd 2.3 cm 2.3 cm mm MV A Vmax: 1.31 m/s ( - ) EF Range: 30-35 % MV E/A: 0.97 ( - ) RVDd(2D): 4.2 cm (1.9 cm-3.8 MV PHT: 0.047 s ( - ) cmmm) MVA (PHT): 4.7 s ( - ) Continued Measurements: Chambers Valvular Assessment AV/MV Valvular Assessment TV/PV Name Value Name Value Name Value LADs: 5.0 cm MV DecTime: 169 m/s CVP (est.): 5 mmHg LADs Lon.2 cm MV E/E' Lateral: 12.20 LA Area: 32.0 cm2 AR Vmax: 3.94 cm/s LA Volume: 125 ml LA Volume Index: 70.2 ml/m2 RA Area: 24.4 cm2 Additional Vessels Name Value Ao Ascendin.4 cm Inferior Vena Cava: 2.0 cm Findings: Left Ventricle: Normal size left ventricle. Moderately reduced systolic LV function. The ejection fraction is estimated to be 30-35 %. Diastolic dysfunction is present. . Mild to moderate LVH. Right Ventricle: Normal size right ventricle. Normal RV function. Left Atrium: The left atrium is severely dilated. Right Atrium: The right atrium is moderately dilated. Mitral Valve: The mitral valve is normal in appearance and function. Mild mitral valve leaflet calcification is present. No mitral stenosis is present. Moderate mitral valve regurgitation is present. Aortic Valve: The aortic valve is tri-leaflet. Moderate aortic cusp calcification is present. Moderate aortic valve regurgitation is present. Tricuspid Valve: The pulmonary artery pressure is severely increased. Right ventricular systolic pressure measures 74mmHg. Moderate to severe tricuspid valve regurgitation. Pulmonic Valve: The pulmonic valve is normal in appearance and function. Mild pulmonic valve regurgitation is noted. Aorta: The aorta is normal. Normal size aortic root measuring 3.8 cm. Normal size ascending aorta measuring 3.4 cm. IVC: The IVC is normal sized. Pericardium: Moderate pericardial effusion. No definite evidence of tamponade Pericardial effusion measures around 1.5 cm circumferentially. (No Signature Object) Patient: SHAMAR RODRIGUEZ Study Date: 04/10/2018 Page 2 of 3 10:15 PM Patient: SHAMAR RODRIGUEZ Study Date: 04/10/2018 Page 3 of 3 10:15 PM [id number]
[2018-04-10 23:29] LABS: INR 1.56 (0.83-1.16); PROTIME(PATIENT) 18.8 SEC (12.0-15.0)
[2018-04-10 23:45] LABS: PLATELET COUNT 17 10^3/uL (150-400)
--- NOTE | 2018-04-11 02:04 | PDGENHP ---
History and Physical - Chief Complaint Shortness of breath, pallor - History of Present Illness Source-patient provides majority of the history appears reliable. His daughter Fern is a bedside supplements some details. EMR was reviewed and case discussed with accepting hospitalist. HPI-this is a very pleasant 80-year-old gentleman with past medical history significant for myelodysplastic syndrome and chronic pancytopenia with needs for recurrent transfusions, history GI bleeding remotely, gout, HTN, history of prostate cancer status post prostatectomy and history of PICC associated DVT presents emergency department today with complaints of worsening dyspnea for the last several days. Patient is predominantly wheelchair dependent but with any sort of movement he becomes dyspneic. His daughter reports that he also appears more pale than normal. He had a a lab draw this morning in anticipation for a need for transfusion tomorrow by the hematology service. His laboratory studies were noted to be significantly low and patient was recommended to go to the emergency department. Additionally patient was having issues ongoing since yesterday intermittently and then constantly with hematuria and urinary retention. A Ngo catheter was placed in the emergency department with frankly bloody urine. Patient also reports that he has been having some increasing abdominal pain and chronic ongoing diarrhea/loose stools. He states that he is unsure if there is bright red blood in his stool verses blood from his urine in the toilet in over the last several days. He denies any melena. Patient denies any fevers or chills. History Information - Allergies/Home Medication List Allergies/Adverse Reactions: oxycodone Allergy (Unknown, Verified 04/10/18 19:30) Other-Enter Comments Home Medications: Allopurinol [Allopurinol 100 MG (*)] 100 mg PO DAILY 02/28/17 [Last Taken ] Fluticasone Nasal [Flonase Nasal [place]] 1 sprays NASAL DAILY PRN 02/28/17 [Last Taken 09/28/17] Levothyroxine [Synthroid 25 mcg (*)] 25 mcg PO DAILY06 02/28/17 [Last Taken ] Loperamide HCl [Imodium 2 mg (*)] 2 mg PO Q6HRS PRN 05/20/17 [Last Taken ] Simethicone [Gas Relief] 80 mg PO QID PRN 05/20/17 [Last Taken 02/27/18] Albuterol [Proventil Inhaler HFA (*)] 2 puffs IH PRN PRN 01/08/18 [Last Taken Unknown] Cyanocobalamin [Vitamin B12 (*)] 1,000 mcg PO DAILY 01/08/18 [Last Taken ] Lactase [Lactaid] 1 tab PO TIDMEAL 01/08/18 [Last Taken 02/27/18] Acetaminophen [Tylenol ES 500 mg (*)] 1,000 mg PO Q8 PRN 02/27/18 [Last Taken Unknown] traMADol [Ultram 50 mg (*)] 02/27/18 [Last Taken 02/27/18] I have personally reviewed and updated: family history, medical history, social history, surgical history - Past Medical History cancer (Prostate cancer, MDS), hypertension Additional medical history: 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 Hypertension. Prostate cancer. Gout. PICC line associated upper extremity DVT - Surgical History Additional surgical history: Bilateral TKA. Prostatectomy in the - Family History Additional family history: No 1st degree relatives with colon cancer. Daughter is healthy. - Social History Smoking Status: Former smoker Alcohol Use: None Drug Use: None Additional social history: Resides at [facility]. Patient is primarily wheelchair dependent. Cor status-DNR DNI Review of Systems Review of Systems: ROS: 10pt was reviewed & negative except for what was stated in HPI & below Constitutional: Reports: malaise, weakness (Generalized weakness). Denies: chills, fever EENMT: Reports: no symptoms Cardiac: Reports: edema (Chronic lower extremity edema close to baseline.). Denies: chest pain, lightheadedness, palpitations, syncope Respiratory: Reports: shortness of breath (Dyspnea on exertion.). Denies: cough , orthopnea Gastrointestinal: Reports: blood streaked stools (Patient unable to ascertain if the bright red blood is related to his hematuria or also in his stool), rectal bleeding, abdominal pain, diarrhea (Chronic). Denies: black stools Genitourinary: Reports: hematuria, other (Urinary retention today N yesterday without previous history status post prostatectomy for prostate cancer..) Muscolosketal: Denies: back pain, joint pain, muscle pain Skin: Reports: dryness, other (Pallor). Denies: lesions, rash Neurological: Reports: no symptoms, weakness (Generalized) Hematologic/Lymphatic: Reports: anemia Physical Exam Physical Exam: Selected Entries 04/10/18 19:31 Blood Pressure Automatic Method Heart Rate 93 Respiratory 18 Rate O2 Sat (%) 92 Temperature (C) 36.6 C Blood Pressure 141/67 H Mean Arterial 91 Pressure (MAP) O2 Delivery Room Air Mode Temperature Oral Source Temp Pulse Resp BP Pulse Ox 36.5 C 96 17 136/84 H 96 04/10/18 23:37 04/10/18 23:37 04/10/18 23:37 04/10/18 23:37 04/10/18 23:37 O2 (L/minute) 2 Constitutional: no apparent distress, appears nourished, not in pain, chronically ill appearing, other (NAD. Pale elderly frail-appearing male is lying quietly in bed.) Eyes: PERRL (Lens reflex appreciated bilaterally and symmetric.), anicteric sclera, EOMI, No scleral injection Ears, Nose, Mouth, Throat: moist mucous membranes, poor dentition, other (No nasal discharge) Cardiovascular: pulses symmetric bilaterally, tachycardia, edema (Trace to 1+ lower extremity edema to the mid lower legs.), other (Slightly distant heart sounds limiting exam.) Peripheral Pulses: 1+: dorsalis-pedis (R), dorsalis-pedis (L) Respiratory: no respiratory distress, no rales or rhonchi, clear to auscultation , reduced air movement (Poor inspiratory effort bibasilarly ), No expiratory wheeze, No inspiratory crackles, No respiratory distress Gastrointestinal: normoactive bowel sounds, soft, non-tender abdomen, no palpable masses, No distension Genitourinary: no bladder tenderness, ngo in urethra Skin: warm, no rashes or abrasions, other (Pallor, dry skin diffusely.), No normal color, No mottled Musculoskeletal: generalized weakness, other (Patient is able to move his upper lower extremities while lying in bed. Overall significant generalized deconditioning weakness.) Neurologic: AAOx3, other (Grossly nonfocal exam. Sensation is intact to upper lower extremities.), No facial droop Psychiatric: interacting appropriately, not anxious, not encephalopathic, thought process linear, No agitated, No poor memory Lab Data & Imaging Review 04/10/18 23:10 WBC 0.93 10^3/uL (3.80-9.50) L* 04/10/18 23:10 RBC 1.56 10^6/uL (4.40-6.38) L 04/10/18 23:10 Hgb 4.9 g/dL (13.7-17.5) L* 04/10/18 23:10 Hct 14.8 % (40.0-51.0) L* 04/10/18 23:10 MCV 94.9 fL (81.5-99.8) 04/10/18 23:10 MCH 31.4 pg (27.9-34.1) 04/10/18 23:10 MCHC 33.1 g/dL (32.4-36.7) 04/10/18 23:10 RDW 17.2 % (11.5-15.2) H 04/10/18 23:10 Plt Count 17 10^3/uL (150-400) L* 04/10/18 23:10 MPV TNP 04/10/18 23:10 Neut % (Auto) Not Reported 04/10/18 23:10 Lymph % (Auto) Not Reported 04/10/18 23:10 [place] % (Auto) Not Reported 04/10/18 23:10 Eos % (Auto) Not Reported 04/10/18 23:10 Baso % (Auto) Not Reported 04/10/18 23:10 Nucleat RBC Rel Count Not Reported 04/10/18 23:10 Absolute Neuts (auto) Not Reported 04/10/18 23:10 Absolute Lymphs (auto) Not Reported 04/10/18 23:10 Absolute Monos (auto) Not Reported 04/10/18 23:10 Absolute Eos (auto) Not Reported 04/10/18 23:10 Absolute Basos (auto) Not Reported 04/10/18 23:10 Absolute Nucleated RBC Not Reported 04/10/18 23:10 Immature Gran % Not Reported 04/10/18 23:10 Seg Neutrophils % 49.8 % 04/10/18 23:10 Band Neutrophils % 0.0 % 04/10/18 23:10 Lymphocytes % 44.1 % 04/10/18 23:10 Monocytes % 4.6 % 04/10/18 23:10 Eosinophils % 0.0 % 04/10/18 23:10 Basophils % 1.5 % 04/10/18 23:10 Metamyelocytes % 0.0 % 04/10/18 23:10 Myelocytes % 0.0 % 04/10/18 23:10 Promyelocytes % 0.0 % 04/10/18 23:10 Blast Cells % 0.0 % 04/10/18 23:10 Immature Gran # Not Reported 04/10/18 23:10 Absolute Seg Neuts 0.46 10^3/uL (1.70-6.50) L 04/10/18 23:10 Absolute Band Neuts 0.00 10^3/uL (0.00-0.70) 04/10/18 23:10 Absolute Lymphocytes 0.41 10^3/uL (1.00-3.00) L 04/10/18 23:10 Absolute Monocytes 0.04 10^3/uL (0.30-0.80) L 04/10/18 23:10 Absolute Eosinophils 0.00 10^3/uL (0.03-0.40) L 04/10/18 23:10 Absolute Basophils 0.01 10^3/uL (0.02-0.10) L 04/10/18 23:10 Absolute Metamyelocyte 0.00 10^3/mL (0.00-0.00) 04/10/18 23:10 Absolute Myelocytes 0.00 10^3/mL (0.00-0.00) 04/10/18 23:10 Absolute Promyelocytes 0.00 10^3/uL (0.00-0.00) 04/10/18 23:10 Absolute Plasma Cells 0.00 10^3/uL (0.00-0.00) 04/10/18 23:10 Nucleated RBCs 1.5 /100 WBC (0-0) H 04/10/18 23:10 Absolute Blast Cells 0.00 10^3/uL (0.00-0.00) 04/10/18 23:10 Plasma Cells % 0.0 % 04/10/18 23:10 Platelet Estimate DECREASED (ADEQ) L 04/10/18 23:10 Polychromasia 1+ H 04/10/18 23:10 Hypochromasia 1+ H 04/10/18 23:10 Acanthocytes (Spur) 1+ H 04/10/18 23:10 Schistocytes 1+ H 04/10/18 23:10 PT 18.8 SEC (12.0-15.0) H 04/10/18 23:10 INR 1.56 (0.83-1.16) H 04/10/18 23:10 APTT 36.7 SEC (23.0-38.0) 04/10/18 23:10 Urine Color EMMETT 04/10/18 20:56 Urine Appearance HAZY 04/10/18 20:56 Urine pH 5.0 (5.0-7.5) 04/10/18 20:56 Ur Specific [place] 1.023 (1.002-1.030) 04/10/18 20:56 Urine Protein 2+ (NEGATIVE) H 04/10/18 20:56 Urine Ketones NEGATIVE (NEGATIVE) 04/10/18 20:56 Urine Blood 3+ (NEGATIVE) H 04/10/18 20:56 Urine Nitrate NEGATIVE (NEGATIVE) 04/10/18 20:56 Urine Bilirubin NEGATIVE (NEGATIVE) 04/10/18 20:56 Urine Urobilinogen 4.0 EU (0.2-1.0) H 04/10/18 20:56 Ur Leukocyte Esterase NEGATIVE (NEGATIVE) 04/10/18 20:56 Urine RBC 50-182 /hpf (0-3) H 04/10/18 20:56 Urine WBC 3-5 /hpf (0-3) H 04/10/18 20:56 Ur Epithelial Cells NONE SEEN /lpf (NONE-1+) 04/10/18 20:56 Urine Bacteria 1+ /hpf (NONE SEEN) H 04/10/18 20:56 Urine Mucus TRACE /lpf (NONE-1+) 04/10/18 20:56 Urine Glucose NEGATIVE (NEGATIVE) 04/10/18 20:56 Patient ABO/Rh O NEGATIVE 04/10/18 23:00 Antibody Screen NEGATIVE 04/10/18 23:00 Crossmatch IS Only See Detail 04/10/18 23:10 Platelet Orders Status Cancelled 04/10/18 23:10 Imaging Review: Portable Chest, 20:43 History: Chest pain, dyspnea, infection Comparison: November 29, 2017 Findings: Inspiratory phase is decreased. The heart looks larger which is at least be partially related to the decreased inspiration, however it also looks more globular in shape and which could just a new pericardial effusion. New grayness in the right costophrenic gutter and possible patchy infiltrate at the right lung base suggests a possible right basilar infiltrate with small pleural effusion. There is chronic atherosclerotic calcification of the thoracic aorta. An implanted port remains in place with tip of its catheter in the superior vena cava. There is chronic osteoarthritis of both shoulder joints and in the upper thoracic dextroscoliosis. Impression: 1. Decreased inspiration. Recommend repeat examination with improved inspiratory effort, if and when the patient is clinically able. There is possible evidence of a right basilar pneumonia.. 2. Increased cardiomegaly despite the decreased inspiratory phase. Possible new pericardial effusion. Dictated By: Familia Richey MD Assessment & Plan Assessment: This is a very pleasant 80-year-old gentleman with past medical history significant for myelodysplastic syndrome and chronic pancytopenia with needs for recurrent transfusions, history GI bleeding remotely, gout, HTN, history of prostate cancer status post prostatectomy and history of PICC associated DVT presents emergency department today with complaints of worsening dyspnea for the last several days and notes severe anemia on outpatient AM labs ordered by hematology. #Pancytopenia (Acute) - acute on chronic anemia related to MDS with acute blood loss component. patient H&H is significantly declined and requires transfusion. Additionally his platelet count has dropped down to 20,000. He is having hematuria at this time. He denies any melena and is unclear if he is having any hematochezia as he voids and stools at the same time. Patient does have a history of GI bleeding in the past. #Pericardial effusion - stat echo was obtained and notes a moderate pericardial effusion. Patient without any evidence of tamponade on echo or clinically. Patient also with the EF of 30-35%. Will plan to diurese in between units. Cardiology consultation in the morning as per day team. #Hematuria (Acute) - patient reported some hematuria prior to having a Ngo placed. He continues to have on chino blood in his urine output. Will transfuse patient with PRBCs and platelets and monitor for resolution of his hematuria. May need to consider a continuous bladder irrigation when anemia and thrombocytopenia are improved. #Myelodysplastic syndrome (Acute) - heme on consultation in the morning as per day team. Patient is followed by Dr. Escamilla. #Acute retention of urine (Acute) - patient with history of prostate cancer status post prostatectomy in the 90s. He denies any previous issues with urinary retention. When the Ngo catheter was placed there was passage of a large clot which was likely obstructing patient's outlet. Patient having had adequate urine output but remains bloody at this time. Plan as noted above. # chronic systolic and diastolic CHF compensated - patient with persistent lower extremity edema that appears to be at baseline. He denies any orthopnea or PND. Will plan to diurese in between units of blood products and hold off on IV fluid supplementation. #Benign essential hypertension - blood pressure is adequate at this time. Monitor blood pressures while patient is being transfused. He is not chronically on any medications per his available med rec. FEN - holding off IV fluids at this time. Cardiac low-salt diet as tolerated. Electrolytes are currently adequate do not require replacement. PPX-SCDs. Holding off anticoagulation in setting of pancytopenia and active hematuria. Patient does have history of PICC associated DVT previously. Cor status-DNR DNI Disposition-patient admitted inpatient status on the PCU floor for close cardiac monitoring in setting of a new moderate pericardial effusion, identification of systolic and diastolic CHF, severe anemia related to MDS and acute blood loss. Anticipate greater than 2 midnight stay given the severity of patient's illness.
[2018-04-11] MEDS ORDERED: FUROSEMIDE 20 MG/2 ML VIAL ONE (03:04)
[2018-04-11] MEDS ORDERED: FUROSEMIDE 20 MG/2 ML VIAL IVP ONE (03:15)
--- NOTE | 2018-04-11 11:06 | PDMN ---
Medical Necessity Medical necessity: Pt meets inpt criteria per MD order and MCG M-35, Anemia, Iron Deficiency or Unspecified. 88 y/o presented w/worsening dyspnea and significant anemia w/ H&H of 4.9, 14.8, WBC's .93, high risk low platelet count of 17, admitted w/new, moderate pericardial effusion, systolic and diastolic CHF , severe anemia, hematuria, and acute urinary retention. Blood transfusion, diuresis, PCU care. Hx of myelodysplastic syndrome, chronic pancytopenia, recurrent transfusions, GI bleed, HTN, prostatectomy for prostate ca. Est LOS> 2MN given severity of pt's illness.
--- NOTE | 2018-04-11 11:16 | HOSPPROG ---
Hospitalist Progress Note Assessment/Plan: 88-year-old man with a history of MDS is admitted with increasing shortness of breath. He is notably pancytopenic likely causing his current symptoms as well as his hematuria. Evaluation included an echocardiogram which did show moderate pericardial effusion which is new. After discussion with Cardiology this is likely related to bleeding into the pericardium. He currently shows no evidence of acute tamponade. # pancytopenia secondary to MDS, concerning for possible progression to acute leukemia. Patient in the past has just wanted supportive care without treatment , generally getting transfusions every 2-3 weeks * Recheck labs and transfuse as needed * Discussed with Oncology who will see patient in consultation * May need to set up hospice, patient currently with palliative care # hematuria, new finding this is likely related to his low platelets will continue to follow while we replaced his platelets. Ngo placed in emergency department due to urinary retention. His abdominal pain has improved since placement of the Ngo # pericardial effusion without evidence of tamponade. Concerning for possible bloody effusion due to his pancytopenia. * Monitor for symptoms of tachycardia and hypotension which would be concerning for tamponade * Low threshold for limited echocardiogram to follow * Discussed with Cardiology * Patient high risk for any type of pericardial tap # hypertension # hypothyroidism, on replacement # nocturnal hypoxia # history of prostate cancer # depression # cognitive decline Subjective: Patient new to me and chart reviewed. Denies any significant symptoms at this time quite tired out after PT Objective: Vital Signs Temp Pulse Resp BP Pulse Ox 36.8 C 96 20 139/85 H 96 04/11/18 08:00 04/11/18 08:00 04/11/18 08:00 04/11/18 08:00 04/11/18 08:00 Laboratory Results 04/10/18 23:10 04/10/18 04/11/18 04/12/18 05:59 05:59 05:59 Intake Total 1450 Output Total 1900 1000 Balance -450 -1000 PT 18.8 SEC (12.0-15.0) H 04/10/18 23:10 INR 1.56 (0.83-1.16) H 04/10/18 23:10 - Physical Exam Constitutional: no apparent distress, uncomfortable Eyes: PERRL Ears, Nose, Mouth, Throat: moist mucous membranes Cardiovascular: regular rate and rhythym, systolic murmur Respiratory: no respiratory distress, reduced air movement Gastrointestinal: soft, non-tender abdomen Genitourinary: ngo in urethra Skin: normal color Musculoskeletal: generalized weakness Psychiatric: interacting appropriately ICD10 Worksheet Patient Problems: Problems Problem Status Onset Acute retention of urine Acute Hematuria Acute Myelodysplastic syndrome Acute Pancytopenia Acute Anemia Acute Hematoma of thigh Acute Hip pain, right Acute Lower GI bleed Acute Thigh pain Acute
[2018-04-11] MEDS ORDERED: SIMETHICONE 80 MG TAB CHEW PO PRN (11:17)
[2018-04-11] MEDS ORDERED: ALBUTEROL 60 PUFFS/8 GM MDI IH PRN (11:17)
[2018-04-11] MEDS ORDERED: FLUTICASONE NASAL 120 SPRAYS/16 GM MDI EACHNARE PRN (11:17)
[2018-04-11] MEDS ORDERED: LOPERAMIDE HCL 2 MG CAP PO PRN (11:17)
[2018-04-11] MEDS ORDERED: HYDROmorphONE/DILAUDID 2 MG TAB PO PRN (11:17)
[2018-04-11] MEDS: PANTOPRAZOLE SODIUM 40 MG TAB PO SCH (12:38)
[2018-04-11] MEDS: ALLOPURINOL 100 MG TAB PO SCH (12:38)
[2018-04-11 13:30] LABS: PLATELET COUNT 46 10^3/uL (150-400)
[2018-04-11 14:36] LABS: INR 1.51 (0.83-1.16); PROTIME(PATIENT) 18.4 SEC (12.0-15.0)
[2018-04-11] MEDS: traMADol 50 MG TAB PO SCH ×2 (15:43→22:02)
--- NOTE | 2018-04-11 21:29 | ASMTCMCOM ---
CM Note CM Note Notes: 04/11/2018 Case Management Note Discussed pt during rounds. Pt admitted for SOB, urinary retention, hematuria and anemia. Pt has pericardial effusion. Dr. Lind to consult today. Met w/pt daughter Fern [phone]. Pt son Jace is MARCIA Shirley. Pt recently . Pt lives at [facility]. [place] provides meals, med management, and housekeeping. Pt recently increased supports to include help with ADL's. Pt is current with [facility]. Faxed updates. Daughter recently used [facility] for her mother and would prefer [facility] if necessary for pt. Daughter awaiting visit from Dr. Lind to understand pt condition prior to making any discharge plans. Discussed with PT, PT is recommending Home Care. Case Management d/c poc: to be determined. Case Management to follow. Date Signed: 04/11/2018 11:44 AM Electronically Signed By:Svetlana Arias RN
--- NOTE | 2018-04-11 21:31 | ASMTCMCOM ---
CM Note CM Note Notes: 04/11/2018 Case Management Note Met w/pt to discuss d/c plan. Pt deferred hospice agency choice to daughter. Phone call to Fern [phone]. Fern prefers [facility]. Faxed updates on all scripts to [facility]. Left VM with liason to arrange meeting with pt and daughter. Anticipating d/c tomorrow after equipment is delivered to [facility]. Notified [facility]. Willing to accept pt back. Case Management d/c poc: [facility] at [facility]. Case Management to follow. Date Signed: 04/11/2018 01:30 PM Electronically Signed By:Svetlana Arias RN
--- NOTE | 2018-04-11 21:34 | ASMTCMCOM ---
CM Note CM Note Notes: 04/11/2018 Case Management Note Phone call from [facility]. Meeting with daughter and patient set for tonight at 1800. [facility] to deliver equipment tomorrow if needed. [facility] brim and crown presser to meet pt and daughter at [facility] at 1400 on Tuesday. Case Management d/c poc: [facility] at [facility] Case Management to follow. Date Signed: 04/11/2018 03:12 PM Electronically Signed By:Svetlana Arias RN
--- NOTE | 2018-04-11 23:27 | GCON ---
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 HISTORY OF PRESENT ILLNESS: The patient is an 88-year-old man with a history of transfusion-dependent myelodysplastic syndrome. He presented in June 2017 with transfusion-dependent anemia. A bone marrow biopsy revealed mild dysplasia with excess blasts. 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 After some discussion with Dr. Escamilla, he elected for transfusion support only. He has been maintained on red cell transfusion since that time. In the past few months, his transfusion requirement has increased, and he has gotten 17 units of red cells over the past 3 months. In the past 2 weeks, his platelet count began to fall, and he has he has received platelet transfusions as well. Last night, he developed hematuria as well as inability to void and was taken to the emergency department. A Vaughn catheter was placed and yielded bloody urine, which provided some relief. He is also complaining of shortness of breath, and an echocardiogram revealed a moderate-sized pericardial effusion. LABS: White count of 0.93, hemoglobin of 4.9, and platelets of 17. He received 2 units of red blood cells last night and says he is feeling somewhat better though still fairly tired. PAST MEDICAL HISTORY: Otherwise, unremarkable. CURRENT MEDICATIONS: Include allopurinol, hydromorphone as needed, Synthroid, Imodium as needed, Protonix, simethicone, vitamin B12. ALLERGIES: oxycodone. FAMILY HISTORY: Noncontributory. SOCIAL HISTORY: He is a nonsmoker and a nondrinker. He lives in assisted living. REVIEW OF SYSTEMS: Aside from pertinent positives in HPI, a 14-point review of systems was negative. EXAMINATION: VITAL SIGNS: His temperature was 36.4, blood pressure 118/59, heart rate 90, oxygen saturation 98% on 2 L. GENERAL: He was an elderly man in no acute distress. Breathing comfortably. Sclerae anicteric. Oropharynx clear. NECK: Supple without lymphadenopathy. LUNGS: Clear to auscultation bilaterally. CARDIAC: Regular rate and rhythm. No murmurs, gallops, rubs. ABDOMEN: Normoactive bowel sounds. Nontender, nondistended. EXTREMITIES: Without edema. SKIN: No petechiae, purpura, or rashes. LABORATORY DATA: Reviewed in the HPI. IMPRESSION: This is an 88-year-old man with myelodysplasia, who now presents with worsening pancytopenia. This is likely due to the transformation of his disease to acute leukemia, which is very commonly seen with high-risk myelodysplasia. Untreated, the median overall survival is in the order of 1-2 months. We discussed his options. There are some treatments available for acute myeloid leukemia, such as azacitidine plus a new oral medication called venetoclax. However, these medications can have significant side effects and would likely make his counts worse before they get better. In addition, prior to this, he has opted for supportive care alone. He expressed interest in enrolling in hospice and does not want any further aggressive therapy. I think this is very reasonable in light of his age and the overall poor prognosis of this type of leukemia, and his stated wishes. We will arrange for hospice consultation today. I will check a CBC to make sure he is responding to the transfusion. We likely would not continue with further transfusions unless the hospice team feels that they will help with comfort. We may elect to leave the Vaughn catheter in to avoid urinary obstruction. The patient has expressed the wish to leave the hospital as soon as possible, so we will try to arrange all this so he can go home tomorrow. Thank you for consultation. We will continue to follow patient with you while he is in the hospital. /[id number]/MODL MTDD
[2018-04-12] MEDS ORDERED: LEVOTHYROXINE 25 MCG TAB PO SCH (06:00)
[2018-04-12 06:10] LABS: PLATELET COUNT 28 10^3/uL (150-400)
[2018-04-12] MEDS ORDERED: CYANO/VITAMIN B12 1000 MCG TAB PO SCH (09:00)
[2018-04-12] MEDS: ALLOPURINOL 100 MG TAB PO SCH (09:14)
[2018-04-12] MEDS: PANTOPRAZOLE SODIUM 40 MG TAB PO SCH (09:14)
[2018-04-12] MEDS: traMADol 50 MG TAB PO SCH (09:15)
--- NOTE | 2018-04-12 11:10 | PDHOMEO2F ---
Home Oxygen Face to Face Home Orders: I certify that a physician or a nurse practitioner or physician's operations and intelligence assistant has had a [id number] encounter with this patient on the date of this order due to the diagnosis listed, which relates to the primary reason the patient requires home oxygen. Alternative treatments have been tried, or considered, and deemed ineffective. It is anticipated that supplemental oxygen will result in improvement with treatment. Home oxygen qualifying diagnosis: chf SpO2 on room air (%): 73 Frequency of home oxygen needed: continuous Home oxygen liters per minute: 4 Home oxygen delivery device: nasal cannula Concentrator: Yes E-tanks for mobility and back up: Yes If ordering portable O2, is the patient mobile in the home?: Yes I certify that, based on these findings, the home oxygen is medically necessary for this patient for the following length of time. Length of time home oxygen needed: 99 years
[2018-04-12] MEDS ORDERED: FUROSEMIDE 20 MG/2 ML VIAL IVP ONE (11:43)
[2018-04-12 11:45] VITALS: BP 117/67
--- NOTE | 2018-04-12 11:50 | PDDCSUM ---
Discharge Summary Discharge Summary: 88-year-old man with a history of MDS is admitted with increasing shortness of breath. He is notably pancytopenic likely causing his current symptoms as well as his hematuria. Evaluation included an echocardiogram which did show moderate pericardial effusion which is new. After discussion with Cardiology this is likely related to bleeding into the pericardium. He currently shows no evidence of acute tamponade. He was also evaluated by Oncology. 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 He received PRBC transfusion. He was diuresed. He received additional diuresis on the day of discharge. Ultimately a decision for hospice care was reached and this has been set up through [facility]. DDX # pancytopenia secondary to MDS, concerning for possible progression to acute leukemia. Patient in the past has just wanted supportive care without treatment , generally getting transfusions every 2-3 weeks # hematuria, new finding this is likely related to his low platelets will continue to follow while we replaced his platelets. Vaughn placed in emergency department due to urinary retention. His abdominal pain has improved since placement of the Vaughn -Vaughn is being left in. Would not remove at this time # pericardial effusion without evidence of tamponade. Concerning for possible bloody effusion due to his pancytopenia. # hypertension # hypothyroidism, on replacement # nocturnal hypoxia # history of prostate cancer # depression # cognitive decline Exam: chronically ill appearing male NAD alert RRR decreased lung sounds meds: see med rec total time spent on d/c is 35 mins. d/w pharmacy, nursing, CM, patient, and patients daughter
--- NOTE | 2018-04-12 11:51 | PDIAF ---
- Diagnosis Diagnosis: myelodysplastic syndrome Code Status: Do Not Resuscitate - Medication Management Discharge Medications: electronically signed and located in the Home Medication List. - Orders Diet Recommendation: no restrictions on diet Diet Texture: Regular Texture Diet Additional Instructions: Activity: as tolerated - Follow Up Care Current Providers and Referrals: Bhavna Bean MD [Primary Care Provider] - As per Instructions
--- NOTE | 2018-04-12 11:52 | ASMTLACE ---
LACE Length of stay for Answers: 2 days current admission Acuity / Level of Answers: Yes Care: Did the patient have an inpatient admission? Comorbidities - select Answers: Any tumor (including all that apply lymphoma or leukemia) Other Notes: Myelodysplastic syndrome; Severe anemia; HTN # of Emergency department Answers: 3-4 visits in the last 6 months Score: 11 Date Signed: 04/12/2018 11:52 AM Electronically Signed By:France Kauffman
--- NOTE | 2018-04-12 11:56 | ASDISCHSUM ---
Discharge Information Plan Status:Hospice-Home Medically Cleared to Leave:04/11/2018 Discharge Date:04/11/2018 CM D/C Disposition:Hospice Home ADT D/C Disposition:Hospice Facility Projected Discharge Date:04/12/2018 11:00 AM Transportation at D/C:Family Discharge Delay Reason: Follow-Up Date:04/12/2018 11:00 AM Discharge Slot: Final Diagnosis:Hematuria, urinary retention Placement Information Referral Type:Palliative Care Referral ID:[id number] Provider Name: Address 1: Phone Number: Address 2: Fax Number: City: Selection Factors: State: Referral Type:*Hospice Referral ID:[id number] Provider Name:[facility] Address 1:[address] [place] Address 2: City:[place] Selection Factors: State:[place] Patient Contact Information Contact Name:VERNON (POA) Relationship:Son Address:1954 Work Phone: City:[place] Alternate Phone: [facility]/Zip Code:[place] [address] Email: Financial Information Financial Class:Medicare Advantage Plans Primary Plan Desc:[place] MEDICARE ADV Primary Plan Number:[id number] Secondary Plan Desc: Secondary Plan Number: Assessment Information LACE LACE Length of stay for Answers: 2 days current admission Acuity / Level of Answers: Yes Care: Did the patient have an inpatient admission? Comorbidities - select Answers: Any tumor (including all that apply lymphoma or leukemia) Other Notes: Myelodysplastic syndrome; Severe anemia; HTN # of Emergency department Answers: 3-4 visits in the last 6 months Score: 11 Date Signed: 04/12/2018 11:52 AM Electronically Signed By:France Kauffman [facility] CM Progress Note CM Note CM Note Notes: 04/11/2018 Case Management Note Discussed pt during rounds. Pt admitted for SOB, urinary retention, hematuria and anemia. Pt has pericardial effusion. Dr. Lind to consult today. Met w/pt daughter Fern [phone]. Pt son Jace is MARCIA [place]. Pt recently . Pt lives at [facility] provides meals, med management, and housekeeping. Pt recently increased supports to include help with ADL's. Pt is current with [facility]. Faxed updates. Daughter recently used [facility] for her mother and would prefer [facility] if necessary for pt. Daughter awaiting visit from Dr. Lind to understand pt condition prior to making any discharge plans. Discussed with PT, PT is recommending Home Care. Case Management d/c poc: to be determined. Case Management to follow. Date Signed: 04/11/2018 11:44 AM Electronically Signed By:Svetlana Arias RN [facility] CM Progress Note CM Note CM Note Notes: 04/11/2018 Case Management Note Met w/pt to discuss d/c plan. Pt deferred hospice agency choice to daughter. Phone call to Fern [phone]. Fern prefers [facility]. Faxed updates on all scripts to [facility]. Left VM with liason to arrange meeting with pt and daughter. Anticipating d/c tomorrow after equipment is delivered to [facility]. Notified [place]. Willing to accept pt back. Case Management d/c poc: [facility] at [facility]. Case Management to follow. Date Signed: 04/11/2018 01:30 PM Electronically Signed By:Svetlana Arias RN [facility] CM Progress Note CM Note CM Note Notes: 04/11/2018 Case Management Note Phone call from [facility]. Meeting with daughter and patient set for tonight at 1800. [facility] to deliver equipment tomorrow if needed. [facility] head of visual merchandising to meet pt and daughter at [facility] at 1400 on Tuesday. Case Management d/c poc: [facility] at [facility] Case Management to follow. Date Signed: 04/11/2018 03:12 PM Electronically Signed By:Svetlana Arias RN Case Management Discharge Plan Note Case Management Discharge Discharge Order Complete? Answers: Yes Patient to Obtain Answers: via Family Medications Transportation Arranged Answers: Family/Friends Transport will Pick (Date 04/12/2018 01:30 PM & Time) Faxed Final Orders Answers: Yes Agency/Facility Transfer Answers: Yes Report Printed & Faxed to Receiving Agency Family Notified Answers: Yes Notes: dtr in rounds Discharge Comments Notes: Discussed pt during rounds and spoke with dtr. [facility] is arranging for home O2 to be delivered by noon, so that dtr can bring it to the hospital and transport pt home in time for 14:00 meeting with [facility] RN. No further CM needs noted at this time. CM available should needs change. Date Signed: 04/12/2018 11:55 AM Electronically Signed By:France Kauffman Intervention Information
== END 2018-04-12 13:41 | disposition hospice, home (50) | DRG 812 ==
LOC: F2W 23:22
PROVIDERS: ADMIT Internal Medicine; ATTEND Internal Medicine
DX: D46.9 Myelodysplastic syndrome, unspecified (principal); C95.90 Leukemia, unspecified not having achieved remission; I31.3 Pericardial effusion (noninflammatory); R31.9 Hematuria, unspecified; R33.9 Retention of urine, unspecified; D50.0 Iron deficiency anemia secondary to blood loss (chronic); I11.0 Hypertensive heart disease with heart failure; I50.42 Chronic combined systolic (congestive) and diastolic (congestive) heart failure; E03.9 Hypothyroidism, unspecified; M10.9 Gout, unspecified; F32.9 Major depressive disorder, single episode, unspecified; Z87.891 Personal history of nicotine dependence; Z85.46 Personal history of malignant neoplasm of prostate; Z86.718 Personal history of other venous thrombosis and embolism; Z99.3 Dependence on wheelchair; Z96.653 Presence of artificial knee joint, bilateral; Z66 Do not resuscitate
CPT/HCPCS: 96374; 97161-GP; G8978-GP-CJ; G8979-GP-CI; J1642; J1940; J2270; J2405; P9016; P9037; P9040